=== PATIENT | male | born 1940 | race Caucasian/White ===

== ENCOUNTER → 2016-11-25 | Outpatient (CLI) | payer MEDICARE ==
[~2016-11-25] MED LIST: ENALAPRIL; MEPE50TA PO; MTH10T PO; SYNTHROID
[2016-11-25 08:54] LABS: BASOPHILS % (AUTO) 0 % (0-10); EOSINOPHILS # (AUTO) 0.1 10^3/uL (0.0-0.3); EOSINOPHILS % (AUTO) 1 % (0-10); LYMPHOCYTES # (AUTO) 3.2 X 10^3 (1.0-4.0); LYMPHOCYTES % (AUTO) 24 % (12-44); MEAN CORPUSCULAR HEMOGLOBIN 25 PG (25-34); MEAN CORPUSCULAR HGB CONC 31 G/DL (32-36); MEAN CORPUSCULAR VOLUME 81 FL (80-99); MONOCYTES # (AUTO) 0.8 X 10^3 (0.0-1.0); MONOCYTES % (AUTO) 6 % (0-12); NEUTROPHILS # (AUTO) 9.4 X 10^3 (1.8-7.8); NEUTROPHILS % (AUTO) 69 % (42-75); PATH WILL NEED TO REVIEW SMEAR PATH TO REVIEW; PLATELET COUNT 312 10^3/uL (130-400); RED BLOOD COUNT 4.81 10^6/uL (4.35-5.85); RED CELL DISTRIBUTION WIDTH 17.8 % (10.0-14.5); RETICULOCYTE % 1.41 % (0.50-2.40); WHITE BLOOD COUNT 13.5 10^3/uL (4.3-11.0)
[2016-11-25 09:24] LABS: ANISOCYTOSIS SLIGHT; ATYPICAL LYMPHOCYTES 1 %; BAND NEUTROPHILS 3 %; BASOPHILS % (MANUAL) 0 %; EOSINOPHILS % (MANUAL) 0 %; LYMPHOCYTES % (MANUAL) 29 %; NEUTROPHILS % (MANUAL) 63 %
[2016-11-25 09:25] LABS: MEAN PLATELET VOLUME 11.2 FL (7.4-10.4)
== END ==
LOC: LAB 08:37
PROVIDERS: ATTEND Nurse Practitioner Family
DX: D72.829 Elevated white blood cell count, unspecified (principal)
CPT/HCPCS: 36415; 85007; 85027; 85045

== ENCOUNTER 2017-01-03 13:53 | Emergency (ER) | payer MEDICARE ==
[~2017-01-03] VITALS: Ht 180.3 cm; Wt 90.7 kg
[2017-01-03] MEDS ORDERED: NS IV 1000 ML 1,000 ML IV SCH (14:45)
[2017-01-03] MEDS ORDERED: fentaNYL INJECTION 250 MCG/5 ML AMP IVP ONE (14:45)
[2017-01-03] MEDS ORDERED: ONDANSETRON 4 MG/2 ML (SDV) Z0FRAN IVP ONE (14:45)
[2017-01-03 14:51] LABS: BASOPHILS % (AUTO) 0 % (0-10); EOSINOPHILS # (AUTO) 0.1 10^3/uL (0.0-0.3); EOSINOPHILS % (AUTO) 1 % (0-10); LYMPHOCYTES # (AUTO) 2.7 X 10^3 (1.0-4.0); LYMPHOCYTES % (AUTO) 20 % (12-44); MEAN CORPUSCULAR HEMOGLOBIN 26 PG (25-34); MEAN CORPUSCULAR HGB CONC 31 G/DL (32-36); MEAN CORPUSCULAR VOLUME 82 FL (80-99); MEAN PLATELET VOLUME 11.6 FL (7.4-10.4); MONOCYTES # (AUTO) 0.7 X 10^3 (0.0-1.0); MONOCYTES % (AUTO) 6 % (0-12); NEUTROPHILS # (AUTO) 9.8 X 10^3 (1.8-7.8); NEUTROPHILS % (AUTO) 74 % (42-75); PLATELET COUNT 334 10^3/uL (130-400); RED BLOOD COUNT 4.99 10^6/uL (4.35-5.85); RED CELL DISTRIBUTION WIDTH 16.4 % (10.0-14.5); WHITE BLOOD COUNT 13.3 10^3/uL (4.3-11.0)
[2017-01-03] MEDS ORDERED: fentaNYL INJECTION 100 MCG/2 ML AMP IVP PRN (15:00)
[2017-01-03] MEDS ORDERED: ANTACID SUSP 30 ML UDC (MYLANTA) PO ONE (15:00)
[2017-01-03] MEDS ORDERED: LIDOCAINE 2% VISCOUS 15 ML UDC PO ONE (15:00)
--- NOTE | 2017-01-03 15:00 | ED Abdominal Pain ---
General Chief Complaint: Abdominal/GI Problems Stated Complaint: VOMITING/SHAKINESS Nursing Triage Note: ONSET OF ABD PAIN AND VOMITING AFTER EATING LUNCH. FAMILY REPORT HE WAS SHAKING WHEN ONSET. Sepsis Screen: No Definite Risk Source of Information: Patient, Family History of Present Illness Time Seen By Provider: 14:56 Initial Comments 76-year-old male presents with a history of severe epigastric pain after eating fruit shortly prior to presentation to the emergency department. The patient had forceful retching that lasted 15 minutes. He has subsequently developed severe epigastric pain. The patient has had no similar episode in the past. The patient was treated at home with 2 Benadryl orally. There is been no significant improvement in his epigastric pain which radiates into his neck. Past medical history includes fibromyalgia for which the patient is on methadone maintenance. The patient's pain is severe in nature sharp, and radiates from the epigastric area into his throat. There is no significant associated shortness of breath, pressure-type chest pain , fever or chill. Allergies and Home Medications Allergies Coded Allergies: No Known Drug Allergies (Unverified , 02/20/12) Home Medications Methadone Hcl 10 Mg Tab, 1 TAB PO BID, #20 (Reported) Review of Systems Constitutional: No chills, No fever EENTM: No Blurred Vision Cardiovascular: Denies Chest Pain Gastrointestinal: Abdominal Pain, Denies Constipated, Nausea, Vomiting Genitourinary: Denies Burning, Denies Frequency Musculoskeletal: No back pain Skin: No change in color, No rash Psychiatric/Neurological: No Symptoms Reported Endocrine: No Symptoms Reported Hematologic/Lymphatic: No Symptoms Reported Past Gpxmiit-Vuycdg-Tlfjum Hx Patient Social History Alcohol Use: Denies Use Recreational Drug Use: No Recent Foreign Travel: No Contact w/Someone Who Travel: No Recent Infectious Disease Expo: No Musculoskeletal Musculoskeletal Disorders: Fibromyalgia Reviewed Nursing Assessment Reviewed/Agree w Nursing PMH: Yes Physical Exam Vital Signs VS - Last 72 Hours, by Label 01/03/17 13:57 Temp 97.6 Pulse 85 Resp 18 B/P (MAP) 179/99 Capillary Refill : Less Than 3 Seconds General Appearance: WD/WN, moderate distress HEENT: normal ENT inspection Neck: normal inspection Respiratory: lungs clear, normal breath sounds, no respiratory distress Cardiovascular: regular rate, rhythm, systolic murmur (3/6 systolic murmur heard at the apex radiating to the right second intercostal space suggestive of aortic stenosis.) Gastrointestinal: abnormal bowel sounds, guarding, rebound (hypoactive bowel sounds glass will rebound in the epigastric area) Extremities: normal range of motion, non-tender Back: normal inspection Neurologic/Psychiatric: no motor/sensory deficits, alert, normal mood/affect Skin: normal color, warm/dry Progress/Results/Core Measures Results/Orders Lab Results Laboratory Tests Test 01/03/17 14:15 Range/Units White Blood Count 13.3 H 4.3-11.0 10^3/uL Red Blood Count 4.99 4.35-5.85 10^6/uL Hemoglobin 12.8 L 13.3-17.7 G/DL Hematocrit 41 40-54 % Mean Corpuscular Volume 82 80-99 FL Mean Corpuscular Hemoglobin 26 25-34 PG Mean Corpuscular Hemoglobin Concent 31 L 32-36 G/DL Red Cell Distribution Width 16.4 H 10.0-14.5 % Platelet Count 334 130-400 10^3/uL Mean Platelet Volume 11.6 H 7.4-10.4 FL Neutrophils (%) (Auto) 74 42-75 % Lymphocytes (%) (Auto) 20 12-44 % Monocytes (%) (Auto) 6 0-12 % Eosinophils (%) (Auto) 1 0-10 % Basophils (%) (Auto) 0 0-10 % Neutrophils # (Auto) 9.8 H 1.8-7.8 X 10^3 Lymphocytes # (Auto) 2.7 1.0-4.0 X 10^3 Monocytes # (Auto) 0.7 0.0-1.0 X 10^3 Eosinophils # (Auto) 0.1 0.0-0.3 10^3/uL Basophils # (Auto) 0.0 0.0-0.1 10^3/uL Sodium Level 140 135-145 MMOL/L Potassium Level 4.0 3.6-5.0 MMOL/L Chloride Level 104 98-107 MMOL/L Carbon Dioxide Level 22 21-32 MMOL/L Anion Gap 14 5-14 MMOL/L Blood Urea Nitrogen 16 7-18 MG/DL Creatinine 1.14 0.60-1.30 MG/DL Estimat Glomerular Filtration Rate > 60 BUN/Creatinine Ratio 14 0-20 Glucose Level 216 H 70-105 MG/DL Calcium Level 10.0 8.5-10.1 MG/DL Total Bilirubin 0.5 0.1-1.0 MG/DL Aspartate Amino Transf (AST/SGOT) 12 5-34 U/L Alanine Aminotransferase (ALT/SGPT) 8 0-55 U/L Alkaline Phosphatase 70 40-136 U/L Troponin I < 0.30 <0.30 NG/ML Total Protein 7.3 6.4-8.2 GM/DL Albumin 4.2 3.2-4.5 GM/DL Lipase 16 8-78 U/L My Orders Orders - SALVATORE GRAHAM MD Ns Iv 1000 Ml (Sodium Chloride 0.9%) (01/03/17 14:45) Ondansetron Injection (Zofran Injectio (01/03/17 14:45) Cbc With Automated Diff (01/03/17 14:44) Comprehensive Metabolic Panel (01/03/17 14:44) Lipase (01/03/17 14:44) Ekg Tracing (01/03/17 14:44) Troponin I (01/03/17 14:44) Ct Abdomen/Pelvis W (01/03/17 14:44) Fentanyl Injection (Sublimaze Injection (01/03/17 15:00) Lidocaine 2% Viscous 15 Ml (Xylocaine Vi (01/03/17 15:00) Antacid Suspension (Mylanta Suspension (01/03/17 15:00) Iohexol Injection (Omnipaque 350 Mg/Ml 1 (01/03/17 15:45) Ns (Ivpb) (Sodium Chloride 0.9% Ivpb Bag (01/03/17 15:45) Hydromorphone Injection (Dilaudid Inject (01/03/17 17:00) Prochlorperazine Injection (Compazine In (01/03/17 17:00) Diphenhydramine Injection (Benadryl Inje (01/03/17 17:00) Medications Given in ED Current Medications Medications Dose Ordered Sig/Walker Route Start Time Stop Time Status Last Admin Dose Admin Al Hydrox/Mg Hydrox/Simethicone 30 ml ONCE ONCE PO 01/03/17 15:00 01/03/17 15:02 DC 01/03/17 15:12 30 ML Diphenhydramine HCl 25 mg ONCE ONCE IM 01/03/17 17:00 01/03/17 17:01 DC 01/03/17 17:05 25 MG Fentanyl Citrate 100 mcg Q1H PRN IVP 01/03/17 15:00 01/03/17 14:56 100 MCG Hydromorphone HCl 1 mg ONCE ONCE IVP 01/03/17 17:00 01/03/17 17:01 DC 01/03/17 17:04 1 MG Iohexol 100 ml ONCE ONCE IV 01/03/17 15:45 01/03/17 15:46 DC 01/03/17 15:48 100 ML Lidocaine HCl 5 ml ONCE ONCE PO 01/03/17 15:00 01/03/17 15:02 DC 01/03/17 15:09 5 ML Ondansetron HCl 4 mg ONCE ONCE IVP 01/03/17 14:45 01/03/17 14:47 DC 01/03/17 14:55 4 MG Prochlorperazine Edisylate 10 mg ONCE ONCE IV 01/03/17 17:00 01/03/17 17:01 DC 01/03/17 17:00 10 MG Sodium Chloride 100 ml ONCE ONCE IV 01/03/17 15:45 01/03/17 15:46 DC 01/03/17 15:48 80 ML Vital Signs/I&O Vital Sign - Last 12Hours 01/03/17 13:57 Temp 97.6 Pulse 85 Resp 18 B/P (MAP) 179/99 Blood Pressure Mean: 125 Progress Note : Time: 16:59 Progress Note The patient was treated with IV Zofran and fentanyl. He was given a GI cocktail. Patient's pain seemed to improve. CT of the patient's abdomen and pelvis films reveal evidence of acute pathology. Patient's laboratory evaluation including CBC complete metabolic panel and lipase were all unremarkable. 5:00 pm I reevaluated the patient. Although he appeared to be resting quietly he stated that he still had significant pain. The patient had taken his methadone tablets from home in the emergency department. Patient was given a milligram of Dilaudid, 10 of Compazine, and 25 mg of Benadryl IV. 530 p.m. The patient's abdominal pain clearly abated. He was sleeping quietly in the emergency department. He has had no further vomiting since arrival in the emergency department. I discussed the findings with the patient and his family. I invited them to return to the emergency department if any further abdominal pain. I gave the patient a prescription for ODT 4 mg Zofran 12 tablets at discharge. I asked patient follow up with his primary care physician on Thursday for further evaluation. Departure Impression Impression: Primary Impression: Vomiting Qualified Codes: R11.2 - Nausea with vomiting, unspecified Additional Impression: Gastritis Qualified Codes: K29.00 - Acute gastritis without bleeding Disposition: HOME, SELF-CARE Condition: Improved Departure-Patient Inst. Decision time for Depature: 17:29 Referrals: ROLF BRISENO MD (PCP/Family) Primary Care Physician Add. Discharge Instructions: Zofran for nausea if it recurs. Continue with your medications at home as prescribed. Close follow-up with Dr. Briseno on Thursday. Return if any problems or questions over the weekend. All discharge instructions reviewed with patient and/or family. Voiced understanding. SALVATORE GRAHAM MD Jan 03, 2017 15:00
[2017-01-03 15:05] LABS: ALANINE AMINOTRANSFERASE 8 U/L (0-55); ALBUMIN 4.2 GM/DL (3.2-4.5); ANION GAP 14 MMOL/L (5-14); ASPARTATE AMINO TRANSFERASE 12 U/L (5-34); BILIRUBIN,TOTAL 0.5 MG/DL (0.1-1.0); BLOOD UREA NITROGEN 16 MG/DL (7-18); BUN/CREATININE RATIO 14 (0-20); CARBON DIOXIDE 22 MMOL/L (21-32); CHLORIDE 104 MMOL/L (98-107); CREATININE SERUM 1.14 MG/DL (0.60-1.30); GFR ESTIMATED > 60; GLUCOSE 216 MG/DL (70-105); HEMOLYSIS 6 (-100-29); ICTERUS 0.4 (-100-1.9); LIPASE 16 U/L (8-78); LIPEMIA 7 (-100-49); SODIUM 140 MMOL/L (135-145); TOTAL PROTEIN 7.3 GM/DL (6.4-8.2)
[2017-01-03 15:11] LABS: TROPONIN I < 0.30 NG/ML (<0.30)
[2017-01-03] MEDS ORDERED: IOHEXOL 350 MG/ML 100 ML (OMNIPAQUE 350) VIAL IV ONE (15:45)
[2017-01-03] MEDS ORDERED: NS 100 ML (IVPB) BAG IV ONE (15:45)
--- NOTE | 2017-01-03 16:34 | Diagnostic Imaging Report ---
PROCEDURE: CT abdomen and pelvis with contrast. TECHNIQUE: Multiple contiguous axial images were obtained through the abdomen and pelvis after administration of intravenous contrast. INDICATION: Abdominal pain, weakness. COMPARISON: None. FINDINGS: Lung bases are clear. There is some fatty alteration of the liver. The gallbladder, spleen, pancreas, adrenal glands, kidneys and vascular structures are unremarkable. There are a few nonobstructive stones in both kidneys, with right kidney upper pole stone measuring 3-5 mm. There is no inflammation. The appendix is normal. Course and caliber of the large and small bowel are unremarkable. There are a few diverticuli of the sigmoid colon without diverticulitis. Distal ureters and urinary bladder are normal. Osseous structures are age-appropriate. IMPRESSION: 1. No acute abnormalities within the abdomen or pelvis. 2. Diverticulosis of the sigmoid colon without diverticulitis. 3. Normal appendix. 4. Nonobstructive bilateral renal calculi. Dictated by: Dictated on workstation # [id number]
[2017-01-03] MEDS ORDERED: HYDROmorphone (DILAUDID) 2 MG/ML VIAL IVP ONE (17:00)
[2017-01-03] MEDS ORDERED: PROCHLORPERAZINE 10 MG/2ML INJ (COMPAZINE) IV ONE (17:00)
[2017-01-03] MEDS ORDERED: diphenhydrAMINE 50 MG/ML INJ (BENADRYL) IM ONE (17:00)
[2017-01-03 17:35] VITALS: BP 147/81
== END 2017-01-03 17:38 | disposition home or self-care (01) ==
LOC: EDUNIT# 13:53 → ER 13:54
DX: K29.70 Gastritis, unspecified, without bleeding (principal)
CPT/HCPCS: 36415; 74177; 80053; 83690; 84484; 85025; 93005

== ENCOUNTER → 2017-09-28 | Outpatient (CLI) | payer MEDICARE ==
--- NOTE | 2017-09-28 08:50 | Diagnostic Imaging Report ---
PROCEDURE: US Gallbladder. TECHNIQUE: Multiple real-time grayscale images were obtained over the right upper quadrant in various projections. INDICATION: Gallstones COMPARISON: None FINDINGS: There is diffuse hepatic steatosis. No focal hepatic mass is seen. There is no biliary dilatation. The common bile duct, however, is not well demonstrated. There are multiple gallstones in the gallbladder. There is also some ring down artifact from the gallbladder wall likely related to adenomyomatosis. There is no gallbladder wall thickening or a pericholecystic fluid. No sonographic Casanova sign. The pancreas is not well seen. The right kidney measures 11.1 cm in length. There is a small right renal cyst. There is no obstructive change. There is no ascites. IMPRESSION: 1. Cholelithiasis and adenomyomatosis without evidence of cholecystitis. 2. Small right renal cyst 3. Diffuse hepatic steatosis. 4. No additional abnormality is seen. Limited visualization of the common bile duct and the pancreas. Dictated by: Dictated on workstation # [id number]
== END ==
LOC: RAD 07:28
PROVIDERS: ATTEND Surgery
DX: K80.20 Calculus of gallbladder without cholecystitis without obstruction (principal); K82.8 Other specified diseases of gallbladder; N28.1 Cyst of kidney, acquired; K76.0 Fatty (change of) liver, not elsewhere classified
CPT/HCPCS: 76705

== ENCOUNTER → 2017-10-05 | Outpatient (CLI) | payer MEDICARE ==
[~2017-10-05] MED LIST changes: +CATHETER FLUSH 10 ML SYR IV PRN; +REGADENOSON 0.4 MG/5 ML SYR (LEXISCAN) IV ONE
[2017-10-05 09:50] VITALS: BP 152/99
--- NOTE | 2017-10-05 18:49 | STRESS TEST ---
DATE OF SERVICE: 10/05/2017 LEXISCAN MYOVIEW STRESS TEST REPORT REFERRING PHYSICIAN: Dr. Briseno. Baseline heart rate is 73, baseline blood pressure 166/93. Baseline EKG is sinus rhythm with no ischemic changes. In summary, the patient received 10.79 mCi of technetium-99 Myoview and the resting images were obtained. Then, the patient received 0.4 mg of Lexiscan followed by 31.5 mCi of technetium-99 Myoview. Throughout the test, there were no EKG changes. The resting and stress images were reviewed and compared in the short axis, horizontal long axis, and vertical long axis views. Review of the images showed some motion artifact with no significant ischemia or infarction. SSS is 1. SDS 1. TID value 1.03. On the gated images, the left ventricle appeared to be in normal size with normal contractility. Calculated ejection fraction 59%. CONCLUSION: 1. The patient tolerated Lexiscan well. 2. Motion artifact with diaphragmatic attenuation with no significant ischemia or infarction on SPECT images. 3. Normal left ventricular size with normal contractility. Calculated ejection fraction 59%. Job ID: [id number] DocumentID: [id number] Dictated Date: 10/05/2017 16:26:51 Commercial Sales Consultant Date: 10/05/2017 18:48:22 Dictated By: NITIN VILLAREAL MD
== END ==
LOC: CARD 07:57
PROVIDERS: ATTEND Internal Medicine Cardiovascular Disease
DX: I35.1 Nonrheumatic aortic (valve) insufficiency (principal); I35.0 Nonrheumatic aortic (valve) stenosis; I11.9 Hypertensive heart disease without heart failure; I51.7 Cardiomegaly; Z72.0 Tobacco use
CPT/HCPCS: 78452; 93017

== ENCOUNTER 2017-10-16 05:37 | Outpatient (CLI) | payer MEDICARE ==
[~2017-10-16] VITALS: Ht 180.3 cm; Wt 90.7 kg
[~2017-10-16 05:37] MED LIST changes: -CATHETER FLUSH 10 ML SYR IV PRN; -REGADENOSON 0.4 MG/5 ML SYR (LEXISCAN) IV ONE
[2017-10-16] MEDS ORDERED: MULT-1056 PO (10:54)
[2017-10-16] MEDS ORDERED: METO-387 PO (10:54)
[2017-10-16] MEDS ORDERED: ENAL10TA PO (10:54)
[2017-10-16] MEDS ORDERED: ASPI-586 PO (10:54)
[2017-10-16] MEDS ORDERED: METH10TA2 PO (10:58)
== END 2017-10-16 11:56 ==
LOC: PREOP 05:37
PROVIDERS: ATTEND Surgery
DX: Z01.818 Encounter for other preprocedural examination (principal); K80.20 Calculus of gallbladder without cholecystitis without obstruction

== ENCOUNTER 2017-10-21 07:45 | Day surgery (SDC) | payer MEDICARE ==
[~2017-10-21] VITALS: Ht 180.3 cm; Wt 90.7 kg
[~2017-10-21 07:45] MED LIST changes: +ASPI-586 PO; +ENAL10TA PO; +METH10TA2 PO; +METO-387 PO; +MULT-1056 PO
[2017-10-21] MEDS ORDERED: LACTATED RINGERS 1,000 ML IV PRN (07:56)
[2017-10-21] MEDS ORDERED: metroNIDAZOLE 500MG/100ML IVPB 100 ML IV ONE (08:00)
[2017-10-21] MEDS ORDERED: ceFAZolin 2 GM IV Premixed 50 ML IV ONE (08:00)
[2017-10-21 08:27] LABS: BASOPHILS % (AUTO) 0 % (0-10); EOSINOPHILS # (AUTO) 0.2 10^3/uL (0.0-0.3); EOSINOPHILS % (AUTO) 1 % (0-10); HEMATOCRIT 42 % (40-54); HEMOGLOBIN 13.6 G/DL (13.3-17.7); LYMPHOCYTES # (AUTO) 3.6 X 10^3 (1.0-4.0); LYMPHOCYTES % (AUTO) 27 % (12-44); MEAN CORPUSCULAR HEMOGLOBIN 28 PG (25-34); MEAN CORPUSCULAR HGB CONC 33 G/DL (32-36); MEAN CORPUSCULAR VOLUME 86 FL (80-99); MEAN PLATELET VOLUME 11.5 FL (7.4-10.4); MONOCYTES # (AUTO) 1.1 X 10^3 (0.0-1.0); MONOCYTES % (AUTO) 8 % (0-12); NEUTROPHILS # (AUTO) 8.6 X 10^3 (1.8-7.8); NEUTROPHILS % (AUTO) 64 % (42-75); PLATELET COUNT 303 10^3/uL (130-400); RED CELL DISTRIBUTION WIDTH 15.5 % (10.0-14.5); WHITE BLOOD COUNT 13.5 10^3/uL (4.3-11.0)
[2017-10-21 08:33] VITALS: BP 167/82
--- NOTE | 2017-10-21 08:50 | Progress Note-Pre Operative ---
Pre-Operative Progress Note H&P Reviewed The H&P was reviewed, patient examined and no changes noted. Date Seen by Provider: Sep 24, 2017 Time Seen by Provider: 11:20 Date H&P Reviewed: Oct 21, 2017 Time H&P Reviewed: 08:50 Pre-Operative Diagnosis: Gallstones BLANK LLANOS MD Oct 21, 2017 8:50 am
[2017-10-21 08:51] LABS: ALANINE AMINOTRANSFERASE 10 U/L (0-55); ALBUMIN 4.3 GM/DL (3.2-4.5); ALKALINE PHOSPHATASE 67 U/L (40-136); BILIRUBIN,TOTAL 0.4 MG/DL (0.1-1.0); BUN/CREATININE RATIO 21; CARBON DIOXIDE 28 MMOL/L (21-32); CHLORIDE 106 MMOL/L (98-107); CREATININE SERUM 1.02 MG/DL (0.60-1.30); GFR ESTIMATED > 60; GLUCOSE 101 MG/DL (70-105); POTASSIUM 4.1 MMOL/L (3.6-5.0); SODIUM 141 MMOL/L (135-145)
[2017-10-21] MEDS ORDERED: LIDOCAINE PF 2% 5 ML (XYLOCAINE) VIAL ONE (08:53)
[2017-10-21] MEDS ORDERED: fentaNYL INJECTION 100 MCG/2 ML AMP ONE (08:53)
[2017-10-21] MEDS ORDERED: MIDAZOLAM 2 MG/2 ML (VERSED) VIAL ONE (08:53)
[2017-10-21] MEDS ORDERED: ONDANSETRON 4 MG/2 ML (SDV) Z0FRAN ONE (08:53)
[2017-10-21] MEDS ORDERED: proPOfol 200 MG/20 ML (DIPRIVAN) VIAL IV ONE (08:53)
[2017-10-21] MEDS ORDERED: ROCURONIUM 10 MG/ML 5 ML SYRINGE IV ONE (08:53)
[2017-10-21] MEDS ORDERED: DEXAMETHASONE 10 MG/ML (DECADRON) 1 ML VIAL ONE (08:53)
[2017-10-21] MEDS ORDERED: BUP/EPI 0.5% 1:200,000 (SENSORCAINE) 30 ML VIAL ONE (08:56)
[2017-10-21] MEDS ORDERED: SEVOFLURANE (ULTANE) 15 ML INHAL SOLN ONE ×5 (09:03→10:36)
[2017-10-21] MEDS ORDERED: NEOSTIGMINE 1 MG/ML 5 ML SYRINGE ONE (09:03)
[2017-10-21] MEDS ORDERED: GLYCOPYRROLATE 0.2 MG/ML (ROBINUL) 2 ML VIAL ONE (09:03)
[2017-10-21] MEDS: LACTATED RINGERS 1,000 ML IV PRN ×2 (10:07→13:34)
--- NOTE | 2017-10-21 11:02 | Operative Report ---
Operative Report Date of Procedure/Surgery Oct 21, 2017 Surgeon (s) BLANK LLANOS MD [employer] Member (s): n/a Post-Operative Diagnosis Same Procedure Performed Robotic assisted cholecystectomy Intra-operative cholangiogram Description of Procedure Anesthesia Type: General Estimated blood loss (mL): Minimal Specimen(s) collected/removed Gallbladder with stones Description of the Procedure Indication for the procedure: This gentleman was found to have multiple gallstones on an echocardiogram, subsequently confirmed by a formal ultrasound of the gallbladder. He was offered cholecystectomy with cholangiogram, using minimally invasive technique with robotic assistance. Informed consent was obtained after reviewing the operative details Description of procedure: He was placed supine on the operative table and general anesthesia induced. 2 g of Ancef and 500 mg of Flagyl were administered intravenously as prophylaxis against wound infection. Sequential compression devices were placed around his legs, to minimize the risk of venous thrombosis. Abdomen was prepared and draped in the usual sterile manner. Pneumoperitoneum was established using a Veress needle introduced over the supra-umbilical region. Intra-abdominal pressure was maintained at 15 mmHg using carbon dioxide insufflation. A 12 mm trocar was placed and anatomy visualized using the high definition, 3-dimensional laparoscope, associated with da Gaviota system. Under direct view, I placed an 8 mm trocar over each side of the abdomen, followed by a 5 mm trocar over the left subcostal region. The patient was then turned into reverse Trendelenburg position, with the right side tilted up. The robotic system was then docked in place. Gallbladder appeared to be packed with stones. The fundus was retracted cephalad and the infundibulum grasped with Cadiere forceps. Peritoneum overlying Calot"s triangle was incised using the hook cautery, delineating the cystic duct and the artery. The former was rather wide. Cholangiogram was obtained using taut catheter. It revealed normal anatomy with slight dilatation of the common bile duct. However, there was no stone within the duct and the contrast flowed freely into the duodenum. The catheter was then removed and the cystic duct controlled using locking clips. Cystic artery was managed in a similar fashion. Cholecystectomy was then completed using the hook cautery. Subhepatic space was irrigated with saline and the gallbladder placed in an Endo Catch bag, being removed via the supraumbilical trocar site. The fascia over this incision was closed using #1 Vicryl. Skin incisions were closed using 4-0 Vicryl, in a subcuticular fashion. 0.5 percent Marcaine with epinephrine was infiltrated along the incisions, both preemptively and at the conclusion of the operation. He tolerated the procedure well, was extubated in the operating room and taken to the recovery room in a stable condition. Findings of the Procedure See op report Allergies and Home Medications Allergies Coded Allergies: No Known Drug Allergies (Unverified , 02/20/12) Home Medications Aspirin 81 Mg Tablet.dr, 81 MG PO DAILY, (Reported) Enalapril Maleate 10 Mg Tablet, 10 MG PO DAILY, (Reported) Methadone HCl 10 Mg Tablet, 20 MG PO TID, (Reported) take 2 (10mg) tabs Metoprolol Succinate 25 Mg Tab.er.24h, 25 MG PO HS, (Reported) Multivit-Min/FA/Lycopen/Lutein 1 Each Tablet, 1 TAB PO DAILY, (Reported) Patient Home Medication List Home Medication List Reviewed: Yes BLANK LLANOS MD Oct 21, 2017 11:02 am
[2017-10-21] MEDS ORDERED: ACHD5005 PO (11:03)
--- NOTE | 2017-10-21 11:04 | Discharge Inst-Simple/Standard ---
Discharge Inst-Standard Discharge Medications New, Converted or Re-Newed RX: RX on Chart Patient Instructions/Follow Up Plan of Care/Instructions/FU: Band-Aids off in 48 hours. Incentive spirometry. Follow-up in 3 weeks. Activity as Tolerated: Yes Discharge Diet: No Restrictions BLANK LLANOS MD Oct 21, 2017 11:03 am
[2017-10-21] MEDS: HYDROmorphone (DILAUDID) 2 MG/ML VIAL IVP PRN ×4 (11:07→11:32)
[2017-10-21] MEDS ORDERED: HYDROmorphone (DILAUDID) 2 MG/ML VIAL ONE (11:07)
[2017-10-21] MEDS ORDERED: morphine INJ 10 MG/ML 1ML (SYR OR VIAL) ONE (11:08)
[2017-10-21] MEDS ORDERED: ONDANSETRON 4 MG/2 ML (SDV) Z0FRAN IVP PRN (11:15)
[2017-10-21] MEDS: morphine INJ 10 MG/ML 1ML (SYR OR VIAL) IVP PRN ×2 (11:16→11:30)
[2017-10-21 12:00] VITALS: BP 172/73
--- NOTE | 2017-10-21 12:07 | Diagnostic Imaging Report ---
Procedure: Fluoroscopy. Indication: Abdominal pain. 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 25.6 seconds of fluoroscopy time was utilized. Four spot films of the right upper quadrant were received from the OR. There are laparoscopic devices in place. The common bile duct has been opacified via a cystic duct catheter., The common bile duct is slightly dilated but there is no defect to suggest retained calculus. Contrast is seen extending into the small bowel. There is extravasation of contrast into the gallbladder fossa. Impression: 1. Fluoroscopic assistance was provided for Dr. Langston. 2. There is no defect within the common bile duct to suggest retained calculus. Dictated by: Dictated on workstation # [id number]
[2017-10-21] MEDS ORDERED: HYDROcodone/APAP 5 MG/325 MG (LORTAB) TAB PO ONE (12:15)
[2017-10-21 12:30] VITALS: BP 158/80
[2017-10-21 13:00] VITALS: BP 156/80
[2017-10-21] MEDS ORDERED: KETOROLAC 30 MG/ML VIAL ONE (13:28)
[2017-10-21] MEDS ORDERED: KETOROLAC 15 MG/ML VIAL IVP ONE (13:30)
[2017-10-21 14:22] VITALS: BP 156/80
--- NOTE | 2017-10-21 15:01 | Anesthesia-General Post-Op ---
General Patient Condition Mental Status/LOC: Same as Preop Cardiovascular: Satisfactory Nausea/Vomiting: Absent Respiratory: Satisfactory Pain: Controlled Complications: Absent Post Op Complications Complications None Follow Up Care/Instructions Patient Instructions None needed. Anesthesia/Patient Condition Patient Condition Patient is doing well, no complaints, stable vital signs, no apparent adverse anesthesia problems. No complications reported per nursing. ANDREA YEH CRNA Oct 21, 2017 15:01
== END 2017-10-21 14:24 | disposition home or self-care (01) ==
LOC: SDC 07:45
PROVIDERS: ATTEND Surgery
DX: K80.20 Calculus of gallbladder without cholecystitis without obstruction (principal); Z11.2 Encounter for screening for other bacterial diseases; F17.200 Nicotine dependence, unspecified, uncomplicated; Z79.82 Long term (current) use of aspirin; Z79.899 Other long term (current) drug therapy
CPT/HCPCS: 36415; 80053; 85025; 87081

== ENCOUNTER → 2018-03-24 | Outpatient (CLI) | payer MEDICARE ==
[~2018-03-24] MED LIST changes: +ACHD5005 PO; +ASPI-808 PO; +METR500T21 PO; +PANT40TA3 PO
== END ==
LOC: CARD 08:24
PROVIDERS: ATTEND Internal Medicine Cardiovascular Disease
DX: I08.3 Combined rheumatic disorders of mitral, aortic and tricuspid valves (principal); I51.7 Cardiomegaly; Z72.0 Tobacco use
CPT/HCPCS: 93306

== ENCOUNTER 2018-07-11 21:02 | Day surgery (SDC) | payer MEDICARE ==
[~2018-07-11] VITALS: Ht 180.3 cm; Wt 97.3 kg
[~2018-07-11 21:02] MED LIST changes: +METR-197 PO; -METR500T21 PO
[2018-07-11] MEDS ORDERED: NITROGLYCERIN 0.4 MG SL TABS BTL 25'S SL ONE (21:11)
[2018-07-11] MEDS ORDERED: ASPIRIN 81 MG CHEW (CHILDREN'S ASA) ONE (21:11)
[2018-07-11] MEDS ORDERED: NITROGLYCERIN 0.4 MG SL TABS BTL 25'S SL PRN (21:15)
[2018-07-11] MEDS ORDERED: ASPIRIN 81 MG CHEW (CHILDREN'S ASA) PO ONE (21:15)
--- NOTE | 2018-07-11 21:20 | ED Chest Pain ---
General Stated Complaint: CP Source: patient Exam Limitations: no limitations History of Present Illness Date Seen by Provider: Jul 11, 2018 Time Seen by Provider: 21:06 Initial Comments Patient presents to ER by private conveyance with chief complaint of 30 minutes prior to arrival having some chest pain in the center of his chest radiating to the left chest, left neck and all over his left shoulder but not through to the back. The pain is constant 5 out of 10 right now not worse with exertion. There is no shortness of breath nausea sweats chills fever or cough. He has no history of COPD or asthma or coronary disease that he knows of. He doesn't history of high blood pressure and when he checked it at home it was 200/100. He denies hypothyroidism, diabetes, hypercholesterolemia, pancreatitis or belly pain. Bowels bladder working normally. He has a history of systolic murmur that was worked up years ago by Dr. Walsh and is secondary to rheumatic fever when he was in his 20s. Allergies and Home Medications Allergies Coded Allergies: peanut (Verified Allergy, Unknown, 03/12/18) strawberry (Verified Allergy, Unknown, 03/12/18) Home Medications Enalapril Maleate 10 Mg Tablet, 10 MG PO DAILY, (Reported) Methadone HCl 10 Mg Tablet, 20 MG PO TID, (Reported) LAST FILLED #180 01-26-18 TAKES 2 (10MG) TABLETS Metoprolol Succinate 25 Mg Tab.er.24h, 25 MG PO HS, (Reported) LAST FILLED #90 10-01-17 Metronidazole 500 Mg Tablet, 500 MG PO TID Prescribed by: ROLF ALFARO on 03/17/181825 Pantoprazole Sodium 40 Mg Tablet.dr, 40 MG PO DAILY Prescribed by: ROLF ALFARO on 03/17/181825 Patient Home Medication List Home Medication List Reviewed: Yes Review of Systems Review of Systems Constitutional: No chills, No diaphoresis EENTM: No Blurred Vision, No Double Vision Respiratory: Denies Cough, Denies Shortness of Air, Denies SOA With Exertion, Denies SOA at Rest Cardiovascular: See HPI, Chest Pain; Denies Edema, Denies Lightheadedness, Denies Palpitations, Denies Syncope Gastrointestinal: Denies Abdominal Pain, Denies Blood Streaked Stools, Denies Constipated, Denies Diarrhea, Denies Nausea Genitourinary: Denies Burning, Denies Discharge Musculoskeletal: No back pain, No joint pain Skin: No pruritus, No rash Psychiatric/Neurological: Denies Headache, Denies Numbness Past Novhydy-Olhirm-Tfwfed Hx Patient Social History Alcohol Use: Denies Use Recreational Drug Use: No Smoking Status: Current Someday Smoker Type Used: Cigarettes (one pack per week) 2nd Hand Smoke Exposure: Yes Recent Hopitalizations: No Immunizations Up To Date Tetanus Booster (TDap): Unknown Date of Pneumonia Vaccine: Oct 16, 2014 Seasonal Allergies Seasonal Allergies: Yes Past Medical History Surgeries: Yes (r ing hernia, ) Gallbladder Respiratory: Yes Sleep Apnea Currently Using CPAP: No Cardiac: Yes (leaky valve) Heart Murmur, Hypertension Neurological: No Genitourinary: No Gastrointestinal: Yes Gall Bladder Disease Musculoskeletal: Yes Arthritis, Fibromyalgia Endocrine: No HEENT: No Cancer: No Psychosocial: No Integumentary: No Blood Disorders: No Adverse Reaction/Blood Tranf: No Family Medical History Hypertension Physical Exam Vital Signs Vital Signs - First Documented 07/11/18 21:04 Temp 97.8 Pulse 86 Resp 13 B/P (MAP) 185/101 (129) Pulse Ox 100 Capillary Refill : Height, Weight, BMI Height: 5'11.00" Weight: 215lbs. 0.0oz. 97.899202aa; 30.0 BMI Method:Stated General Appearance: No Apparent Distress, WD/WN HEENT: PERRL/EOMI, Normal ENT Inspection, Pharynx Normal, Moist Mucous Membranes Neck: Full Range of Motion, Normal Inspection, Supple Respiratory: Chest Non Tender, Lungs Clear, Normal Breath Sounds, No Accessory Muscle Use, No Respiratory Distress Cardiovascular: Regular Rate, Rhythm, No Edema, Normal Peripheral Pulses Gastrointestinal: Normal Bowel Sounds, Soft, Tenderness (mild, diffuse, baseline) Extremity: Normal Capillary Refill, Normal Inspection, Non Tender, No Pedal Edema Neurologic/Psychiatric: Alert, Oriented x3 Skin: Normal Color, Warm/Dry Progress/Results/Core Measures Results/Orders Lab Results Laboratory Tests Test 07/11/18 21:10 Range/Units White Blood Count 12.9 H 4.3-11.0 10^3/uL Red Blood Count 4.89 4.35-5.85 10^6/uL Hemoglobin 12.6 L 13.3-17.7 G/DL Hematocrit 40 40-54 % Mean Corpuscular Volume 82 80-99 FL Mean Corpuscular Hemoglobin 26 25-34 PG Mean Corpuscular Hemoglobin Concent 32 32-36 G/DL Red Cell Distribution Width 16.2 H 10.0-14.5 % Platelet Count 271 130-400 10^3/uL Mean Platelet Volume 11.8 H 7.4-10.4 FL Neutrophils (%) (Auto) 57 42-75 % Lymphocytes (%) (Auto) 29 12-44 % Monocytes (%) (Auto) 8 0-12 % Eosinophils (%) (Auto) 6 0-10 % Basophils (%) (Auto) 0 0-10 % Neutrophils # (Auto) 7.4 1.8-7.8 X 10^3 Lymphocytes # (Auto) 3.7 1.0-4.0 X 10^3 Monocytes # (Auto) 1.0 0.0-1.0 X 10^3 Eosinophils # (Auto) 0.8 H 0.0-0.3 10^3/uL Basophils # (Auto) 0.1 0.0-0.1 10^3/uL Prothrombin Time 12.5 12.2-14.7 SEC INR Comment 0.9 0.8-1.4 Activated Partial Thromboplast Time 29 24-35 SEC Sodium Level 139 135-145 MMOL/L Potassium Level 4.4 3.6-5.0 MMOL/L Chloride Level 105 98-107 MMOL/L Carbon Dioxide Level 21 21-32 MMOL/L Anion Gap 13 5-14 MMOL/L Blood Urea Nitrogen 21 H 7-18 MG/DL Creatinine 1.47 H 0.60-1.30 MG/DL Estimat Glomerular Filtration Rate 47 BUN/Creatinine Ratio 14 Glucose Level 142 H 70-105 MG/DL Calcium Level 9.9 8.5-10.1 MG/DL Corrected Calcium 9.5 8.5-10.1 MG/DL Magnesium Level 2.4 1.8-2.4 MG/DL Total Bilirubin 0.4 0.1-1.0 MG/DL Aspartate Amino Transf (AST/SGOT) 20 5-34 U/L Alanine Aminotransferase (ALT/SGPT) 11 0-55 U/L Alkaline Phosphatase 82 40-136 U/L Myoglobin 49.6 10.0-92.0 NG/ML Troponin I < 0.30 <0.30 NG/ML B-Type Natriuretic Peptide 45.5 <100.0 PG/ML Total Protein 7.6 6.4-8.2 GM/DL Albumin 4.5 3.2-4.5 GM/DL Lipase 31 8-78 U/L My Orders Orders - JOSE DANIEL ABAD Cbc With Automated Diff (07/11/18 21:12) Magnesium (07/11/18 21:12) Chest 1 View, Ap/Pa Only (07/11/18 21:12) Ekg Tracing (07/11/18 21:12) Cardiac Profile 1 (07/11/18 21:12) Comprehensive Metabolic Panel (07/11/18 21:12) Myoglobin Serum (07/11/18 21:12) Protime With Inr (07/11/18 21:12) Partial Thromboplastin Time (07/11/18 21:12) O2 (07/11/18 21:12) Monitor-Rhythm Ecg Trace Only (07/11/18 21:12) Lipid Panel (07/12/18 06:00) Aspirin Chewable Tablet (Baby Aspirin Ch (07/11/18 21:15) Nitroglycerin 0.4 Mg Btl 25's (Nitrostat (07/11/18 21:15) Saline Lock/Iv-Start (07/11/18 21:12) Lipase (07/11/18 21:12) BNP (07/11/18 21:12) Nitroglycerin 0.4 Mg Btl 25's (Nitrostat (07/11/18 21:11) Aspirin Chewable Tablet (Baby Aspirin Ch (07/11/18 21:11) Ns Iv 1000 Ml (Sodium Chloride 0.9%) (07/11/18 21:57) Medications Given in ED Current Medications Medications Dose Ordered Sig/Walker Route Start Time Stop Time Status Last Admin Dose Admin Aspirin 81 mg STK-MED ONCE .ROUTE 07/11/18 21:11 07/11/18 21:15 DC 07/11/18 21:17 81 MG Nitroglycerin 0.4 mg UD PRN SL 07/11/18 21:15 07/11/18 21:17 0.4 MG Vital Signs/I&O 07/11/18 21:04 Temp 97.8 Pulse 86 Resp 13 B/P (MAP) 185/101 (129) Pulse Ox 100 Progress Progress Note #1: Time: 21:21 Progress Note Initial EKG unrevealing of acute pathology. There are some Q waves which may indicate an old inferior infarct. Ahead and trial some nitroglycerin. Plan to give him a single tablet of aspirin since he took 3 tablets of aspirin on his way into the ER. We will be happy to use morphine if necessary to control his pain. Single dose of nitroglycerin significantly improved pain. March [address] Walsh demonstrates increased wall thickness of the left ventricle with concentric hypertrophy and EF of 55-65%. No regional wall motion abdomen mildly's identified. Moderate stenosis and regurgitation of the aortic valve. Aortic root is not dilated. ED ACS 22 points. Not low risk. This patient is not a candidate for early discharge and should receive a standard chest pain evaluation with delayed troponin testing. Progress Note #2: Time: 22:05 Progress Note Creatinine is marginally elevated from last visit almost to the level of an acute kidney injury. We will put a liter fluids through IV while he is waiting for results. The patient thinks that his symptoms are musculoskeletal however they are not reproducible on direct manipulation or range of motion exercises. After the single dose of nitroglycerin his blood pressures came down from over 200 systolic to 146/83. Initial ECG Impression Date: Jul 11, 2018 Initial ECG Impression Time: 21:09 Initial ECG Rate: 86 Initial ECG Rhythm: Normal Sinus Initial ECG Intervals: Normal (224) Initial ECG Impression: Nonspecific Changes (from pathologic Q waves seen in leads 2, 3 and aVF), 1st Degree AV Block Initial ECG Comparisson: Changed Comment The Q waves are not new from February 2018 however the first-degree AV block is changed. There is no ST segment elevation or depression noted. Diagnostic Imaging Diagonstic Imaging: Xray Plain Films/CT/US/NM/MRI: chest (1v) Comments No acute cardiopulmonary processes noted on one view chest x-ray. NAME: LE LAINEZ [facility] REC#: [id number] PT STATUS: REG ER : 1940 PHYSICIAN: JOSE DANIEL ABAD MD ADMIT DATE: 07/11/18/ER Draft Date of Exam:07/11/18 CHEST 1 VIEW, AP/PA ONLY INDICATION: Chest pain COMPARISON: None available TECHNIQUE: Single frontal radiograph of the chest dated 07/11/2018. FINDINGS: The cardiac silhouette is at the upper limits of normal in size. No significant pulmonary vascular congestion. The lungs are clear of focal pulmonary opacity. No pleural effusion. No pneumothorax. No acute osseous abnormality. IMPRESSION: No acute cardiopulmonary abnormality. Dictated on workstation # [id number] Dict: 07/11/182130 Trans: 07/11/182133 [facility] [id number] Interpreted by: BHAVIN SANTIAGO MD Electronically signed by: Reviewed: Reviewed by Me Departure Communication (Admissions) Time/Spoke to Admitting Phy: 22:30 Discussed case lab imaging findings with Dr. Lane she agrees to observe the patient. Time/Spoke to Consulting Phy: 22:20 Discussed the case with cardiology, Dr. Walsh and he recommends we observe the patient, serial troponins and nothing by mouth at midnight. Impression Primary Impression: Chest pain Qualified Codes: R07.9 - Chest pain, unspecified Disposition: ADMITTED INPATIENT Condition: Stable Admissions Decision to Admit Reason: Admit from ER (General) Decision to Admit/Date: Jul 11, 2018 Time/Decision to Admit Time: 22:37 Departure-Patient Inst. Referrals: ROLF ALFARO MD (PCP/Family) Primary Care Physician JOSE DANIEL ABAD Jul 11, 2018 21:20
[2018-07-11 21:25] LABS: BASOPHILS # (AUTO) 0.1 10^3/uL (0.0-0.1); BASOPHILS % (AUTO) 0 % (0-10); EOSINOPHILS # (AUTO) 0.8 10^3/uL (0.0-0.3); EOSINOPHILS % (AUTO) 6 % (0-10); HEMATOCRIT 40 % (40-54); HEMOGLOBIN 12.6 G/DL (13.3-17.7); LYMPHOCYTES # (AUTO) 3.7 X 10^3 (1.0-4.0); LYMPHOCYTES % (AUTO) 29 % (12-44); MEAN CORPUSCULAR HEMOGLOBIN 26 PG (25-34); MEAN CORPUSCULAR HGB CONC 32 G/DL (32-36); MEAN CORPUSCULAR VOLUME 82 FL (80-99); MEAN PLATELET VOLUME 11.8 FL (7.4-10.4); MONOCYTES % (AUTO) 8 % (0-12); NEUTROPHILS # (AUTO) 7.4 X 10^3 (1.8-7.8); NEUTROPHILS % (AUTO) 57 % (42-75); PLATELET COUNT 271 10^3/uL (130-400); RED BLOOD COUNT 4.89 10^6/uL (4.35-5.85); RED CELL DISTRIBUTION WIDTH 16.2 % (10.0-14.5); WHITE BLOOD COUNT 12.9 10^3/uL (4.3-11.0)
--- NOTE | 2018-07-11 21:34 | Diagnostic Imaging Report ---
INDICATION: Chest pain COMPARISON: None available TECHNIQUE: Single frontal radiograph of the chest dated 07/11/2018. FINDINGS: The cardiac silhouette is at the upper limits of normal in size. No significant pulmonary vascular congestion. The lungs are clear of focal pulmonary opacity. No pleural effusion. No pneumothorax. No acute osseous abnormality. IMPRESSION: No acute cardiopulmonary abnormality. Dictated by: Dictated on workstation # [id number]
[2018-07-11 21:39] LABS: INR 0.9 (0.8-1.4); PROTHROMBIN TIME PATIENT 12.5 SEC (12.2-14.7)
[2018-07-11 21:56] LABS: ALANINE AMINOTRANSFERASE 11 U/L (0-55); ALBUMIN 4.5 GM/DL (3.2-4.5); ALKALINE PHOSPHATASE 82 U/L (40-136); BILIRUBIN,TOTAL 0.4 MG/DL (0.1-1.0); BUN/CREATININE RATIO 14; CALCIUM 9.9 MG/DL (8.5-10.1); CARBON DIOXIDE 21 MMOL/L (21-32); CHLORIDE 105 MMOL/L (98-107); CREATININE SERUM 1.47 MG/DL (0.60-1.30); GFR ESTIMATED 47; GLUCOSE 142 MG/DL (70-105); LIPASE 31 U/L (8-78); MAGNESIUM 2.4 MG/DL (1.8-2.4); POTASSIUM 4.4 MMOL/L (3.6-5.0); SODIUM 139 MMOL/L (135-145); TOTAL PROTEIN 7.6 GM/DL (6.4-8.2)
[2018-07-11] MEDS ORDERED: NS IV 1000 ML 1,000 ML IV STA (21:57)
[2018-07-11 22:03] LABS: MYOGLOBIN SERUM 49.6 NG/ML (10.0-92.0)
--- OUTSIDE RECORDS SUMMARY | 2018-07-11 23:12 | XMS REPORT | CCD ---
Author Author Safia Briseno Organization Safia Briseno MD, [facility] Address [address] [place] [address] Phone Care Team Providers Care [employer] Name Role Phone PP Unavailable CCM Unavailable Summary Purpose Interface Exchange Insurance Providers Payer name Policy type / Coverage type Covered libertarian ID Effective Begin Date Effective End Date WPS Medicare Part B Medicare Part B [id number] Unknown Unknown [facility] Medicare Part B [id number] Unknown Unknown Family history Father Diagnosis Age At Onset Cancer Unknown lung cancer Unknown Heart Attack Unknown Mother Diagnosis Age At Onset Diabetes Unknown Stroke Unknown Social History Social History Element Codes Description Effective Dates Marital status Unknown Vidya 09/23/2016 Number of children Unknown 4 02/05/[address]: 582682042 Never smoker 02/05/2015 Alcohol history Unknown occasionally drinks alcohol 02/05/2015 Allergies, Adverse Reactions, Alerts Substance Reaction Codes Entered Date Inactivated Date Status * NO KNOWN DRUG ALLERGIES Unknown 01/01/2015 No Inactive Date Active Past Medical History Illness Codes Condition Status Onset Date Resolved Date Chronic pain syndrome ICD-9: 338.4 ICD-10: G89.4 Active 02/04/2015 Unknown Benign prostatic hyperplasia with lower urinary tract symptoms ICD-9: 600.01 ICD-10: N40.1 Active 09/23/2016 Unknown Encounter for follow-up examination after completed treatment for conditions other than malignant neoplasm ICD-9: V67.59 ICD-10: Z09 Active 03/24/2018 Unknown Essential (primary) hypertension ICD-9: 401.1 ICD-10: I10 Active 05/27/2016 Unknown Other seasonal allergic rhinitis ICD-9: 477.9 ICD-10: J30.2 Active 02/27/2016 Unknown Encounter for general adult medical examination with abnormal findings ICD-9: V70.0 ICD-10: Z00.01 Active 01/22/2017 Unknown Acute recurrent maxillary sinusitis ICD-9: 461.0 ICD-10: J01.01 Active 12/04/2017 Unknown Other allergic rhinitis ICD-9: 477.8 ICD-10: J30.89 Active 12/04/2017 Unknown Pain in right shoulder ICD-9: 719.41 ICD-10: M25.511 Active 09/05/2016 Unknown Cardiac murmur, unspecified ICD-9: 785.2 ICD-10: R01.1 Active 08/31/2017 Unknown Other fatigue ICD-9: 780.79 ICD-10: R53.83 Active 08/31/2017 Unknown Gastro-esophageal reflux disease without esophagitis ICD-9: 530.81 ICD-10: K21.9 Active 12/10/2015 Unknown Pain in thoracic spine ICD-9: 724.1 ICD-10: M54.6 Active 09/05/2016 Unknown Muscle spasm of back ICD-9: 724.8 ICD-10: M62.830 Active 09/05/2016 Unknown Myalgia ICD-9: 729.1 ICD-10: M79.1 Active 09/05/2016 Unknown Other muscle spasm ICD -9: 728.85 ICD-10: M62.838 Active 09/05/2016 Unknown Encounter for immunization ICD-9: V04.81 ICD-10: Z23 Active 04/28/2016 Unknown Essential (primary) hypertension ICD-9: 401.9 ICD-10: I10 Active 12/10/2015 Unknown Left upper quadrant pain ICD-9: 789.02 ICD-10: R10.12 Active 12/10/2015 Unknown 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 Active 06/10/2015 Unknown Hypertension Unknown Active 02/05/2015 Unknown CHRONIC PAIN SYNDROME ICD-9: 338.4 Active 02/04/2015 Unknown ESSENTIAL HYPERTENSION ICD-9: 401.9 Active 02/04/2015 Unknown Problems Condition Codes Effective Dates Condition Status Chronic pain syndrome ICD-9: 338.4 ICD-10: G89.4 02/04/2015 Active Benign prostatic hyperplasia with lower urinary tract symptoms ICD-9: 600.01 ICD-10: N40.1 09/23/2016 Active Encounter for follow-up examination after completed treatment for conditions other than malignant neoplasm ICD-9: V67.59 ICD-10: Z09 03/24/2018 Active Essential (primary) hypertension ICD-9: 401.1 ICD-10: I10 05/27/2016 Active Other seasonal allergic rhinitis ICD-9: 477.9 ICD-10: J30.2 02/27/2016 Active Encounter for general adult medical examination with abnormal findings ICD-9: V70.0 ICD-10: Z00.01 01/22/2017 Active Acute recurrent maxillary sinusitis ICD-9: 461.0 ICD-10: J01.01 12/04/2017 Active Other allergic rhinitis ICD-9: 477.8 ICD-10: J30.89 12/04/2017 Active Pain in right shoulder ICD-9: 719.41 ICD-10: M25.511 09/05/2016 Active Cardiac murmur, unspecified ICD-9: 785.2 ICD-10: R01.1 08/31/2017 Active Other fatigue ICD-9: 780.79 ICD-10: R53.83 08/31/2017 Active Gastro-esophageal reflux disease without esophagitis ICD-9: 530.81 ICD-10: K21.9 12/10/2015 Active Pain in thoracic spine ICD-9: 724.1 ICD-10: M54.6 09/05/2016 Active Muscle spasm of back ICD-9: 724.8 ICD-10: M62.830 09/05/2016 Active Myalgia ICD-9: 729.1 ICD-10: M79.1 09/05/2016 Active Other muscle spasm ICD -9: 728.85 ICD-10: M62.838 09/05/2016 Active Encounter for immunization ICD-9: V04.81 ICD-10: Z23 04/28/2016 Active Essential (primary) hypertension ICD-9: 401.9 ICD-10: I10 12/10/2015 Active Left upper quadrant pain ICD-9: 789.02 ICD-10: R10.12 12/10/2015 Active 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 06/10/2015 Active Hypertension Unknown 02/05/2015 Active CHRONIC PAIN SYNDROME ICD-9: 338.4 02/04/2015 Active ESSENTIAL HYPERTENSION ICD-9: 401.9 02/04/2015 Active Medications Medication Codes Instructions Start Date Stop Date Status Fill Instructions diclofenac sodium 50 mg tablet,delayed release RxNorm: 569635 1 Tablet(s) PO BID 06/15/2018 07/14/2018 Active Zorvolex 35 mg capsule RxNorm: 5009026 1 Capsule(s) PO TID as needed 06/15/2018 06/15/2018 Inactive diclofenac sodium 50 mg tablet,delayed release RxNorm: 263984 1 Tablet(s) PO BID 06/15/2018 06/14/2018 Inactive Zorvolex 35 mg capsule RxNorm: 6998148 1 Capsule(s) PO TID as needed 06/14/2018 06/14/2018 Inactive methadone 10 mg tablet RxNorm: 337912 2 Tablet(s) PO TID 201707/10/2018 Active Zorvolex 35 mg capsule RxNorm: 9518574 1 Capsule(s) PO TID as needed 06/11/2018 06/13/2018 Inactive enalapril maleate 10 mg tablet RxNorm: 483567 TAKE ONE TABLET BY MOUTH DAILY 06/01/2018 02/25/2019 Active methadone 10 mg tablet RxNorm: 341880 2 Tablet(s) PO TID 201706/10/2018 Inactive methadone 10 mg tablet RxNorm: 772517 2 Tablet(s) PO TID 201705/11/2018 Inactive methadone 10 mg tablet RxNorm: 192320 2 Tablet(s) PO TID 201704/06/2018 Inactive Flomax 0.4 mg capsule RxNorm: 787117 1 Capsule(s) PO QPM 201707/24/2018 Active Kenalog 40 mg/mL suspension for injection RxNorm: 4843437 1 Milliliter(s) Inj 12/04/2017 12/04/2017 Inactive methadone 10 mg tablet RxNorm: 935515 2 Tablet(s) PO TID 201701/02/2018 Inactive Keflex 500 mg capsule RxNorm: 068054 1 Capsule(s) PO TID 201712/10/2017 Inactive methadone 10 mg tablet RxNorm: 650310 2 Tablet(s) PO TID 201712/03/2017 Inactive cyclobenzaprine 5 mg tablet RxNorm: 246872 Tablet(s) TAKE ONE TO TWO TABLETS BY MOUTH THREE TIMES A DAY NEEDED 10/16/2017 10/20/2017 Inactive methadone 10 mg tablet RxNorm: 878446 2 Tablet(s) PO TID 201711/06/2017 Inactive methadone 10 mg tablet RxNorm: 484057 2 Tablet(s) PO TID 201709/25/2017 Inactive methadone 10 mg tablet RxNorm: 921477 2 Tablet(s) PO TID 201708/26/2017 Inactive methadone 10 mg tablet RxNorm: 764180 2 Tablet(s) PO TID 201607/14/2017 Inactive methadone 10 mg tablet RxNorm: 388339 2 Tablet(s) PO TID 201606/09/2017 Inactive methadone 10 mg tablet RxNorm: 321114 2 Tablet(s) PO TID 201605/08/2017 Inactive methadone 10 mg tablet RxNorm: 076288 2 Tablet(s) PO TID 201604/08/2017 Inactive methadone 10 mg tablet RxNorm: 329365 2 Tablet(s) PO TID 201603/10/2017 Inactive enalapril maleate 10 mg tablet RxNorm: 078556 TAKE ONE TABLET BY MOUTH DAILY 01/05/2017 07/03/2017 Inactive methadone 10 mg tablet RxNorm: 815537 2 Tablet(s) PO TID 201601/29/2017 Inactive cyclobenzaprine 5 mg tablet RxNorm: 334018 TAKE ONE TO TWO TABLETS BY MOUTH THREE TIMES A DAY NEEDED 11/27/20162016 Inactive Flomax 0.4 mg capsule RxNorm: 874411 1 Capsule(s) PO QPM 201611/21/2016 Inactive Kenalog 40 mg/mL suspension for injection RxNorm: 8141758 1 Milliliter(s) Inj 09/23/2016 09/23/2016 Inactive methadone 10 mg tablet RxNorm: 607480 2 Tablet(s) PO TID 201611/21/2016 Inactive Kenalog 40 mg/mL suspension for injection RxNorm: 6534899 1/2 Milliliter(s) Inj 09/05/2016 09/05/2016 Inactive cyclobenzaprine 5 mg tablet RxNorm: 862372 1-2 Tablet(s) PO TID as needed 09/05/2016 09/09/2016 Inactive methadone 10 mg tablet RxNorm: 175334 2 Tablet(s) PO TID 201608/27/2016 Inactive methadone 10 mg tablet RxNorm: 297603 2 Tablet(s) PO TID 201507/26/2016 Inactive amoxicillin 500 mg capsule RxNorm: 568197 4 Capsule(s) PO 1 hour before appt 05/16/2016 06/14/2017 Inactive methadone 10 mg tablet RxNorm: 140014 2 Tablet(s) PO TID 201505/27/2016 Inactive Kenalog 40 mg/mL suspension for injection RxNorm: 9437457 1 Milliliter(s) Inj 02/29/2016 02/29/2016 Inactive methadone 10 mg tablet RxNorm: 978856 2 Tablet(s) PO TID 201503/28/2016 Inactive methadone 10 mg tablet RxNorm: 158595 2 Tablet(s) PO TID 201511/23/2015 Inactive sumatriptan 50 mg tablet RxNorm: 543987 1 Tablet(s) PO daily as needed 09/25/2015 11/23/2015 Inactive sumatriptan 50 mg tablet RxNorm: 110854 1 Tablet(s) PO daily as needed 09/25/2015 09/24/2015 Inactive Kenalog 40 mg/mL suspension for injection RxNorm: 9996061 Milliliter(s) Inj 09/25/2015 09/25/2015 Inactive methadone 10 mg tablet RxNorm: 825498 2 Tablet(s) PO TID 201509/26/2015 Inactive methadone 10 mg tablet RxNorm: 686699 2 Tablet(s) PO TID 201508/27/2015 Inactive methadone 10 mg tablet RxNorm: 677023 2 Tablet(s) PO TID 201407/26/2015 Inactive methadone 10 mg tablet RxNorm: 337522 2 Tablet(s) PO TID 201406/26/2015 Inactive enalapril maleate 10 mg tablet RxNorm: 464463 1 Tablet(s) PO daily 05/04/2015 10/30/2015 Inactive enalapril maleate 10 mg tablet RxNorm: 420840 1 Tablet(s) PO daily 02/05/2015 05/03/2015 Inactive methadone 10 mg tablet RxNorm: 889845 2 Tablet(s) PO TID 201402/27/2015 Inactive methadone 10 mg tablet RxNorm: 323585 2 Tablet(s) PO TID 201401/28/2015 Inactive amoxicillin 500 mg capsule RxNorm: 087650 4 Capsule(s) PO 1 hour before appt No Start Date 05/15/2016 Inactive Medication Administered Medication Codes Instructions Start Date Status Kenalog 40 mg/mL suspension for injection RxNorm: 1895489 1Milliliter 12/04/2017 No longer Active Kenalog 40 mg/mL suspension for injection RxNorm: 9916120 1Milliliter 09/23/2016 No longer Active Kenalog 40 mg/mL suspension for injection RxNorm: 8807578 /2Milliliter 09/05/2016 No longer Active Kenalog 40 mg/mL suspension for injection RxNorm: 7197438 1Milliliter 02/29/2016 No longer Active Kenalog 40 mg/mL suspension for injection RxNorm: 1381683 Milliliter 09/25/2015 No longer Active Immunizations Vaccine Codes Date Status Influenza CVX: 141 04/29/2016 completed Influenza CVX: 141 06/11/2015 completed Pneumococcal CVX: 33 05/19/2005 completed Assessments Condition Codes Effective Dates Chronic pain syndrome ICD-10: G89.4 ICD-9: 338.4 06/11/2018 Encounter for follow-up examination after completed treatment for conditions other than malignant neoplasm ICD-10: Z09 ICD-9: V67.59 03/24/2018 Essential (primary) hypertension ICD-10: I10 ICD-9: 401.1 03/24/2018 Benign prostatic hyperplasia with lower urinary tract symptoms ICD-10: N40.1 ICD-9: 600.01 01/26/2018 Encounter for general adult medical examination with abnormal findings ICD-10: Z00.01 ICD-9: V70.0 01/26/2018 Other allergic rhinitis ICD-10: J30.89 ICD-9: 477.8 12/04/2017 Acute recurrent maxillary sinusitis ICD-10: J01.01 ICD-9: 461.0 12/04/2017 Pain in right shoulder ICD-10: M25.511 ICD-9: 719.41 10/16/2017 Cardiac murmur, unspecified ICD-10: R01.1 ICD-9: 785.2 08/31/2017 Other fatigue ICD-10: R53.83 ICD-9: 780.79 08/31/2017 Pain in thoracic spine ICD-10: M54.6 ICD-9: 724.1 10/23/2016 Other seasonal allergic rhinitis ICD-10: J30.2 ICD-9: 477.9 09/23/2016 Other muscle spasm ICD-10: M62.838 ICD-9: 728.85 09/05/2016 Myalgia ICD-10: M79.1 ICD-9: 729.1 09/05/2016 Muscle spasm of back ICD-10: M62.830 ICD-9: 724.8 09/05/2016 Encounter for immunization ICD-10: Z23 ICD-9: V04.81 04/29/2016 Essential (primary) hypertension ICD-10: I10 ICD-9: 401.9 12/11/2015 Gastro-esophageal reflux disease without esophagitis ICD-10 : K21.9 ICD-9: 530.81 12/11/2015 Left upper quadrant pain ICD-10: R10.12 ICD-9: 789.02 12/11/2015 Rheumatic aortic stenosis ICD-10: I06.0 ICD-9: 395.0 06/11/2015 CHRONIC PAIN SYNDROME ICD-9: 338.4 2014 ESSENTIAL HYPERTENSION ICD-9: 401.9 02/05 Reason For Visit Reason For Visit Effective Dates Notes joint complaint 06/11/2018 Hospital Follow Up 03/24/2018 Annual Medicare Wellness Exam 01/26/2018 sore throat 12/04/2017 shoulder pain 10/16/2017 palpitations 08/31/2017 Annual Medicare Wellness Exam 01/22/2017 hypertension 10/23/2016 hypertension 09/23/2016 shoulder pain 09/05/2016 hypertension 05/28/2016 vaccination against influenza 04/29/2016 blood pressure followup 12/11/2015 blood pressure followup 06/11/2015 blood pressure followup 02/05/2015 Results Observation Observation Code Item Item Code Result Date Total Psa Ord10 PSA 0.57 ng/mL 01/26/2018 Cbc With Differential Ord2 WBC 9.67 K/ul 08/31/2017 Cbc With Differential Ord2 RBC 5.03 M/ul 08/31/2017 Cbc With Differential Ord2 HGB 13.4 g/dl 08/31/2017 Cbc With Differential Ord2 Neut% 57.5 % 08/31/2017 Cbc With Differential Ord2 HCT 43.3 % 08/31/2017 Cbc With Differential Ord2 MCV 86.1 fl 08/31/2017 Cbc With Differential Ord2 Lymph% 32.8 % 08/31/2017 Cbc With Differential Ord2 MCH 26.6 pg 08/31/2017 Cbc With Differential Ord2 [place]% 8.3 % 08/31/2017 Cbc With Differential Ord2 MCHC 30.9 pg 08/31/2017 Cbc With Differential Ord2 Eos% 1.3 % 08/31/2017 Cbc With Differential Ord2 PLT 275 K/ul 08/31/2017 Cbc With Differential Ord2 Baso% 0.1 % 08/31/2017 Cbc With Differential Ord2 RDW 15.8 % 08/31/2017 Cbc With Differential Ord2 Neut ABS# 5.56 K/ul 08/31/2017 Cbc With Differential Ord2 Lymph ABS# 3.17 K/ul 08/31/2017 Cbc With Differential Ord2 [place] ABS# 0.8 K/ul 08/31/2017 Cbc With Differential Ord2 Eos ABS# 0.1 K/ul 08/31/2017 Cbc With Differential Ord2 Baso ABS# 0.0 K/ul 08/31/2017 Comp Metabolic Wcx708 NA 140 mEq/L 08/31/2017 Comp Metabolic Ila971 K 4.4 mEq/L 08/31/2017 Comp Metabolic Tum618 CL 102 mEq/L 08/31/2017 Comp Metabolic Pht802 CO2 30.0 mEq/L 08/31/2017 Comp Metabolic Ybm158 ANION GAP 12 08/31/2017 Comp Metabolic Jxo457 GLUCOSE 99 mg/dL 08/31/2017 Comp Metabolic Iqm035 Creat 1.1 mg/dL 08/31/2017 Comp Metabolic Itv833 eGFR 68 ml/min/1.73m2 08/31/2017 Comp Metabolic Lsu750 BUN 18 mg/dL 08/31/2017 Comp Metabolic Jua939 B/C Ratio 16.1 Ratio 08/31/2017 Comp Metabolic Wqx164 CALCIUM 9.8 mg/dL 08/31/2017 Comp Metabolic Dbp496 ALK PHOS 70 U/L 08/31/2017 Comp Metabolic Svt503 AST(SGOT) 15 U/L 08/31/2017 Comp Metabolic Ued728 ALT(SGPT) 7 U/L 08/31/2017 Comp Metabolic Gpy243 BILI T 0.4 mg/dL 08/31/2017 Comp Metabolic Cfd929 ALBUMIN 4.4 g/dL 08/31/2017 Comp Metabolic Jyj350 TPRO 6.6 g/dL 08/31/2017 Comp Metabolic Aee478 GLOB 2.2 g/dL 08/31/2017 Comp Metabolic Hmd710 A/G Ratio 2.0 Ratio 08/31/2017 Comp Metabolic Qck024 Osmo 281 mOsmo 08/31/2017 Tsh Ord6 hTSH II 1.57 uIU/mL 09/24/2016 Total Psa Ord10 PSA 1.17 ng/mL 09/24/2016 Cbc With Differential Ord2 WBC 15.39 K/ul 09/24/2016 Cbc With Differential Ord2 RBC 5.40 M/ul 09/24/2016 Cbc With Differential Ord2 HGB 13.3 g/dl 09/24/2016 Cbc With Differential Ord2 Neut% 68.4 % 09/24/2016 Cbc With Differential Ord2 HCT 44.1 % 09/24/2016 Cbc With Differential Ord2 MCV 81.7 fl 09/24/2016 Cbc With Differential Ord2 Lymph% 24.0 % 09/24/2016 Cbc With Differential Ord2 MCH 24.6 pg 09/24/2016 Cbc With Differential Ord2 [place]% 6.4 % 09/24/2016 Cbc With Differential Ord2 MCHC 30.2 pg 09/24/2016 Cbc With Differential Ord2 Eos% 1.0 % 09/24/2016 Cbc With Differential Ord2 PLT 340 K/ul 09/24/2016 Cbc With Differential Ord2 Baso% 0.2 % 09/24/2016 Cbc With Differential Ord2 RDW 17.4 % 09/24/2016 Cbc With Differential Ord2 Neut ABS# 10.51 K/ul 09/24/2016 Cbc With Differential Ord2 Lymph ABS# 3.70 K/ul 09/24/2016 Cbc With Differential Ord2 [place] ABS# 1.0 K/ul 09/24/2016 Cbc With Differential Ord2 Eos ABS# 0.2 K/ul 09/24/2016 Cbc With Differential Ord2 Baso ABS# 0.0 K/ul 09/24/2016 Lipid Ord30 CHOL 185 mg/dL 09/24/2016 Lipid Ord30 HDL 55.0 mg/dl 09/24/2016 Lipid Ord30 TRIG 74 mg/dL 09/24/2016 Lipid Ord30 LDL 115 mg/dL 09/24/2016 Lipid Ord30 C/HDL 3.4 Ratio 09/24/2016 Comp Metabolic Fmv451 NA 136 mEq/L 09/24/2016 Comp Metabolic Vmo345 K 4.3 mEq/L 09/24/2016 Comp Metabolic Lsk116 CL 98 mEq/L 09/24/2016 Comp Metabolic Bam700 CO2 29.0 mEq/L 09/24/2016 Comp Metabolic Twh780 ANION GAP 13 09/24/2016 Comp Metabolic Ngr638 GLUCOSE 107 mg/dL 09/24/2016 Comp Metabolic Lcm400 Creat 1.2 mg/dL 09/24/2016 Comp Metabolic Mqp616 eGFR 60 ml/min/1.73m2 09/24/2016 Comp Metabolic Ojv468 BUN 18 mg/dL 09/24/2016 Comp Metabolic Zwz050 B/C Ratio 14.5 Ratio 09/24/2016 Comp Metabolic Ejf128 CALCIUM 10.4 mg/dL 09/24/2016 Comp Metabolic Yay088 ALK PHOS 64 U/L 09/24/2016 Comp Metabolic Jyr818 AST(SGOT) 13 U/L 09/24/2016 Comp Metabolic Tpr029 ALT(SGPT) 8 U/L 09/24/2016 Comp Metabolic Iqn260 BILI T 0.5 mg/dL 09/24/2016 Comp Metabolic Vna465 ALBUMIN 4.1 g/dL 09/24/2016 Comp Metabolic Jde441 TPRO 6.8 g/dL 09/24/2016 Comp Metabolic Zus555 GLOB 2.7 g/dL 09/24/2016 Comp Metabolic Yff903 A/G Ratio 1.5 Ratio 09/24/2016 Comp Metabolic Nqp128 Osmo 274 mOsmo 09/24/2016 Amylase Ord34 AMYLASE 38 U/L 12/11/2015 Sed Rate Ord21 ESR 48 mm/hr 12/11/2015 Cbc With Differential Ord2 WBC 11.65 K/ul 12/11/2015 Cbc With Differential Ord2 RBC 4.58 M/ul 12/11/2015 Cbc With Differential Ord2 HGB 12.0 g/dl 12/11/2015 Cbc With Differential Ord2 HCT 39.0 % 12/11/2015 Cbc With Differential Ord2 Neut% 62.0 % 12/11/2015 Cbc With Differential Ord2 Lymph% 28.7 % 12/11/2015 Cbc With Differential Ord2 MCV 85.2 fl 12/11/2015 Cbc With Differential Ord2 MCH 26.2 pg 12/11/2015 Cbc With Differential Ord2 [place]% 7.6 % 12/11/2015 Cbc With Differential Ord2 MCHC 30.8 pg 12/11/2015 Cbc With Differential Ord2 Eos% 1.5 % 12/11/2015 Cbc With Differential Ord2 PLT 318 K/ul 12/11/2015 Cbc With Differential Ord2 Baso% 0.2 % 12/11/2015 Cbc With Differential Ord2 RDW 16.1 % 12/11/2015 Cbc With Differential Ord2 Neut ABS# 7.24 K/ul 12/11/2015 Cbc With Differential Ord2 Lymph ABS# 3.34 K/ul 12/11/2015 Cbc With Differential Ord2 [place] ABS# 0.9 K/ul 12/11/2015 Cbc With Differential Ord2 Eos ABS# 0.2 K/ul 12/11/2015 Cbc With Differential Ord2 Baso ABS# 0.0 K/ul 12/11/2015 Comp Metabolic Ppw677 NA 137 mEq/L 12/11/2015 Comp Metabolic Osq496 K 4.1 mEq/L 12/11/2015 Comp Metabolic Niw927 CL 101 mEq/L 12/11/2015 Comp Metabolic Vvn267 CO2 31.0 mEq/L 12/11/2015 Comp Metabolic Prx683 ANION GAP 9 12/11/2015 Comp Metabolic Ibp730 GLUCOSE 97 mg/dL 12/11/2015 Comp Metabolic Paz436 Creat 1.0 mg/dL 12/11/2015 Comp Metabolic Fnd074 eGFR 74 ml/min/1.73m2 12/11/2015 Comp Metabolic Yxp359 BUN 15 mg/dL 12/11/2015 Comp Metabolic Yzl090 B/C Ratio 14.4 Ratio 12/11/2015 Comp Metabolic Oan796 CALCIUM 9.2 mg/dL 12/11/2015 Comp Metabolic Gmc891 ALK PHOS 55 U/L 12/11/2015 Comp Metabolic Zei924 AST(SGOT) 14 U/L 12/11/2015 Comp Metabolic Doq379 ALT(SGPT) 9 U/L 12/11/2015 Comp Metabolic Ydi949 BILI T 0.5 mg/dL 12/11/2015 Comp Metabolic Sjy504 ALBUMIN 3.9 g/dL 12/11/2015 Comp Metabolic Akk142 TPRO 6.2 g/dL 12/11/2015 Comp Metabolic Ftv733 GLOB 2.4 g/dL 12/11/2015 Comp Metabolic Vgq822 A/G Ratio 1.6 Ratio 12/11/2015 Comp Metabolic Tyo750 Osmo 275 mOsmo 12/11/2015 Sed Rate Ord21 ESR 26 mm/hr 06/11/2015 Comp Metabolic Gsw330 NA 137 mEq/L 06/11/2015 Comp Metabolic Gbj065 K 4.4 mEq/L 06/11/2015 Comp Metabolic Xvt930 CL 100 mEq/L 06/11/2015 Comp Metabolic Iuv410 CO2 29.0 mEq/L 06/11/2015 Comp Metabolic Aht752 ANION GAP 12 06/11/2015 Comp Metabolic Vkm552 GLUCOSE 91 mg/dL 06/11/2015 Comp Metabolic Htz955 Creat 1.1 mg/dL 06/11/2015 Comp Metabolic Rce395 eGFR 68 ml/min/1.73m2 06/11/2015 Comp Metabolic Yxn707 BUN 14 mg/dL 06/11/2015 Comp Metabolic Kuu676 B/C Ratio 12.4 Ratio 06/11/2015 Comp Metabolic Ehw328 CALCIUM 9.9 mg/dL 06/11/2015 Comp Metabolic Pbe800 ALK PHOS 61 U/L 06/11/2015 Comp Metabolic Apx409 AST(SGOT) 18 U/L 06/11/2015 Comp Metabolic Zcu697 ALT(SGPT) 10 U/L 06/11/2015 Comp Metabolic Qap300 BILI T 0.5 mg/dL 06/11/2015 Comp Metabolic Ujb564 ALBUMIN 4.4 g/dL 06/11/2015 Comp Metabolic Etu055 TPRO 6.9 g/dL 06/11/2015 Comp Metabolic Gvw215 GLOB 2.5 g/dL 06/11/2015 Comp Metabolic Ybh843 A/G Ratio 1.7 Ratio 06/11/2015 Comp Metabolic Inm377 Osmo 274 mOsmo 06/11/2015 Cbc With Differential Ord2 WBC 9.8 K/uL 06/11/2015 Cbc With Differential Ord2 LYM 3.3 K/uL 06/11/2015 Cbc With Differential Ord2 LYM% 33.7 % 06/11/2015 Cbc With Differential Ord2 NEUT/GRAN 5.9 K/uL 06/11/2015 Cbc With Differential Ord2 NEUT/GRAN % 60.6 % 06/11/2015 Cbc With Differential Ord2 MID 0.6 K/uL 06/11/2015 Cbc With Differential Ord2 MID% 5.7 % 06/11/2015 Cbc With Differential Ord2 RBC 4.95 M/uL 06/11/2015 Cbc With Differential Ord2 HGB 13.3 g/dL 06/11/2015 Cbc With Differential Ord2 HCT 41.5 % 06/11/2015 Cbc With Differential Ord2 MCV 84 fL 06/11/2015 Cbc With Differential Ord2 MCH 27 pg 06/11/2015 Cbc With Differential Ord2 MCHC 32 g/dL 06/11/2015 Cbc With Differential Ord2 PLT 274 K/uL 06/11/2015 Cbc With Differential Ord2 RDW 16.6 % 06/11/2015 C-Reactive Protein Qnt Crqnt CRP 1.9 mg/dl 06/11/2015 Tsh Ord6 hTSH II 1.47 uIU/mL 06/11/2015 Lipid Ord30 CHOL 207 mg/dL 06/11/2015 Lipid Ord30 HDL 51.0 mg/dl 06/11/2015 Lipid Ord30 TRIG 132 mg/dL 06/11/2015 Lipid Ord30 LDL 130 mg/dL 06/11/2015 Lipid Ord30 C/HDL 4.1 Ratio 06/11/2015 Free T4 Fph226 FREE T4 1.03 ng/dL 02/08/2015 Cbc With Differential Ord2 WBC 9.4 K/uL 02/08/2015 Cbc With Differential Ord2 LYM 3.1 K/uL 02/08/2015 Cbc With Differential Ord2 LYM% 33.1 % 02/08/2015 Cbc With Differential Ord2 NEUT/GRAN 5.5 K/uL 02/08/2015 Cbc With Differential Ord2 NEUT/GRAN % 59.0 % 02/08/2015 Cbc With Differential Ord2 MID 0.7 K/uL 02/08/2015 Cbc With Differential Ord2 MID% 7.9 % 02/08/2015 Cbc With Differential Ord2 RBC 4.77 M/uL 02/08/2015 Cbc With Differential Ord2 HGB 12.8 g/dL 02/08/2015 Cbc With Differential Ord2 HCT 39.4 % 02/08/2015 Cbc With Differential Ord2 MCV 83 fL 02/08/2015 Cbc With Differential Ord2 MCH 27 pg 02/08/2015 Cbc With Differential Ord2 MCHC 33 g/dL 02/08/2015 Cbc With Differential Ord2 PLT 243 K/uL 02/08/2015 Cbc With Differential Ord2 RDW 16.8 % 02/08/2015 Tsh Ord6 hTSH II 3.17 uIU/mL 02/08/2015 Lipid Ord30 CHOL 191 mg/dL 02/08/2015 Lipid Ord30 HDL 55.0 mg/dl 02/08/2015 Lipid Ord30 TRIG 73 mg/dL 02/08/2015 Lipid Ord30 LDL 121 mg/dL 02/08/2015 Lipid Ord30 C/HDL 3.5 Ratio 02/08/2015 Comp Metabolic Qtv600 NA 136 mEq/L 02/08/2015 Comp Metabolic Xep980 K 4.0 mEq/L 02/08/2015 Comp Metabolic Wzr274 CL 101 mEq/L 02/08/2015 Comp Metabolic Ydf796 CO2 30.0 mEq/L 02/08/2015 Comp Metabolic Sox453 ANION GAP 9 02/08/2015 Comp Metabolic Nfg678 GLUCOSE 83 mg/dL 02/08/2015 Comp Metabolic Ljq012 Creat 1.1 mg/dL 02/08/2015 Comp Metabolic Hcu032 eGFR 70 ml/min/1.73m2 02/08/2015 Comp Metabolic Tzk916 BUN 15 mg/dL 02/08/2015 Comp Metabolic Sti759 B/C Ratio 13.6 Ratio 02/08/2015 Comp Metabolic Qhx750 CALCIUM 9.4 mg/dL 02/08/2015 Comp Metabolic Ykj275 ALK PHOS 58 U/L 02/08/2015 Comp Metabolic Url914 AST(SGOT) 15 U/L 02/08/2015 Comp Metabolic Lcm795 ALT(SGPT) 8 U/L 02/08/2015 Comp Metabolic Tvw541 BILI T 0.7 mg/dL 02/08/2015 Comp Metabolic Mbh320 ALBUMIN 3.8 g/dL 02/08/2015 Comp Metabolic Ypt617 TPRO 6.1 g/dL 02/08/2015 Comp Metabolic Gij804 GLOB 2.3 g/dL 02/08/2015 Comp Metabolic Hyl573 A/G Ratio 1.7 Ratio 02/08/2015 Comp Metabolic Fcq208 Osmo 272 mOsmo 02/08/2015 Review of Systems System Result Effective Dates Constitutional No recent illness 2017 Constitutional No chills 06/11/2018 Constitutional No diaphoresis 06/11/2018 Constitutional No fever 06/11/2018 Eyes No eye erythema 06/11/2018 Ears/Nose/Throat/Neck No nasal discharge 06/11/2018 Cardiovascular No chest pain/pressure Respiratory No cough 06/11/2018 Gastrointestinal No abdominal pain 2017 Musculoskeletal joint complaint 2017 Musculoskeletal arthralgia(s) 06/11/2018 Musculoskeletal stiffness 06/11/2018 Neurologic No alteration of consciousness 06/11/2018 Neurologic No mental status change 2017 Constitutional recent illness 03/24/2018 Constitutional No chills 03/24/2018 Constitutional No diaphoresis 03/24/2018 Constitutional fatigue 03/24/2018 Constitutional No fever 03/24/2018 Constitutional malaise 03/24/2018 Eyes No eye erythema 03/24/2018 Ears/Nose/Throat/Neck No nasal discharge 03/24/2018 Ears/Nose/Throat/Neck No nasal allergies 03/24/2018 Cardiovascular No chest pain/pressure 11/2017 Cardiovascular No dyspnea 03/24/2018 Respiratory No cough 03/24/2018 Respiratory No chest congestion 2017 Gastrointestinal No abdominal pain 2017 Gastrointestinal No constipation 2017 Gastrointestinal No diarrhea 03/24/2018 Gastrointestinal No vomiting 03/24/2018 Gastrointestinal No nausea 03/24/2018 Gastrointestinal No melena 03/24/2018 Gastrointestinal No hematochezia 2017 Dermatologic No rash 03/24/2018 Neurologic No alteration of consciousness 03/24/2018 Neurologic No mental status change 2017 Constitutional No recent illness 2017 Constitutional No chills 01/26/2018 Constitutional No diaphoresis 01/26/2018 Constitutional No fever 01/26/2018 Eyes No eye erythema 01/26/2018 Ears/Nose/Throat/Neck No nasal discharge 01/26/2018 Cardiovascular No chest pain/pressure 04/2018 Cardiovascular No dyspnea 01/26/2018 Respiratory No cough 01/26/2018 Respiratory No dyspnea 01/26/2018 Neurologic No alteration of consciousness 01/26/2018 Neurologic No mental status change 2017 Constitutional recent illness 12/04/2017 Constitutional No chills 12/04/2017 Constitutional No diaphoresis 12/04/2017 Constitutional fatigue 12/04/2017 Constitutional No fever 12/04/2017 Eyes No blindness 12/04/2017 Ears/Nose/Throat/Neck nasal discharge Cardiovascular No chest pain/pressure Cardiovascular No dyspnea 12/04/2017 Cardiovascular No edema 12/04/2017 Cardiovascular No exercise intolerance Cardiovascular No fatigue 12/04/2017 Cardiovascular No near-syncope/dizziness 12/04/2017 Cardiovascular No palpitations 2017 Respiratory No chest congestion 2017 Respiratory cough 12/04/2017 Respiratory No dyspnea 12/04/2017 Respiratory No pedal edema 12/04/2017 Gastrointestinal No abdominal pain 2017 Gastrointestinal No constipation 2017 Gastrointestinal No diarrhea 12/04/2017 Dermatologic No rash 12/04/2017 Neurologic No alteration of consciousness 12/04/2017 Neurologic No mental status change 2017 Constitutional No anorexia 12/04/2017 Constitutional No night sweats 2017 Constitutional No insomnia 12/04/2017 Constitutional No malaise 12/04/2017 Constitutional weight loss 12/04/2017 Ears/Nose/Throat/Neck No dizziness 2017 Ears/Nose/Throat/Neck headache 2017 Ears/Nose/Throat/Neck nasal allergies Ears/Nose/Throat/Neck No otalgia 2017 Ears/Nose/Throat/Neck sinus congestion Ears/Nose/Throat/Neck sore throat 2017 Genitourinary/Nephrology No dysuria 12/04 Musculoskeletal No joint complaint 2017 Constitutional No recent illness 2017 Constitutional No chills 10/16/2017 Constitutional No fever 10/16/2017 Eyes No eye erythema 10/16/2017 Ears/Nose/Throat/Neck No nasal discharge 10/16/2017 Cardiovascular No chest pain/pressure Cardiovascular No dyspnea 10/16/2017 Respiratory No cough 10/16/2017 Respiratory No dyspnea 10/16/2017 Neurologic No alteration of consciousness 10/16/2017 Neurologic No mental status change 2017 Musculoskeletal shoulder pain 10/16/2017 Constitutional No recent illness 2017 Constitutional No chills 08/31/2017 Constitutional No diaphoresis 08/31/2017 Cardiovascular No chest pain/pressure 06/2018 Cardiovascular No dyspnea 08/31/2017 Cardiovascular No exercise intolerance Cardiovascular No fatigue 08/31/2017 Cardiovascular No near-syncope/dizziness 08/31/2017 Cardiovascular No palpitations 2017 Respiratory No chest congestion 2017 Respiratory No cough 08/31/2017 Respiratory No dyspnea 08/31/2017 Respiratory No pedal edema 08/31/2017 Dermatologic No rash 08/31/2017 Constitutional No fever 08/31/2017 Eyes No eye erythema 08/31/2017 Constitutional fatigue 08/31/2017 Ears/Nose/Throat/Neck No nasal discharge 08/31/2017 Cardiovascular No edema 08/31/2017 Gastrointestinal No abdominal pain 2017 Gastrointestinal No constipation 2017 Gastrointestinal No diarrhea 08/31/2017 Neurologic No alteration of consciousness 08/31/2017 Neurologic No mental status change 2017 Constitutional No recent illness 2016 Constitutional No chills 01/22/2017 Constitutional No diaphoresis 01/22/2017 Constitutional No fever 01/22/2017 Eyes No eye erythema 01/22/2017 Ears/Nose/Throat/Neck No nasal discharge 01/22/2017 Ears/Nose/Throat/Neck No nasal allergies 01/22/2017 Cardiovascular No chest pain/pressure 12/2016 Respiratory No cough 01/22/2017 Musculoskeletal No joint complaint 2016 Dermatologic No rash 01/22/2017 Neurologic No alteration of consciousness 01/22/2017 Neurologic No mental status change 2016 Constitutional No recent illness 2016 Constitutional No anorexia 10/23/2016 Constitutional No chills 10/23/2016 Constitutional No diaphoresis 10/23/2016 Ears/Nose/Throat/Neck No dental pain 12/2016 Ears/Nose/Throat/Neck No dizziness 2016 Ears/Nose/Throat/Neck No dysphagia 2016 Ears/Nose/Throat/Neck No headache 2016 Ears/Nose/Throat/Neck No hearing loss 12/2016 Ears/Nose/Throat/Neck No sore throat 12/2016 Ears/Nose/Throat/Neck No postnasal drip 10/23/2016 Ears/Nose/Throat/Neck No sinus congestion 10/23/2016 Cardiovascular No chest pain/pressure 12/2016 Cardiovascular No dyspnea 10/23/2016 Cardiovascular No edema 10/23/2016 Cardiovascular No exercise intolerance Cardiovascular No fatigue 10/23/2016 Cardiovascular No near-syncope/dizziness 10/23/2016 Cardiovascular No palpitations 2016 Respiratory No chest congestion 2016 Respiratory No chest tightness 2016 Respiratory No cough 10/23/2016 Respiratory No dyspnea 10/23/2016 Respiratory No pedal edema 10/23/2016 Gastrointestinal No abdominal pain 2016 Gastrointestinal No constipation 2016 Gastrointestinal No diarrhea 10/23/2016 Gastrointestinal No gastroesophageal reflux 10/23/2016 Gastrointestinal No nausea 10/23/2016 Gastrointestinal No vomiting 10/23/2016 Musculoskeletal No stiffness 10/23/2016 Musculoskeletal No swelling 10/23/2016 Musculoskeletal No muscle weakness 2016 Musculoskeletal No myalgias 10/23/2016 Dermatologic No rash 10/23/2016 Dermatologic No sores 10/23/2016 Dermatologic No scar 10/23/2016 Neurologic No alteration of consciousness 10/23/2016 Neurologic No dizziness 10/23/2016 Neurologic No headache 10/23/2016 Neurologic No neck pain 10/23/2016 Neurologic No syncope 10/23/2016 Psychiatric No anxiety 10/23/2016 Psychiatric No depression 10/23/2016 Constitutional No recent illness 2016 Constitutional No anorexia 09/23/2016 Constitutional No chills 09/23/2016 Constitutional No diaphoresis 09/23/2016 Ears/Nose/Throat/Neck No dental pain 01/2017 Ears/Nose/Throat/Neck No dizziness 2016 Ears/Nose/Throat/Neck No dysphagia 2016 Ears/Nose/Throat/Neck No headache 2016 Ears/Nose/Throat/Neck No hearing loss 01/2017 Ears/Nose/Throat/Neck No sore throat 01/2017 Ears/Nose/Throat/Neck No postnasal drip 09/23/2016 Ears/Nose/Throat/Neck No sinus congestion 09/23/2016 Cardiovascular No chest pain/pressure 01/2017 Cardiovascular No dyspnea 09/23/2016 Cardiovascular No edema 09/23/2016 Cardiovascular No exercise intolerance Cardiovascular No fatigue 09/23/2016 Cardiovascular No near-syncope/dizziness 09/23/2016 Cardiovascular No palpitations 2016 Respiratory No chest congestion 2016 Respiratory No chest tightness 2016 Respiratory No cough 09/23/2016 Respiratory No dyspnea 09/23/2016 Respiratory No pedal edema 09/23/2016 Gastrointestinal No abdominal pain 2016 Gastrointestinal No constipation 2016 Gastrointestinal No diarrhea 09/23/2016 Gastrointestinal No gastroesophageal reflux 09/23/2016 Gastrointestinal No nausea 09/23/2016 Gastrointestinal No vomiting 09/23/2016 Musculoskeletal No stiffness 09/23/2016 Musculoskeletal No swelling 09/23/2016 Musculoskeletal No muscle weakness 2016 Musculoskeletal No myalgias 09/23/2016 Dermatologic No rash 09/23/2016 Dermatologic No sores 09/23/2016 Dermatologic No scar 09/23/2016 Neurologic No alteration of consciousness 09/23/2016 Neurologic No dizziness 09/23/2016 Neurologic No headache 09/23/2016 Neurologic No neck pain 09/23/2016 Neurologic No syncope 09/23/2016 Psychiatric No anxiety 09/23/2016 Psychiatric No depression 09/23/2016 Constitutional No recent illness 2016 Constitutional No chills 09/05/2016 Constitutional No fever 09/05/2016 Eyes No eye erythema 09/05/2016 Ears/Nose/Throat/Neck No nasal discharge 09/05/2016 Cardiovascular No chest pain/pressure Cardiovascular No dyspnea 09/05/2016 Respiratory No cough 09/05/2016 Respiratory No dyspnea 09/05/2016 Musculoskeletal joint complaint 2016 Neurologic No alteration of consciousness 09/05/2016 Neurologic No mental status change 2016 Constitutional No recent illness 2015 Constitutional No anorexia 05/28/2016 Constitutional No chills 05/28/2016 Constitutional No diaphoresis 05/28/2016 Constitutional insomnia 05/28/2016 Constitutional No malaise 05/28/2016 Eyes No vision change 05/28/2016 Ears/Nose/Throat/Neck No dental pain 03/2016 Ears/Nose/Throat/Neck No dizziness 2015 Ears/Nose/Throat/Neck No dysphagia 2015 Ears/Nose/Throat/Neck No headache 2015 Ears/Nose/Throat/Neck No hearing loss 03/2016 Ears/Nose/Throat/Neck No postnasal drip 05/28/2016 Ears/Nose/Throat/Neck No sinus congestion 05/28/2016 Ears/Nose/Throat/Neck No sore throat 03/2016 Cardiovascular No chest pain/pressure 03/2016 Cardiovascular No dyspnea 05/28/2016 Cardiovascular No edema 05/28/2016 Cardiovascular No exercise intolerance Cardiovascular No fatigue 05/28/2016 Cardiovascular No near-syncope/dizziness 05/28/2016 Cardiovascular No palpitations 2015 Respiratory No chest congestion 2015 Respiratory No chest tightness 2015 Respiratory No cough 05/28/2016 Respiratory No dyspnea 05/28/2016 Respiratory No pedal edema 05/28/2016 Gastrointestinal No abdominal pain 2015 Gastrointestinal No constipation 2015 Gastrointestinal No diarrhea 05/28/2016 Gastrointestinal No gastroesophageal reflux 05/28/2016 Gastrointestinal No nausea 05/28/2016 Gastrointestinal No vomiting 05/28/2016 Musculoskeletal No stiffness 05/28/2016 Musculoskeletal No swelling 05/28/2016 Musculoskeletal No muscle weakness 2015 Musculoskeletal No myalgias 05/28/2016 Dermatologic No rash 05/28/2016 Dermatologic No sores 05/28/2016 Dermatologic No scar 05/28/2016 Neurologic No alteration of consciousness 05/28/2016 Neurologic No dizziness 05/28/2016 Neurologic No headache 05/28/2016 Neurologic No neck pain 05/28/2016 Neurologic No syncope 05/28/2016 Psychiatric No anxiety 05/28/2016 Psychiatric No depression 05/28/2016 Gastrointestinal abdominal pain 2015 Gastrointestinal No diarrhea 12/11/2015 Gastrointestinal No constipation 2015 Gastrointestinal No vomiting 12/11/2015 Gastrointestinal No nausea 12/11/2015 Gastrointestinal gastroesophageal reflux 12/11/2015 Constitutional No recent illness 2015 Constitutional No anorexia 12/11/2015 Constitutional No chills 12/11/2015 Constitutional No night sweats 2015 Constitutional No diaphoresis 12/11/2015 Constitutional No fatigue 12/11/2015 Constitutional No fever 12/11/2015 Constitutional No insomnia 12/11/2015 Constitutional No weight loss 12/11/2015 Constitutional No malaise 12/11/2015 Constitutional No weight gain 12/11/2015 Eyes No eye erythema 12/11/2015 Eyes No eye discharge 12/11/2015 Ears/Nose/Throat/Neck No dizziness 2015 Ears/Nose/Throat/Neck No headache 2015 Cardiovascular No chest pain/pressure Cardiovascular No dyspnea 12/11/2015 Cardiovascular No edema 12/11/2015 Respiratory No productive sputum 2015 Respiratory No cough 12/11/2015 Genitourinary/Nephrology No dysuria 12/10 Musculoskeletal joint complaint 2015 Dermatologic No rash 12/11/2015 Dermatologic No sores 12/11/2015 Neurologic No alteration of consciousness 12/11/2015 Psychiatric No anxiety 12/11/2015 Endocrine No dry or coarse skin 2015 Constitutional No recent illness 2014 Constitutional No anorexia 06/11/2015 Constitutional No night sweats 2014 Constitutional No chills 06/11/2015 Constitutional fatigue 06/11/2015 Constitutional No fever 06/11/2015 Constitutional insomnia 06/11/2015 Constitutional No malaise 06/11/2015 Eyes No blindness 06/11/2015 Eyes No vision change 06/11/2015 Ears/Nose/Throat/Neck No dental pain Ears/Nose/Throat/Neck No dizziness 2014 Ears/Nose/Throat/Neck No dysphagia 2014 Ears/Nose/Throat/Neck No headache 2014 Ears/Nose/Throat/Neck No hearing loss Ears/Nose/Throat/Neck nasal allergies Ears/Nose/Throat/Neck No sore throat Ears/Nose/Throat/Neck No postnasal drip 06/11/2015 Ears/Nose/Throat/Neck No sinus congestion 06/11/2015 Cardiovascular No chest pain/pressure Cardiovascular No dyspnea 06/11/2015 Cardiovascular No edema 06/11/2015 Cardiovascular No exercise intolerance Cardiovascular No fatigue 06/11/2015 Cardiovascular No near-syncope/dizziness 06/11/2015 Cardiovascular No palpitations 2014 Respiratory No chest congestion 2014 Respiratory No chest tightness 2014 Respiratory No cough 06/11/2015 Respiratory No dyspnea 06/11/2015 Respiratory No pedal edema 06/11/2015 Gastrointestinal No abdominal pain 2014 Gastrointestinal No constipation 2014 Gastrointestinal No diarrhea 06/11/2015 Gastrointestinal No gastroesophageal reflux 06/11/2015 Gastrointestinal No nausea 06/11/2015 Gastrointestinal No vomiting 06/11/2015 Genitourinary/Nephrology No dysuria 06/11 Genitourinary/Nephrology No nocturia Genitourinary/Nephrology No urinary incontinence 06/11/2015 Musculoskeletal No stiffness 06/11/2015 Musculoskeletal No swelling 06/11/2015 Musculoskeletal No muscle weakness 2014 Musculoskeletal No myalgias 06/11/2015 Dermatologic No rash 06/11/2015 Dermatologic No sores 06/11/2015 Dermatologic No scar 06/11/2015 Neurologic No alteration of consciousness 06/11/2015 Neurologic No dizziness 06/11/2015 Neurologic No headache 06/11/2015 Neurologic No neck pain 06/11/2015 Neurologic No syncope 06/11/2015 Psychiatric No anxiety 06/11/2015 Psychiatric No depression 06/11/2015 Constitutional No diaphoresis 06/11/2015 Constitutional No chills 02/05/2015 Constitutional No fatigue 02/05/2015 Constitutional No fever 02/05/2015 Constitutional No recent illness 2014 Ears/Nose/Throat/Neck No dizziness 2014 Ears/Nose/Throat/Neck No headache 2014 Cardiovascular No chest pain/pressure Cardiovascular No near-syncope/dizziness 02/05/2015 Cardiovascular No palpitations 2014 Respiratory No chest congestion 2014 Respiratory No cough 02/05/2015 Gastrointestinal No abdominal pain 2014 Gastrointestinal No constipation 2014 Gastrointestinal No diarrhea 02/05/2015 Gastrointestinal No nausea 02/05/2015 Gastrointestinal No vomiting 02/05/2015 Genitourinary/Nephrology No dysuria 02/05 Neurologic No alteration of consciousness 02/05/2015 Constitutional No insomnia 02/05/2015 Constitutional No malaise 02/05/2015 Eyes No blindness 02/05/2015 Eyes No vision change 02/05/2015 Ears/Nose/Throat/Neck No dental pain Ears/Nose/Throat/Neck No dysphagia 2014 Ears/Nose/Throat/Neck No hearing loss Ears/Nose/Throat/Neck No nasal allergies 02/05/2015 Ears/Nose/Throat/Neck No sore throat Ears/Nose/Throat/Neck No postnasal drip 02/05/2015 Ears/Nose/Throat/Neck No sinus congestion 02/05/2015 Cardiovascular No dyspnea 02/05/2015 Cardiovascular No edema 02/05/2015 Cardiovascular No exercise intolerance Cardiovascular No fatigue 02/05/2015 Respiratory No chest tightness 2014 Respiratory No dyspnea 02/05/2015 Respiratory No pedal edema 02/05/2015 Gastrointestinal No gastroesophageal reflux 02/05/2015 Genitourinary/Nephrology No nocturia Genitourinary/Nephrology No urinary incontinence 02/05/2015 Musculoskeletal No stiffness 02/05/2015 Musculoskeletal No swelling 02/05/2015 Musculoskeletal No muscle weakness 2014 Musculoskeletal No myalgias 02/05/2015 Dermatologic No rash 02/05/2015 Dermatologic No sores 02/05/2015 Dermatologic No scar 02/05/2015 Neurologic No dizziness 02/05/2015 Neurologic No headache 02/05/2015 Neurologic No neck pain 02/05/2015 Neurologic No syncope 02/05/2015 Psychiatric No anxiety 02/05/2015 Psychiatric No depression 02/05/2015 Physical Exam Exam Name System Name Item Name Status Result Effective Dates Notes Full Exam - General 1994 Constitutional general appearance Overall: well developed 06/11/2018 None Full Exam - General 1994 Constitutional general appearance Overall: in no acute distress 06/11/2018 None Full Exam - General 1994 Constitutional general appearance Overall: well nourished 06/11/2018 None Full Exam - General 1994 Constitutional general appearance Hygiene/Attention to Grooming: good hygiene 06/11/2018 None Full Exam - General 1994 Eyes conjunctiva /eyelids Overall: conjunctiva clear 06/11/2018 None Full Exam - General 1994 Eyes conjunctiva /eyelids Overall: cornea clear 06/11/2018 None Full Exam - General 1994 Eyes conjunctiva /eyelids Overall: eyelids normal 06/11/2018 None Full Exam - General 1994 Eyes pupils and irises Overall: pupils equal, round, reactive to light and accomodation 06/11/2018 None Full Exam - General 1994 Ears/Nose/Throat lips/teeth/gingiva Overall: benign lips 06/11/2018 None Full Exam - General 1994 Ears/Nose/Throat oral cavity/pharynx/larynx Overall: oral mucosa clear 06/11/2018 None Full Exam - General 1994 Ears/Nose/Throat oral cavity/pharynx/larynx Overall: oropharyngeal mucosa clear 06/11/2018 None Full Exam - General 1994 Respiratory auscultation Overall: breath sounds clear bilaterally 06/11/2018 None Full Exam - General 1994 Respiratory respiratory effort/rhythm Overall: no retractions 06/11/2018 None Full Exam - General 1994 Respiratory respiratory effort/rhythm Overall: normal rate 06/11/2018 None Full Exam - General 1994 Cardiovascular extremities Overall: no clubbing 06/11/2018 None Full Exam - General 1994 Cardiovascular auscultation of heart Overall: regular rate 06/11/2018 None Full Exam - General 1994 Cardiovascular auscultation of heart Overall: normal heart sounds 06/11/2018 None Full Exam - General 1994 Cardiovascular auscultation of heart Systolic murmur: holosystolic 06/11/2018 None Full Exam - General 1994 Cardiovascular auscultation of heart Systolic murmur grade: III/ 06/11/2018 None Full Exam - General 1994 Musculoskeletal spine, ribs and pelvis Overall: good posture 06/11/2018 None Full Exam - General 1994 Musculoskeletal gait and station Overall: normal gait 06/11/2018 None Full Exam - General 1994 Musculoskeletal gait and station Overall: normal station 06/11/2018 None Full Exam - General 1994 Musculoskeletal head and neck Overall: head atraumatic 06/11/2018 None Full Exam - General 1994 Neurologic cranial nerves Overall: crainial nerves 2 - 12 grossly intact 06/11/2018 None Full Exam - General 1994 Psychiatric orientation/consciousness Overall: oriented to person, place and time 06/11/2018 None Full Exam - General 1994 Psychiatric mood and affect Overall: normal mood and affect 06/11/2018 None Full Exam - General 1994 Constitutional general appearance Hygiene/Attention to Grooming: good hygiene 03/24/2018 None Full Exam - General 1994 Eyes conjunctiva /eyelids Overall: conjunctiva clear 03/24/2018 None Full Exam - General 1994 Eyes conjunctiva /eyelids Overall: cornea clear 03/24/2018 None Full Exam - General 1994 Eyes conjunctiva /eyelids Overall: eyelids normal 03/24/2018 None Full Exam - General 1994 Eyes pupils and irises Overall: pupils equal, round, reactive to light and accomodation 03/24/2018 None Full Exam - General 1994 Ears/Nose/Throat lips/teeth/gingiva Overall: benign lips 03/24/2018 None Full Exam - General 1994 Ears/Nose/Throat oral cavity/pharynx/larynx Overall: oral mucosa clear 03/24/2018 None Full Exam - General 1994 Ears/Nose/Throat oral cavity/pharynx/larynx Overall: oropharyngeal mucosa clear 03/24/2018 None Full Exam - General 1994 Respiratory auscultation Overall: breath sounds clear bilaterally 03/24/2018 None Full Exam - General 1994 Respiratory respiratory effort/rhythm Overall: no retractions 03/24/2018 None Full Exam - General 1994 Respiratory respiratory effort/rhythm Overall: normal rate 03/24/2018 None Full Exam - General 1994 Cardiovascular extremities Overall: no clubbing 03/24/2018 None Full Exam - General 1994 Cardiovascular auscultation of heart Overall: regular rate 03/24/2018 None Full Exam - General 1994 Cardiovascular auscultation of heart Overall: normal heart sounds 03/24/2018 None Full Exam - General 1994 Cardiovascular auscultation of heart Systolic murmur: holosystolic 03/24/2018 None Full Exam - General 1994 Cardiovascular auscultation of heart Systolic murmur grade: III/ 03/24/2018 None Full Exam - General 1994 Abdomen abdominal exam Overall: no tenderness 03/24/2018 None Full Exam - General 1994 Abdomen abdominal exam Overall: normal bowel sounds 03/24/2018 None Full Exam - General 1994 Musculoskeletal spine, ribs and pelvis Overall: good posture 03/24/2018 None Full Exam - General 1994 Musculoskeletal head and neck Overall: head atraumatic 03/24/2018 None Full Exam - General 1994 Psychiatric orientation/consciousness Overall: oriented to person, place and time 03/24/2018 None Full Exam - General 1994 Psychiatric mood and affect Overall: normal mood and affect 03/24/2018 None Full Exam - General 1994 Constitutional general appearance Overall: well developed 03/24/2018 None Full Exam - General 1994 Constitutional general appearance Overall: in no acute distress 03/24/2018 None Full Exam - General 1994 Constitutional general appearance Overall: well nourished 03/24/2018 None Full Exam - General 1994 Musculoskeletal gait and station Overall: normal station 03/24/2018 None Full Exam - General 1994 Musculoskeletal gait and station Overall: normal gait 03/24/2018 None Full Exam - General 1994 Neurologic cranial nerves Overall: crainial nerves 2 - 12 grossly intact 03/24/2018 None Full Exam - General 1994 Constitutional general appearance Overall: well developed 01/26/2018 None Full Exam - General 1994 Constitutional general appearance Overall: in no acute distress 01/26/2018 None Full Exam - General 1994 Constitutional general appearance Overall: well nourished 01/26/2018 None Full Exam - General 1994 Eyes conjunctiva /eyelids Overall: conjunctiva clear 01/26/2018 None Full Exam - General 1994 Eyes conjunctiva /eyelids Overall: eyelids normal 01/26/2018 None Full Exam - General 1994 Ears/Nose/Throat lips/teeth/gingiva Overall: benign lips 01/26/2018 None Full Exam - General 1994 Respiratory respiratory effort/rhythm Overall: no retractions 01/26/2018 None Full Exam - General 1994 Respiratory respiratory effort/rhythm Overall: normal rate 01/26/2018 None Full Exam - General 1994 Musculoskeletal head and neck Overall: head atraumatic 01/26/2018 None Full Exam - General 1994 Neurologic cranial nerves Overall: crainial nerves 2 - 12 grossly intact 01/26/2018 None Full Exam - General 1994 Psychiatric orientation/consciousness Overall: oriented to person, place and time 01/26/2018 None Full Exam - General 1994 Psychiatric mood and affect Overall: normal mood and affect 01/26/2018 None Full Exam - General 1994 Psychiatric appearance Overall: well-groomed, good eye contact 01/26/2018 None Full Exam - General 1994 Constitutional general appearance Overall: well developed 12/04/2017 None Full Exam - General 1994 Constitutional general appearance Overall: in no acute distress 12/04/2017 None Full Exam - General 1994 Constitutional general appearance Overall: well nourished 12/04/2017 None Full Exam - General 1994 Eyes conjunctiva /eyelids Overall: conjunctiva clear 12/04/2017 None Full Exam - General 1994 Eyes conjunctiva /eyelids Overall: cornea clear 12/04/2017 None Full Exam - General 1994 Eyes conjunctiva /eyelids Overall: eyelids normal 12/04/2017 None Full Exam - General 1994 Ears/Nose/Throat lips/teeth/gingiva Overall: benign lips 12/04/2017 None Full Exam - General 1994 Ears/Nose/Throat oral cavity/pharynx/larynx Overall: oral mucosa clear 12/04/2017 None Full Exam - General 1994 Ears/Nose/Throat oral cavity/pharynx/larynx Overall: oropharyngeal mucosa clear 12/04/2017 None Full Exam - General 1994 Respiratory auscultation Overall: breath sounds clear bilaterally 12/04/2017 None Full Exam - General 1994 Respiratory respiratory effort/rhythm Overall: no retractions 12/04/2017 None Full Exam - General 1994 Respiratory respiratory effort/rhythm Overall: normal rate 12/04/2017 None Full Exam - General 1994 Cardiovascular extremities Overall: no clubbing 12/04/2017 None Full Exam - General 1994 Cardiovascular auscultation of heart Overall: regular rate 12/04/2017 None Full Exam - General 1994 Cardiovascular auscultation of heart Overall: normal heart sounds 12/04/2017 None Full Exam - General 1994 Cardiovascular auscultation of heart Systolic murmur: holosystolic 12/04/2017 None Full Exam - General 1994 Cardiovascular auscultation of heart Systolic murmur grade: III/ 12/04/2017 None Full Exam - General 1994 Abdomen abdominal exam Overall: no tenderness 12/04/2017 None Full Exam - General 1994 Abdomen abdominal exam Overall: normal bowel sounds 12/04/2017 None Full Exam - General 1994 Musculoskeletal head and neck Overall: head atraumatic 12/04/2017 None Full Exam - General 1994 Musculoskeletal head and neck Overall: cervical spine benign 12/04/2017 None Full Exam - General 1994 Psychiatric orientation/consciousness Overall: oriented to person, place and time 12/04/2017 None Full Exam - General 1994 Psychiatric mood and affect Overall: normal mood and affect 12/04/2017 None Full Exam - General 1994 Psychiatric appearance Overall: well-groomed, good eye contact 12/04/2017 None Full Exam - General 1994 Ears/Nose/Throat internal nose Sinus tenderness: left maxillary 12/04/2017 None Full Exam - General 1994 Ears/Nose/Throat internal nose Sinus tenderness: right maxillary 12/04/2017 None Full Exam - Orthopedics Constitutional general appearance Overall: well nourished 10/16/2017 None Full Exam - Orthopedics Constitutional general appearance Overall: well developed 10/16/2017 None Full Exam - Orthopedics Constitutional general appearance Overall: in no acute distress 10/16/2017 None Full Exam - Orthopedics Eyes conjunctiva/ eyelids Overall: conjunctiva clear 10/16/2017 None Full Exam - Orthopedics Eyes conjunctiva/ eyelids Overall: eyelids normal 10/16/2017 None Full Exam - Orthopedics Ears/Nose/Throat lips/teeth/gingiva Overall: benign lips 10/16/2017 None Full Exam - Orthopedics Ears/Nose/Throat oral cavity/pharynx/larynx Overall: oral mucosa clear 10/16/2017 None Full Exam - Orthopedics Respiratory respiratory effort/rhythm Overall: no retractions 10/16/2017 None Full Exam - Orthopedics Respiratory respiratory effort/rhythm Overall: normal rate 10/16/2017 None Full Exam - Orthopedics Psychiatric orientation/consciousness Overall: oriented to person, place and time 10/16/2017 None Full Exam - Orthopedics Psychiatric mood and affect Overall: normal mood and affect 10/16/2017 None Full Exam - Orthopedics Psychiatric appearance Overall: well-groomed, good eye contact 10/16/2017 None Full Exam - Orthopedics MS: head/neck insp & palp - H/N Overall: head atraumatic 10/16/2017 None Full Exam - Orthopedics MS: right upper extremity insp & palp - RUE Shoulder: tenderness @ biceps tendon 10/16/2017 None Full Exam - Orthopedics MS: right upper extremity range of motion - RUE Shoulder: pain with flexion 10/16/2017 None Full Exam - Orthopedics MS: right upper extremity range of motion - RUE Shoulder: pain with extension 10/16/2017 None Full Exam - General 1994 Eyes conjunctiva /eyelids Overall: conjunctiva clear 08/31/2017 None Full Exam - General 1994 Eyes conjunctiva /eyelids Overall: cornea clear 08/31/2017 None Full Exam - General 1994 Eyes conjunctiva /eyelids Overall: eyelids normal 08/31/2017 None Full Exam - General 1994 Ears/Nose/Throat lips/teeth/gingiva Overall: benign lips 08/31/2017 None Full Exam - General 1994 Ears/Nose/Throat oral cavity/pharynx/larynx Overall: oral mucosa clear 08/31/2017 None Full Exam - General 1994 Ears/Nose/Throat oral cavity/pharynx/larynx Overall: oropharyngeal mucosa clear 08/31/2017 None Full Exam - General 1994 Respiratory auscultation Overall: breath sounds clear bilaterally 08/31/2017 None Full Exam - General 1994 Respiratory respiratory effort/rhythm Overall: no retractions 08/31/2017 None Full Exam - General 1994 Respiratory respiratory effort/rhythm Overall: normal rate 08/31/2017 None Full Exam - General 1994 Cardiovascular extremities Overall: no clubbing 08/31/2017 None Full Exam - General 1994 Cardiovascular auscultation of heart Overall: regular rate 08/31/2017 None Full Exam - General 1994 Cardiovascular auscultation of heart Overall: normal heart sounds 08/31/2017 None Full Exam - General 1994 Cardiovascular auscultation of heart Systolic murmur: holosystolic 08/31/2017 None Full Exam - General 1994 Abdomen abdominal exam Overall: no tenderness 08/31/2017 None Full Exam - General 1994 Abdomen abdominal exam Overall: normal bowel sounds 08/31/2017 None Full Exam - General 1994 Musculoskeletal head and neck Overall: head atraumatic 08/31/2017 None Full Exam - General 1994 Musculoskeletal head and neck Overall: cervical spine benign 08/31/2017 None Full Exam - General 1994 Psychiatric orientation/consciousness Overall: oriented to person, place and time 08/31/2017 None Full Exam - General 1994 Psychiatric mood and affect Overall: normal mood and affect 08/31/2017 None Full Exam - General 1995 Constitutional general appearance Overall: well developed 08/31/2017 None Full Exam - General 1995 Constitutional general appearance Overall: in no acute distress 08/31/2017 None Full Exam - General 1994 Constitutional general appearance Overall: well nourished 08/31/2017 None Full Exam - General 1994 Cardiovascular auscultation of heart Systolic murmur grade: III/ 08/31/2017 None Full Exam - General 1994 Psychiatric appearance Overall: well-groomed, good eye contact 08/31/2017 None Full Exam - General 1994 Constitutional general appearance Overall: well developed 01/22/2017 None Full Exam - General 1994 Constitutional general appearance Overall: in no acute distress 01/22/2017 None Full Exam - General 1994 Constitutional general appearance Overall: well nourished 01/22/2017 None Full Exam - General 1994 Eyes conjunctiva /eyelids Overall: conjunctiva clear 01/22/2017 None Full Exam - General 1994 Eyes conjunctiva /eyelids Overall: eyelids normal 01/22/2017 None Full Exam - General 1994 Ears/Nose/Throat lips/teeth/gingiva Overall: benign lips 01/22/2017 None Full Exam - General 1994 Ears/Nose/Throat oral cavity/pharynx/larynx Overall: oral mucosa clear 01/22/2017 None Full Exam - General 1994 Respiratory respiratory effort/rhythm Overall: no retractions 01/22/2017 None Full Exam - General 1994 Respiratory respiratory effort/rhythm Overall: normal rate 01/22/2017 None Full Exam - General 1994 Musculoskeletal head and neck Overall: head atraumatic 01/22/2017 None Full Exam - General 1994 Musculoskeletal gait and station Overall: normal gait 01/22/2017 None Full Exam - General 1994 Musculoskeletal gait and station Overall: normal station 01/22/2017 None Full Exam - General 1994 Neurologic cranial nerves Overall: crainial nerves 2 - 12 grossly intact 01/22/2017 None Full Exam - General 1994 Psychiatric orientation/consciousness Overall: oriented to person, place and time 01/22/2017 None Full Exam - General 1994 Psychiatric mood and affect Overall: normal mood and affect 01/22/2017 None Full Exam - General 1994 Psychiatric appearance Overall: well-groomed, good eye contact 01/22/2017 None Full Exam - General 1994 Constitutional general appearance Development: well developed 10/23/2016 None Full Exam - General 1994 Constitutional general appearance Development: appears stated age 0410/23/2016 None Full Exam - General 1994 Constitutional general appearance Hygiene/Attention to Grooming: good hygiene 10/23/2016 None Full Exam - General 1994 Eyes conjunctiva /eyelids Overall: conjunctiva clear 10/23/2016 None Full Exam - General 1994 Eyes conjunctiva /eyelids Overall: cornea clear 10/23/2016 None Full Exam - General 1994 Eyes conjunctiva /eyelids Overall: eyelids normal 10/23/2016 None Full Exam - General 1994 Eyes pupils and irises Overall: pupils equal, round, reactive to light and accomodation 10/23/2016 None Full Exam - General 1994 Ears/Nose/Throat lips/teeth/gingiva Overall: benign lips 10/23/2016 None Full Exam - General 1994 Ears/Nose/Throat lips/teeth/gingiva Overall: normal dentition 10/23/2016 None Full Exam - General 1994 Ears/Nose/Throat oral cavity/pharynx/larynx Overall: oral mucosa clear 10/23/2016 None Full Exam - General 1994 Ears/Nose/Throat oral cavity/pharynx/larynx Overall: oropharyngeal mucosa clear 10/23/2016 None Full Exam - General 1994 Ears/Nose/Throat oral cavity/pharynx/larynx Overall: hypopharynx benign 10/23/2016 None Full Exam - General 1994 Ears/Nose/Throat oral cavity/pharynx/larynx Overall: no masses 10/23/2016 None Full Exam - General 1994 Respiratory auscultation Overall: breath sounds clear bilaterally 10/23/2016 None Full Exam - General 1994 Respiratory respiratory effort/rhythm Overall: no retractions 10/23/2016 None Full Exam - General 1994 Respiratory respiratory effort/rhythm Overall: normal rate 10/23/2016 None Full Exam - General 1994 Cardiovascular extremities Overall: no clubbing 10/23/2016 None Full Exam - General 1994 Cardiovascular auscultation of heart Overall: regular rate 10/23/2016 None Full Exam - General 1994 Cardiovascular auscultation of heart Overall: normal heart sounds 10/23/2016 None Full Exam - General 1994 Cardiovascular auscultation of heart Systolic murmur: holosystolic 10/23/2016 None Full Exam - General 1994 Cardiovascular auscultation of heart Systolic murmur grade: III/ 10/23/2016 None Full Exam - General 1994 Abdomen abdominal exam Overall: no tenderness 10/23/2016 None Full Exam - General 1994 Abdomen abdominal exam Overall: normal bowel sounds 10/23/2016 None Full Exam - General 1994 Musculoskeletal spine, ribs and pelvis Overall: spine benign 10/23/2016 None Full Exam - General 1994 Musculoskeletal spine, ribs and pelvis Overall: sacroiliac joint benign 10/23/2016 None Full Exam - General 1994 Musculoskeletal spine, ribs and pelvis Overall: good posture 10/23/2016 None Full Exam - General 1994 Musculoskeletal head and neck Overall: head atraumatic 10/23/2016 None Full Exam - General 1994 Musculoskeletal head and neck Overall: cervical spine benign 10/23/2016 None Full Exam - General 1994 Psychiatric orientation/consciousness Overall: oriented to person, place and time 10/23/2016 None Full Exam - General 1994 Psychiatric mood and affect Overall: normal mood and affect 10/23/2016 None Full Exam - General 1994 Constitutional general appearance Development: well developed 09/23/2016 None Full Exam - General 1994 Constitutional general appearance Development: appears stated age 0309/23/2016 None Full Exam - General 1994 Constitutional general appearance Hygiene/Attention to Grooming: good hygiene 09/23/2016 None Full Exam - General 1994 Eyes conjunctiva /eyelids Overall: conjunctiva clear 09/23/2016 None Full Exam - General 1994 Eyes conjunctiva /eyelids Overall: cornea clear 09/23/2016 None Full Exam - General 1994 Eyes conjunctiva /eyelids Overall: eyelids normal 09/23/2016 None Full Exam - General 1994 Eyes pupils and irises Overall: pupils equal, round, reactive to light and accomodation 09/23/2016 None Full Exam - General 1994 Ears/Nose/Throat lips/teeth/gingiva Overall: benign lips 09/23/2016 None Full Exam - General 1994 Ears/Nose/Throat lips/teeth/gingiva Overall: normal dentition 09/23/2016 None Full Exam - General 1994 Ears/Nose/Throat oral cavity/pharynx/larynx Overall: oral mucosa clear 09/23/2016 None Full Exam - General 1994 Ears/Nose/Throat oral cavity/pharynx/larynx Overall: oropharyngeal mucosa clear 09/23/2016 None Full Exam - General 1994 Ears/Nose/Throat oral cavity/pharynx/larynx Overall: hypopharynx benign 09/23/2016 None Full Exam - General 1994 Ears/Nose/Throat oral cavity/pharynx/larynx Overall: no masses 09/23/2016 None Full Exam - General 1994 Respiratory auscultation Overall: breath sounds clear bilaterally 09/23/2016 None Full Exam - General 1994 Respiratory respiratory effort/rhythm Overall: no retractions 09/23/2016 None Full Exam - General 1994 Respiratory respiratory effort/rhythm Overall: normal rate 09/23/2016 None Full Exam - General 1994 Cardiovascular extremities Overall: no clubbing 09/23/2016 None Full Exam - General 1994 Cardiovascular auscultation of heart Overall: regular rate 09/23/2016 None Full Exam - General 1994 Cardiovascular auscultation of heart Overall: normal heart sounds 09/23/2016 None Full Exam - General 1994 Cardiovascular auscultation of heart Systolic murmur: holosystolic 09/23/2016 None Full Exam - General 1994 Cardiovascular auscultation of heart Systolic murmur grade: III/ 09/23/2016 None Full Exam - General 1994 Musculoskeletal spine, ribs and pelvis Overall: spine benign 09/23/2016 None Full Exam - General 1994 Musculoskeletal spine, ribs and pelvis Overall: sacroiliac joint benign 09/23/2016 None Full Exam - General 1994 Musculoskeletal spine, ribs and pelvis Overall: good posture 09/23/2016 None Full Exam - General 1994 Musculoskeletal head and neck Overall: head atraumatic 09/23/2016 None Full Exam - General 1994 Musculoskeletal head and neck Overall: cervical spine benign 09/23/2016 None Full Exam - General 1994 Psychiatric orientation/consciousness Overall: oriented to person, place and time 09/23/2016 None Full Exam - General 1994 Psychiatric mood and affect Overall: normal mood and affect 09/23/2016 None Full Exam - General 1994 Abdomen abdominal exam Overall: no tenderness 09/23/2016 None Full Exam - General 1994 Abdomen abdominal exam Overall: normal bowel sounds 09/23/2016 None Full Exam - Orthopedics Constitutional general appearance Overall: well nourished 09/05/2016 None Full Exam - Orthopedics Constitutional general appearance Overall: well developed 09/05/2016 None Full Exam - Orthopedics Constitutional general appearance Overall: in no acute distress 09/05/2016 None Full Exam - Orthopedics Eyes conjunctiva/ eyelids Overall: conjunctiva clear 09/05/2016 None Full Exam - Orthopedics Eyes conjunctiva/ eyelids Overall: eyelids normal 09/05/2016 None Full Exam - Orthopedics Ears/Nose/Throat lips/teeth/gingiva Overall: benign lips 09/05/2016 None Full Exam - Orthopedics Ears/Nose/Throat oral cavity/pharynx/larynx Overall: oral mucosa clear 09/05/2016 None Full Exam - Orthopedics Respiratory respiratory effort/rhythm Overall: no retractions 09/05/2016 None Full Exam - Orthopedics Respiratory respiratory effort/rhythm Overall: normal rate 09/05/2016 None Full Exam - Orthopedics Psychiatric orientation/consciousness Overall: oriented to person, place and time 09/05/2016 None Full Exam - Orthopedics Psychiatric mood and affect Overall: normal mood and affect 09/05/2016 None Full Exam - Orthopedics Psychiatric appearance Overall: well-groomed, good eye contact 09/05/2016 None Full Exam - Orthopedics MS: spine/rib/pelvis insp & palp - S/R/P Thoracic spine palpation: tender thoracic spinous processes 09/05/2016 trigger point noted in right mid upper back Full Exam - General 1994 Constitutional general appearance Development: well developed 05/28/2016 None Full Exam - General 1994 Constitutional general appearance Development: appears stated age 1105/28/2016 None Full Exam - General 1994 Constitutional general appearance Hygiene/Attention to Grooming: good hygiene 05/28/2016 None Full Exam - General 1994 Eyes conjunctiva /eyelids Overall: conjunctiva clear 05/28/2016 None Full Exam - General 1994 Eyes conjunctiva /eyelids Overall: cornea clear 05/28/2016 None Full Exam - General 1994 Eyes conjunctiva /eyelids Overall: eyelids normal 05/28/2016 None Full Exam - General 1994 Eyes pupils and irises Overall: pupils equal, round, reactive to light and accomodation 05/28/2016 None Full Exam - General 1994 Ears/Nose/Throat lips/teeth/gingiva Overall: benign lips 05/28/2016 None Full Exam - General 1994 Ears/Nose/Throat lips/teeth/gingiva Overall: normal dentition 05/28/2016 None Full Exam - General 1994 Ears/Nose/Throat oral cavity/pharynx/larynx Overall: oral mucosa clear 05/28/2016 None Full Exam - General 1994 Ears/Nose/Throat oral cavity/pharynx/larynx Overall: oropharyngeal mucosa clear 05/28/2016 None Full Exam - General 1994 Ears/Nose/Throat oral cavity/pharynx/larynx Overall: hypopharynx benign 05/28/2016 None Full Exam - General 1994 Ears/Nose/Throat oral cavity/pharynx/larynx Overall: no masses 05/28/2016 None Full Exam - General 1994 Respiratory auscultation Overall: breath sounds clear bilaterally 05/28/2016 None Full Exam - General 1994 Respiratory respiratory effort/rhythm Overall: no retractions 05/28/2016 None Full Exam - General 1994 Respiratory respiratory effort/rhythm Overall: normal rate 05/28/2016 None Full Exam - General 1994 Cardiovascular extremities Overall: no clubbing 05/28/2016 None Full Exam - General 1994 Cardiovascular auscultation of heart Overall: regular rate 05/28/2016 None Full Exam - General 1994 Cardiovascular auscultation of heart Overall: normal heart sounds 05/28/2016 None Full Exam - General 1994 Cardiovascular auscultation of heart Systolic murmur: holosystolic 05/28/2016 None Full Exam - General 1994 Cardiovascular auscultation of heart Systolic murmur grade: III/ 05/28/2016 None Full Exam - General 1994 Musculoskeletal spine, ribs and pelvis Overall: spine benign 05/28/2016 None Full Exam - General 1994 Musculoskeletal spine, ribs and pelvis Overall: sacroiliac joint benign 05/28/2016 None Full Exam - General 1994 Musculoskeletal spine, ribs and pelvis Overall: good posture 05/28/2016 None Full Exam - General 1994 Musculoskeletal head and neck Overall: head atraumatic 05/28/2016 None Full Exam - General 1994 Musculoskeletal head and neck Overall: cervical spine benign 05/28/2016 None Full Exam - General 1994 Psychiatric orientation/consciousness Overall: oriented to person, place and time 05/28/2016 None Full Exam - General 1994 Psychiatric mood and affect Overall: normal mood and affect 05/28/2016 None Full Exam - General 1994 Constitutional general appearance Development: well developed 12/11/2015 None Full Exam - General 1994 Constitutional general appearance Development: appears stated age 0512/11/2015 None Full Exam - General 1994 Constitutional general appearance Hygiene/Attention to Grooming: good hygiene 12/11/2015 None Full Exam - General 1994 Eyes conjunctiva /eyelids Overall: conjunctiva clear 12/11/2015 None Full Exam - General 1994 Eyes conjunctiva /eyelids Overall: cornea clear 12/11/2015 None Full Exam - General 1994 Eyes conjunctiva /eyelids Overall: eyelids normal 12/11/2015 None Full Exam - General 1994 Eyes pupils and irises Overall: pupils equal, round, reactive to light and accomodation 12/11/2015 None Full Exam - General 1994 Ears/Nose/Throat otoscopic exam Overall: external auditory canals clear 12/11/2015 None Full Exam - General 1994 Ears/Nose/Throat otoscopic exam Overall: tympanic membranes clear 12/11/2015 None Full Exam - General 1994 Ears/Nose/Throat lips/teeth/gingiva Overall: benign lips 12/11/2015 None Full Exam - General 1994 Ears/Nose/Throat lips/teeth/gingiva Overall: normal dentition 12/11/2015 None Full Exam - General 1994 Ears/Nose/Throat oral cavity/pharynx/larynx Overall: oral mucosa clear 12/11/2015 None Full Exam - General 1994 Ears/Nose/Throat oral cavity/pharynx/larynx Overall: oropharyngeal mucosa clear 12/11/2015 None Full Exam - General 1994 Ears/Nose/Throat oral cavity/pharynx/larynx Overall: hypopharynx benign 12/11/2015 None Full Exam - General 1994 Ears/Nose/Throat oral cavity/pharynx/larynx Overall: no masses 12/11/2015 None Full Exam - General 1994 Respiratory auscultation Overall: breath sounds clear bilaterally 12/11/2015 None Full Exam - General 1994 Respiratory respiratory effort/rhythm Overall: no retractions 12/11/2015 None Full Exam - General 1994 Respiratory respiratory effort/rhythm Overall: normal rate 12/11/2015 None Full Exam - General 1994 Cardiovascular extremities Overall: no clubbing 12/11/2015 None Full Exam - General 1994 Cardiovascular auscultation of heart Overall: regular rate 12/11/2015 None Full Exam - General 1994 Cardiovascular auscultation of heart Overall: normal heart sounds 12/11/2015 None Full Exam - General 1994 Cardiovascular auscultation of heart Systolic murmur: holosystolic 12/11/2015 None Full Exam - General 1994 Cardiovascular auscultation of heart Systolic murmur grade: III/ 12/11/2015 None Full Exam - General 1994 Lymphatic neck nodes Overall: anterior cervical chain benign 12/11/2015 None Full Exam - General 1994 Lymphatic neck nodes Overall: posterior cervical chain benign 12/11/2015 None Full Exam - General 1994 Musculoskeletal spine, ribs and pelvis Overall: spine benign 12/11/2015 None Full Exam - General 1994 Musculoskeletal spine, ribs and pelvis Overall: sacroiliac joint benign 12/11/2015 None Full Exam - General 1994 Musculoskeletal spine, ribs and pelvis Overall: good posture 12/11/2015 None Full Exam - General 1994 Musculoskeletal head and neck Overall: head atraumatic 12/11/2015 None Full Exam - General 1994 Musculoskeletal head and neck Overall: cervical spine benign 12/11/2015 None Full Exam - General 1994 Integument inspection of skin Overall: few scattered moles, no gross abnormalities 12/11/2015 None Full Exam - General 1994 Neurologic deep tendon reflexes Overall: deep tendon reflexes intact 12/11/2015 None Full Exam - General 1994 Neurologic cranial nerves Overall: crainial nerves 2 - 12 grossly intact 12/11/2015 None Full Exam - General 1994 Psychiatric orientation/consciousness Overall: oriented to person, place and time 12/11/2015 None Full Exam - General 1994 Psychiatric mood and affect Overall: normal mood and affect 12/11/2015 None Full Exam - General 1994 Abdomen abdominal exam Upper quadrant: tender to palpation 12/11/2015 None Full Exam - General 1994 Abdomen abdominal exam Epigastric: tender to palpation 12/11/2015 None Full Exam - General 1994 Abdomen abdominal exam Overall: normal bowel sounds 12/11/2015 None Full Exam - General 1994 Constitutional general appearance Development: well developed 06/11/2015 None Full Exam - General 1994 Constitutional general appearance Development: appears stated age 1106/11/2015 None Full Exam - General 1994 Constitutional general appearance Hygiene/Attention to Grooming: good hygiene 06/11/2015 None Full Exam - General 1994 Eyes conjunctiva /eyelids Overall: conjunctiva clear 06/11/2015 None Full Exam - General 1994 Eyes conjunctiva /eyelids Overall: cornea clear 06/11/2015 None Full Exam - General 1994 Eyes conjunctiva /eyelids Overall: eyelids normal 06/11/2015 None Full Exam - General 1994 Eyes pupils and irises Overall: pupils equal, round, reactive to light and accomodation 06/11/2015 None Full Exam - General 1994 Ears/Nose/Throat otoscopic exam Overall: external auditory canals clear 06/11/2015 None Full Exam - General 1994 Ears/Nose/Throat otoscopic exam Overall: tympanic membranes clear 06/11/2015 None Full Exam - General 1994 Ears/Nose/Throat lips/teeth/gingiva Overall: benign lips 06/11/2015 None Full Exam - General 1994 Ears/Nose/Throat lips/teeth/gingiva Overall: normal dentition 06/11/2015 None Full Exam - General 1994 Ears/Nose/Throat oral cavity/pharynx/larynx Overall: oral mucosa clear 06/11/2015 None Full Exam - General 1994 Ears/Nose/Throat oral cavity/pharynx/larynx Overall: oropharyngeal mucosa clear 06/11/2015 None Full Exam - General 1994 Ears/Nose/Throat oral cavity/pharynx/larynx Overall: hypopharynx benign 06/11/2015 None Full Exam - General 1994 Ears/Nose/Throat oral cavity/pharynx/larynx Overall: no masses 06/11/2015 None Full Exam - General 1994 Respiratory auscultation Overall: breath sounds clear bilaterally 06/11/2015 None Full Exam - General 1994 Respiratory respiratory effort/rhythm Overall: no retractions 06/11/2015 None Full Exam - General 1994 Respiratory respiratory effort/rhythm Overall: normal rate 06/11/2015 None Full Exam - General 1994 Cardiovascular extremities Overall: no clubbing 06/11/2015 None Full Exam - General 1994 Cardiovascular auscultation of heart Overall: regular rate 06/11/2015 None Full Exam - General 1994 Cardiovascular auscultation of heart Overall: normal heart sounds 06/11/2015 None Full Exam - General 1994 Abdomen abdominal exam Overall: no tenderness 06/11/2015 None Full Exam - General 1994 Abdomen abdominal exam Overall: normal bowel sounds 06/11/2015 None Full Exam - General 1994 Lymphatic neck nodes Overall: anterior cervical chain benign 06/11/2015 None Full Exam - General 1994 Lymphatic neck nodes Overall: posterior cervical chain benign 06/11/2015 None Full Exam - General 1994 Musculoskeletal spine, ribs and pelvis Overall: spine benign 06/11/2015 None Full Exam - General 1994 Musculoskeletal spine, ribs and pelvis Overall: sacroiliac joint benign 06/11/2015 None Full Exam - General 1994 Musculoskeletal spine, ribs and pelvis Overall: good posture 06/11/2015 None Full Exam - General 1994 Musculoskeletal head and neck Overall: head atraumatic 06/11/2015 None Full Exam - General 1994 Musculoskeletal head and neck Overall: cervical spine benign 06/11/2015 None Full Exam - General 1994 Integument inspection of skin Overall: few scattered moles, no gross abnormalities 06/11/2015 None Full Exam - General 1994 Neurologic deep tendon reflexes Overall: deep tendon reflexes intact 06/11/2015 None Full Exam - General 1994 Neurologic cranial nerves Overall: crainial nerves 2 - 12 grossly intact 06/11/2015 None Full Exam - General 1994 Psychiatric orientation/consciousness Overall: oriented to person, place and time 06/11/2015 None Full Exam - General 1994 Psychiatric mood and affect Overall: normal mood and affect 06/11/2015 None Full Exam - General 1994 Cardiovascular auscultation of heart Systolic murmur: holosystolic 06/11/2015 None Full Exam - General 1994 Cardiovascular auscultation of heart Systolic murmur grade: III/ 06/11/2015 None Full Exam - General 1994 Constitutional general appearance Development: well developed 02/05/2015 None Full Exam - General 1994 Constitutional general appearance Development: appears stated age 0702/05/2015 None Full Exam - General 1994 Constitutional general appearance Hygiene/Attention to Grooming: good hygiene 02/05/2015 None Full Exam - General 1994 Eyes conjunctiva /eyelids Overall: conjunctiva clear 02/05/2015 None Full Exam - General 1994 Eyes conjunctiva /eyelids Overall: cornea clear 02/05/2015 None Full Exam - General 1994 Eyes conjunctiva /eyelids Overall: eyelids normal 02/05/2015 None Full Exam - General 1994 Eyes pupils and irises Overall: pupils equal, round, reactive to light and accomodation 02/05/2015 None Full Exam - General 1994 Ears/Nose/Throat otoscopic exam Overall: external auditory canals clear 02/05/2015 None Full Exam - General 1994 Ears/Nose/Throat otoscopic exam Overall: tympanic membranes clear 02/05/2015 None Full Exam - General 1994 Ears/Nose/Throat lips/teeth/gingiva Overall: benign lips 02/05/2015 None Full Exam - General 1994 Ears/Nose/Throat lips/teeth/gingiva Overall: normal dentition 02/05/2015 None Full Exam - General 1994 Ears/Nose/Throat oral cavity/pharynx/larynx Overall: oral mucosa clear 02/05/2015 None Full Exam - General 1994 Ears/Nose/Throat oral cavity/pharynx/larynx Overall: oropharyngeal mucosa clear 02/05/2015 None Full Exam - General 1994 Ears/Nose/Throat oral cavity/pharynx/larynx Overall: hypopharynx benign 02/05/2015 None Full Exam - General 1994 Ears/Nose/Throat oral cavity/pharynx/larynx Overall: no masses 02/05/2015 None Full Exam - General 1994 Respiratory auscultation Overall: breath sounds clear bilaterally 02/05/2015 None Full Exam - General 1994 Respiratory respiratory effort/rhythm Overall: no retractions 02/05/2015 None Full Exam - General 1994 Respiratory respiratory effort/rhythm Overall: normal rate 02/05/2015 None Full Exam - General 1994 Cardiovascular extremities Overall: no clubbing 02/05/2015 None Full Exam - General 1994 Cardiovascular auscultation of heart Overall: regular rate 02/05/2015 None Full Exam - General 1994 Cardiovascular auscultation of heart Overall: normal heart sounds 02/05/2015 None Full Exam - General 1994 Abdomen abdominal exam Overall: no tenderness 02/05/2015 None Full Exam - General 1994 Abdomen abdominal exam Overall: normal bowel sounds 02/05/2015 None Full Exam - General 1994 Lymphatic neck nodes Overall: anterior cervical chain benign 02/05/2015 None Full Exam - General 1994 Lymphatic neck nodes Overall: posterior cervical chain benign 02/05/2015 None Full Exam - General 1994 Musculoskeletal spine, ribs and pelvis Overall: spine benign 02/05/2015 None Full Exam - General 1994 Musculoskeletal spine, ribs and pelvis Overall: sacroiliac joint benign 02/05/2015 None Full Exam - General 1994 Musculoskeletal spine, ribs and pelvis Overall: good posture 02/05/2015 None Full Exam - General 1994 Musculoskeletal head and neck Overall: head atraumatic 02/05/2015 None Full Exam - General 1994 Musculoskeletal head and neck Overall: cervical spine benign 02/05/2015 None Full Exam - General 1994 Integument inspection of skin Overall: few scattered moles, no gross abnormalities 02/05/2015 None Full Exam - General 1994 Neurologic deep tendon reflexes Overall: deep tendon reflexes intact 02/05/2015 None Full Exam - General 1994 Neurologic cranial nerves Overall: crainial nerves 2 - 12 grossly intact 02/05/2015 None Full Exam - General 1994 Psychiatric orientation/consciousness Overall: oriented to person, place and time 02/05/2015 None Full Exam - General 1994 Psychiatric mood and affect Overall: normal mood and affect 02/05/2015 None Procedures Procedure Codes Date PPPS, SUBSEQ VISIT CPT -4: G0439 01/26/2018 TRIAMCINOLONE ACET INJ NOS CPT-4: J3301 12/04/2017 PPPS, SUBSEQ VISIT CPT -4: G0439 01/22/2017 THER/PROPH/DIAG INJ SC/IM CPT-4: 82223 09/23/2016 TRIAMCINOLONE ACET INJ NOS CPT-4: J3301 09/23/2016 INJ TRIGGER POINT 1/2 MUSCL CPT-4: 93189 09/05/2016 TRIAMCINOLONE ACET INJ NOS CPT-4: J3301 09/05/2016 ADMIN INFLUENZA VIRUS VAC CPT-4: G0008 04/29/2016 FLU VACC 4 CHASE 3 YRS PLUS IM SNOMED CT: [id number] CPT-4: 61608 04/29/2016 THER/PROPH/DIAG INJ SC/IM CPT-4: 77057 02/28/2016 TRIAMCINOLONE ACET INJ NOS CPT-4: J3301 02/28/2016 THER/PROPH/DIAG INJ SC/IM CPT-4: 23031 09/25/2015 TRIAMCINOLONE ACET INJ NOS CPT-4: J3301 09/25/2015 ADMIN INFLUENZA VIRUS VAC CPT-4: G0008 06/11/2015 FLU VACC PRSV FREE INC ANTIG Formatting Model/CDA Sections, Assigned to/Candida Hickey CPT-4: [id number] 06/11/2015 Vital Signs Date Vital 06/11/2018 Blood Pressure 1: 134/74 Code : 8480-6 BMI: 29.4 Code : 27491-0 Heart Rate 1 : 67 bpm Height: 5'11" SpO2: 97% Weight: 211 lbs 03/24/2018 Blood Pressure 1: 118/64 Code : 8480-6 BMI: 36.3 Code : 15287-8 Heart Rate 1 : 73 bpm Height: 5'11" SpO2: 98% Weight: 260 lbs 12/04/2017 Blood Pressure 1: 128/80 Code : 8480-6 BMI: 28.2 Code : 87663-2 Heart Rate 1 : 84 bpm Height: 5'11" SpO2: 97% Temperature: 36.6 (C) / 97.9 (F) Weight: 202 lbs 10/16/2017 Blood Pressure 1: 130/72 Code : 8480-6 BMI: 30.0 Code : 98826-4 Heart Rate 1 : 76 bpm Height: 5'11" SpO2: 99% Weight: 215 lbs 08/31/2017 Blood Pressure 1: 122/80 Code : 8480-6 BMI: 29.4 Code : 95451-7 Heart Rate 1 : 80 bpm Height: 5'11" SpO2: 96% Weight: 211 lbs 01/22/2017 BMI: 27.9 Code: 84607-3 Height: 5'11" Weight: 200 lbs 10/23/2016 Blood Pressure 1: 132/76 Code : 8480-6 BMI: 27.9 Code : 88940-2 Heart Rate 1 : 85 bpm Height: 5'11" SpO2: 98% Weight: 200 lbs 09/23/2016 Blood Pressure 1: 150/80 Code : 8480-6 BMI: 28.3 Code : 55523-1 Heart Rate 1 : 96 bpm Height: 5'11" SpO2: 98% Weight: 203 lbs 09/05/2016 Blood Pressure 1: 136/82 Code : 8480-6 BMI: 27.8 Code : 10371-3 Heart Rate 1 : 77 bpm Height: 6' SpO2: 98% Weight: 205 lbs 05/28/2016 Blood Pressure 1: 130/82 Code : 8480-6 BMI: 29.3 Code : 51363-4 Heart Rate 1 : 79 bpm Height: 6' SpO2: 98% Weight: 216 lbs 12/11/2015 Blood Pressure 1: 128/76 Code : 8480-6 BMI: 30.5 Code : 27561-4 Heart Rate 1 : 84 bpm Height: 6' SpO2: 96% Weight: 225 lbs 06/11/2015 Blood Pressure 1: 138/82 Code : 8480-6 BMI: 29.3 Code : 11815-8 Heart Rate 1 : 71 bpm Height: 6' SpO2: 98% Weight: 216 lbs 02/05/2015 Blood Pressure 1: 140/80 Code : 8480-6 BMI: 29.8 Code : 57696-5 Heart Rate 1 : 76 bpm Height: 6' Weight: 220 lbs Functional Status No Functional Status data History of Present Illness Symptom Name Status Result Effective Date Notes joint complaint Location diffusely 06/11/2018 None joint complaint Quality aching 06/11/2018 None joint complaint Quality constant 06/11/2018 None joint complaint Quality swelling 06/11/2018 None joint complaint Quality worsening 06/11/2018 None joint complaint Onset and Resolution gradual in onset 06/11/2018 None joint complaint Onset of Symptom _ months ago 06/11/2018 None joint complaint Frequency of Episodes daily 06/11/2018 None joint complaint Pertinent Findings limitation of motion 06/11/2018 None Hospital Follow Up _ gastrointestinal complaints 03/24/2018 blockage Hospital Follow Up Onset of Symptom 2 weeks ago 03/24/2018 None Annual Medicare Wellness Exam Alcohol Use drinks 1 days per week 01/26/2018 None Annual Medicare Wellness Exam Aspirin Use yes 01/26/2018 as needed Annual Medicare Wellness Exam Blood Glucose (self reported) don't know 01/26/2018 None Annual Medicare Wellness Exam Blood Pressure (self reported ) low / normal (120/80) 01/26/2018 None Annual Medicare Wellness Exam Cholesterol (self reported) don't know 01/26/2018 None Annual Medicare Wellness Exam Depression (last 6 months) some of the time 01/26/2018 None Annual Medicare Wellness Exam Depression or Hopelessness most of the time 01/26/2018 None Annual Medicare Wellness Exam Describe Your Health fair 01/26/2018 None Annual Medicare Wellness Exam Exercise Habits does not exercise 01/26/2018 None Annual Medicare Wellness Exam Handling Stress usually pamela effectively 01/26/2018 None Annual Medicare Wellness Exam Hemaglobin A-1C (self reported ) don't know 01/26/2018 None Annual Medicare Wellness Exam Hours of Sleep 5 01/26/2018 None Annual Medicare Wellness Exam Interaction with Friends yes 01/26/2018 None Annual Medicare Wellness Exam Interests & Pleasure almost never 01/26/2018 None Annual Medicare Wellness Exam Life Satisfaction satisfied 01/26/2018 None Annual Medicare Wellness Exam Motor Vehicle Safety always fastens seat belt: y 01/26/2018 None Annual Medicare Wellness Exam Nutrition servings of vegetables / fruit per day: 1-2 01/26/2018 None Annual Medicare Wellness Exam Smoking and Tobacco Use cigarette smoker 01/26/2018 None Annual Medicare Wellness Exam Social & Emotional Support sometimes 01/26/2018 None Annual Medicare Wellness Exam Stress daily 01/26/2018 None Annual Medicare Wellness Exam Sun Exposure protects skin when outdoors: n 01/26/2018 None sore throat Location diffusely 12/04/2017 None sore throat Quality aching 12/04/2017 None sore throat Onset and Resolution sudden in onset 12/04/2017 None sore throat Quality acute 12/04/2017 None sore throat Quality scratchy 12/04/2017 None sore throat Onset of Symptom 2-3 days ago 12/04/2017 None sore throat Triggers no known associated factors 12/04/2017 None sore throat Pertinent Findings cough 12/04/2017 None sore throat Pertinent Findings decreased energy level 12/04/2017 None sore throat Pertinent Findings fever 12/04/2017 None sore throat Pertinent Findings hoarseness 12/04/2017 None sore throat Pertinent Findings lymphadenopathy 12/04/2017 None sore throat Pertinent Findings nasal congestion 12/04/2017 None sore throat Pertinent Findings poor feeding 12/04/2017 None sore throat Pertinent Findings facial pain 12/04/2017 None sore throat Pertinent Findings vomiting 12/04/2017 None sore throat Pertinent Findings weight loss 12/04/2017 None sore throat Exacerbating Factors voice use 12/04/2017 None sinus congestion Onset and Resolution sudden in onset 12/04/2017 None sinus congestion Onset of Symptom 2-3 days ago 12/04/2017 None sinus congestion Severity moderate 12/04/2017 None sinus congestion Triggers no known associated factors 12/04/2017 None sinus congestion Alleviating Factors rest 12/04/2017 None sinus congestion Pertinent Findings cough 12/04/2017 None sinus congestion Pertinent Findings decreased energy level 12/04/2017 None sinus congestion Pertinent Findings fever 12/04/2017 None sinus congestion Pertinent Findings facial pain 12/04/2017 None sinus congestion Pertinent Findings hoarseness 12/04/2017 None sinus congestion Pertinent Findings vomiting 12/04/2017 None sinus congestion Pertinent Findings weight loss 12/04/2017 None sinus congestion Location on both sides 12/04/2017 None sinus congestion Quality acute 12/04/2017 None sinus congestion Quality fullness 12/04/2017 None sinus congestion Quality pain 12/04/2017 None sinus congestion Quality pressure 12/04/2017 None weight loss Quality acute 12/04/2017 None weight loss Onset and Resolution sudden in onset 12/04/2017 None weight loss Onset of Symptom 2-3 months ago 12/04/2017 None weight loss Diet decreased intake 12/04/2017 None weight loss Triggers change in diet 12/04/2017 None weight loss Triggers social stressors 12/04/2017 None weight loss Triggers unintentional weight loss 12/04/2017 None weight loss Pertinent Findings depressed mood 12/04/2017 None weight loss Pertinent Findings cough 12/04/2017 None weight loss Pertinent Findings fever 12/04/2017 None weight loss Pertinent Findings nausea 12/04/2017 None weight loss Pertinent Findings vomiting 12/04/2017 None shoulder pain Location superficial 10/16/2017 None shoulder pain Quality aching 10/16/2017 None shoulder pain Onset and Resolution sudden in onset 10/16/2017 None shoulder pain Onset of Symptom _ days ago 10/16/2017 None shoulder pain Pertinent Findings point tenderness 10/16/2017 None palpitations Onset and Resolution ongoing 08/31/2017 None Annual Medicare Wellness Exam Alcohol Use drinks 01- days per week 01/22/2017 None Annual Medicare Wellness Exam Aspirin Use yes 01/22/2017 None Annual Medicare Wellness Exam Blood Glucose (self reported) don't know 01/22/2017 None Annual Medicare Wellness Exam Blood Pressure (self reported ) borderline (120/80 - 139/89) 01/22/2017 None Annual Medicare Wellness Exam Cholesterol (self reported) don't know 01/22/2017 None Annual Medicare Wellness Exam Depression (last 6 months) some of the time 01/22/2017 None Annual Medicare Wellness Exam Depression or Hopelessness almost never 01/22/2017 None Annual Medicare Wellness Exam Describe Your Health good 01/22/2017 None Annual Medicare Wellness Exam Exercise Habits does not exercise 01/22/2017 None Annual Medicare Wellness Exam Handling Stress usually pamela effectively 01/22/2017 None Annual Medicare Wellness Exam Hemaglobin A-1C (self reported ) don't know 01/22/2017 None Annual Medicare Wellness Exam Hours of Sleep 6 01/22/2017 None Annual Medicare Wellness Exam Interaction with Friends yes 01/22/2017 None Annual Medicare Wellness Exam Interests & Pleasure some of the time 01/22/2017 None Annual Medicare Wellness Exam Life Satisfaction satisfied 01/22/2017 None Annual Medicare Wellness Exam Motor Vehicle Safety always fastens seat belt: y 01/22/2017 None Annual Medicare Wellness Exam Nutrition servings of vegetables / fruit per day: 1-2 01/22/2017 None Annual Medicare Wellness Exam Smoking and Tobacco Use non smoker 01/22/2017 None Annual Medicare Wellness Exam Social & Emotional Support usually 01/22/2017 None Annual Medicare Wellness Exam Stress most of the time 01/22/2017 None Annual Medicare Wellness Exam Sun Exposure protects skin when outdoors: n 01/22/2017 None hypertension Onset and Resolution ongoing 10/23/2016 None hypertension Onset of Symptom during adulthood 10/23/2016 None hypertension Blood Pressure Values not checking blood pressure at home 10/23/2016 None hypertension Alleviating Factors medication 10/23/2016 None hypertension Pertinent Findings Denies dizziness 10/23/2016 None hypertension Pertinent Findings dyspnea 10/23/2016 "nothing unusual" hypertension Pertinent Findings Denies edema 10/23/2016 None fatigue Onset and Resolution ongoing 10/23/2016 None fatigue Alleviating Factors rest 10/23/2016 None urinary retention/hesitancy Quality hesitancy 10/23/2016 None urinary retention/hesitancy Onset and Resolution ongoing 10/23/2016 None insomnia Quality difficulty falling asleep 10/23/2016 None insomnia Quality disrupted sleep 10/23/2016 None insomnia Quality worsening 10/23/2016 None insomnia Onset and Resolution ongoing 10/23/2016 None urinary retention/hesitancy Quality improving 10/23/2016 None urinary retention/hesitancy Alleviating Factors medication 10/23/2016 None hypertension Onset and Resolution ongoing 09/23/2016 None hypertension Onset of Symptom during adulthood 09/23/2016 None hypertension Blood Pressure Values not checking blood pressure at home 09/23/2016 None hypertension Alleviating Factors medication 09/23/2016 None hypertension Pertinent Findings Denies dizziness 09/23/2016 None hypertension Pertinent Findings dyspnea 09/23/2016 None hypertension Pertinent Findings Denies edema 09/23/2016 None fatigue Onset and Resolution ongoing 09/23/2016 None fatigue Alleviating Factors rest 09/23/2016 None urinary retention/hesitancy Quality hesitancy 09/23/2016 None urinary retention/hesitancy Onset and Resolution ongoing 09/23/2016 None shoulder pain Location scapular border, right shoulder 09/05/2016 None shoulder pain Quality stabbing 09/05/2016 None shoulder pain Quality constant 09/05/2016 None shoulder pain Quality worsening 09/05/2016 None shoulder pain Onset and Resolution sudden in onset 09/05/2016 None shoulder pain Onset of Symptom 1 weeks ago 09/05/2016 None shoulder pain Frequency of Episodes daily 09/05/2016 None shoulder pain Pertinent Findings point tenderness 09/05/2016 None shoulder pain Pertinent Findings stiffness 09/05/2016 None neck pain Location diffusely 09/05/2016 None neck pain Quality constant 09/05/2016 None neck pain Quality sharp 09/05/2016 None neck pain Onset and Resolution sudden in onset 09/05/2016 None neck pain Onset of Symptom 1 weeks ago 09/05/2016 None neck pain Frequency of Episodes daily 09/05/2016 None hypertension Onset and Resolution ongoing 05/28/2016 None hypertension Onset of Symptom during adulthood 05/28/2016 None hypertension Blood Pressure Values not checking blood pressure at home 05/28/2016 None hypertension Alleviating Factors medication 05/28/2016 None hypertension Pertinent Findings dyspnea 05/28/2016 None hypertension Pertinent Findings Denies dizziness 05/28/2016 None hypertension Pertinent Findings Denies edema 05/28/2016 None fatigue Onset and Resolution ongoing 05/28/2016 None fatigue Alleviating Factors rest 05/28/2016 None blood pressure followup Quality chronic 12/11/2015 None blood pressure followup Onset and Resolution ongoing 12/11/2015 None blood pressure followup Onset of Symptom during adulthood 12/11/2015 None blood pressure followup Blood Pressure Values not checking blood pressure at home 12/11/2015 None blood pressure followup Frequency of Episodes unchanged 12/11/2015 None blood pressure followup Triggers stress 12/11/2015 None blood pressure followup Alleviating Factors diet changes 12/11/2015 None blood pressure followup Alleviating Factors exercise 12/11/2015 None blood pressure followup Alleviating Factors medication 12/11/2015 None pain Quality chronic 12/11/2015 None pain Quality worsening 12/11/2015 None pain Quality aching None pain Quality dull None pain Onset and Resolution ongoing 12/11/2015 None pain Onset of Symptom 2 weeks ago 12/11/2015 None pain Timing of Episodes no specific time 12/11/2015 None pain Limitation on Activities moderately limits activities 12/11/2015 None pain Severity moderate 12/11/2015 None pain Triggers no known triggers 12/11/2015 None pain Alleviating Factors treatment medication 12/11/2015 None blood pressure followup Pertinent Findings Denies dizziness 12/11/2015 None blood pressure followup Pertinent Findings Denies dyspnea 12/11/2015 None pain Pertinent Findings Denies fever 12/11/2015 None pain Pertinent Findings pain 12/11/2015 None blood pressure followup Quality chronic 06/11/2015 None blood pressure followup Onset and Resolution ongoing 06/11/2015 None blood pressure followup Onset of Symptom during adulthood 06/11/2015 None blood pressure followup Blood Pressure Values not checking blood pressure at home 06/11/2015 None blood pressure followup Frequency of Episodes unchanged 06/11/2015 None blood pressure followup Triggers stress 06/11/2015 None blood pressure followup Alleviating Factors diet changes 06/11/2015 None blood pressure followup Alleviating Factors exercise 06/11/2015 None blood pressure followup Alleviating Factors medication 06/11/2015 None pain Location-Major in a generalized area 06/11/2015 all over pain Quality chronic 06/11/2015 None pain Quality worsening 06/11/2015 None pain Quality aching None pain Quality dull None pain Onset and Resolution ongoing 06/11/2015 None pain Onset of Symptom 2 weeks ago 06/11/2015 None pain Timing of Episodes no specific time 06/11/2015 None pain Triggers no known triggers 06/11/2015 None pain Alleviating Factors treatment medication 06/11/2015 None pain Limitation on Activities moderately limits activities 06/11/2015 None pain Severity moderate 06/11/2015 None blood pressure followup Alleviating Factors diet changes 02/05/2015 None blood pressure followup Alleviating Factors exercise 02/05/2015 None blood pressure followup Alleviating Factors medication 02/05/2015 None blood pressure followup Blood Pressure Values not checking blood pressure at home 02/05/2015 None blood pressure followup Frequency of Episodes unchanged 02/05/2015 None blood pressure followup Onset and Resolution ongoing 02/05/2015 None blood pressure followup Onset of Symptom during adulthood 02/05/2015 None blood pressure followup Quality chronic 02/05/2015 None blood pressure followup Triggers stress 02/05/2015 None Advance Directives No Advance Directive data Encounters Encounter Performer Location Codes Date EST. PATIENT, LEVEL IV Diagnosis: Chronic pain syndrome[ICD10: G89.4] Keely Briseno MD, [facility] CPT-4: 84525 06/11/2018 [id number] EST. PATIENT, LEVEL III Diagnosis: Encounter for follow-up examination after completed treatment for conditions other than malignant neoplasm[ICD10: Z09] Diagnosis: Essential (primary) hypertension[ICD10: I10] Keely Briseno MD, [facility] CPT-4: 17970 03/24/2018 ([id number]) [id number] EST. PATIENT, LEVEL III Diagnosis: Acute recurrent maxillary sinusitis[ICD10: J01.01] Diagnosis: Other allergic rhinitis[ICD10: J30.89] Magy Briseno MD, [facility] CPT-4: 55284 12/04/2017 [id number] EST. PATIENT, LEVEL III Diagnosis: Pain in right shoulder[ICD10: M25.511] Keely Briseno MD, [facility] CPT-4: 86893 10/16/2017 [id number] EST. PATIENT, LEVEL III Diagnosis: Cardiac murmur, unspecified[ICD10: R01.1] Diagnosis: Other fatigue[ICD10: R53.83] Keely Briseno MD, [facility] CPT-4 : 80225 08/31/2017 ([id number]) 94554 EST. PATIENT, LEVEL IV Diagnosis: Essential (primary) hypertension[ICD10: I10] Diagnosis: Pain in thoracic spine[ICD10: M54.6] Diagnosis: Chronic pain syndrome[ICD10: G89.4] Safia Briseno MD, [facility] CPT-4: 30787 10/23/2016 ([id number]) 28795 EST. PATIENT, LEVEL IV Diagnosis: Essential (primary) hypertension[ICD10: I10] Diagnosis: Benign prostatic hyperplasia with lower urinary tract symptoms[ICD10 : N40.1] Safia Briseno MD, [facility] CPT-4: 40335 2016 91805 EST. PATIENT, LEVEL III Diagnosis: Pain in thoracic spine[ICD10: M54.6] Diagnosis: Other muscle spasm[ICD10: M62.838] Diagnosis: Pain in right shoulder[ICD10: M25.511] Diagnosis: Muscle spasm of back[ICD10: M62.830] Diagnosis: Myalgia[ICD10: M79.1] Keely Briseno MD, [facility] CPT-4: 89012 09/05/2016 ([id number]) 28859 EST. PATIENT, LEVEL III Diagnosis: Essential (primary) hypertension[ICD10: I10] Diagnosis: Chronic pain syndrome[ICD10: G89.4] Safia Briseno MD, [facility] CPT-4: 51782 05/28/2016 ([id number]) 18224 EST. PATIENT, LEVEL IV Diagnosis: Essential (primary) hypertension[ICD10: I10] Diagnosis: Chronic pain syndrome[ICD10: G89.4] Diagnosis: Left upper quadrant pain[ICD10: R10.12] Diagnosis: Gastro-esophageal reflux disease without esophagitis[ICD10: K21.9] Magy Briseno MD, [facility] CPT-4: 37083 12/11/2015 ([id number]) 73515 EST. 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 06/11/2018 Appointment: Keely Jorge WPtel: [address] [place], [place] [id number] (15 min) Moderate 06/11/2018 Patient Education: Patient Medication Summary Completed 06/11/2018 Visit Plan: Hospital follow up - This was a follow up appointment from the patient's hospitalization during which time Dr. Briseno formulated the assessment and plan for the follow up on this patient's medical condition. Hypertension - well controlled - continue with current medications, continue with no added salt diet. Pt has been encouraged to exercise daily. The pt has been advised to call the office if there are any acute concerns about change in blood pressure readings at home. 03/24/2018 Appointment: Keely Jorge WPtel: [phone] (15 min) Moderate 03/24/2018 Patient Education: Patient Medication Summary Completed 03/24/2018 Visit Plan: Medicare Exam - today we discussed the patients past history, immunizations, preventative exams/evaluations - colonoscopy, fecal occult blood testing, routine labs for renal function, glucose, cholesterol, osteoporosis evaluations, cardiovascular testing and cancer screenings. We have also discussed mental health and the signs/symptoms of depression. The patient was advised of home safety evaluations and the need to make sure that as the aging process continues, we need to be aware of different ways to make the home a safer place to reside. The patient has also been counseled that exercise is necessary - and of utmost importance as we age to help decrease fall risk and to maintain independece in the home. Today we discussed the need for the patient to create paperwork for Advanced directives as well as for the patient to provide this office with a copy of her DOPA paperwork for health care surrogate. Nocturnal urination - will order labs and send RX - pt is to notify clinic if symptoms do not improve or with any changes , questions, or concerns. 01/26/2018 Patient Education: Patient Medication Summary Completed 01/26/2018 Visit Plan: Sinusitis - Pt has acute infection - pain in face, maxillary region, Pt informed to use decongestant, RX given to patient, sinus rinses also recommended. Call if symptoms do not show improvement. Allergies - chronic - recommended pt to use allergy medication as prescribed. Pt has been counseled as to the appropriate use of the medication. Pt to call if allergy symptoms are not controlled with the medication. If using nasal spray , instructions as follows: Nasal spray- use twice daily, one spray per nostril twice daily, after 30 minutes, rinse out nose with saline spray.. Use opposite hand per nostril to spray in the nasal steroid allergy spray. 12/04/2017 Appointment: Magy Cortez WPtel: [address] [place] [address] (15 min) Moderate 12/04/2017 Patient Education: Patient Medication Summary Completed 12/04/2017 Visit Plan: Right shoulder pain, Biceps tendinitis - pt to do exercises as directed, ant-inflammatories directed to be taken per RX instructions and pt to call if symptoms are not improved. 10/16/2017 Appointment: Keely Jorge WPtel: [address] [place] [address] (15 min) Moderate 10/16/2017 Patient Education: Patient Medication Summary Completed 10/16/2017 Visit Plan: Heart murmur - more pronounced, fatigue - will order ECHO and refer as indicated - pt is to notify clinic with any changes, questions, or concerns. 08/31/2017 Appointment: Keely Jorge WPtel: [address] [place], [place] [phone] (30 min) Complex 08/31/2017 Patient Education: Patient Medication Summary Completed 08/31/2017 Visit Plan: Medicare Exam - today we discussed the patients past history, immunizations, preventative exams/evaluations - colonoscopy, fecal occult blood testing, routine labs for renal function, glucose, cholesterol, osteoporosis evaluations, cardiovascular testing and cancer screenings. We have also discussed mental health and the signs/symptoms of depression. The patient was advised of home safety evaluations and the need to make sure that as the aging process continues, we need to be aware of different ways to make the home a safer place to reside. The patient has also been counseled that exercise is necessary - and of utmost importance as we age to help decrease fall risk and to maintain independence in the home. Today we discussed the need for the patient to create paperwork for Advanced directives as well as for the patient to provide this office with a copy of her DOPA paperwork for health care surrogate. 01/22/2017 Appointment: Keely Jorge WPtel: [facility] - Annual Wellness Visit 01/22/2017 Patient Education: Patient Medication Summary Completed 01/22/2017 Visit Plan: Hypertension - well controlled - continue with current medications, continue with no added salt diet. Pt has been encouraged to exercise daily. The pt has been advised to call the office if there are any acute concerns about change in blood pressure readings at home. Chronic Pain Syndrome - pt has chronic pain - has been maintained on current medications, has not sought out other medications, only uses PRN pain medications as directed , and understands the consequences of over-medication. 10/23/2016 Appointment: Safia Briseno WPtel: [facility] [address] (15 min) Moderate 10/23/2016 Patient Education: Patient Medication Summary Completed 10/23/2016 Visit Plan: Hypertension - well controlled - continue with current medications, continue with no added salt diet. Pt has been encouraged to exercise daily. The pt has been advised to call the office if there are any acute concerns about change in blood pressure readings at home. BPH - rx for flomax 09/23/2016 Appointment: Safia Briseno WPtel: [facility] (15 min) Moderate 09/23/2016 Patient Education: Patient Medication Summary Completed 09/23/2016 Visit Plan: Trigger Points - Injected trigger points today , pt given post-injection instructions, signs and symptoms for which to call the office. Pt to use heat to the muscles today, and take an anti-inflammatory today unless otherwise contraindicated by renal function or other disease process. 09/05/2016 Visit Plan: Trigger Points - Injected trigger points today , pt given post-injection instructions, signs and symptoms for which to call the office. Pt to use heat to the muscles today, and take an anti-inflammatory today unless otherwise contraindicated by renal function or other disease process. 09/05/2016 Visit Plan: Trigger Points - Injected trigger points today , pt given post-injection instructions, signs and symptoms for which to call the office. Pt to use heat to the muscles today, and take an anti-inflammatory today unless otherwise contraindicated by renal function or other disease process. 09/05/2016 Appointment: Keely Jorge WPtel: [address] [phone] (30 min) Complex 09/05/2016 Patient Education: Patient Medication Summary Completed 09/05/2016 Appointment: Magy Cortez WPtel: [facility]5 [phone] (30 min) Complex 06/17/2016 Visit Plan: Hypertension - well controlled - continue with current medications, continue with no added salt diet. Pt has been encouraged to exercise daily. The pt has been advised to call the office if there are any acute concerns about change in blood pressure readings at home. Chronic Pain Syndrome - pt has chronic pain - has been maintained on current medications, has not sought out other medications, only uses PRN pain medications as directed , and understands the consequences of over-medication. 05/28/2016 Appointment: [facility] (15 min) Moderate 05/28/2016 Patient Education: Patient Medication Summary Completed 05/28/2016 Appointment: Injection 04/29/2016 Patient Education: Patient Medication Summary Completed 04/29/2016 Appointment: Injection 02/28/2016 Patient Education: Patient Medication Summary Completed 02/28/2016 Appointment: Magy Cortez WPtel: [address] [phone] (30 min) Complex 01/14/2016 Visit Plan: Hypertension - well controlled - continue with current medications, continue with no added salt diet. Pt has been encouraged to exercise daily. The pt has been advised to call the office if there are any acute concerns about change in blood pressure readings at home. Chronic Pain Syndrome - pt has chronic pain - has been maintained on current medications, has not sought out other medications, only uses PRN pain medications as directed , and understands the consequences of over-medication. Esophageal Reflux - the patient has been counseled against excessive intake of caffeine, spicy foods, peppermint, and cinnamon - all of which can exacerbate esophageal reflux. The patient is to take medications as prescribed and call the office if the symptoms are not improving. CHECK LABS-INCREASE PRILOSEC TO TWICE DAILY 12/11/2015 Appointment: (15 min) Moderate 12/11/2015 Patient Education: Patient Medication Summary Completed 12/11/2015 Patient Education: Obesity Completed 12/11/2015 Patient Education: Patient Medication Summary Completed 09/25/2015 Visit Plan: Hypertension - well controlled - continue with current medications, continue with no added salt diet. Pt has been encouraged to exercise daily. The pt has been advised to call the office if there are any acute concerns about change in blood pressure readings at home. Chronic Pain Syndrome - pt has chronic pain - has been maintained on current medications, has not sought out other medications, only uses PRN pain medications as directed , and understands the consequences of over-medication. Aortic stenosis-repeat echocardiogram-last one October 2013 06/11/2015 Appointment: Magy Cortez WPtel: [address] [place], [place] [phone] (30 min) Complex 06/11/2015 Patient Education: Patient Medication Summary Completed 06/11/2015 Patient Education: Hypertension Completed 06/11/2015 Visit Plan: Hypertension - uncontrolled - the patient's medications have been modified as documented in the visit note. The patient has been counseled to cut back on salt in diet for a no added salt diet, low fat diet, start an exercise program with low weight bearing exercises and higher aerobic activity for heart health. The patient is to check blood pressure readings as an outpatient and either fax, call, or email the readings to the office next week for practitioner to review. The pt is to call for acute concerns. Chronic pain syndrome - refill Methadone. 02/05/2015 Appointment: Safia Briseno WPtel: [facility] [place] ([place] New Patient 02/05/2015 Patient Education: Patient Medication Summary Completed 02/05/2015 Patient Education: Hypertension Completed 02/05/2015 Instructions Comment . Medicare Exam - today we discussed the patients past history, immunizations, preventative exams/evaluations - colonoscopy, fecal occult blood testing, routine labs for renal function, glucose, cholesterol, osteoporosis evaluations, cardiovascular testing and cancer screenings. We have also discussed mental health and the signs/symptoms of depression. The patient was advised of home safety evaluations and the need to make sure that as the aging process continues, we need to be aware of different ways to make the home a safer place to reside. The patient has also been counseled that exercise is necessary - and of utmost importance as we age to help decrease fall risk and to maintain independece in the home. Today we discussed the need for the patient to create paperwork for Advanced directives as well as for the patient to provide this office with a copy of her DOPA paperwork for health care surrogate. Nocturnal urination - will order labs and send RX - pt is to notify clinic if symptoms do not improve or with any changes, questions, or concerns. increase prilosec to twice daily call in 1 week if symptoms are not improved and i will send in a prescription for carafate . Hypertension - well controlled - continue with current medications, continue with no added salt diet. Pt has been encouraged to exercise daily. The pt has been advised to call the office if there are any acute concerns about change in blood pressure readings at home. Chronic Pain Syndrome - pt has chronic pain - has been maintained on current medications, has not sought out other medications, only uses PRN pain medications as directed, and understands the consequences of over-medication. Esophageal Reflux - the patient has been counseled against excessive intake of caffeine, spicy foods, peppermint, and cinnamon - all of which can exacerbate esophageal reflux. The patient is to take medications as prescribed and call the office if the symptoms are not improving. CHECK LABS-INCREASE PRILOSEC TO TWICE DAILY . Chronic Pain Syndrome - pt has chronic pain - has been maintained on current medications, has not sought out other medications, only uses PRN pain medications as directed, and understands the consequences of over- medication. . Hypertension - well controlled - continue with current medications, continue with no added salt diet. Pt has been encouraged to exercise daily. The pt has been advised to call the office if there are any acute concerns about change in blood pressure readings at home. Chronic Pain Syndrome - pt has chronic pain - has been maintained on current medications, has not sought out other medications, only uses PRN pain medications as directed, and understands the consequences of over-medication. INFLUENZA VACCINE TODAY CHECK LABS . Hypertension - well controlled - continue with current medications, continue with no added salt diet. Pt has been encouraged to exercise daily. The pt has been advised to call the office if there are any acute concerns about change in blood pressure readings at home. Chronic Pain Syndrome - pt has chronic pain - has been maintained on current medications, has not sought out other medications, only uses PRN pain medications as directed, and understands the consequences of over-medication. Aortic stenosis-repeat echocardiogram-last one October 2013 . Hospital follow up - This was a follow up appointment from the patient's hospitalization during which time Dr. Briseno formulated the assessment and plan for the follow up on this patient's medical condition. Hypertension - well controlled - continue with current medications, continue with no added salt diet. Pt has been encouraged to exercise daily. The pt has been advised to call the office if there are any acute concerns about change in blood pressure readings at home. . Right shoulder pain, Biceps tendinitis - pt to do exercises as directed, ant-inflammatories directed to be taken per RX instructions and pt to call if symptoms are not improved. . Medicare Exam - today we discussed the patients past history, immunizations, preventative exams/evaluations - colonoscopy, fecal occult blood testing, routine labs for renal function, glucose, cholesterol, osteoporosis evaluations, cardiovascular testing and cancer screenings. We have also discussed mental health and the signs/symptoms of depression. The patient was advised of home safety evaluations and the need to make sure that as the aging process continues, we need to be aware of different ways to make the home a safer place to reside. The patient has also been counseled that exercise is necessary - and of utmost importance as we age to help decrease fall risk and to maintain independence in the home. Today we discussed the need for the patient to create paperwork for Advanced directives as well as for the patient to provide this office with a copy of her DOPA paperwork for health care surrogate. . Hypertension - well controlled - continue with current medications, continue with no added salt diet. Pt has been encouraged to exercise daily. The pt has been advised to call the office if there are any acute concerns about change in blood pressure readings at home. BPH - rx for flomax . Trigger Points - Injected trigger points today, pt given post-injection instructions, signs and symptoms for which to call the office. Pt to use heat to the muscles today, and take an anti-inflammatory today unless otherwise contraindicated by renal function or other disease process. . Trigger Points - Injected trigger points today, pt given post-injection instructions, signs and symptoms for which to call the office. Pt to use heat to the muscles today, and take an anti-inflammatory today unless otherwise contraindicated by renal function or other disease process. . Trigger Points - Injected trigger points today, pt given post-injection instructions, signs and symptoms for which to call the office. Pt to use heat to the muscles today, and take an anti-inflammatory today unless otherwise contraindicated by renal function or other disease process. ECHO - scheduled at [facility] on 09/03 at 4PM. Heart murmur - more pronounced, fatigue - will order ECHO and refer as indicated - pt is to notify clinic with any changes, questions, or concerns. . Hypertension - well controlled - continue with current medications, continue with no added salt diet. Pt has been encouraged to exercise daily. The pt has been advised to call the office if there are any acute concerns about change in blood pressure readings at home. Chronic Pain Syndrome - pt has chronic pain - has been maintained on current medications, has not sought out other medications, only uses PRN pain medications as directed, and understands the consequences of over-medication. restart enalapril Monitor your blood pressure at home and record. Bring in your readings to your next appointment, or as directed. Call for chest pain, shortness of breath, headaches, or other concerns. . Hypertension - uncontrolled - the patient's medications have been modified as documented in the visit note. The patient has been counseled to cut back on salt in diet for a no added salt diet, low fat diet, start an exercise program with low weight bearing exercises and higher aerobic activity for heart health. The patient is to check blood pressure readings as an outpatient and either fax , call, or email the readings to the office next week for practitioner to review. The pt is to call for acute concerns. Chronic pain syndrome - refill Methadone. kenalog flonase keflex . Sinusitis - Pt has acute infection - pain in face, maxillary region, Pt informed to use decongestant, RX given to patient, sinus rinses also recommended. Call if symptoms do not show improvement. Allergies - chronic - recommended pt to use allergy medication as prescribed. Pt has been counseled as to the appropriate use of the medication. Pt to call if allergy symptoms are not controlled with the medication. If using nasal spray, instructions as follows: Nasal spray- use twice daily, one spray per nostril twice daily, after 30 minutes, rinse out nose with saline spray.. Use opposite hand per nostril to spray in the nasal steroid allergy spray.
--- OUTSIDE RECORDS SUMMARY | 2018-07-11 23:14 | XMS REPORT | CCD ---
Author Author Safia Briseno Organization Safia Briseno MD, [facility] Address [address] [place] [address] Phone Care Team Providers Care Manager Pathology Name Role Phone PP Unavailable CCM Unavailable Summary Purpose Interface Exchange Insurance Providers Payer name Policy type / Coverage type Covered republican ID Effective Begin Date Effective End Date WPS Medicare Part B Medicare Part B [id number] Unknown Unknown [facility] Medicare Part B [id number] Unknown Unknown Family history Father Diagnosis Age At Onset Cancer Unknown lung cancer Unknown Heart Attack Unknown Mother Diagnosis Age At Onset Diabetes Unknown Stroke Unknown Social History Social History Element Codes Description Effective Dates Marital status Unknown Vidya 09/23/2016 Number of children Unknown 4 02/05/[address]: 589570368 Never smoker 02/05/2015 Alcohol history Unknown occasionally [...] diclofenac sodium 50 mg tablet,delayed release RxNorm: 333717 1 Tablet(s) PO BID 06/15/2018 07/14/2018 Active Zorvolex 35 mg capsule RxNorm: 5615364 1 Capsule(s) PO TID as needed 06/15/2018 06/15/2018 Inactive diclofenac sodium 50 mg tablet,delayed release RxNorm: 533534 1 Tablet(s) PO BID 06/15/2018 06/14/2018 Inactive Zorvolex 35 mg capsule RxNorm: 6329253 1 Capsule(s) PO TID as needed 06/14/2018 06/14/2018 Inactive methadone 10 mg tablet RxNorm: 601394 2 Tablet(s) PO TID 201707/10/2018 Active Zorvolex 35 mg capsule RxNorm: 4566850 1 Capsule(s) PO TID as needed 06/11/2018 06/13/2018 Inactive enalapril maleate 10 mg tablet RxNorm: 501173 TAKE ONE TABLET BY MOUTH DAILY 06/01/2018 02/25/2019 Active methadone 10 mg tablet RxNorm: 875540 2 Tablet(s) PO TID 201706/10/2018 Inactive methadone 10 mg tablet RxNorm: 328198 2 Tablet(s) PO TID 201705/11/2018 Inactive methadone 10 mg tablet RxNorm: 448078 2 Tablet(s) PO TID 201704/06/2018 Inactive Flomax 0.4 mg capsule RxNorm: 697349 1 Capsule(s) PO QPM 201707/24/2018 Active Kenalog 40 mg/mL suspension for injection RxNorm: 9239210 1 Milliliter(s) Inj 12/04/2017 12/04/2017 Inactive methadone 10 mg tablet RxNorm: 361528 2 Tablet(s) PO TID 201701/02/2018 Inactive Keflex 500 mg capsule RxNorm: 005983 1 Capsule(s) PO TID 201712/10/2017 Inactive methadone 10 mg tablet RxNorm: 135411 2 Tablet(s) PO TID 201712/03/2017 Inactive cyclobenzaprine 5 mg tablet RxNorm: 652658 Tablet(s) TAKE ONE TO TWO TABLETS BY MOUTH THREE TIMES A DAY NEEDED 10/16/2017 10/20/2017 Inactive methadone 10 mg tablet RxNorm: 391408 2 Tablet(s) PO TID 201711/06/2017 Inactive methadone 10 mg tablet RxNorm: 928439 2 Tablet(s) PO TID 201709/25/2017 Inactive methadone 10 mg tablet RxNorm: 252202 2 Tablet(s) PO TID 201708/26/2017 Inactive methadone 10 mg tablet RxNorm: 809606 2 Tablet(s) PO TID 201607/14/2017 Inactive methadone 10 mg tablet RxNorm: 392827 2 Tablet(s) PO TID 201606/09/2017 Inactive methadone 10 mg tablet RxNorm: 037970 2 Tablet(s) PO TID 201605/08/2017 Inactive methadone 10 mg tablet RxNorm: 779249 2 Tablet(s) PO TID 201604/08/2017 Inactive methadone 10 mg tablet RxNorm: 759613 2 Tablet(s) PO TID 201603/10/2017 Inactive enalapril maleate 10 mg tablet RxNorm: 683029 TAKE ONE TABLET BY MOUTH DAILY 01/05/2017 07/03/2017 Inactive methadone 10 mg tablet RxNorm: 125828 2 Tablet(s) PO TID 201601/29/2017 Inactive cyclobenzaprine 5 mg tablet RxNorm: 498842 TAKE ONE TO TWO TABLETS BY MOUTH THREE TIMES A DAY NEEDED 11/27/20162016 Inactive Flomax 0.4 mg capsule RxNorm: 599266 1 Capsule(s) PO QPM 201611/21/2016 Inactive Kenalog 40 mg/mL suspension for injection RxNorm: 6102966 1 Milliliter(s) Inj 09/23/2016 09/23/2016 Inactive methadone 10 mg tablet RxNorm: 140045 2 Tablet(s) PO TID 201611/21/2016 Inactive Kenalog 40 mg/mL suspension for injection RxNorm: 1720007 1/2 Milliliter(s) Inj 09/05/2016 09/05/2016 Inactive cyclobenzaprine 5 mg tablet RxNorm: 086714 1-2 Tablet(s) PO TID as needed 09/05/2016 09/09/2016 Inactive methadone 10 mg tablet RxNorm: 295643 2 Tablet(s) PO TID 201608/27/2016 Inactive methadone 10 mg tablet RxNorm: 702186 2 Tablet(s) PO TID 201507/26/2016 Inactive amoxicillin 500 mg capsule RxNorm: 237383 4 Capsule(s) PO 1 hour before appt 05/16/2016 06/14/2017 Inactive methadone 10 mg tablet RxNorm: 463293 2 Tablet(s) PO TID 201505/27/2016 Inactive Kenalog 40 mg/mL suspension for injection RxNorm: 2054680 1 Milliliter(s) Inj 02/29/2016 02/29/2016 Inactive methadone 10 mg tablet RxNorm: 539363 2 Tablet(s) PO TID 201503/28/2016 Inactive methadone 10 mg tablet RxNorm: 186124 2 Tablet(s) PO TID 201511/23/2015 Inactive sumatriptan 50 mg tablet RxNorm: 631436 1 Tablet(s) PO daily as needed 09/25/2015 11/23/2015 Inactive sumatriptan 50 mg tablet RxNorm: 203974 1 Tablet(s) PO daily as needed 09/25/2015 09/24/2015 Inactive Kenalog 40 mg/mL suspension for injection RxNorm: 7148525 Milliliter(s) Inj 09/25/2015 09/25/2015 Inactive methadone 10 mg tablet RxNorm: 313540 2 Tablet(s) PO TID 201509/26/2015 Inactive methadone 10 mg tablet RxNorm: 683624 2 Tablet(s) PO TID 201508/27/2015 Inactive methadone 10 mg tablet RxNorm: 025197 2 Tablet(s) PO TID 201407/26/2015 Inactive methadone 10 mg tablet RxNorm: 075309 2 Tablet(s) PO TID 201406/26/2015 Inactive enalapril maleate 10 mg tablet RxNorm: 787705 1 Tablet(s) PO daily 05/04/2015 10/30/2015 Inactive enalapril maleate 10 mg tablet RxNorm: 901220 1 Tablet(s) PO daily 02/05/2015 05/03/2015 Inactive methadone 10 mg tablet RxNorm: 460605 2 Tablet(s) PO TID 201402/27/2015 Inactive methadone 10 mg tablet RxNorm: 205641 2 Tablet(s) PO TID 201401/28/2015 Inactive amoxicillin 500 mg capsule RxNorm: 959269 4 Capsule(s) PO 1 hour before appt No Start Date 05/15/2016 Inactive Medication Administered Medication Codes Instructions Start Date Status Kenalog 40 mg/mL suspension for injection RxNorm: 3677591 1Milliliter 12/04/2017 No longer Active Kenalog 40 mg/mL suspension for injection RxNorm: 5077505 1Milliliter 09/23/2016 No longer Active Kenalog 40 mg/mL suspension for injection RxNorm: 4974387 /2Milliliter 09/05/2016 No longer Active Kenalog 40 mg/mL suspension for injection RxNorm: 1139452 1Milliliter 02/29/2016 No longer Active Kenalog 40 mg/mL suspension for injection RxNorm: 5995107 Milliliter 09/25/2015 No longer Active Immunizations Vaccine [...] 26.6 pg 08/31/2017 Cbc With Differential Ord2 [place]% 8.3 % 08/31/2017 Cbc With Differential Ord2 [...] 3.17 K/ul 08/31/2017 Cbc With Differential Ord2 [place] ABS# 0.8 K/ul 08/31/2017 Cbc With Differential Ord2 Eos ABS# 0.1 K/ul 08/31/2017 Cbc With Differential Ord2 Baso ABS# 0.0 K/ul 08/31/2017 Comp Metabolic Xxa759 NA 140 mEq/L 08/31/2017 Comp Metabolic Ajf757 K 4.4 mEq/L 08/31/2017 Comp Metabolic Lmj220 CL 102 mEq/L 08/31/2017 Comp Metabolic Uib779 CO2 30.0 mEq/L 08/31/2017 Comp Metabolic Fly555 ANION GAP 12 08/31/2017 Comp Metabolic Doh620 GLUCOSE 99 mg/dL 08/31/2017 Comp Metabolic Cpl917 Creat 1.1 mg/dL 08/31/2017 Comp Metabolic Xzk524 eGFR 68 ml/min/1.73m2 08/31/2017 Comp Metabolic Mwg644 BUN 18 mg/dL 08/31/2017 Comp Metabolic Nau767 B/C Ratio 16.1 Ratio 08/31/2017 Comp Metabolic Sjl135 CALCIUM 9.8 mg/dL 08/31/2017 Comp Metabolic Abn315 ALK PHOS 70 U/L 08/31/2017 Comp Metabolic Wpi605 AST(SGOT) 15 U/L 08/31/2017 Comp Metabolic Oil918 ALT(SGPT) 7 U/L 08/31/2017 Comp Metabolic Vcz808 BILI T 0.4 mg/dL 08/31/2017 Comp Metabolic Ewd691 ALBUMIN 4.4 g/dL 08/31/2017 Comp Metabolic Lno760 TPRO 6.6 g/dL 08/31/2017 Comp Metabolic Peu882 GLOB 2.2 g/dL 08/31/2017 Comp Metabolic Vyi937 A/G Ratio 2.0 Ratio 08/31/2017 Comp Metabolic Pne682 Osmo 281 mOsmo 08/31/2017 Tsh Ord6 hTSH [...] 24.6 pg 09/24/2016 Cbc With Differential Ord2 [place]% 6.4 % 09/24/2016 Cbc With Differential Ord2 [...] 3.70 K/ul 09/24/2016 Cbc With Differential Ord2 [place] ABS# 1.0 K/ul 09/24/2016 Cbc With Differential Ord2 Eos ABS# 0.2 K/ul 09/24/2016 Cbc With Differential Ord2 Baso ABS# 0.0 K/ul 09/24/2016 Lipid Ord30 CHOL 185 mg/dL 09/24/2016 Lipid Ord30 HDL 55.0 mg/dl 09/24/2016 Lipid Ord30 TRIG 74 mg/dL 09/24/2016 Lipid Ord30 LDL 115 mg/dL 09/24/2016 Lipid Ord30 C/HDL 3.4 Ratio 09/24/2016 Comp Metabolic Lgv349 NA 136 mEq/L 09/24/2016 Comp Metabolic Fvb424 K 4.3 mEq/L 09/24/2016 Comp Metabolic Yyt735 CL 98 mEq/L 09/24/2016 Comp Metabolic Vdl944 CO2 29.0 mEq/L 09/24/2016 Comp Metabolic Mcp618 ANION GAP 13 09/24/2016 Comp Metabolic Gju056 GLUCOSE 107 mg/dL 09/24/2016 Comp Metabolic Zxb097 Creat 1.2 mg/dL 09/24/2016 Comp Metabolic Nfy309 eGFR 60 ml/min/1.73m2 09/24/2016 Comp Metabolic Zuv778 BUN 18 mg/dL 09/24/2016 Comp Metabolic Whe988 B/C Ratio 14.5 Ratio 09/24/2016 Comp Metabolic Fou110 CALCIUM 10.4 mg/dL 09/24/2016 Comp Metabolic Bqa893 ALK PHOS 64 U/L 09/24/2016 Comp Metabolic Ryo119 AST(SGOT) 13 U/L 09/24/2016 Comp Metabolic Fzd043 ALT(SGPT) 8 U/L 09/24/2016 Comp Metabolic Fes026 BILI T 0.5 mg/dL 09/24/2016 Comp Metabolic Ctt056 ALBUMIN 4.1 g/dL 09/24/2016 Comp Metabolic Biy478 TPRO 6.8 g/dL 09/24/2016 Comp Metabolic Iuv646 GLOB 2.7 g/dL 09/24/2016 Comp Metabolic Ees222 A/G Ratio 1.5 Ratio 09/24/2016 Comp Metabolic Mjw149 Osmo 274 mOsmo 09/24/2016 Amylase Ord34 AMYLASE [...] 26.2 pg 12/11/2015 Cbc With Differential Ord2 [place]% 7.6 % 12/11/2015 Cbc With Differential Ord2 [...] 3.34 K/ul 12/11/2015 Cbc With Differential Ord2 [place] ABS# 0.9 K/ul 12/11/2015 Cbc With Differential Ord2 Eos ABS# 0.2 K/ul 12/11/2015 Cbc With Differential Ord2 Baso ABS# 0.0 K/ul 12/11/2015 Comp Metabolic Pyg449 NA 137 mEq/L 12/11/2015 Comp Metabolic Dzi843 K 4.1 mEq/L 12/11/2015 Comp Metabolic Ouq711 CL 101 mEq/L 12/11/2015 Comp Metabolic Hoa382 CO2 31.0 mEq/L 12/11/2015 Comp Metabolic Dvz536 ANION GAP 9 12/11/2015 Comp Metabolic Vbv640 GLUCOSE 97 mg/dL 12/11/2015 Comp Metabolic Opd160 Creat 1.0 mg/dL 12/11/2015 Comp Metabolic Xrm030 eGFR 74 ml/min/1.73m2 12/11/2015 Comp Metabolic Cra815 BUN 15 mg/dL 12/11/2015 Comp Metabolic Zke388 B/C Ratio 14.4 Ratio 12/11/2015 Comp Metabolic Ymv126 CALCIUM 9.2 mg/dL 12/11/2015 Comp Metabolic Pvs997 ALK PHOS 55 U/L 12/11/2015 Comp Metabolic Njm892 AST(SGOT) 14 U/L 12/11/2015 Comp Metabolic Tcm310 ALT(SGPT) 9 U/L 12/11/2015 Comp Metabolic Xif918 BILI T 0.5 mg/dL 12/11/2015 Comp Metabolic Spw263 ALBUMIN 3.9 g/dL 12/11/2015 Comp Metabolic Puh157 TPRO 6.2 g/dL 12/11/2015 Comp Metabolic Jwt416 GLOB 2.4 g/dL 12/11/2015 Comp Metabolic Qbu959 A/G Ratio 1.6 Ratio 12/11/2015 Comp Metabolic Hyj336 Osmo 275 mOsmo 12/11/2015 Sed Rate Ord21 ESR 26 mm/hr 06/11/2015 Comp Metabolic Mek380 NA 137 mEq/L 06/11/2015 Comp Metabolic Wad454 K 4.4 mEq/L 06/11/2015 Comp Metabolic Uiz843 CL 100 mEq/L 06/11/2015 Comp Metabolic Cfb808 CO2 29.0 mEq/L 06/11/2015 Comp Metabolic Bdx422 ANION GAP 12 06/11/2015 Comp Metabolic Gil002 GLUCOSE 91 mg/dL 06/11/2015 Comp Metabolic Iyg099 Creat 1.1 mg/dL 06/11/2015 Comp Metabolic Umn449 eGFR 68 ml/min/1.73m2 06/11/2015 Comp Metabolic Nwl283 BUN 14 mg/dL 06/11/2015 Comp Metabolic Oal612 B/C Ratio 12.4 Ratio 06/11/2015 Comp Metabolic Bbv492 CALCIUM 9.9 mg/dL 06/11/2015 Comp Metabolic Zbj839 ALK PHOS 61 U/L 06/11/2015 Comp Metabolic Efz709 AST(SGOT) 18 U/L 06/11/2015 Comp Metabolic Rms380 ALT(SGPT) 10 U/L 06/11/2015 Comp Metabolic Sgk645 BILI T 0.5 mg/dL 06/11/2015 Comp Metabolic Cvh414 ALBUMIN 4.4 g/dL 06/11/2015 Comp Metabolic Gyt487 TPRO 6.9 g/dL 06/11/2015 Comp Metabolic Zlb501 GLOB 2.5 g/dL 06/11/2015 Comp Metabolic Jod878 A/G Ratio 1.7 Ratio 06/11/2015 Comp Metabolic Gzy892 Osmo 274 mOsmo 06/11/2015 Cbc With Differential [...] Ord30 C/HDL 4.1 Ratio 06/11/2015 Free T4 Mly828 FREE T4 1.03 ng/dL 02/08/2015 Cbc With [...] Ord30 C/HDL 3.5 Ratio 02/08/2015 Comp Metabolic Jgr003 NA 136 mEq/L 02/08/2015 Comp Metabolic Cvy764 K 4.0 mEq/L 02/08/2015 Comp Metabolic Fhh180 CL 101 mEq/L 02/08/2015 Comp Metabolic Tdz715 CO2 30.0 mEq/L 02/08/2015 Comp Metabolic Ndn238 ANION GAP 9 02/08/2015 Comp Metabolic Ncz937 GLUCOSE 83 mg/dL 02/08/2015 Comp Metabolic Fwy978 Creat 1.1 mg/dL 02/08/2015 Comp Metabolic Bha199 eGFR 70 ml/min/1.73m2 02/08/2015 Comp Metabolic Wus260 BUN 15 mg/dL 02/08/2015 Comp Metabolic Skf310 B/C Ratio 13.6 Ratio 02/08/2015 Comp Metabolic Xic140 CALCIUM 9.4 mg/dL 02/08/2015 Comp Metabolic Vev280 ALK PHOS 58 U/L 02/08/2015 Comp Metabolic Ilb708 AST(SGOT) 15 U/L 02/08/2015 Comp Metabolic Jni468 ALT(SGPT) 8 U/L 02/08/2015 Comp Metabolic Zns705 BILI T 0.7 mg/dL 02/08/2015 Comp Metabolic Zuh442 ALBUMIN 3.8 g/dL 02/08/2015 Comp Metabolic Pow623 TPRO 6.1 g/dL 02/08/2015 Comp Metabolic Epy594 GLOB 2.3 g/dL 02/08/2015 Comp Metabolic Ztc502 A/G Ratio 1.7 Ratio 02/08/2015 Comp Metabolic Vij514 Osmo 272 mOsmo 02/08/2015 Review of Systems [...] -4: G0439 01/22/2017 THER/PROPH/DIAG INJ SC/IM CPT-4: 45332 09/23/2016 TRIAMCINOLONE ACET INJ NOS CPT-4: J3301 09/23/2016 INJ TRIGGER POINT 1/2 MUSCL CPT-4: 69140 09/05/2016 TRIAMCINOLONE ACET INJ NOS CPT-4: J3301 09/05/2016 ADMIN INFLUENZA VIRUS VAC CPT-4: G0008 04/29/2016 FLU VACC 4 CHASE 3 YRS PLUS IM SNOMED CT: 31432732 CPT-4: 84433 04/29/2016 THER/PROPH/DIAG INJ SC/IM CPT-4: 75920 02/28/2016 TRIAMCINOLONE ACET INJ NOS CPT-4: J3301 02/28/2016 THER/PROPH/DIAG INJ SC/IM CPT-4: 64568 09/25/2015 TRIAMCINOLONE ACET INJ NOS CPT-4: J3301 09/25/2015 ADMIN INFLUENZA VIRUS VAC CPT-4: G0008 06/11/2015 FLU VACC PRSV FREE INC ANTIG Formatting Model/CDA Sections, Assigned to/Candida Hickey CPT-4: 09869Ibgkqim 06/11/2015 Vital Signs Date Vital 06/11/2018 Blood Pressure 1: 134/74 Code : 8480-6 BMI: 29.4 Code : 46116-7 Heart Rate 1 : 67 bpm Height: 5'11" SpO2: 97% Weight: 211 lbs 03/24/2018 Blood Pressure 1: 118/64 Code : 8480-6 BMI: 36.3 Code : 99975-1 Heart Rate 1 : 73 bpm Height: 5'11" SpO2: 98% Weight: 260 lbs 12/04/2017 Blood Pressure 1: 128/80 Code : 8480-6 BMI: 28.2 Code : 12025-4 Heart Rate 1 : 84 bpm Height: 5'11" SpO2: 97% Temperature: 36.6 (C) / 97.9 (F) Weight: 202 lbs 10/16/2017 Blood Pressure 1: 130/72 Code : 8480-6 BMI: 30.0 Code : 73982-8 Heart Rate 1 : 76 bpm Height: 5'11" SpO2: 99% Weight: 215 lbs 08/31/2017 Blood Pressure 1: 122/80 Code : 8480-6 BMI: 29.4 Code : 00485-9 Heart Rate 1 : 80 bpm Height: 5'11" SpO2: 96% Weight: 211 lbs 01/22/2017 BMI: 27.9 Code: 54799-4 Height: 5'11" Weight: 200 lbs 10/23/2016 Blood Pressure 1: 132/76 Code : 8480-6 BMI: 27.9 Code : 24860-0 Heart Rate 1 : 85 bpm Height: 5'11" SpO2: 98% Weight: 200 lbs 09/23/2016 Blood Pressure 1: 150/80 Code : 8480-6 BMI: 28.3 Code : 10940-2 Heart Rate 1 : 96 bpm Height: 5'11" SpO2: 98% Weight: 203 lbs 09/05/2016 Blood Pressure 1: 136/82 Code : 8480-6 BMI: 27.8 Code : 06519-1 Heart Rate 1 : 77 bpm Height: 6' SpO2: 98% Weight: 205 lbs 05/28/2016 Blood Pressure 1: 130/82 Code : 8480-6 BMI: 29.3 Code : 16621-3 Heart Rate 1 : 79 bpm Height: 6' SpO2: 98% Weight: 216 lbs 12/11/2015 Blood Pressure 1: 128/76 Code : 8480-6 BMI: 30.5 Code : 89293-3 Heart Rate 1 : 84 bpm Height: 6' SpO2: 96% Weight: 225 lbs 06/11/2015 Blood Pressure 1: 138/82 Code : 8480-6 BMI: 29.3 Code : 17927-5 Heart Rate 1 : 71 bpm Height: 6' SpO2: 98% Weight: 216 lbs 02/05/2015 Blood Pressure 1: 140/80 Code : 8480-6 BMI: 29.8 Code : 15070-3 Heart Rate 1 : 76 bpm Height: [...] Chronic pain syndrome[ICD10: G89.4] Keely Briseno MD, [facility] CPT-4: 36658 06/11/2018 [id number] EST. PATIENT, LEVEL III Diagnosis: Encounter for follow-up examination after completed treatment for conditions other than malignant neoplasm[ICD10: Z09] Diagnosis: Essential (primary) hypertension[ICD10: I10] Keely Briseno MD, [facility] CPT-4: 29287 03/24/2018 ([id number]) 37462 EST. PATIENT, LEVEL III Diagnosis: Acute recurrent maxillary sinusitis[ICD10: J01.01] Diagnosis: Other allergic rhinitis[ICD10: J30.89] Magy Briseno MD, [facility] CPT-4: 98055 12/04/2017 07370 EST. PATIENT, LEVEL III Diagnosis: Pain in right shoulder[ICD10: M25.511] Keely Briseno MD, [facility] CPT-4: 55968 10/16/2017 41920 EST. PATIENT, LEVEL III Diagnosis: Cardiac murmur, unspecified[ICD10: R01.1] Diagnosis: Other fatigue[ICD10: R53.83] Keely Briseno MD, [facility] CPT-4 : 58347 08/31/2017 ([id number]) 35681 EST. PATIENT, LEVEL IV Diagnosis: Essential (primary) hypertension[ICD10: I10] Diagnosis: Pain in thoracic spine[ICD10: M54.6] Diagnosis: Chronic pain syndrome[ICD10: G89.4] Safia Briseno MD, [facility] CPT-4: 03563 10/23/2016 ([id number]) 36033 EST. PATIENT, LEVEL IV Diagnosis: Essential (primary) hypertension[ICD10: I10] Diagnosis: Benign prostatic hyperplasia with lower urinary tract symptoms[ICD10 : N40.1] Safia Briseno MD, [facility] CPT-4: 91318 2016 54322 EST. PATIENT, LEVEL III Diagnosis: Pain in thoracic spine[ICD10: M54.6] Diagnosis: Other muscle spasm[ICD10: M62.838] Diagnosis: Pain in right shoulder[ICD10: M25.511] Diagnosis: Muscle spasm of back[ICD10: M62.830] Diagnosis: Myalgia[ICD10: M79.1] Keely Briseno MD, [facility] CPT-4: 05549 09/05/2016 ([id number]) 65386 EST. PATIENT, LEVEL III Diagnosis: Essential (primary) hypertension[ICD10: I10] Diagnosis: Chronic pain syndrome[ICD10: G89.4] Safia Briseno MD, [facility] CPT-4: 51247 05/28/2016 ([id number]) 40570 EST. PATIENT, LEVEL IV Diagnosis: Essential (primary) hypertension[ICD10: I10] Diagnosis: Chronic pain syndrome[ICD10: G89.4] Diagnosis: Left upper quadrant pain[ICD10: R10.12] Diagnosis: Gastro-esophageal reflux disease without esophagitis[ICD10: K21.9] Magy Briseno MD, [facility] CPT-4: 94061 12/11/2015 ([id number]) 39750 EST. 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 06/11/2018 Appointment: Keely Jorge WPtel: [address] [place], [place] [phone] (15 min) Moderate 06/11/2018 Patient [...] at home. 03/24/2018 Appointment: Keely Jorge WPtel: [facility]5 [facility] (15 min) Moderate 03/24/2018 Patient Education: Patient [...] allergy spray. 12/04/2017 Appointment: Magy Cortez WPtel: [address] [place] [address] (15 min) Moderate 12/04/2017 Patient Education: Patient Medication Summary Completed 12/04/2017 Visit Plan: Right shoulder pain, Biceps tendinitis - pt to do exercises as directed, ant-inflammatories directed to be taken per RX instructions and pt to call if symptoms are not improved. 10/16/2017 Appointment: Keely Jorge WPtel: [address] [place] [address] (15 min) Moderate 10/16/2017 Patient Education: Patient Medication Summary Completed 10/16/2017 Visit Plan: Heart murmur - more pronounced, fatigue - will order ECHO and refer as indicated - pt is to notify clinic with any changes, questions, or concerns. 08/31/2017 Appointment: Keely Jorge WPtel: [address] [place], [place] [phone] (30 min) Complex 08/31/2017 Patient [...] care surrogate. 01/22/2017 Appointment: Keely Jorge WPtel: [facility] - Annual Wellness Visit 01/22/2017 Patient [...] of over-medication. 10/23/2016 Appointment: Safia Briseno WPtel: [facility] (15 min) Moderate 10/23/2016 Patient Education: [...] for flomax 09/23/2016 Appointment: Safia Briseno WPtel: [facility]0 [facility] (15 min) Moderate 09/23/2016 Patient Education: [...] disease process. 09/05/2016 Appointment: Keely Jorge WPtel: [phone] [facility] (30 min) Complex 09/05/2016 Patient Education: Patient Medication Summary Completed 09/05/2016 Appointment: Magy Cortez WPtel: [facility]5 [phone] (30 min) Complex 06/17/2016 Visit Plan: Hypertension [...] of over-medication. 05/28/2016 [phone] (15 min) Moderate 05/28/2016 Patient Education: Patient Medication Summary Completed 05/28/2016 Appointment: Injection 04/29/2016 Patient Education: Patient Medication Summary Completed 04/29/2016 Appointment: Injection 02/28/2016 Patient Education: Patient Medication Summary Completed 02/28/2016 Appointment: Magy Cortez WPtel: [phone] [phone] (30 min) Complex 01/14/2016 Visit Plan: Hypertension [...] October 2013 06/11/2015 Appointment: Magy Cortez WPtel: [address] [place], [place] [phone] (30 min) Complex 06/11/2015 Patient Education: Patient [...] refill Methadone. 02/05/2015 Appointment: Safia Briseno WPtel: [facility] [place] ([place] New Patient 02/05/2015 Patient [...] other disease process. ECHO - scheduled at [facility] on 09/03 at 4PM. Heart murmur - [...]
--- OUTSIDE RECORDS SUMMARY | 2018-07-11 23:15 | XMS REPORT | CCD ---
Author Author Safia Briseno Organization Safia Briseno MD, 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 Role Phone PP Unavailable CCM Unavailable Summary Purpose Interface Exchange Insurance Providers Payer name Policy type / Coverage type Covered democrat ID Effective Begin Date Effective End Date WPS Medicare Part B Medicare Part B [id number] Unknown Unknown [facility] Medicare Part B [id number] Unknown Unknown Family history Father Diagnosis Age At Onset Cancer Unknown lung cancer Unknown Heart Attack Unknown Mother Diagnosis Age At Onset Diabetes Unknown Stroke Unknown Social History Social History Element Codes Description Effective Dates Marital status Unknown Vidya 09/23/2016 Number of children Unknown 4 02/05/[address]: 369232417 Never smoker 02/05/2015 Alcohol history Unknown occasionally [...] Start Date Stop Date Status Fill Instructions Zorvolex 35 mg capsule RxNorm: 8768771 1 Capsule(s) PO TID as needed 06/15/2018 07/14/2018 Active Zorvolex 35 mg capsule RxNorm: 6247434 1 Capsule(s) PO TID as needed 06/14/2018 06/14/2018 Inactive methadone 10 mg tablet RxNorm: 896423 2 Tablet(s) PO TID 201707/10/2018 Active Zorvolex 35 mg capsule RxNorm: 2090923 1 Capsule(s) PO TID as needed 06/11/2018 06/13/2018 Inactive enalapril maleate 10 mg tablet RxNorm: 460356 TAKE ONE TABLET BY MOUTH DAILY 06/01/2018 02/25/2019 Active methadone 10 mg tablet RxNorm: 633286 2 Tablet(s) PO TID 201706/10/2018 Inactive methadone 10 mg tablet RxNorm: 852459 2 Tablet(s) PO TID 201705/11/2018 Inactive methadone 10 mg tablet RxNorm: 265453 2 Tablet(s) PO TID 201704/06/2018 Inactive Flomax 0.4 mg capsule RxNorm: 804192 1 Capsule(s) PO QPM 201707/24/2018 Active Kenalog 40 mg/mL suspension for injection RxNorm: 0160622 1 Milliliter(s) Inj 12/04/2017 12/04/2017 Inactive methadone 10 mg tablet RxNorm: 183233 2 Tablet(s) PO TID 201701/02/2018 Inactive Keflex 500 mg capsule RxNorm: 339335 1 Capsule(s) PO TID 201712/10/2017 Inactive methadone 10 mg tablet RxNorm: 814716 2 Tablet(s) PO TID 201712/03/2017 Inactive cyclobenzaprine 5 mg tablet RxNorm: 014748 Tablet(s) TAKE ONE TO TWO TABLETS BY MOUTH THREE TIMES A DAY NEEDED 10/16/2017 10/20/2017 Inactive methadone 10 mg tablet RxNorm: 837838 2 Tablet(s) PO TID 201711/06/2017 Inactive methadone 10 mg tablet RxNorm: 506024 2 Tablet(s) PO TID 201709/25/2017 Inactive methadone 10 mg tablet RxNorm: 931340 2 Tablet(s) PO TID 201708/26/2017 Inactive methadone 10 mg tablet RxNorm: 127043 2 Tablet(s) PO TID 201607/14/2017 Inactive methadone 10 mg tablet RxNorm: 774158 2 Tablet(s) PO TID 201606/09/2017 Inactive methadone 10 mg tablet RxNorm: 533451 2 Tablet(s) PO TID 201605/08/2017 Inactive methadone 10 mg tablet RxNorm: 502156 2 Tablet(s) PO TID 201604/08/2017 Inactive methadone 10 mg tablet RxNorm: 658640 2 Tablet(s) PO TID 201603/10/2017 Inactive enalapril maleate 10 mg tablet RxNorm: 957941 TAKE ONE TABLET BY MOUTH DAILY 01/05/2017 07/03/2017 Inactive methadone 10 mg tablet RxNorm: 563692 2 Tablet(s) PO TID 201601/29/2017 Inactive cyclobenzaprine 5 mg tablet RxNorm: 741980 TAKE ONE TO TWO TABLETS BY MOUTH THREE TIMES A DAY NEEDED 11/27/20162016 Inactive Flomax 0.4 mg capsule RxNorm: 988037 1 Capsule(s) PO QPM 201611/21/2016 Inactive Kenalog 40 mg/mL suspension for injection RxNorm: 5119937 1 Milliliter(s) Inj 09/23/2016 09/23/2016 Inactive methadone 10 mg tablet RxNorm: 183846 2 Tablet(s) PO TID 201611/21/2016 Inactive Kenalog 40 mg/mL suspension for injection RxNorm: 5635763 1/2 Milliliter(s) Inj 09/05/2016 09/05/2016 Inactive cyclobenzaprine 5 mg tablet RxNorm: 042600 1-2 Tablet(s) PO TID as needed 09/05/2016 09/09/2016 Inactive methadone 10 mg tablet RxNorm: 168552 2 Tablet(s) PO TID 201608/27/2016 Inactive methadone 10 mg tablet RxNorm: 173098 2 Tablet(s) PO TID 201507/26/2016 Inactive amoxicillin 500 mg capsule RxNorm: 960348 4 Capsule(s) PO 1 hour before appt 05/16/2016 06/14/2017 Inactive methadone 10 mg tablet RxNorm: 909195 2 Tablet(s) PO TID 201505/27/2016 Inactive Kenalog 40 mg/mL suspension for injection RxNorm: 6896101 1 Milliliter(s) Inj 02/29/2016 02/29/2016 Inactive methadone 10 mg tablet RxNorm: 600734 2 Tablet(s) PO TID 201503/28/2016 Inactive methadone 10 mg tablet RxNorm: 451318 2 Tablet(s) PO TID 201511/23/2015 Inactive sumatriptan 50 mg tablet RxNorm: 288174 1 Tablet(s) PO daily as needed 09/25/2015 11/23/2015 Inactive sumatriptan 50 mg tablet RxNorm: 546941 1 Tablet(s) PO daily as needed 09/25/2015 09/24/2015 Inactive Kenalog 40 mg/mL suspension for injection RxNorm: 7090774 Milliliter(s) Inj 09/25/2015 09/25/2015 Inactive methadone 10 mg tablet RxNorm: 157758 2 Tablet(s) PO TID 201509/26/2015 Inactive methadone 10 mg tablet RxNorm: 002114 2 Tablet(s) PO TID 201508/27/2015 Inactive methadone 10 mg tablet RxNorm: 405619 2 Tablet(s) PO TID 201407/26/2015 Inactive methadone 10 mg tablet RxNorm: 742583 2 Tablet(s) PO TID 201406/26/2015 Inactive enalapril maleate 10 mg tablet RxNorm: 630697 1 Tablet(s) PO daily 05/04/2015 10/30/2015 Inactive enalapril maleate 10 mg tablet RxNorm: 407921 1 Tablet(s) PO daily 02/05/2015 05/03/2015 Inactive methadone 10 mg tablet RxNorm: 139648 2 Tablet(s) PO TID 201402/27/2015 Inactive methadone 10 mg tablet RxNorm: 065262 2 Tablet(s) PO TID 201401/28/2015 Inactive amoxicillin 500 mg capsule RxNorm: 861474 4 Capsule(s) PO 1 hour before appt No Start Date 05/15/2016 Inactive Medication Administered Medication Codes Instructions Start Date Status Kenalog 40 mg/mL suspension for injection RxNorm: 6839366 1Milliliter 12/04/2017 No longer Active Kenalog 40 mg/mL suspension for injection RxNorm: 8583183 1Milliliter 09/23/2016 No longer Active Kenalog 40 mg/mL suspension for injection RxNorm: 6171525 1/2Milliliter 09/05/2016 No longer Active Kenalog 40 mg/mL suspension for injection RxNorm: 2672573 1Milliliter 02/29/2016 No longer Active Kenalog 40 mg/mL suspension for injection RxNorm: 8200962 Milliliter 09/25/2015 No longer Active Immunizations Vaccine [...] 26.6 pg 08/31/2017 Cbc With Differential Ord2 [place]% 8.3 % 08/31/2017 Cbc With Differential Ord2 MCHC 30.9 pg 08/31/2017 Cbc With Differential Ord2 Eos% 1.3 % 08/31/2017 Cbc With Differential Ord2 PLT 275 K/ul 08/31/2017 Cbc With Differential Ord2 Baso% 0.1 % 08/31/2017 Cbc With Differential Ord2 Neut ABS# 5.56 K/ul 08/31/2017 Cbc With Differential Ord2 RDW 15.8 % 08/31/2017 Cbc With Differential Ord2 Lymph ABS# 3.17 K/ul 08/31/2017 Cbc With Differential Ord2 [place] ABS# 0.8 K/ul 08/31/2017 Cbc With Differential Ord2 Eos ABS# 0.1 K/ul 08/31/2017 Cbc With Differential Ord2 Baso ABS# 0.0 K/ul 08/31/2017 Comp Metabolic Gyp879 NA 140 mEq/L 08/31/2017 Comp Metabolic Pal472 K 4.4 mEq/L 08/31/2017 Comp Metabolic Kyg905 CL 102 mEq/L 08/31/2017 Comp Metabolic Atr992 CO2 30.0 mEq/L 08/31/2017 Comp Metabolic Trf342 ANION GAP 12 08/31/2017 Comp Metabolic Ixc920 GLUCOSE 99 mg/dL 08/31/2017 Comp Metabolic Zgg402 Creat 1.1 mg/dL 08/31/2017 Comp Metabolic Fgv786 eGFR 68 ml/min/1.73m2 08/31/2017 Comp Metabolic Bjg592 BUN 18 mg/dL 08/31/2017 Comp Metabolic Myo519 B/C Ratio 16.1 Ratio 08/31/2017 Comp Metabolic Dwh033 CALCIUM 9.8 mg/dL 08/31/2017 Comp Metabolic Syh186 ALK PHOS 70 U/L 08/31/2017 Comp Metabolic Xus983 AST(SGOT) 15 U/L 08/31/2017 Comp Metabolic Wjb472 ALT(SGPT) 7 U/L 08/31/2017 Comp Metabolic Xoh473 BILI T 0.4 mg/dL 08/31/2017 Comp Metabolic Fib410 ALBUMIN 4.4 g/dL 08/31/2017 Comp Metabolic Nsb889 TPRO 6.6 g/dL 08/31/2017 Comp Metabolic Nbx209 GLOB 2.2 g/dL 08/31/2017 Comp Metabolic Sux702 A/G Ratio 2.0 Ratio 08/31/2017 Comp Metabolic Yfz218 Osmo 281 mOsmo 08/31/2017 Tsh Ord6 hTSH II 1.57 uIU/mL 09/24/2016 Total Psa Ord10 PSA 1.17 ng/mL 09/24/2016 Cbc With Differential Ord2 WBC 15.39 K/ul 09/24/2016 Cbc With Differential Ord2 RBC 5.40 M/ul 09/24/2016 Cbc With Differential Ord2 HGB 13.3 g/dl 09/24/2016 Cbc With Differential Ord2 HCT 44.1 % 09/24/2016 Cbc With Differential Ord2 Neut% 68.4 % 09/24/2016 Cbc With Differential Ord2 Lymph% 24.0 % 09/24/2016 Cbc With Differential Ord2 MCV 81.7 fl 09/24/2016 Cbc With Differential Ord2 [place]% 6.4 % 09/24/2016 Cbc With Differential Ord2 MCH 24.6 pg 09/24/2016 Cbc With Differential Ord2 Eos% 1.0 % 09/24/2016 Cbc With Differential Ord2 MCHC 30.2 pg 09/24/2016 Cbc With Differential Ord2 PLT 340 K/ul 09/24/2016 Cbc With Differential Ord2 Baso% 0.2 % 09/24/2016 Cbc With Differential Ord2 Neut ABS# 10.51 K/ul 09/24/2016 Cbc With Differential Ord2 RDW 17.4 % 09/24/2016 Cbc With Differential Ord2 Lymph ABS# 3.70 K/ul 09/24/2016 Cbc With Differential Ord2 [place] ABS# 1.0 K/ul 09/24/2016 Cbc With Differential Ord2 Eos ABS# 0.2 K/ul 09/24/2016 Cbc With Differential Ord2 Baso ABS# 0.0 K/ul 09/24/2016 Lipid Ord30 CHOL 185 mg/dL 09/24/2016 Lipid Ord30 HDL 55.0 mg/dl 09/24/2016 Lipid Ord30 TRIG 74 mg/dL 09/24/2016 Lipid Ord30 LDL 115 mg/dL 09/24/2016 Lipid Ord30 C/HDL 3.4 Ratio 09/24/2016 Comp Metabolic Rpn816 NA 136 mEq/L 09/24/2016 Comp Metabolic Qzk451 K 4.3 mEq/L 09/24/2016 Comp Metabolic Nta152 CL 98 mEq/L 09/24/2016 Comp Metabolic Gpv963 CO2 29.0 mEq/L 09/24/2016 Comp Metabolic Hur525 ANION GAP 13 09/24/2016 Comp Metabolic Yff410 GLUCOSE 107 mg/dL 09/24/2016 Comp Metabolic Fpv797 Creat 1.2 mg/dL 09/24/2016 Comp Metabolic Ypg609 eGFR 60 ml/min/1.73m2 09/24/2016 Comp Metabolic Ccf194 BUN 18 mg/dL 09/24/2016 Comp Metabolic Zum272 B/C Ratio 14.5 Ratio 09/24/2016 Comp Metabolic Kqh011 CALCIUM 10.4 mg/dL 09/24/2016 Comp Metabolic Okh436 ALK PHOS 64 U/L 09/24/2016 Comp Metabolic Xem709 AST(SGOT) 13 U/L 09/24/2016 Comp Metabolic Dki166 ALT(SGPT) 8 U/L 09/24/2016 Comp Metabolic Dao244 BILI T 0.5 mg/dL 09/24/2016 Comp Metabolic Ifc126 ALBUMIN 4.1 g/dL 09/24/2016 Comp Metabolic Esx292 TPRO 6.8 g/dL 09/24/2016 Comp Metabolic Oet754 GLOB 2.7 g/dL 09/24/2016 Comp Metabolic Qfn813 A/G Ratio 1.5 Ratio 09/24/2016 Comp Metabolic Srv515 Osmo 274 mOsmo 09/24/2016 Amylase Ord34 AMYLASE [...] 26.2 pg 12/11/2015 Cbc With Differential Ord2 [place]% 7.6 % 12/11/2015 Cbc With Differential Ord2 Eos% 1.5 % 12/11/2015 Cbc With Differential Ord2 MCHC 30.8 pg 12/11/2015 Cbc With Differential Ord2 Baso% 0.2 % 12/11/2015 Cbc With Differential Ord2 PLT 318 K/ul 12/11/2015 Cbc With Differential Ord2 Neut ABS# 7.24 K/ul 12/11/2015 Cbc With Differential Ord2 RDW 16.1 % 12/11/2015 Cbc With Differential Ord2 Lymph ABS# 3.34 K/ul 12/11/2015 Cbc With Differential Ord2 [place] ABS# 0.9 K/ul 12/11/2015 Cbc With Differential Ord2 Eos ABS# 0.2 K/ul 12/11/2015 Cbc With Differential Ord2 Baso ABS# 0.0 K/ul 12/11/2015 Comp Metabolic Mov320 NA 137 mEq/L 12/11/2015 Comp Metabolic Rqj899 K 4.1 mEq/L 12/11/2015 Comp Metabolic Ymj805 CL 101 mEq/L 12/11/2015 Comp Metabolic Skt257 CO2 31.0 mEq/L 12/11/2015 Comp Metabolic Xux451 ANION GAP 9 12/11/2015 Comp Metabolic Udx796 GLUCOSE 97 mg/dL 12/11/2015 Comp Metabolic Lhk140 Creat 1.0 mg/dL 12/11/2015 Comp Metabolic Mtj670 eGFR 74 ml/min/1.73m2 12/11/2015 Comp Metabolic Mfk573 BUN 15 mg/dL 12/11/2015 Comp Metabolic Txv723 B/C Ratio 14.4 Ratio 12/11/2015 Comp Metabolic Dcb146 CALCIUM 9.2 mg/dL 12/11/2015 Comp Metabolic Pma756 ALK PHOS 55 U/L 12/11/2015 Comp Metabolic Nqd440 AST(SGOT) 14 U/L 12/11/2015 Comp Metabolic Hjn760 ALT(SGPT) 9 U/L 12/11/2015 Comp Metabolic Fbz605 BILI T 0.5 mg/dL 12/11/2015 Comp Metabolic Jsq125 ALBUMIN 3.9 g/dL 12/11/2015 Comp Metabolic Ejk537 TPRO 6.2 g/dL 12/11/2015 Comp Metabolic Svs423 GLOB 2.4 g/dL 12/11/2015 Comp Metabolic Nwu339 A/G Ratio 1.6 Ratio 12/11/2015 Comp Metabolic Xgv370 Osmo 275 mOsmo 12/11/2015 Sed Rate Ord21 ESR 26 mm/hr 06/11/2015 Comp Metabolic Sib291 NA 137 mEq/L 06/11/2015 Comp Metabolic Rfv763 K 4.4 mEq/L 06/11/2015 Comp Metabolic Wvb756 CL 100 mEq/L 06/11/2015 Comp Metabolic Hdj079 CO2 29.0 mEq/L 06/11/2015 Comp Metabolic Vzf529 ANION GAP 12 06/11/2015 Comp Metabolic Uzj732 GLUCOSE 91 mg/dL 06/11/2015 Comp Metabolic Cpi628 Creat 1.1 mg/dL 06/11/2015 Comp Metabolic Rpm452 eGFR 68 ml/min/1.73m2 06/11/2015 Comp Metabolic Ldd937 BUN 14 mg/dL 06/11/2015 Comp Metabolic Xiz926 B/C Ratio 12.4 Ratio 06/11/2015 Comp Metabolic Otu236 CALCIUM 9.9 mg/dL 06/11/2015 Comp Metabolic Iij998 ALK PHOS 61 U/L 06/11/2015 Comp Metabolic Bil279 AST(SGOT) 18 U/L 06/11/2015 Comp Metabolic Rmw228 ALT(SGPT) 10 U/L 06/11/2015 Comp Metabolic Ndu301 BILI T 0.5 mg/dL 06/11/2015 Comp Metabolic Tlu091 ALBUMIN 4.4 g/dL 06/11/2015 Comp Metabolic Qvs815 TPRO 6.9 g/dL 06/11/2015 Comp Metabolic Gly053 GLOB 2.5 g/dL 06/11/2015 Comp Metabolic Qvz225 A/G Ratio 1.7 Ratio 06/11/2015 Comp Metabolic Tvx927 Osmo 274 mOsmo 06/11/2015 Cbc With Differential [...] Ord30 C/HDL 4.1 Ratio 06/11/2015 Free T4 Xxy509 FREE T4 1.03 ng/dL 02/08/2015 Cbc With [...] Ord30 C/HDL 3.5 Ratio 02/08/2015 Comp Metabolic Wxm570 NA 136 mEq/L 02/08/2015 Comp Metabolic Hca840 K 4.0 mEq/L 02/08/2015 Comp Metabolic Ozg397 CL 101 mEq/L 02/08/2015 Comp Metabolic Psp245 CO2 30.0 mEq/L 02/08/2015 Comp Metabolic Dko732 ANION GAP 9 02/08/2015 Comp Metabolic Omf508 GLUCOSE 83 mg/dL 02/08/2015 Comp Metabolic Wmt478 Creat 1.1 mg/dL 02/08/2015 Comp Metabolic Flh984 eGFR 70 ml/min/1.73m2 02/08/2015 Comp Metabolic Hbo329 BUN 15 mg/dL 02/08/2015 Comp Metabolic Uzd026 B/C Ratio 13.6 Ratio 02/08/2015 Comp Metabolic Ovl774 CALCIUM 9.4 mg/dL 02/08/2015 Comp Metabolic Vkm978 ALK PHOS 58 U/L 02/08/2015 Comp Metabolic Vny089 AST(SGOT) 15 U/L 02/08/2015 Comp Metabolic Nxl602 ALT(SGPT) 8 U/L 02/08/2015 Comp Metabolic Zgi256 BILI T 0.7 mg/dL 02/08/2015 Comp Metabolic Clm241 ALBUMIN 3.8 g/dL 02/08/2015 Comp Metabolic Ljc496 TPRO 6.1 g/dL 02/08/2015 Comp Metabolic Oie359 GLOB 2.3 g/dL 02/08/2015 Comp Metabolic Css056 A/G Ratio 1.7 Ratio 02/08/2015 Comp Metabolic Rgx016 Osmo 272 mOsmo 02/08/2015 Review of Systems [...] sounds 03/24/2018 None Full Exam - General 1995 Cardiovascular auscultation of heart Systolic murmur: holosystolic 03/24/2018 None Full Exam - General 1994 Cardiovascular auscultation of heart Systolic murmur grade: III/ 03/24/2018 None Full Exam - General 1995 Abdomen abdominal exam Overall: no tenderness 03/24/2018 None Full Exam - General 1995 Abdomen abdominal exam Overall: normal bowel sounds [...] affect 08/31/2017 None Full Exam - General 1994 Constitutional general appearance Overall: well developed 08/31/2017 None Full Exam - General 1994 [...] distress 01/22/2017 None Full Exam - General 1995 Constitutional general appearance Overall: well nourished 01/22/2017 [...] -4: G0439 01/22/2017 THER/PROPH/DIAG INJ SC/IM CPT-4: 04145 09/23/2016 TRIAMCINOLONE ACET INJ NOS CPT-4: J3301 09/23/2016 INJ TRIGGER POINT 1/2 MUSCL CPT-4: 93632 09/05/2016 TRIAMCINOLONE ACET INJ NOS CPT-4: J3301 09/05/2016 ADMIN INFLUENZA VIRUS VAC CPT-4: G0008 04/29/2016 FLU VACC 4 CHASE 3 YRS PLUS IM SNOMED CT: 15197387 CPT-4: 42498 04/29/2016 THER/PROPH/DIAG INJ SC/IM CPT-4: 90367 02/28/2016 TRIAMCINOLONE ACET INJ NOS CPT-4: J3301 02/28/2016 THER/PROPH/DIAG INJ SC/IM CPT-4: 49801 09/25/2015 TRIAMCINOLONE ACET INJ NOS CPT-4: J3301 09/25/2015 ADMIN INFLUENZA VIRUS VAC CPT-4: G0008 06/11/2015 FLU VACC PRSV FREE INC ANTIG Formatting Model/CDA Sections, Assigned to/Candida Hickey CPT-4: 38230Oeginna 06/11/2015 Vital Signs Date Vital 06/11/2018 Blood Pressure 1: 134/74 Code : 8480-6 BMI: 29.4 Code : 25924-2 Heart Rate 1 : 67 bpm Height: 5'11" SpO2: 97% Weight: 211 lbs 03/24/2018 Blood Pressure 1: 118/64 Code : 8480-6 BMI: 36.3 Code : 91395-3 Heart Rate 1 : 73 bpm Height: 5'11" SpO2: 98% Weight: 260 lbs 12/04/2017 Blood Pressure 1: 128/80 Code : 8480-6 BMI: 28.2 Code : 26415-3 Heart Rate 1 : 84 bpm Height: 5'11" SpO2: 97% Temperature: 36.6 (C) / 97.9 (F) Weight: 202 lbs 10/16/2017 Blood Pressure 1: 130/72 Code : 8480-6 BMI: 30.0 Code : 05594-3 Heart Rate 1 : 76 bpm Height: 5'11" SpO2: 99% Weight: 215 lbs 08/31/2017 Blood Pressure 1: 122/80 Code : 8480-6 BMI: 29.4 Code : 23730-7 Heart Rate 1 : 80 bpm Height: 5'11" SpO2: 96% Weight: 211 lbs 01/22/2017 BMI: 27.9 Code: 28917-4 Height: 5'11" Weight: 200 lbs 10/23/2016 Blood Pressure 1: 132/76 Code : 8480-6 BMI: 27.9 Code : 26854-4 Heart Rate 1 : 85 bpm Height: 5'11" SpO2: 98% Weight: 200 lbs 09/23/2016 Blood Pressure 1: 150/80 Code : 8480-6 BMI: 28.3 Code : 67555-7 Heart Rate 1 : 96 bpm Height: 5'11" SpO2: 98% Weight: 203 lbs 09/05/2016 Blood Pressure 1: 136/82 Code : 8480-6 BMI: 27.8 Code : 82015-3 Heart Rate 1 : 77 bpm Height: 6' SpO2: 98% Weight: 205 lbs 05/28/2016 Blood Pressure 1: 130/82 Code : 8480-6 BMI: 29.3 Code : 07957-5 Heart Rate 1 : 79 bpm Height: 6' SpO2: 98% Weight: 216 lbs 12/11/2015 Blood Pressure 1: 128/76 Code : 8480-6 BMI: 30.5 Code : 81180-3 Heart Rate 1 : 84 bpm Height: 6' SpO2: 96% Weight: 225 lbs 06/11/2015 Blood Pressure 1: 138/82 Code : 8480-6 BMI: 29.3 Code : 14138-8 Heart Rate 1 : 71 bpm Height: 6' SpO2: 98% Weight: 216 lbs 02/05/2015 Blood Pressure 1: 140/80 Code : 8480-6 BMI: 29.8 Code : 84491-2 Heart Rate 1 : 76 bpm Height: [...] pain syndrome[ICD10: G89.4] Keely Briseno MD, [facility] CPT-4: 62432 06/11/2018 [id number] EST. PATIENT, LEVEL III Diagnosis: Encounter for follow-up examination after completed treatment for conditions other than malignant neoplasm[ICD10: Z09] Diagnosis: Essential (primary) hypertension[ICD10: I10] Keely Briseno MD, [facility] CPT-4: 92922 03/24/2018 ([id number]) [id number] EST. PATIENT, LEVEL III Diagnosis: Acute recurrent maxillary sinusitis[ICD10: J01.01] Diagnosis: Other allergic rhinitis[ICD10: J30.89] Magy Briseno MD, [facility] CPT-4: 40397 12/04/2017 [id number] EST. PATIENT, LEVEL III Diagnosis: Pain in right shoulder[ICD10: M25.511] Keely Briseno MD, [facility] CPT-4: 47796 10/16/2017 [id number] EST. PATIENT, LEVEL III Diagnosis: Cardiac murmur, unspecified[ICD10: R01.1] Diagnosis: Other fatigue[ICD10: R53.83] Keely Briseno MD, [facility] CPT-4 : 15273 08/31/2017 ([id number]) 93608 EST. PATIENT, LEVEL IV Diagnosis: Essential (primary) hypertension[ICD10: I10] Diagnosis: Pain in thoracic spine[ICD10: M54.6] Diagnosis: Chronic pain syndrome[ICD10: G89.4] Safia Briseno MD, [facility] CPT-4: 02972 10/23/2016 ([id number]) 20248 EST. PATIENT, LEVEL IV Diagnosis: Essential (primary) hypertension[ICD10: I10] Diagnosis: Benign prostatic hyperplasia with lower urinary tract symptoms[ICD10 : N40.1] Safia Briseno MD, [facility] CPT-4: 68387 2016 35842 EST. PATIENT, LEVEL III Diagnosis: Pain in thoracic spine[ICD10: M54.6] Diagnosis: Other muscle spasm[ICD10: M62.838] Diagnosis: Pain in right shoulder[ICD10: M25.511] Diagnosis: Muscle spasm of back[ICD10: M62.830] Diagnosis: Myalgia[ICD10: M79.1] Keely Briseno MD, [facility] CPT-4: 05683 09/05/2016 ([id number]) 85494 EST. PATIENT, LEVEL III Diagnosis: Essential (primary) hypertension[ICD10: I10] Diagnosis: Chronic pain syndrome[ICD10: G89.4] Safia Briseno MD, [facility] CPT-4: 52229 05/28/2016 ([id number]) 56326 EST. PATIENT, LEVEL IV Diagnosis: Essential (primary) hypertension[ICD10: I10] Diagnosis: Chronic pain syndrome[ICD10: G89.4] Diagnosis: Left upper quadrant pain[ICD10: R10.12] Diagnosis: Gastro-esophageal reflux disease without esophagitis[ICD10: K21.9] Magy Briseno MD, [facility] CPT-4: 65432 12/11/2015 ([id number]) 99913 EST. 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 CPT-4: 24316 06/11/2015 ([id number]) OFFICE VISIT, NEW - LEVEL 4 Diagnosis: ESSENTIAL HYPERTENSION[ICD9: 401.9] Diagnosis: CHRONIC PAIN SYNDROME[ICD9: 338.4] [facility] CPT-4: 16396 02/05/2015 Plan of Care Planned Activity Notes Codes Status Date Visit Plan: Chronic Pain Syndrome - pt has chronic pain - has been maintained on current medications, has not sought out other medications , only uses PRN pain medications as directed, and understands the consequences of over-medication. 06/11/2018 [phone] (15 min) Moderate 06/11/2018 Patient Education: Patient [...] at home. 03/24/2018 [facility]ment[phone] [facility] (15 min) Moderate 03/24/2018 Patient Education: Patient [...] allergy spray. 12/04/2017 Appointment: Magy Cortez WPtel: [facility] [place] [address] (15 min) Moderate 12/04/2017 Patient Education: Patient Medication Summary Completed 12/04/2017 Visit Plan: Right shoulder pain, Biceps tendinitis - pt to do exercises as directed, ant-inflammatories directed to be taken per RX instructions and pt to call if symptoms are not improved. 10/16/2017 Appointment: Keely Jorge WPtel: [facility]4 [facility] (15 min) Moderate 10/16/2017 Patient Education: Patient Medication Summary Completed 10/16/2017 Visit Plan: Heart murmur - more pronounced, fatigue - will order ECHO and refer as indicated - pt is to notify clinic with any changes, questions, or concerns. 08/31/2017 Appointment: Keely Jorge WPtel: [facility]2 [facility] (30 min) Complex 08/31/2017 Patient Education: Patient [...] care surrogate. 01/22/2017 Appointment: Keely Jorge WPtel: [facility]1 [facility] [place] [address] - Annual Wellness Visit 01/22/2017 Patient Education: [...] of over-medication. 10/23/2016 Appointment: Safia Briseno WPtel: [facility]1 [facility] (15 min) Moderate 10/23/2016 Patient Education: Patient [...] for flomax 09/23/2016 Appointment: Safia Briseno WPtel: [facility]3 [facility] (15 min) Moderate 09/23/2016 Patient Education: [...] disease process. 09/05/2016 Appointment: Keely Jorge WPtel: [facility]5 [facility] (30 min) Complex 09/05/2016 Patient Education: Patient Medication Summary Completed 09/05/2016 Appointment: Magy Cortez WPtel: [facility]5 [phone] (30 min) Complex 06/17/2016 Visit Plan: [...] of over-medication. 05/28/2016 Appointment: Safia Briseno WPtel: [facility]5 [facility] (15 min) Moderate 05/28/2016 Patient Education: Patient Medication Summary Completed 05/28/2016 Appointment: Injection 04/29/2016 Patient Education: Patient Medication Summary Completed 04/29/2016 Appointment: Injection 02/28/2016 Patient Education: Patient Medication Summary Completed 02/28/2016 Appointment: Magy Cortez WPtel: [facility]5 [phone] (30 min) Complex 01/14/2016 Visit Plan: [...] October 2013 06/11/2015 Appointment: Magy Cortez WPtel: [phone] [phone] (30 min) Complex 06/11/2015 Patient Education: Patient [...] refill Methadone. 02/05/2015 Appointment: [phone] [facility] [place] [facility] New Patient 02/05/2015 Patient Education: [...] other disease process. ECHO - scheduled at [facility] on 09/03 at 4PM. Heart murmur [...]
--- OUTSIDE RECORDS SUMMARY | 2018-07-11 23:17 | XMS REPORT | CCD ---
Author Author Safia Briseno Organization Safia Briseno MD, 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 Name Role Phone PP Unavailable CCM Unavailable Summary Purpose Interface Exchange Insurance Providers Payer name Policy type / Coverage type Covered republican ID Effective Begin Date Effective End Date WPS Medicare Part B Medicare Part B [id number] Unknown Unknown [facility] Medicare Part B [id number] Unknown Unknown Family history Father Diagnosis Age At Onset Cancer Unknown lung cancer Unknown Heart Attack Unknown Mother Diagnosis Age At Onset Diabetes Unknown Stroke Unknown Social History Social History Element Codes Description Effective Dates Marital status Unknown Vidya 09/23/2016 Number of children Unknown 4 02/05/[address]: 649979890 Never smoker 02/05/2015 Alcohol history Unknown occasionally [...] Start Date Stop Date Status Fill Instructions methadone 10 mg tablet RxNorm: 377620 2 Tablet(s) PO TID 201707/10/2018 Active Zorvolex 35 mg capsule RxNorm: 9456522 1 Capsule(s) PO TID as needed 06/11/2018 No Stop Date Active enalapril maleate 10 mg tablet RxNorm: 638079 TAKE ONE TABLET BY MOUTH DAILY 06/01/2018 02/25/2019 Active methadone 10 mg tablet RxNorm: 860760 2 Tablet(s) PO TID 201706/10/2018 Inactive methadone 10 mg tablet RxNorm: 852431 2 Tablet(s) PO TID 201705/11/2018 Inactive methadone 10 mg tablet RxNorm: 778923 2 Tablet(s) PO TID 201704/06/2018 Inactive Flomax 0.4 mg capsule RxNorm: 351919 1 Capsule(s) PO QPM 201707/24/2018 Active Kenalog 40 mg/mL suspension for injection RxNorm: 2693641 1 Milliliter(s) Inj 12/04/2017 12/04/2017 Inactive methadone 10 mg tablet RxNorm: 804736 2 Tablet(s) PO TID 201701/02/2018 Inactive Keflex 500 mg capsule RxNorm: 561679 1 Capsule(s) PO TID 201712/10/2017 Inactive methadone 10 mg tablet RxNorm: 221842 2 Tablet(s) PO TID 201712/03/2017 Inactive cyclobenzaprine 5 mg tablet RxNorm: 534327 Tablet(s) TAKE ONE TO TWO TABLETS BY MOUTH THREE TIMES A DAY NEEDED 10/16/2017 10/20/2017 Inactive methadone 10 mg tablet RxNorm: 187303 2 Tablet(s) PO TID 201711/06/2017 Inactive methadone 10 mg tablet RxNorm: 167516 2 Tablet(s) PO TID 201709/25/2017 Inactive methadone 10 mg tablet RxNorm: 203149 2 Tablet(s) PO TID 201708/26/2017 Inactive methadone 10 mg tablet RxNorm: 680637 2 Tablet(s) PO TID 201607/14/2017 Inactive methadone 10 mg tablet RxNorm: 195408 2 Tablet(s) PO TID 201606/09/2017 Inactive methadone 10 mg tablet RxNorm: 753522 2 Tablet(s) PO TID 201605/08/2017 Inactive methadone 10 mg tablet RxNorm: 566611 2 Tablet(s) PO TID 201604/08/2017 Inactive methadone 10 mg tablet RxNorm: 025497 2 Tablet(s) PO TID 201603/10/2017 Inactive enalapril maleate 10 mg tablet RxNorm: 467535 TAKE ONE TABLET BY MOUTH DAILY 01/05/2017 07/03/2017 Inactive methadone 10 mg tablet RxNorm: 096927 2 Tablet(s) PO TID 201601/29/2017 Inactive cyclobenzaprine 5 mg tablet RxNorm: 270846 TAKE ONE TO TWO TABLETS BY MOUTH THREE TIMES A DAY NEEDED 11/27/20162016 Inactive Flomax 0.4 mg capsule RxNorm: 828016 1 Capsule(s) PO QPM 201611/21/2016 Inactive Kenalog 40 mg/mL suspension for injection RxNorm: 7176212 1 Milliliter(s) Inj 09/23/2016 09/23/2016 Inactive methadone 10 mg tablet RxNorm: 183616 2 Tablet(s) PO TID 201611/21/2016 Inactive Kenalog 40 mg/mL suspension for injection RxNorm: 2957476 1/2 Milliliter(s) Inj 09/05/2016 09/05/2016 Inactive cyclobenzaprine 5 mg tablet RxNorm: 445540 1-2 Tablet(s) PO TID as needed 09/05/2016 09/09/2016 Inactive methadone 10 mg tablet RxNorm: 033559 2 Tablet(s) PO TID 201608/27/2016 Inactive methadone 10 mg tablet RxNorm: 698830 2 Tablet(s) PO TID 201507/26/2016 Inactive amoxicillin 500 mg capsule RxNorm: 702786 4 Capsule(s) PO 1 hour before appt 05/16/2016 06/14/2017 Inactive methadone 10 mg tablet RxNorm: 739251 2 Tablet(s) PO TID 201505/27/2016 Inactive Kenalog 40 mg/mL suspension for injection RxNorm: 8165965 1 Milliliter(s) Inj 02/29/2016 02/29/2016 Inactive methadone 10 mg tablet RxNorm: 069169 2 Tablet(s) PO TID 201503/28/2016 Inactive methadone 10 mg tablet RxNorm: 984359 2 Tablet(s) PO TID 201511/23/2015 Inactive sumatriptan 50 mg tablet RxNorm: 388744 1 Tablet(s) PO daily as needed 09/25/2015 11/23/2015 Inactive sumatriptan 50 mg tablet RxNorm: 397581 1 Tablet(s) PO daily as needed 09/25/2015 09/24/2015 Inactive Kenalog 40 mg/mL suspension for injection RxNorm: 6125345 Milliliter(s) Inj 09/25/2015 09/25/2015 Inactive methadone 10 mg tablet RxNorm: 491236 2 Tablet(s) PO TID 201509/26/2015 Inactive methadone 10 mg tablet RxNorm: 638104 2 Tablet(s) PO TID 201508/27/2015 Inactive methadone 10 mg tablet RxNorm: 011473 2 Tablet(s) PO TID 201407/26/2015 Inactive methadone 10 mg tablet RxNorm: 337186 2 Tablet(s) PO TID 201406/26/2015 Inactive enalapril maleate 10 mg tablet RxNorm: 131079 1 Tablet(s) PO daily 05/04/2015 10/30/2015 Inactive enalapril maleate 10 mg tablet RxNorm: 937974 1 Tablet(s) PO daily 02/05/2015 05/03/2015 Inactive methadone 10 mg tablet RxNorm: 148095 2 Tablet(s) PO TID 201402/27/2015 Inactive methadone 10 mg tablet RxNorm: 614111 2 Tablet(s) PO TID 201401/28/2015 Inactive amoxicillin 500 mg capsule RxNorm: 202513 4 Capsule(s) PO 1 hour before appt No Start Date 05/15/2016 Inactive Medication Administered Medication Codes Instructions Start Date Status Kenalog 40 mg/mL suspension for injection RxNorm: 5784745 1Milliliter 12/04/2017 No longer Active Kenalog 40 mg/mL suspension for injection RxNorm: 1742577 1Milliliter 09/23/2016 No longer Active Kenalog 40 mg/mL suspension for injection RxNorm: 1561964 1/2Milliliter 09/05/2016 No longer Active Kenalog 40 mg/mL suspension for injection RxNorm: 4389019 1Milliliter 02/29/2016 No longer Active Kenalog 40 mg/mL suspension for injection RxNorm: 3289816 Milliliter 09/25/2015 No longer Active Immunizations Vaccine [...] 13.4 g/dl 08/31/2017 Cbc With Differential Ord2 HCT 43.3 % 08/31/2017 Cbc With Differential Ord2 Neut% 57.5 % 08/31/2017 Cbc With Differential Ord2 MCV 86.1 fl 08/31/2017 Cbc With Differential Ord2 Lymph% 32.8 % 08/31/2017 Cbc With Differential Ord2 Hall% 8.3 % 08/31/2017 Cbc With Differential Ord2 MCH 26.6 pg 08/31/2017 Cbc With Differential Ord2 MCHC 30.9 pg 08/31/2017 Cbc With Differential Ord2 Eos% 1.3 % 08/31/2017 Cbc With Differential Ord2 PLT 275 K/ul 08/31/2017 Cbc With Differential Ord2 Baso% 0.1 % 08/31/2017 Cbc With Differential Ord2 Neut ABS# 5.56 K/ul 08/31/2017 Cbc With Differential Ord2 RDW 15.8 % 08/31/2017 Cbc With Differential Ord2 Lymph ABS# 3.17 K/ul 08/31/2017 Cbc With Differential Ord2 Hall ABS# 0.8 K/ul 08/31/2017 Cbc With Differential Ord2 Eos ABS# 0.1 K/ul 08/31/2017 Cbc With Differential Ord2 Baso ABS# 0.0 K/ul 08/31/2017 Comp Metabolic Awo220 NA 140 mEq/L 08/31/2017 Comp Metabolic Mpv296 K 4.4 mEq/L 08/31/2017 Comp Metabolic Fxd336 CL 102 mEq/L 08/31/2017 Comp Metabolic Guz552 CO2 30.0 mEq/L 08/31/2017 Comp Metabolic Xvb137 ANION GAP 12 08/31/2017 Comp Metabolic Jhr291 GLUCOSE 99 mg/dL 08/31/2017 Comp Metabolic Bzm204 Creat 1.1 mg/dL 08/31/2017 Comp Metabolic Gei561 eGFR 68 ml/min/1.73m2 08/31/2017 Comp Metabolic Hwv290 BUN 18 mg/dL 08/31/2017 Comp Metabolic Iwm375 B/C Ratio 16.1 Ratio 08/31/2017 Comp Metabolic Ihm484 CALCIUM 9.8 mg/dL 08/31/2017 Comp Metabolic Wgu228 ALK PHOS 70 U/L 08/31/2017 Comp Metabolic Lqr981 AST(SGOT) 15 U/L 08/31/2017 Comp Metabolic Hfs545 ALT(SGPT) 7 U/L 08/31/2017 Comp Metabolic Ydu758 BILI T 0.4 mg/dL 08/31/2017 Comp Metabolic Yeq571 ALBUMIN 4.4 g/dL 08/31/2017 Comp Metabolic Dvy744 TPRO 6.6 g/dL 08/31/2017 Comp Metabolic Imz697 GLOB 2.2 g/dL 08/31/2017 Comp Metabolic Jtp380 A/G Ratio 2.0 Ratio 08/31/2017 Comp Metabolic Rge453 Osmo 281 mOsmo 08/31/2017 Tsh Ord6 hTSH [...] 24.0 % 09/24/2016 Cbc With Differential Ord2 Hall% 6.4 % 09/24/2016 Cbc With Differential Ord2 MCH 24.6 pg 09/24/2016 Cbc With Differential Ord2 MCHC 30.2 pg 09/24/2016 Cbc With Differential Ord2 Eos% 1.0 % 09/24/2016 Cbc With Differential Ord2 PLT 340 K/ul 09/24/2016 Cbc With Differential Ord2 Baso% 0.2 % 09/24/2016 Cbc With Differential Ord2 RDW 17.4 % 09/24/2016 Cbc With Differential Ord2 Neut ABS# 10.51 K/ul 09/24/2016 Cbc With Differential Ord2 Lymph ABS# 3.70 K/ul 09/24/2016 Cbc With Differential Ord2 Hall ABS# 1.0 K/ul 09/24/2016 Cbc With Differential Ord2 Eos ABS# 0.2 K/ul 09/24/2016 Cbc With Differential Ord2 Baso ABS# 0.0 K/ul 09/24/2016 Lipid Ord30 CHOL 185 mg/dL 09/24/2016 Lipid Ord30 HDL 55.0 mg/dl 09/24/2016 Lipid Ord30 TRIG 74 mg/dL 09/24/2016 Lipid Ord30 LDL 115 mg/dL 09/24/2016 Lipid Ord30 C/HDL 3.4 Ratio 09/24/2016 Comp Metabolic Idb692 NA 136 mEq/L 09/24/2016 Comp Metabolic Ekf217 K 4.3 mEq/L 09/24/2016 Comp Metabolic Dkv593 CL 98 mEq/L 09/24/2016 Comp Metabolic Nml613 CO2 29.0 mEq/L 09/24/2016 Comp Metabolic Owv544 ANION GAP 13 09/24/2016 Comp Metabolic Yig219 GLUCOSE 107 mg/dL 09/24/2016 Comp Metabolic Irv929 Creat 1.2 mg/dL 09/24/2016 Comp Metabolic Rgp500 eGFR 60 ml/min/1.73m2 09/24/2016 Comp Metabolic Ozb037 BUN 18 mg/dL 09/24/2016 Comp Metabolic Qlf221 B/C Ratio 14.5 Ratio 09/24/2016 Comp Metabolic Xbh480 CALCIUM 10.4 mg/dL 09/24/2016 Comp Metabolic Ubt796 ALK PHOS 64 U/L 09/24/2016 Comp Metabolic Hff463 AST(SGOT) 13 U/L 09/24/2016 Comp Metabolic Tro291 ALT(SGPT) 8 U/L 09/24/2016 Comp Metabolic Zzv796 BILI T 0.5 mg/dL 09/24/2016 Comp Metabolic Djr364 ALBUMIN 4.1 g/dL 09/24/2016 Comp Metabolic Rqg126 TPRO 6.8 g/dL 09/24/2016 Comp Metabolic Oza696 GLOB 2.7 g/dL 09/24/2016 Comp Metabolic Kwa366 A/G Ratio 1.5 Ratio 09/24/2016 Comp Metabolic Apk851 Osmo 274 mOsmo 09/24/2016 Amylase Ord34 AMYLASE [...] 26.2 pg 12/11/2015 Cbc With Differential Ord2 Hall% 7.6 % 12/11/2015 Cbc With Differential Ord2 Eos% 1.5 % 12/11/2015 Cbc With Differential Ord2 MCHC 30.8 pg 12/11/2015 Cbc With Differential Ord2 PLT 318 K/ul 12/11/2015 Cbc With Differential Ord2 Baso% 0.2 % 12/11/2015 Cbc With Differential Ord2 Neut ABS# 7.24 K/ul 12/11/2015 Cbc With Differential Ord2 RDW 16.1 % 12/11/2015 Cbc With Differential Ord2 Lymph ABS# 3.34 K/ul 12/11/2015 Cbc With Differential Ord2 Hall ABS# 0.9 K/ul 12/11/2015 Cbc With Differential Ord2 Eos ABS# 0.2 K/ul 12/11/2015 Cbc With Differential Ord2 Baso ABS# 0.0 K/ul 12/11/2015 Comp Metabolic Kji107 NA 137 mEq/L 12/11/2015 Comp Metabolic Oue297 K 4.1 mEq/L 12/11/2015 Comp Metabolic Uid754 CL 101 mEq/L 12/11/2015 Comp Metabolic Swr789 CO2 31.0 mEq/L 12/11/2015 Comp Metabolic Ydz751 ANION GAP 9 12/11/2015 Comp Metabolic Icw640 GLUCOSE 97 mg/dL 12/11/2015 Comp Metabolic Dvb553 Creat 1.0 mg/dL 12/11/2015 Comp Metabolic Vzo669 eGFR 74 ml/min/1.73m2 12/11/2015 Comp Metabolic Zkk810 BUN 15 mg/dL 12/11/2015 Comp Metabolic Cky965 B/C Ratio 14.4 Ratio 12/11/2015 Comp Metabolic Aic340 CALCIUM 9.2 mg/dL 12/11/2015 Comp Metabolic Djx353 ALK PHOS 55 U/L 12/11/2015 Comp Metabolic Txs811 AST(SGOT) 14 U/L 12/11/2015 Comp Metabolic Ezb399 ALT(SGPT) 9 U/L 12/11/2015 Comp Metabolic Pky939 BILI T 0.5 mg/dL 12/11/2015 Comp Metabolic Kwx945 ALBUMIN 3.9 g/dL 12/11/2015 Comp Metabolic Ucp756 TPRO 6.2 g/dL 12/11/2015 Comp Metabolic Doo556 GLOB 2.4 g/dL 12/11/2015 Comp Metabolic Wwv145 A/G Ratio 1.6 Ratio 12/11/2015 Comp Metabolic Mce799 Osmo 275 mOsmo 12/11/2015 Sed Rate Ord21 ESR 26 mm/hr 06/11/2015 Comp Metabolic Qiq395 NA 137 mEq/L 06/11/2015 Comp Metabolic Hho198 K 4.4 mEq/L 06/11/2015 Comp Metabolic Qwz860 CL 100 mEq/L 06/11/2015 Comp Metabolic Zqt374 CO2 29.0 mEq/L 06/11/2015 Comp Metabolic Xzh828 ANION GAP 12 06/11/2015 Comp Metabolic Kle705 GLUCOSE 91 mg/dL 06/11/2015 Comp Metabolic Ekn478 Creat 1.1 mg/dL 06/11/2015 Comp Metabolic Xou593 eGFR 68 ml/min/1.73m2 06/11/2015 Comp Metabolic Igu667 BUN 14 mg/dL 06/11/2015 Comp Metabolic Mmv293 B/C Ratio 12.4 Ratio 06/11/2015 Comp Metabolic Hqd873 CALCIUM 9.9 mg/dL 06/11/2015 Comp Metabolic Hil601 ALK PHOS 61 U/L 06/11/2015 Comp Metabolic Fpg488 AST(SGOT) 18 U/L 06/11/2015 Comp Metabolic Kpj655 ALT(SGPT) 10 U/L 06/11/2015 Comp Metabolic Rly642 BILI T 0.5 mg/dL 06/11/2015 Comp Metabolic Lle931 ALBUMIN 4.4 g/dL 06/11/2015 Comp Metabolic Kmm350 TPRO 6.9 g/dL 06/11/2015 Comp Metabolic Dvz994 GLOB 2.5 g/dL 06/11/2015 Comp Metabolic Cmr971 A/G Ratio 1.7 Ratio 06/11/2015 Comp Metabolic Jkq091 Osmo 274 mOsmo 06/11/2015 Cbc With Differential [...] Ord30 C/HDL 4.1 Ratio 06/11/2015 Free T4 Kls216 FREE T4 1.03 ng/dL 02/08/2015 Cbc With [...] Ord30 C/HDL 3.5 Ratio 02/08/2015 Comp Metabolic Kyy729 NA 136 mEq/L 02/08/2015 Comp Metabolic Pzt421 K 4.0 mEq/L 02/08/2015 Comp Metabolic Ixj242 CL 101 mEq/L 02/08/2015 Comp Metabolic Nms238 CO2 30.0 mEq/L 02/08/2015 Comp Metabolic Pnn289 ANION GAP 9 02/08/2015 Comp Metabolic Tcf618 GLUCOSE 83 mg/dL 02/08/2015 Comp Metabolic Hbz498 Creat 1.1 mg/dL 02/08/2015 Comp Metabolic Ftm282 eGFR 70 ml/min/1.73m2 02/08/2015 Comp Metabolic Jdp732 BUN 15 mg/dL 02/08/2015 Comp Metabolic Zyu686 B/C Ratio 13.6 Ratio 02/08/2015 Comp Metabolic Krw742 CALCIUM 9.4 mg/dL 02/08/2015 Comp Metabolic Mrc865 ALK PHOS 58 U/L 02/08/2015 Comp Metabolic Ifx271 AST(SGOT) 15 U/L 02/08/2015 Comp Metabolic Krt516 ALT(SGPT) 8 U/L 02/08/2015 Comp Metabolic Lil183 BILI T 0.7 mg/dL 02/08/2015 Comp Metabolic Dlz618 ALBUMIN 3.8 g/dL 02/08/2015 Comp Metabolic Srg725 TPRO 6.1 g/dL 02/08/2015 Comp Metabolic Ome436 GLOB 2.3 g/dL 02/08/2015 Comp Metabolic Tyf749 A/G Ratio 1.7 Ratio 02/08/2015 Comp Metabolic Xsi238 Osmo 272 mOsmo 02/08/2015 Review of Systems [...] affect 03/24/2018 None Full Exam - General 1995 Constitutional general appearance Overall: well developed 03/24/2018 [...] -4: G0439 01/22/2017 THER/PROPH/DIAG INJ SC/IM CPT-4: 48335 09/23/2016 TRIAMCINOLONE ACET INJ NOS CPT-4: J3301 09/23/2016 INJ TRIGGER POINT 1/2 MUSCL CPT-4: 39502 09/05/2016 TRIAMCINOLONE ACET INJ NOS CPT-4: J3301 09/05/2016 ADMIN INFLUENZA VIRUS VAC CPT-4: G0008 04/29/2016 FLU VACC 4 CHASE 3 YRS PLUS IM SNOMED CT: 05348678 CPT-4: 25501 04/29/2016 THER/PROPH/DIAG INJ SC/IM CPT-4: 41059 02/28/2016 TRIAMCINOLONE ACET INJ NOS CPT-4: J3301 02/28/2016 THER/PROPH/DIAG INJ SC/IM CPT-4: 00672 09/25/2015 TRIAMCINOLONE ACET INJ NOS CPT-4: J3301 09/25/2015 ADMIN INFLUENZA VIRUS VAC CPT-4: G0008 06/11/2015 FLU VACC PRSV FREE INC ANTIG Formatting Model/CDA Sections, Assigned to/Candida Hickey CPT-4: 37677Homflnu 06/11/2015 Vital Signs Date Vital 06/11/2018 Blood Pressure 1: 134/74 Code : 8480-6 BMI: 29.4 Code : 93007-8 Heart Rate 1 : 67 bpm Height: 5'11" SpO2: 97% Weight: 211 lbs 03/24/2018 Blood Pressure 1: 118/64 Code : 8480-6 BMI: 36.3 Code : 54031-0 Heart Rate 1 : 73 bpm Height: 5'11" SpO2: 98% Weight: 260 lbs 12/04/2017 Blood Pressure 1: 128/80 Code : 8480-6 BMI: 28.2 Code : 26824-0 Heart Rate 1 : 84 bpm Height: 5'11" SpO2: 97% Temperature: 36.6 (C) / 97.9 (F) Weight: 202 lbs 10/16/2017 Blood Pressure 1: 130/72 Code : 8480-6 BMI: 30.0 Code : 55839-3 Heart Rate 1 : 76 bpm Height: 5'11" SpO2: 99% Weight: 215 lbs 08/31/2017 Blood Pressure 1: 122/80 Code : 8480-6 BMI: 29.4 Code : 15505-2 Heart Rate 1 : 80 bpm Height: 5'11" SpO2: 96% Weight: 211 lbs 01/22/2017 BMI: 27.9 Code: 47936-4 Height: 5'11" Weight: 200 lbs 10/23/2016 Blood Pressure 1: 132/76 Code : 8480-6 BMI: 27.9 Code : 04814-3 Heart Rate 1 : 85 bpm Height: 5'11" SpO2: 98% Weight: 200 lbs 09/23/2016 Blood Pressure 1: 150/80 Code : 8480-6 BMI: 28.3 Code : 37775-4 Heart Rate 1 : 96 bpm Height: 5'11" SpO2: 98% Weight: 203 lbs 09/05/2016 Blood Pressure 1: 136/82 Code : 8480-6 BMI: 27.8 Code : 49219-4 Heart Rate 1 : 77 bpm Height: 6' SpO2: 98% Weight: 205 lbs 05/28/2016 Blood Pressure 1: 130/82 Code : 8480-6 BMI: 29.3 Code : 14121-3 Heart Rate 1 : 79 bpm Height: 6' SpO2: 98% Weight: 216 lbs 12/11/2015 Blood Pressure 1: 128/76 Code : 8480-6 BMI: 30.5 Code : 64074-4 Heart Rate 1 : 84 bpm Height: 6' SpO2: 96% Weight: 225 lbs 06/11/2015 Blood Pressure 1: 138/82 Code : 8480-6 BMI: 29.3 Code : 12251-4 Heart Rate 1 : 71 bpm Height: 6' SpO2: 98% Weight: 216 lbs 02/05/2015 Blood Pressure 1: 140/80 Code : 8480-6 BMI: 29.8 Code : 92827-5 Heart Rate 1 : 76 bpm Height: [...] pain syndrome[ICD10: G89.4] Keely Briseno MD, [facility] CPT-4: 32907 06/11/2018 [id number] EST. PATIENT, LEVEL III Diagnosis: Encounter for follow-up examination after completed treatment for conditions other than malignant neoplasm[ICD10: Z09] Diagnosis: Essential (primary) hypertension[ICD10: I10] Keely Briseno MD, [facility] CPT-4: 47192 03/24/2018 ([id number]) 74837 EST. PATIENT, LEVEL III Diagnosis: Acute recurrent maxillary sinusitis[ICD10: J01.01] Diagnosis: Other allergic rhinitis[ICD10: J30.89] Magy Briseno MD, [facility] CPT-4: 57272 12/04/2017 [id number] EST. PATIENT, LEVEL III Diagnosis: Pain in right shoulder[ICD10: M25.511] Keely Briseno MD, [facility] CPT-4: 63163 10/16/2017 [id number] EST. PATIENT, LEVEL III Diagnosis: Cardiac murmur, unspecified[ICD10: R01.1] Diagnosis: Other fatigue[ICD10: R53.83] Keely Briseno MD, [facility] CPT-4 : 98985 08/31/2017 ([id number]) 50497 EST. PATIENT, LEVEL IV Diagnosis: Essential (primary) hypertension[ICD10: I10] Diagnosis: Pain in thoracic spine[ICD10: M54.6] Diagnosis: Chronic pain syndrome[ICD10: G89.4] Safia Briseno MD, [facility] CPT-4: 93500 10/23/2016 ([id number]) 89408 EST. PATIENT, LEVEL IV Diagnosis: Essential (primary) hypertension[ICD10: I10] Diagnosis: Benign prostatic hyperplasia with lower urinary tract symptoms[ICD10 : N40.1] Safia Briseno MD, [facility] CPT-4: 68213 2016 35954 EST. PATIENT, LEVEL III Diagnosis: Pain in thoracic spine[ICD10: M54.6] Diagnosis: Other muscle spasm[ICD10: M62.838] Diagnosis: Pain in right shoulder[ICD10: M25.511] Diagnosis: Muscle spasm of back[ICD10: M62.830] Diagnosis: Myalgia[ICD10: M79.1] Keely Briseno MD, [facility] CPT-4: 02565 09/05/2016 ([id number]) 25458 EST. PATIENT, LEVEL III Diagnosis: Essential (primary) hypertension[ICD10: I10] Diagnosis: Chronic pain syndrome[ICD10: G89.4] Safia Briseno MD, [facility] CPT-4: 51444 05/28/2016 ([id number]) 30292 EST. PATIENT, LEVEL IV Diagnosis: Essential (primary) hypertension[ICD10: I10] Diagnosis: Chronic pain syndrome[ICD10: G89.4] Diagnosis: Left upper quadrant pain[ICD10: R10.12] Diagnosis: Gastro-esophageal reflux disease without esophagitis[ICD10: K21.9] Magy Briseno MD, [facility] CPT-4: 26570 12/11/2015 ([id number]) 30613 EST. 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 CPT-4: 00669 06/11/2015 ([id number]) OFFICE VISIT, NEW - LEVEL 4 Diagnosis: ESSENTIAL HYPERTENSION[ICD9: 401.9] Diagnosis: CHRONIC PAIN SYNDROME[ICD9: 338.4] Safia Briseno MD, [facility] CPT-4: 18997 02/05/2015 Plan of Care Planned Activity Notes Codes Status Date Patient Education: Patient Medication Summary Completed 06/11/2018 Appointment: Keely Jorge WPtel: [address] [place], [place] [phone] [place] (15 min) Moderate 03/24/2018 Patient Education: Patient Medication Summary Completed 03/24/2018 Patient Education: Patient Medication Summary Completed 01/26/2018 Appointment: Magy Cortez WPtel: [phone] [phone] [place] (15 min) Moderate 12/04/2017 Patient Education: Patient Medication Summary Completed 12/04/2017 Appointment: Keely Jorge WPtel: [phone] [facility] [place] (15 min) Moderate 10/16/2017 Patient Education: Patient Medication Summary Completed 10/16/2017 Appointment: Keely Jorge WPtel: [phone] [facility] [place] (30 min) Complex 08/31/2017 Patient Education: Patient Medication Summary Completed 08/31/2017 Appointment: Keely Jorge WPtel: [phone] [facility] [place] MCR - Annual Wellness Visit 01/22/2017 Patient Education: Patient Medication Summary Completed 01/22/2017 Appointment: Safia Briseno WPtel: [phone] [facility] [place] (15 min) Moderate 10/23/2016 Patient Education: Patient Medication Summary Completed 10/23/2016 Appointment: Safia Briseno WPtel: [phone] [facility] [place] (15 min) Moderate 09/23/2016 Patient Education: Patient Medication Summary Completed 09/23/2016 [facility] [phone] [facility] [place] ([place] min) Complex 09/05/2016 Patient Education: Patient Medication Summary Completed 09/05/2016 App[facility]ment: [facility] [phone] [phone] [place] (30 min) Complex 06/17/2016 Appointment: Safia Briseno WPtel: [phone] [facility] [place] (15 min) Moderate 05/28/2016 Patient Education: Patient Medication Summary Completed 05/28/2016 Appointment: Injection 04/29/2016 Patient Education: Patient Medication Summary Completed 04/29/2016 Appointment: Injection 02/28/2016 Patient Education: Patient Medication Summary Completed 02/28/2016 Appointment: Magy Cortez [facility]Ptel: [phone] (30 min) Complex 01/14/2016 Appointment: (15 min) Moderate 12/11/2015 Patient Education: Patient Medication Summary Completed 12/11/2015 Patient Education: Obesity Completed 12/11/2015 Patient Education: Patient Medication Summary Completed 09/25/2015 Appointment: Magy Cortez WPtel: [phone] (30 min) Complex 06/11/2015 Patient Education: Patient Medication Summary Completed 06/11/2015 Patient Education: Hypertension Completed 06/11/2015 Appointment: Safia Briseno WPtel: [facility] [place] ([place] New Patient 02/05/2015 Patient Education: Patient Medication Summary Completed 02/05/2015 Patient Education: Hypertension Completed 02/05/2015 Instructions No Instructions
--- OUTSIDE RECORDS SUMMARY | 2018-07-11 23:18 | XMS REPORT | CCD ---
Author Author Safia Briseno Organization Safia Briseno MD, [facility] Address [address] [place] [address] Phone Care Team Providers Care Traffic Attendant Name Role Phone PP Unavailable CCM Unavailable Summary Purpose Interface Exchange Insurance Providers Payer name Policy type / Coverage type Covered alliance party ID Effective Begin Date Effective End Date WPS Medicare Part B Medicare Part B [id number] Unknown Unknown [facility] Medicare Part B [id number] Unknown Unknown Family history Father Diagnosis Age At Onset Cancer Unknown lung cancer Unknown Heart Attack Unknown Mother Diagnosis Age At Onset Diabetes Unknown Stroke Unknown Social History Social History Element Codes Description Effective Dates Marital status Unknown Vidya 09/23/2016 Number of children Unknown 4 02/05/[address]: 523417108 Never smoker 02/05/2015 Alcohol history Unknown occasionally drinks alcohol 02/05/2015 Allergies, Adverse Reactions, Alerts Substance Reaction Codes Entered Date Inactivated Date Status * NO KNOWN DRUG ALLERGIES Unknown 01/01/2015 No Inactive Date Active Past Medical History Illness Codes Condition Status Onset Date Resolved Date Benign prostatic hyperplasia with lower urinary tract [...] ICD-9: 780.79 ICD-10: R53.83 Active 08/31/2017 Unknown Chronic pain syndrome ICD-9: 338.4 ICD-10: G89.4 Active 02/04/2015 Unknown Gastro-esophageal reflux disease without esophagitis ICD-9: [...] Problems Condition Codes Effective Dates Condition Status Benign prostatic hyperplasia with lower urinary tract [...] fatigue ICD-9: 780.79 ICD-10: R53.83 08/31/2017 Active Chronic pain syndrome ICD-9: 338.4 ICD-10: G89.4 02/04/2015 Active Gastro-esophageal reflux disease without esophagitis ICD-9: [...] Start Date Stop Date Status Fill Instructions enalapril maleate 10 mg tablet RxNorm: 708208 TAKE ONE TABLET BY MOUTH DAILY 06/01/2018 02/25/2019 Active methadone 10 mg tablet RxNorm: 390177 2 Tablet(s) PO TID 201706/12/2018 Active methadone 10 mg tablet RxNorm: 724715 2 Tablet(s) PO TID 201705/11/2018 Inactive methadone 10 mg tablet RxNorm: 862479 2 Tablet(s) PO TID 201704/06/2018 Inactive Flomax 0.4 mg capsule RxNorm: 447356 1 Capsule(s) PO QPM 201707/24/2018 Active Kenalog 40 mg/mL suspension for injection RxNorm: 7828661 1 Milliliter(s) Inj 12/04/2017 12/04/2017 Inactive methadone 10 mg tablet RxNorm: 574113 2 Tablet(s) PO TID 201701/02/2018 Inactive Keflex 500 mg capsule RxNorm: 595368 1 Capsule(s) PO TID 201712/10/2017 Inactive methadone 10 mg tablet RxNorm: 130537 2 Tablet(s) PO TID 201712/03/2017 Inactive cyclobenzaprine 5 mg tablet RxNorm: 272054 Tablet(s) TAKE ONE TO TWO TABLETS BY MOUTH THREE TIMES A DAY NEEDED 10/16/2017 10/20/2017 Inactive methadone 10 mg tablet RxNorm: 690900 2 Tablet(s) PO TID 201711/06/2017 Inactive methadone 10 mg tablet RxNorm: 914371 2 Tablet(s) PO TID 201709/25/2017 Inactive methadone 10 mg tablet RxNorm: 734369 2 Tablet(s) PO TID 201708/26/2017 Inactive methadone 10 mg tablet RxNorm: 457522 2 Tablet(s) PO TID 201607/14/2017 Inactive methadone 10 mg tablet RxNorm: 190702 2 Tablet(s) PO TID 201606/09/2017 Inactive methadone 10 mg tablet RxNorm: 295543 2 Tablet(s) PO TID 201605/08/2017 Inactive methadone 10 mg tablet RxNorm: 247018 2 Tablet(s) PO TID 201604/08/2017 Inactive methadone 10 mg tablet RxNorm: 833667 2 Tablet(s) PO TID 201603/10/2017 Inactive enalapril maleate 10 mg tablet RxNorm: 042481 TAKE ONE TABLET BY MOUTH DAILY 01/05/2017 07/03/2017 Inactive methadone 10 mg tablet RxNorm: 560857 2 Tablet(s) PO TID 201601/29/2017 Inactive cyclobenzaprine 5 mg tablet RxNorm: 738987 TAKE ONE TO TWO TABLETS BY MOUTH THREE TIMES A DAY NEEDED 11/27/20162016 Inactive Flomax 0.4 mg capsule RxNorm: 104338 1 Capsule(s) PO QPM 201611/21/2016 Inactive Kenalog 40 mg/mL suspension for injection RxNorm: 5749739 1 Milliliter(s) Inj 09/23/2016 09/23/2016 Inactive methadone 10 mg tablet RxNorm: 735153 2 Tablet(s) PO TID 201611/21/2016 Inactive Kenalog 40 mg/mL suspension for injection RxNorm: 3055980 1/2 Milliliter(s) Inj 09/05/2016 09/05/2016 Inactive cyclobenzaprine 5 mg tablet RxNorm: 041789 1-2 Tablet(s) PO TID as needed 09/05/2016 09/09/2016 Inactive methadone 10 mg tablet RxNorm: 704610 2 Tablet(s) PO TID 201608/27/2016 Inactive methadone 10 mg tablet RxNorm: 029688 2 Tablet(s) PO TID 201507/26/2016 Inactive amoxicillin 500 mg capsule RxNorm: 887513 4 Capsule(s) PO 1 hour before appt 05/16/2016 06/14/2017 Inactive methadone 10 mg tablet RxNorm: 083135 2 Tablet(s) PO TID 201505/27/2016 Inactive Kenalog 40 mg/mL suspension for injection RxNorm: 8242871 1 Milliliter(s) Inj 02/29/2016 02/29/2016 Inactive methadone 10 mg tablet RxNorm: 628432 2 Tablet(s) PO TID 201503/28/2016 Inactive methadone 10 mg tablet RxNorm: 026821 2 Tablet(s) PO TID 201511/23/2015 Inactive sumatriptan 50 mg tablet RxNorm: 545897 1 Tablet(s) PO daily as needed 09/25/2015 11/23/2015 Inactive sumatriptan 50 mg tablet RxNorm: 663706 1 Tablet(s) PO daily as needed 09/25/2015 09/24/2015 Inactive Kenalog 40 mg/mL suspension for injection RxNorm: 0981470 Milliliter(s) Inj 09/25/2015 09/25/2015 Inactive methadone 10 mg tablet RxNorm: 626030 2 Tablet(s) PO TID 201509/26/2015 Inactive methadone 10 mg tablet RxNorm: 598186 2 Tablet(s) PO TID 201508/27/2015 Inactive methadone 10 mg tablet RxNorm: 686510 2 Tablet(s) PO TID 201407/26/2015 Inactive methadone 10 mg tablet RxNorm: 904302 2 Tablet(s) PO TID 201406/26/2015 Inactive enalapril maleate 10 mg tablet RxNorm: 092069 1 Tablet(s) PO daily 05/04/2015 10/30/2015 Inactive enalapril maleate 10 mg tablet RxNorm: 914557 1 Tablet(s) PO daily 02/05/2015 05/03/2015 Inactive methadone 10 mg tablet RxNorm: 602760 2 Tablet(s) PO TID 201402/27/2015 Inactive methadone 10 mg tablet RxNorm: 563180 2 Tablet(s) PO TID 201401/28/2015 Inactive amoxicillin 500 mg capsule RxNorm: 435689 4 Capsule(s) PO 1 hour before appt No Start Date 05/15/2016 Inactive Medication Administered Medication Codes Instructions Start Date Status Kenalog 40 mg/mL suspension for injection RxNorm: 6161649 1Milliliter 12/04/2017 No longer Active Kenalog 40 mg/mL suspension for injection RxNorm: 0353303 1Milliliter 09/23/2016 No longer Active Kenalog 40 mg/mL suspension for injection RxNorm: 0235470 1/2Milliliter 09/05/2016 No longer Active Kenalog 40 mg/mL suspension for injection RxNorm: 3492869 1Milliliter 02/29/2016 No longer Active Kenalog 40 mg/mL suspension for injection RxNorm: 7384853 Milliliter 09/25/2015 No longer Active Immunizations Vaccine Codes Date Status Influenza CVX: 141 04/29/2016 completed Influenza CVX: 141 06/11/2015 completed Pneumococcal CVX: 33 05/19/2005 completed Assessments Condition Codes Effective Dates Encounter for follow-up examination after completed treatment [...] thoracic spine ICD-10: M54.6 ICD-9: 724.1 10/23/2016 Chronic pain syndrome ICD-10: G89.4 ICD-9: 338.4 10/23/2016 Other seasonal allergic rhinitis ICD-10: J30.2 [...] Visit Reason For Visit Effective Dates Notes Hospital Follow Up 03/24/2018 Annual Medicare Wellness [...] 32.8 % 08/31/2017 Cbc With Differential Ord2 [place]% 8.3 % 08/31/2017 Cbc With Differential Ord2 MCH 26.6 pg 08/31/2017 Cbc With Differential Ord2 Eos% 1.3 % 08/31/2017 Cbc With Differential Ord2 MCHC 30.9 pg 08/31/2017 Cbc With Differential Ord2 PLT 275 K/ul 08/31/2017 Cbc With Differential Ord2 Baso% 0.1 % 08/31/2017 Cbc With Differential Ord2 RDW 15.8 % 08/31/2017 Cbc With Differential Ord2 Neut ABS# 5.56 K/ul 08/31/2017 Cbc With Differential Ord2 Lymph ABS# 3.17 K/ul 08/31/2017 Cbc With Differential Ord2 [place] ABS# 0.8 K/ul 08/31/2017 Cbc With Differential Ord2 Eos ABS# 0.1 K/ul 08/31/2017 Cbc With Differential Ord2 Baso ABS# 0.0 K/ul 08/31/2017 Comp Metabolic Thg081 NA 140 mEq/L 08/31/2017 Comp Metabolic Qyt241 K 4.4 mEq/L 08/31/2017 Comp Metabolic Apu563 CL 102 mEq/L 08/31/2017 Comp Metabolic Kqs039 CO2 30.0 mEq/L 08/31/2017 Comp Metabolic Wpo614 ANION GAP 12 08/31/2017 Comp Metabolic Hxu330 GLUCOSE 99 mg/dL 08/31/2017 Comp Metabolic Qdf168 Creat 1.1 mg/dL 08/31/2017 Comp Metabolic Uuy595 eGFR 68 ml/min/1.73m2 08/31/2017 Comp Metabolic Hhj684 BUN 18 mg/dL 08/31/2017 Comp Metabolic Nlq173 B/C Ratio 16.1 Ratio 08/31/2017 Comp Metabolic Bbk132 CALCIUM 9.8 mg/dL 08/31/2017 Comp Metabolic Yjn885 ALK PHOS 70 U/L 08/31/2017 Comp Metabolic Zpf318 AST(SGOT) 15 U/L 08/31/2017 Comp Metabolic Pex133 ALT(SGPT) 7 U/L 08/31/2017 Comp Metabolic Qee410 BILI T 0.4 mg/dL 08/31/2017 Comp Metabolic Xnm221 ALBUMIN 4.4 g/dL 08/31/2017 Comp Metabolic Sul345 TPRO 6.6 g/dL 08/31/2017 Comp Metabolic Hkm999 GLOB 2.2 g/dL 08/31/2017 Comp Metabolic Xni759 A/G Ratio 2.0 Ratio 08/31/2017 Comp Metabolic Edi902 Osmo 281 mOsmo 08/31/2017 Comp Metabolic Pmr174 NA 136 mEq/L 09/24/2016 Comp Metabolic Rpf784 K 4.3 mEq/L 09/24/2016 Comp Metabolic Nud881 CL 98 mEq/L 09/24/2016 Comp Metabolic Nol440 CO2 29.0 mEq/L 09/24/2016 Comp Metabolic Asp359 ANION GAP 13 09/24/2016 Comp Metabolic Knr823 GLUCOSE 107 mg/dL 09/24/2016 Comp Metabolic Tru181 Creat 1.2 mg/dL 09/24/2016 Comp Metabolic Pcr973 eGFR 60 ml/min/1.73m2 09/24/2016 Comp Metabolic Ysx135 BUN 18 mg/dL 09/24/2016 Comp Metabolic Lfq128 B/C Ratio 14.5 Ratio 09/24/2016 Comp Metabolic Umx020 CALCIUM 10.4 mg/dL 09/24/2016 Comp Metabolic Nfb476 ALK PHOS 64 U/L 09/24/2016 Comp Metabolic Tec242 AST(SGOT) 13 U/L 09/24/2016 Comp Metabolic Eua427 ALT(SGPT) 8 U/L 09/24/2016 Comp Metabolic Vgb526 BILI T 0.5 mg/dL 09/24/2016 Comp Metabolic Zxv193 ALBUMIN 4.1 g/dL 09/24/2016 Comp Metabolic Vdz201 TPRO 6.8 g/dL 09/24/2016 Comp Metabolic Wsj771 GLOB 2.7 g/dL 09/24/2016 Comp Metabolic Jsw429 A/G Ratio 1.5 Ratio 09/24/2016 Comp Metabolic Orn665 Osmo 274 mOsmo 09/24/2016 Lipid Ord30 CHOL 185 mg/dL 09/24/2016 Lipid Ord30 HDL 55.0 mg/dl 09/24/2016 Lipid Ord30 TRIG 74 mg/dL 09/24/2016 Lipid Ord30 LDL 115 mg/dL 09/24/2016 Lipid Ord30 C/HDL 3.4 Ratio 09/24/2016 Tsh Ord6 hTSH II 1.57 uIU/mL 09/24/2016 Cbc With Differential Ord2 WBC 15.39 K/ul 09/24/2016 Cbc With Differential Ord2 RBC 5.40 M/ul 09/24/2016 Cbc With Differential Ord2 HGB 13.3 g/dl 09/24/2016 Cbc With Differential Ord2 Neut% 68.4 % 09/24/2016 Cbc With Differential Ord2 HCT 44.1 % 09/24/2016 Cbc With Differential Ord2 Lymph% 24.0 % 09/24/2016 Cbc With Differential Ord2 MCV 81.7 fl 09/24/2016 Cbc With Differential Ord2 MCH 24.6 pg 09/24/2016 Cbc With Differential Ord2 [place]% 6.4 % 09/24/2016 Cbc With Differential Ord2 Eos% 1.0 % 09/24/2016 Cbc With Differential Ord2 MCHC 30.2 pg 09/24/2016 Cbc With Differential Ord2 PLT 340 K/ul 09/24/2016 Cbc With Differential Ord2 Baso% 0.2 % 09/24/2016 Cbc With Differential Ord2 RDW 17.4 % 09/24/2016 Cbc With Differential Ord2 Neut ABS# 10.51 K/ul 09/24/2016 Cbc With Differential Ord2 Lymph ABS# 3.70 K/ul 09/24/2016 Cbc With Differential Ord2 [place] ABS# 1.0 K/ul 09/24/2016 Cbc With Differential Ord2 Eos ABS# 0.2 K/ul 09/24/2016 Cbc With Differential Ord2 Baso ABS# 0.0 K/ul 09/24/2016 Total Psa Ord10 PSA 1.17 ng/mL 09/24/2016 Cbc With Differential Ord2 WBC 11.65 K/ul 12/11/2015 Cbc With Differential Ord2 RBC 4.58 M/ul 12/11/2015 Cbc With Differential Ord2 HGB 12.0 g/dl 12/11/2015 Cbc With Differential Ord2 Neut% 62.0 % 12/11/2015 Cbc With Differential Ord2 HCT 39.0 % 12/11/2015 Cbc With Differential Ord2 MCV 85.2 fl 12/11/2015 Cbc With Differential Ord2 Lymph% 28.7 % 12/11/2015 Cbc With Differential Ord2 [place]% 7.6 % 12/11/2015 Cbc With Differential Ord2 MCH 26.2 pg 12/11/2015 Cbc With Differential Ord2 MCHC 30.8 pg 12/11/2015 Cbc With Differential Ord2 Eos% 1.5 % 12/11/2015 Cbc With Differential Ord2 PLT 318 K/ul 12/11/2015 Cbc With Differential Ord2 Baso% 0.2 % 12/11/2015 Cbc With Differential Ord2 Neut ABS# 7.24 K/ul 12/11/2015 Cbc With Differential Ord2 RDW 16.1 % 12/11/2015 Cbc With Differential Ord2 Lymph ABS# 3.34 K/ul 12/11/2015 Cbc With Differential Ord2 [place] ABS# 0.9 K/ul 12/11/2015 Cbc With Differential Ord2 Eos ABS# 0.2 K/ul 12/11/2015 Cbc With Differential Ord2 Baso ABS# 0.0 K/ul 12/11/2015 Sed Rate Ord21 ESR 48 mm/hr 12/11/2015 Comp Metabolic Aaw956 NA 137 mEq/L 12/11/2015 Comp Metabolic Zmq904 K 4.1 mEq/L 12/11/2015 Comp Metabolic Cnc523 CL 101 mEq/L 12/11/2015 Comp Metabolic Spo251 CO2 31.0 mEq/L 12/11/2015 Comp Metabolic Skt499 ANION GAP 9 12/11/2015 Comp Metabolic Hab834 GLUCOSE 97 mg/dL 12/11/2015 Comp Metabolic Cmc185 Creat 1.0 mg/dL 12/11/2015 Comp Metabolic Wvd422 eGFR 74 ml/min/1.73m2 12/11/2015 Comp Metabolic Jbz620 BUN 15 mg/dL 12/11/2015 Comp Metabolic Aob130 B/C Ratio 14.4 Ratio 12/11/2015 Comp Metabolic Lzz468 CALCIUM 9.2 mg/dL 12/11/2015 Comp Metabolic Sab078 ALK PHOS 55 U/L 12/11/2015 Comp Metabolic Jpc141 AST(SGOT) 14 U/L 12/11/2015 Comp Metabolic Rvv783 ALT(SGPT) 9 U/L 12/11/2015 Comp Metabolic Xsb656 BILI T 0.5 mg/dL 12/11/2015 Comp Metabolic Wlv421 ALBUMIN 3.9 g/dL 12/11/2015 Comp Metabolic Ylw228 TPRO 6.2 g/dL 12/11/2015 Comp Metabolic Smw730 GLOB 2.4 g/dL 12/11/2015 Comp Metabolic Aey660 A/G Ratio 1.6 Ratio 12/11/2015 Comp Metabolic Kjq032 Osmo 275 mOsmo 12/11/2015 Amylase Ord34 AMYLASE 38 U/L 12/11/2015 Sed Rate Ord21 ESR 26 mm/hr 06/11/2015 Lipid Ord30 CHOL 207 mg/dL 06/11/2015 Lipid Ord30 HDL 51.0 mg/dl 06/11/2015 Lipid Ord30 TRIG 132 mg/dL 06/11/2015 Lipid Ord30 LDL 130 mg/dL 06/11/2015 Lipid Ord30 C/HDL 4.1 Ratio 06/11/2015 Tsh Ord6 hTSH II 1.47 uIU/mL 06/11/2015 C-Reactive Protein Qnt Crqnt CRP 1.9 mg/dl 06/11/2015 Cbc With Differential Ord2 WBC 9.8 [...] With Differential Ord2 RDW 16.6 % 06/11/2015 Comp Metabolic Bzl315 NA 137 mEq/L 06/11/2015 Comp Metabolic Sax331 K 4.4 mEq/L 06/11/2015 Comp Metabolic Axk841 CL 100 mEq/L 06/11/2015 Comp Metabolic Edc876 CO2 29.0 mEq/L 06/11/2015 Comp Metabolic Zgb165 ANION GAP 12 06/11/2015 Comp Metabolic Wxo947 GLUCOSE 91 mg/dL 06/11/2015 Comp Metabolic Mfa408 Creat 1.1 mg/dL 06/11/2015 Comp Metabolic Iwd426 eGFR 68 ml/min/1.73m2 06/11/2015 Comp Metabolic Gol462 BUN 14 mg/dL 06/11/2015 Comp Metabolic Lao760 B/C Ratio 12.4 Ratio 06/11/2015 Comp Metabolic Ack344 CALCIUM 9.9 mg/dL 06/11/2015 Comp Metabolic Fya580 ALK PHOS 61 U/L 06/11/2015 Comp Metabolic Tje058 AST(SGOT) 18 U/L 06/11/2015 Comp Metabolic Vij837 ALT(SGPT) 10 U/L 06/11/2015 Comp Metabolic Grp700 BILI T 0.5 mg/dL 06/11/2015 Comp Metabolic Mvz573 ALBUMIN 4.4 g/dL 06/11/2015 Comp Metabolic Trz268 TPRO 6.9 g/dL 06/11/2015 Comp Metabolic Tcb593 GLOB 2.5 g/dL 06/11/2015 Comp Metabolic Lfv288 A/G Ratio 1.7 Ratio 06/11/2015 Comp Metabolic Crd928 Osmo 274 mOsmo 06/11/2015 Free T4 Tna016 FREE T4 1.03 ng/dL 02/08/2015 Cbc With [...] Tsh Ord6 hTSH II 3.17 uIU/mL 02/08/2015 Comp Metabolic Job930 NA 136 mEq/L 02/08/2015 Comp Metabolic Otl152 K 4.0 mEq/L 02/08/2015 Comp Metabolic Kcm676 CL 101 mEq/L 02/08/2015 Comp Metabolic Fts955 CO2 30.0 mEq/L 02/08/2015 Comp Metabolic Lwk832 ANION GAP 9 02/08/2015 Comp Metabolic Tei278 GLUCOSE 83 mg/dL 02/08/2015 Comp Metabolic Rdm658 Creat 1.1 mg/dL 02/08/2015 Comp Metabolic Pfo667 eGFR 70 ml/min/1.73m2 02/08/2015 Comp Metabolic Uce746 BUN 15 mg/dL 02/08/2015 Comp Metabolic Ymx542 B/C Ratio 13.6 Ratio 02/08/2015 Comp Metabolic Uga339 CALCIUM 9.4 mg/dL 02/08/2015 Comp Metabolic Qra538 ALK PHOS 58 U/L 02/08/2015 Comp Metabolic Fvy093 AST(SGOT) 15 U/L 02/08/2015 Comp Metabolic Orj343 ALT(SGPT) 8 U/L 02/08/2015 Comp Metabolic Vyn039 BILI T 0.7 mg/dL 02/08/2015 Comp Metabolic Vbc755 ALBUMIN 3.8 g/dL 02/08/2015 Comp Metabolic Avo026 TPRO 6.1 g/dL 02/08/2015 Comp Metabolic Win102 GLOB 2.3 g/dL 02/08/2015 Comp Metabolic Kky754 A/G Ratio 1.7 Ratio 02/08/2015 Comp Metabolic Lmj314 Osmo 272 mOsmo 02/08/2015 Lipid Ord30 CHOL 191 mg/dL 02/08/2015 Lipid Ord30 HDL 55.0 mg/dl 02/08/2015 Lipid Ord30 TRIG 73 mg/dL 02/08/2015 Lipid Ord30 LDL 121 mg/dL 02/08/2015 Lipid Ord30 C/HDL 3.5 Ratio 02/08/2015 Review of Systems System Result Effective Dates Constitutional recent illness 03/24/2018 Constitutional No chills [...] clear 03/24/2018 None Full Exam - General 1995 Respiratory auscultation Overall: breath sounds clear bilaterally [...] -4: G0439 01/22/2017 THER/PROPH/DIAG INJ SC/IM CPT-4: 52926 09/23/2016 TRIAMCINOLONE ACET INJ NOS CPT-4: J3301 09/23/2016 INJ TRIGGER POINT 1/2 MUSCL CPT-4: 67460 09/05/2016 TRIAMCINOLONE ACET INJ NOS CPT-4: J3301 09/05/2016 ADMIN INFLUENZA VIRUS VAC CPT-4: G0008 04/29/2016 FLU VACC 4 CHASE 3 YRS PLUS IM SNOMED CT: 10523643 CPT-4: 13072 04/29/2016 THER/PROPH/DIAG INJ SC/IM CPT-4: 16633 02/28/2016 TRIAMCINOLONE ACET INJ NOS CPT-4: J3301 02/28/2016 THER/PROPH/DIAG INJ SC/IM CPT-4: 30156 09/25/2015 TRIAMCINOLONE ACET INJ NOS CPT-4: J3301 09/25/2015 ADMIN INFLUENZA VIRUS VAC CPT-4: G0008 06/11/2015 FLU VACC PRSV FREE INC ANTIG Formatting Model/CDA Sections, Assigned to/Candida Hickey CPT-4: 48700Ozuqris 06/11/2015 Vital Signs Date Vital 03/24/2018 Blood Pressure 1: 118/64 Code : 8480-6 BMI: 36.3 Code : 89218-6 Heart Rate 1 : 73 bpm Height: 5'11" SpO2: 98% Weight: 260 lbs 12/04/2017 Blood Pressure 1: 128/80 Code : 8480-6 BMI: 28.2 Code : 33674-3 Heart Rate 1 : 84 bpm Height: 5'11" SpO2: 97% Temperature: 36.6 (C) / 97.9 (F) Weight: 202 lbs 10/16/2017 Blood Pressure 1: 130/72 Code : 8480-6 BMI: 30.0 Code : 37781-7 Heart Rate 1 : 76 bpm Height: 5'11" SpO2: 99% Weight: 215 lbs 08/31/2017 Blood Pressure 1: 122/80 Code : 8480-6 BMI: 29.4 Code : 77065-8 Heart Rate 1 : 80 bpm Height: 5'11" SpO2: 96% Weight: 211 lbs 01/22/2017 BMI: 27.9 Code: 87051-5 Height: 5'11" Weight: 200 lbs 10/23/2016 Blood Pressure 1: 132/76 Code : 8480-6 BMI: 27.9 Code : 65125-8 Heart Rate 1 : 85 bpm Height: 5'11" SpO2: 98% Weight: 200 lbs 09/23/2016 Blood Pressure 1: 150/80 Code : 8480-6 BMI: 28.3 Code : 35509-7 Heart Rate 1 : 96 bpm Height: 5'11" SpO2: 98% Weight: 203 lbs 09/05/2016 Blood Pressure 1: 136/82 Code : 8480-6 BMI: 27.8 Code : 89055-2 Heart Rate 1 : 77 bpm Height: 6' SpO2: 98% Weight: 205 lbs 05/28/2016 Blood Pressure 1: 130/82 Code : 8480-6 BMI: 29.3 Code : 98966-9 Heart Rate 1 : 79 bpm Height: 6' SpO2: 98% Weight: 216 lbs 12/11/2015 Blood Pressure 1: 128/76 Code : 8480-6 BMI: 30.5 Code : 12599-8 Heart Rate 1 : 84 bpm Height: 6' SpO2: 96% Weight: 225 lbs 06/11/2015 Blood Pressure 1: 138/82 Code : 8480-6 BMI: 29.3 Code : 16435-9 Heart Rate 1 : 71 bpm Height: 6' SpO2: 98% Weight: 216 lbs 02/05/2015 Blood Pressure 1: 140/80 Code : 8480-6 BMI: 29.8 Code : 11339-2 Heart Rate 1 : 76 bpm Height: 6' Weight: 220 lbs Functional Status No Functional Status data History of Present Illness Symptom Name Status Result Effective Date Notes Hospital Follow Up _ gastrointestinal complaints 03/24/2018 [...] Performer Location Codes Date EST. PATIENT, LEVEL III Diagnosis: Encounter for follow-up examination after completed treatment for conditions other than malignant neoplasm[ICD10: Z09] Diagnosis: Essential (primary) hypertension[ICD10: I10] Keely Briseno MD, [facility] CPT-4: 75911 03/24/2018 ([id number]) 55822 EST. PATIENT, LEVEL III Diagnosis: Acute recurrent maxillary sinusitis[ICD10: J01.01] Diagnosis: Other allergic rhinitis[ICD10: J30.89] Magy Briseno MD, [facility] CPT-4: 54338 12/04/2017 97725 EST. PATIENT, LEVEL III Diagnosis: Pain in right shoulder[ICD10: M25.511] Keely Briseno MD, [facility] CPT-4: 00686 10/16/2017 [id number] EST. PATIENT, LEVEL III Diagnosis: Cardiac murmur, unspecified[ICD10: R01.1] Diagnosis: Other fatigue[ICD10: R53.83] Keely Briseno MD, [facility] CPT-4 : 03179 08/31/2017 ([id number]) 59492 EST. PATIENT, LEVEL IV Diagnosis: Essential (primary) hypertension[ICD10: I10] Diagnosis: Pain in thoracic spine[ICD10: M54.6] Diagnosis: Chronic pain syndrome[ICD10: G89.4] Safia Briseno MD, [facility] CPT-4: 90790 10/23/2016 ([id number]) 34174 EST. PATIENT, LEVEL IV Diagnosis: Essential (primary) hypertension[ICD10: I10] Diagnosis: Benign prostatic hyperplasia with lower urinary tract symptoms[ICD10 : N40.1] Safia Briseno MD, [facility] CPT-4: 14891 2016 26247 EST. PATIENT, LEVEL III Diagnosis: Pain in thoracic spine[ICD10: M54.6] Diagnosis: Other muscle spasm[ICD10: M62.838] Diagnosis: Pain in right shoulder[ICD10: M25.511] Diagnosis: Muscle spasm of back[ICD10: M62.830] Diagnosis: Myalgia[ICD10: M79.1] Keely Briseno MD, [facility] CPT-4: 62970 09/05/2016 ([id number]) 42573 EST. PATIENT, LEVEL III Diagnosis: Essential (primary) hypertension[ICD10: I10] Diagnosis: Chronic pain syndrome[ICD10: G89.4] Safia Briseno MD, [facility] CPT-4: 77788 05/28/2016 ([id number]) 19207 EST. PATIENT, LEVEL IV Diagnosis: Essential (primary) hypertension[ICD10: I10] Diagnosis: Chronic pain syndrome[ICD10: G89.4] Diagnosis: Left upper quadrant pain[ICD10: R10.12] Diagnosis: Gastro-esophageal reflux disease without esophagitis[ICD10: K21.9] Magy Briseno MD, [facility] CPT-4: 15532 12/11/2015 ([id number]) 95725 EST. 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 03/24/2018 [facility]ment[phone] (15 min) Moderate 03/24/2018 Patient Education: Patient [...] allergy spray. 12/04/2017 Appointment: Magy Cortez WPtel: [phone] [phone] (15 min) Moderate 12/04/2017 Patient Education: Patient Medication Summary Completed 12/04/2017 Visit Plan: Right shoulder pain, Biceps tendinitis - pt to do exercises as directed, ant-inflammatories directed to be taken per RX instructions and pt to call if symptoms are not improved. 10/16/2017 Appointment: Keely Jorge WPtel: [address] [place] [address] (15 min) Moderate 10/16/2017 Patient Education: Patient Medication Summary Completed 10/16/2017 Visit Plan: Heart murmur - more pronounced, fatigue - will order ECHO and refer as indicated - pt is to notify clinic with any changes, questions, or concerns. 08/31/2017 Appointment: Keely Jorge WPtel: [facility] (30 min) Complex 08/31/2017 Patient [...] care surrogate. 01/22/2017 Appointment: Keely Jorge WPtel: [address] [place], [place] [id number] [place] [address] - Annual Wellness Visit 01/22/2017 Patient Education: [...] of over-medication. 10/23/2016 Appointment: Safia Briseno WPtel: [phone] [facility] (15 min) Moderate 10/23/2016 Patient Education: [...] for flomax 09/23/2016 Appointment: Safia Briseno WPtel: [phone] [facility] (15 min) Moderate 09/23/2016 Patient Education: Patient [...] disease process. 09/05/2016 Appointment: Keely Jorge WPtel: [phone] [facility] [place] (30 min) Complex 09/05/2016 Patient Education: Patient Medication Summary Completed 09/05/2016 Appointment: Magy Cortez WPtel: [phone] [phone] (30 min) Complex 06/17/2016 Visit Plan: [...] of over-medication. 05/28/2016 Appointment: [phone] [facility] (15 min) Moderate 05/28/2016 Patient Education: Patient Medication Summary Completed 05/28/2016 Appointment: Injection 04/29/2016 Patient Education: Patient Medication Summary Completed 04/29/2016 Appointment: Injection 02/28/2016 Patient Education: Patient Medication Summary Completed 02/28/2016 Appointment: Magy Cortez WPtel: [phone] [phone] (30 min) Complex 01/14/2016 Visit Plan: [...] October 2013 06/11/2015 Appointment: [facility] [phone] [phone] (30 min) Complex 06/11/2015 Patient Education: Patient [...] refill Methadone. 02/05/2015 Appointment: Saf[facility] Briseno [facility]Ptel[facility] [phone] [id number] [place] ([place] New Patient 02/05/2015 Patient [...] CHECK LABS-INCREASE PRILOSEC TO TWICE DAILY . Hypertension - well controlled - continue [...] other disease process. ECHO - scheduled at [facility] on 09/03 at 4PM. Heart murmur [...]
--- OUTSIDE RECORDS SUMMARY | 2018-07-11 23:22 | XMS REPORT | Continuity of Care Document ---
Author Author [facility] Organization [facility] Address Unknown Phone Unavailable Allergies Active Description Code Type Severity Reaction Onset Reported/Identified Relationship to Patient Clinical Status Yes No Known Drug Allergies [id number] Drug Allergy Unknown N/A 02/20/2012 Yes peanut [id number] Drug Allergy Unknown N/A 03/12/2018 Yes strawberry [id number] Drug Allergy Unknown N/A 03/12/2018 Medications There is no data. 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 11/25/2016 JORDEN BETANCOURT MD Ot 397.0 TRICUSPID VALVE DISEASE 11/25/2016 JORDEN BETANCOURT MD Ot 785.2 CARDIAC MURMURS NEC 11/25/2016 DONAVAN MINAYA Ot I35.0 NONRHEUMATIC AORTIC (VALVE) STENOSIS 12/29/2016 DONAVAN MINAYAP Ot D72.829 ELEVATED WHITE BLOOD CELL COUNT, UNSPECI 01/03/2017 GLADYS MALIN, SALVATORE Rm Ot K29.70 GASTRITIS, UNSPECIFIED, WITHOUT BLEEDING 01/03/2017 GLADYS MALIN, SALVATORE Rm Ot R10.13 EPIGASTRIC PAIN 09/29/2017 VIET MALIN, BLANK Cates Ot K76.0 FATTY (CHANGE OF) LIVER, NOT ELSEWHERE C 09/29/2017 VIET MALIN, BLANK Cates Ot K80.20 CALCULUS OF GALLBLADDER W/O CHOLECYSTITI 09/29/2017 BLANK LLANOS MD Ot K82.8 OTHER SPECIFIED DISEASES OF GALLBLADDER 09/29/2017 VIET MALIN, BLANK Cates Ot N28.1 CYST OF KIDNEY, ACQUIRED 10/05/2017 ASIA MALIN, JORDEN Cates Ot 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 10/05/2017 JORDEN BETANCOURT MD Ot 397.0 TRICUSPID VALVE DISEASE 10/05/2017 JORDEN BETANCOURT MD Ot 785.2 CARDIAC MURMURS NEC 10/05/2017 DONAVAN MINAYA Ot I35.0 NONRHEUMATIC AORTIC (VALVE) STENOSIS 10/05/2017 DONAVAN MINAYA Ot D72.829 ELEVATED WHITE BLOOD CELL COUNT, UNSPECI 10/05/2017 BLANK LLANOS MD Ot K76.0 FATTY (CHANGE OF) LIVER, NOT ELSEWHERE C 10/05/2017 BLANK LLAONS MD Ot K80.20 CALCULUS OF GALLBLADDER W/O CHOLECYSTITI 10/05/2017 BLANK LLANOS MD Ot K82.8 OTHER SPECIFIED DISEASES OF GALLBLADDER 10/05/2017 BLANK LLANOS MD Ot N28.1 CYST OF KIDNEY, ACQUIRED 10/06/2017 DIONNA MALIN, NITIN Bernal Ot I11.9 HYPERTENSIVE HEART DISEASE WITHOUT HEART 10/06/2017 NITIN VILLAREAL MD Ot I35.0 NONRHEUMATIC AORTIC (VALVE) STENOSIS 10/06/2017 NITIN VILLAREAL MD Ot I35.1 NONRHEUMATIC AORTIC (VALVE) INSUFFICIENC 10/06/2017 NITIN VILLAREAL MD Ot I51.7 CARDIOMEGALY 10/06/2017 NITIN VILLAREAL MD Ot Z72.0 TOBACCO USE 10/16/2017 BLANK LLANOS MD Ot K80.20 CALCULUS OF GALLBLADDER W/O CHOLECYSTITI 10/16/2017 BLANK LLANOS MD Ot Z01.818 ENCOUNTER FOR OTHER PREPROCEDURAL EXAMIN 10/19/2017 BLANK LLANOS MD Ot K80.20 CALCULUS OF GALLBLADDER W/O CHOLECYSTITI 10/19/2017 BLANK LLANOS MD Ot Z01.818 ENCOUNTER FOR OTHER PREPROCEDURAL EXAMIN 10/20/2017 BLANK LLANOS MD Ot K76.0 FATTY (CHANGE OF) LIVER, NOT ELSEWHERE C 10/20/2017 BLANK LLANOS MD Ot K80.20 CALCULUS OF GALLBLADDER W/O CHOLECYSTITI 10/20/2017 BLANK LLANOS MD Ot K82.8 OTHER SPECIFIED DISEASES OF GALLBLADDER 10/20/2017 BLANK LLANOS MD Ot N28.1 CYST OF KIDNEY, ACQUIRED 10/21/2017 BLANK LLANOS MD Ot F17.200 NICOTINE DEPENDENCE, UNSPECIFIED, UNCOMP 10/21/2017 BLANK LLANOS MD Ot K80.20 CALCULUS OF GALLBLADDER W/O CHOLECYSTITI 10/21/2017 BLANK LLANOS MD Ot Z11.2 ENCOUNTER FOR SCREENING FOR OTHER BACTER 10/21/2017 BLANK LLANOS MD Ot Z79.82 TOWBOAT CAPTAIN (CURRENT) USE OF ASPIRIN 10/21/2017 BLANK LLANOS MD Ot Z79.899 OTHER JAIL (CURRENT) DRUG THERAPY 10/22/2017 BLANK LLANOS MD Ot K80.20 CALCULUS OF GALLBLADDER W/O CHOLECYSTITI 10/22/2017 BLANK LLANOS MD Ot Z01.818 ENCOUNTER FOR OTHER PREPROCEDURAL EXAMIN 10/22/2017 BLANK LLANOS MD Ot K76.0 FATTY (CHANGE OF) LIVER, NOT ELSEWHERE C 10/22/2017 BLANK LLANOS MD Ot K80.20 CALCULUS OF GALLBLADDER W/O CHOLECYSTITI 10/22/2017 BLANK LLANOS MD Ot K82.8 OTHER SPECIFIED DISEASES OF GALLBLADDER 10/22/2017 BLANK LLANOS MD Ot N28.1 CYST OF KIDNEY, ACQUIRED 10/22/2017 BLANK LLANOS MD Ot F17.200 NICOTINE DEPENDENCE, UNSPECIFIED, UNCOMP 10/22/2017 BLANK LLANOS MD Ot K80.20 CALCULUS OF GALLBLADDER W/O CHOLECYSTITI 10/22/2017 BLANK LLANOS MD Ot Z11.2 ENCOUNTER FOR SCREENING FOR OTHER BACTER 10/22/2017 BLANK LLANOS MD Ot Z79.82 TOWBOAT CAPTAIN (CURRENT) USE OF ASPIRIN 10/22/2017 BLANK LLANOS MD Ot Z79.899 OTHER JAIL (CURRENT) DRUG THERAPY 10/27/2017 BLANK LLANOS MD Ot F17.200 NICOTINE DEPENDENCE, UNSPECIFIED, UNCOMP 10/27/2017 BLANK LLANOS MD Ot K80.20 CALCULUS OF GALLBLADDER W/O CHOLECYSTITI 10/27/2017 BLANK LLANOS MD Ot Z11.2 ENCOUNTER FOR SCREENING FOR OTHER BACTER 10/27/2017 BLANK LLANOS MD Ot Z79.82 JAIL (CURRENT) USE OF ASPIRIN 10/27/2017 BLANK LLANOS MD Ot Z79.899 OTHER JAIL (CURRENT) DRUG THERAPY 10/28/2017 BLANK LLANOS MD Ot F17.200 NICOTINE DEPENDENCE, UNSPECIFIED, UNCOMP 10/28/2017 BLANK LLANOS MD Ot K80.20 CALCULUS OF GALLBLADDER W/O CHOLECYSTITI 10/28/2017 BLANK LLANOS MD Ot Z11.2 ENCOUNTER FOR SCREENING FOR OTHER BACTER 10/28/2017 BLANK LLANOS MD Ot Z79.82 TOWBOAT CAPTAIN (CURRENT) USE OF ASPIRIN 10/28/2017 BLANK LLANOS MD Ot Z79.899 OTHER JAIL (CURRENT) DRUG THERAPY 10/28/2017 BLANK LLANOS MD Ot F17.200 NICOTINE DEPENDENCE, UNSPECIFIED, UNCOMP 10/28/2017 BLANK LLANOS MD Ot K80.20 CALCULUS OF GALLBLADDER W/O CHOLECYSTITI 10/28/2017 BLANK LLANOS MD Ot Z11.2 ENCOUNTER FOR SCREENING FOR OTHER BACTER 10/28/2017 BLANK LLANOS MD Ot Z79.82 TOWBOAT CAPTAIN (CURRENT) USE OF ASPIRIN 10/28/2017 BLANK LLANOS MD Ot Z79.899 OTHER TOWBOAT CAPTAIN (CURRENT) DRUG THERAPY 10/29/2017 BLANK LLANOS MD Ot F17.200 NICOTINE DEPENDENCE, UNSPECIFIED, UNCOMP 10/29/2017 BLANK LLANOS MD Ot K80.20 CALCULUS OF GALLBLADDER W/O CHOLECYSTITI 10/29/2017 BLANK LLANOS MD Ot Z11.2 ENCOUNTER FOR SCREENING FOR OTHER BACTER 10/29/2017 BLANK LLANOS MD Ot Z79.82 JAIL (CURRENT) USE OF ASPIRIN 10/29/2017 BLANK LLANOS MD Ot Z79.899 OTHER TOWBOAT CAPTAIN (CURRENT) DRUG THERAPY 11/05/2017 NITIN VILLAREAL MD Ot I11.9 HYPERTENSIVE HEART DISEASE WITHOUT HEART 11/05/2017 NITIN VILLAREAL MD Ot I35.0 NONRHEUMATIC AORTIC (VALVE) STENOSIS 11/05/2017 NITIN VILLAREAL MD Ot I35.1 NONRHEUMATIC AORTIC (VALVE) INSUFFICIENC 11/05/2017 NITIN VILLAREAL MD Ot I51.7 CARDIOMEGALY 11/05/2017 NITIN VILLAREAL MD Ot Z72.0 TOBACCO USE 12/09/2017 BLANK LLANOS MD Ot F17.200 NICOTINE DEPENDENCE, UNSPECIFIED, UNCOMP 12/09/2017 BLANK LLANOS MD Ot K80.20 CALCULUS OF GALLBLADDER W/O CHOLECYSTITI 12/09/2017 BLANK LLANOS MD Ot Z11.2 ENCOUNTER FOR SCREENING FOR OTHER BACTER 12/09/2017 BLANK LLNAOS MD Ot Z79.82 TOWBOAT CAPTAIN (CURRENT) USE OF ASPIRIN 12/09/2017 BLANK LLANOS MD Ot Z79.899 OTHER TOWBOAT CAPTAIN (CURRENT) DRUG THERAPY 03/12/2018 JORDEN BETANCOURT MD Ot 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 03/12/2018 JORDEN BETANCOURT MD Ot 397.0 TRICUSPID VALVE DISEASE 03/12/2018 JORDEN BETANCOURT MD Ot 785.2 CARDIAC MURMURS NEC 03/12/2018 DONAVAN MINAYA Ot I35.0 NONRHEUMATIC AORTIC (VALVE) STENOSIS 03/12/2018 DONAVAN MINAYA Ot D72.829 ELEVATED WHITE BLOOD CELL COUNT, UNSPECI 03/12/2018 BLANK LLANOS MD Ot K76.0 FATTY (CHANGE OF) LIVER, NOT ELSEWHERE C 03/12/2018 BLANK LLANOS MD Ot K80.20 CALCULUS OF GALLBLADDER W/O CHOLECYSTITI 03/12/2018 BLANK LLANOS MD Ot K82.8 OTHER SPECIFIED DISEASES OF GALLBLADDER 03/12/2018 BLANK LLANOS MD Ot N28.1 CYST OF KIDNEY, ACQUIRED 03/12/2018 NITIN VILLAREAL MD Ot I11.9 HYPERTENSIVE HEART DISEASE WITHOUT HEART 03/12/2018 NITIN VILLAREAL MD Ot I35.0 NONRHEUMATIC AORTIC (VALVE) STENOSIS 03/12/2018 NITIN VILLAREAL MD Ot I35.1 NONRHEUMATIC AORTIC (VALVE) INSUFFICIENC 03/12/2018 NITIN VILLAREAL MD Ot I51.7 CARDIOMEGALY 03/12/2018 NITIN VILLAREAL MD Ot Z72.0 TOBACCO USE 03/17/2018 ROLF ALFARO MD Ot 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 03/17/2018 ROLF ALFARO MD Ot F17.210 NICOTINE DEPENDENCE, CIGARETTES, UNCOMPL 03/17/2018 ROLF ALFARO MD Ot G47.30 SLEEP APNEA, UNSPECIFIED 03/17/2018 ROLF ALFARO MD Ot I10 ESSENTIAL (PRIMARY) HYPERTENSION 03/17/2018 ROLF ALFARO MD Ot J30.2 OTHER SEASONAL ALLERGIC RHINITIS 03/17/2018 ROLF ALFARO MD Ot K21.0 GASTRO-ESOPHAGEAL REFLUX DISEASE WITH ES 03/17/2018 ROLF ALFARO MD Ot K29.70 GASTRITIS, UNSPECIFIED, WITHOUT BLEEDING 03/17/2018 ROLF ALFARO MD Ot K44.9 DIAPHRAGMATIC HERNIA WITHOUT OBSTRUCTION 03/17/2018 ROLF ALFARO MD Ot K52.9 NONINFECTIVE GASTROENTERITIS AND COLITIS 03/17/2018 ROLF ALFARO MD Ot K56.690 OTHER PARTIAL INTESTINAL OBSTRUCTION 03/17/2018 ROLF ALFARO MD Ot K57.90 DVRTCLOS OF INTEST, PART UNSP, W/O PERF 03/17/2018 ROLF ALFARO MD Ot K59.03 DRUG INDUCED CONSTIPATION 03/17/2018 ROLF ALFARO MD Ot M19.91 PRIMARY OSTEOARTHRITIS, UNSPECIFIED SITE 03/17/2018 ROLF ALFARO MD Ot M79.7 FIBROMYALGIA 03/17/2018 ROLF ALFARO MD Ot N20.0 CALCULUS OF KIDNEY 03/17/2018 ROLF ALFARO MD Ot N50.82 SCROTAL PAIN 03/17/2018 ROLF ALFARO MD Ot R01.1 CARDIAC MURMUR, UNSPECIFIED 03/17/2018 ROLF ALFARO MD Ot Z79.891 JAIL (CURRENT) USE OF OPIATE ANALGE 03/25/2018 NITIN VILLAREAL MD Ot I08.3 COMB RHEUMATIC DISORD OF MITRAL, AORTIC 03/25/2018 NITIN VILLAREAL MD Ot I51.7 CARDIOMEGALY 03/25/2018 NITIN VILLAREAL MD Ot Z72.0 TOBACCO USE 04/16/2018 NITIN VILLAREAL MD Ot I08.3 COMB RHEUMATIC DISORD OF MITRAL, AORTIC 04/16/2018 NITIN VILLAREAL MD, Ot I51.7 CARDIOMEGALY 04/16/2018 NITIN VILLAREAL MD, Ot Z72.0 TOBACCO USE 04/21/2018 NITIN VILLAREAL MD, Ot I08.3 COMB RHEUMATIC DISORD OF MITRAL, AORTIC 04/21/2018 NITIN VILLAREAL MD, Ot I51.7 CARDIOMEGALY 04/21/2018 NITIN VILLAREAL MD, Ot Z72.0 TOBACCO USE Procedures Code Description Performed By Performed On [id number] DRAINAGE OF STOMACH WITH DRAINAGE DEVICE 03/12/2018 [id number] EXCISION OF ESOPHAGOGASTRIC JUNCTION, EN 03/16/2018 [id number] EXCISION OF STOMACH, PYLORUS, ENDO, DIAG 03/16/2018 Results Test Result Range Blood CBC with ordered manual differential panel - 11/25/16 08:50 Blood leukocytes automated count (number/volume) 13.5 10*3/uL 4.3-11.0 Blood erythrocytes automated count (number/volume) 4.81 10*6/uL 4.35-5.85 Venous blood hemoglobin measurement (mass/volume) 12.2 g/dL 13.3-17.7 Blood hematocrit (volume fraction) 39 % 40-54 Automated erythrocyte mean corpuscular volume 81 [foz_us] 80-99 Automated erythrocyte mean corpuscular hemoglobin (mass per erythrocyte) 25 pg 25-34 Automated erythrocyte mean corpuscular hemoglobin concentration measurement ( mass/volume) 31 g/dL 32-36 Automated erythrocyte distribution width ratio 17.8 % 10.0-14.5 Automated blood platelet count (count/volume) 312 10*3/uL 130-400 Automated blood platelet mean volume measurement 11.2 [foz_us] 7.4-10.4 Automated blood neutrophils/100 leukocytes 69 % 42-75 Automated blood lymphocytes/100 leukocytes 24 % 12-44 Blood monocytes/100 leukocytes 4 % NRG Automated blood eosinophils/100 leukocytes 1 % 0-10 Automated blood basophils/100 leukocytes 0 % 0-10 Blood neutrophils automated count (number/volume) 9.4 10*3 1.8-7.8 Blood lymphocytes automated count (number/volume) 3.2 10*3 1.0-4.0 Blood monocytes automated count (number/volume) 0.8 10*3 0.0-1.0 Automated eosinophil count 0.1 10*3/uL 0.0-0.3 Automated blood basophil count (count/volume) 0.0 10*3/uL 0.0-0.1 Manual blood segmented neutrophils/100 leukocytes 63 % NRG Blood band neutrophils/100 leukocytes 3 % NRG Manual blood lymphocytes/100 leukocytes 29 % NRG Manual eosinophils/100 leukocytes in nose 0 % NRG Manual blood basophils/100 leukocytes 0 % NRG Manual blood lymphocytes variant/100 leukocytes 1 % NRG Blood anisocytosis detection by light microscopy SLIGHT NRG Blood ovalocytes detection by light microscopy SLIGHT NRG Automated reticulocyte percentage - 11/25/16 08:50 Blood reticulocytes count (number/volume) 68 10*9/L 24- 90 Blood reticulocytes/100 erythrocytes 1.41 % 0.50-2.40 Complete blood count (CBC) with automated white blood cell (WBC) differential - 01/03/17 14:15 Blood leukocytes automated count (number/volume) 13.3 10*3/uL 4.3-11.0 Blood erythrocytes automated count (number/volume) 4.99 10*6/uL 4.35-5.85 Venous blood hemoglobin measurement (mass/volume) 12.8 g/dL 13.3-17.7 Blood hematocrit (volume fraction) 41 % 40-54 Automated erythrocyte mean corpuscular volume 82 [foz_us] 80-99 Automated erythrocyte mean corpuscular hemoglobin (mass per erythrocyte) 26 pg 25-34 Automated erythrocyte mean corpuscular hemoglobin concentration measurement ( mass/volume) 31 g/dL 32-36 Automated erythrocyte distribution width ratio 16.4 % 10.0-14.5 Automated blood platelet count (count/volume) 334 10*3/uL 130-400 Automated blood platelet mean volume measurement 11.6 [foz_us] 7.4-10.4 Automated blood neutrophils/100 leukocytes 74 % 42-75 Automated blood lymphocytes/100 leukocytes 20 % 12-44 Blood monocytes/100 leukocytes 6 % 0-12 Automated blood eosinophils/100 leukocytes 1 % 0-10 Automated blood basophils/100 leukocytes 0 % 0-10 Blood neutrophils automated count (number/volume) 9.8 10*3 1.8-7.8 Blood lymphocytes automated count (number/volume) 2.7 10*3 1.0-4.0 Blood monocytes automated count (number/volume) 0.7 10*3 0.0-1.0 Automated eosinophil count 0.1 10*3/uL 0.0-0.3 Automated blood basophil count (count/volume) 0.0 10*3/uL 0.0-0.1 Comprehensive metabolic panel - 01/03/17 14:15 Serum or plasma sodium measurement (moles/volume) 140 mmol/L 135-145 Serum or plasma potassium measurement (moles/volume) 4.0 mmol/L 3.6-5.0 Serum or plasma chloride measurement (moles/volume) 104 mmol/L 98-107 Carbon dioxide 22 mmol/L 21-32 Serum or plasma anion gap determination (moles/volume) 14 mmol/L 5-14 Serum or plasma urea nitrogen measurement (mass/volume) 16 mg/dL 7-18 Serum or plasma creatinine measurement (mass/volume) 1.14 mg/dL 0.60-1.30 Serum or plasma urea nitrogen/creatinine mass ratio 14 0 -20 Serum or plasma creatinine measurement with calculation of estimated glomerular filtration rate > NRG Serum or plasma glucose measurement (mass/volume) 216 mg/dL 70-105 Serum or plasma calcium measurement (mass/volume) 10.0 mg/dL 8.5-10.1 Serum or plasma total bilirubin measurement (mass/volume) 0.5 mg/dL 0.1-1.0 Serum or plasma alkaline phosphatase measurement (enzymatic activity/volume) 70 U/L 40-136 Serum or plasma aspartate aminotransferase measurement (enzymatic activity/ volume) 12 U/L 5-34 Serum or plasma alanine aminotransferase measurement (enzymatic activity/volume ) 8 U/L 0-55 Serum or plasma protein measurement (mass/volume) 7.3 g/dL 6.4-8.2 Serum or plasma albumin measurement (mass/volume) 4.2 g/dL 3.2-4.5 Serum or plasma troponin i.cardiac measurement (mass/volume) - 01/03/17 14:15 Serum or plasma troponin i.cardiac measurement (mass/volume) < ng/ mL <0.30 Lipase - 01/03/17 14:15 Lipase 16 U/L 8-78 Methicillin resistant Staphylococcus aureus (MRSA) screening culture - 07:59 Methicillin resistant Staphylococcus aureus (MRSA) screening culture NEG NRG Complete blood count (CBC) with automated white blood cell (WBC) differential - 10/21/17 08:08 Blood leukocytes automated count (number/volume) 13.5 10*3/uL 4.3-11.0 Blood erythrocytes automated count (number/volume) 4.90 10*6/uL 4.35-5.85 Venous blood hemoglobin measurement (mass/volume) 13.6 g/dL 13.3-17.7 Blood hematocrit (volume fraction) 42 % 40-54 Automated erythrocyte mean corpuscular volume 86 [foz_us] 80-99 Automated erythrocyte mean corpuscular hemoglobin (mass per erythrocyte) 28 pg 25-34 Automated erythrocyte mean corpuscular hemoglobin concentration measurement ( mass/volume) 33 g/dL 32-36 Automated erythrocyte distribution width ratio 15.5 % 10.0-14.5 Automated blood platelet count (count/volume) 303 10*3/uL 130-400 Automated blood platelet mean volume measurement 11.5 [foz_us] 7.4-10.4 Automated blood neutrophils/100 leukocytes 64 % 42-75 Automated blood lymphocytes/100 leukocytes 27 % 12-44 Blood monocytes/100 leukocytes 8 % 0-12 Automated blood eosinophils/100 leukocytes 1 % 0-10 Automated blood basophils/100 leukocytes 0 % 0-10 Blood neutrophils automated count (number/volume) 8.6 10*3 1.8-7.8 Blood lymphocytes automated count (number/volume) 3.6 10*3 1.0-4.0 Blood monocytes automated count (number/volume) 1.1 10*3 0.0-1.0 Automated eosinophil count 0.2 10*3/uL 0.0-0.3 Automated blood basophil count (count/volume) 0.0 10*3/uL 0.0-0.1 Comprehensive metabolic panel - 10/21/17 08:08 Serum or plasma sodium measurement (moles/volume) 141 mmol/L 135-145 Serum or plasma potassium measurement (moles/volume) 4.1 mmol/L 3.6-5.0 Serum or plasma chloride measurement (moles/volume) 106 mmol/L 98-107 Carbon dioxide 28 mmol/L 21-32 Serum or plasma anion gap determination (moles/volume) 7 mmol/L 5-14 Serum or plasma urea nitrogen measurement (mass/volume) 21 mg/dL 7-18 Serum or plasma creatinine measurement (mass/volume) 1.02 mg/dL 0.60-1.30 Serum or plasma urea nitrogen/creatinine mass ratio 21 NRG Serum or plasma creatinine measurement with calculation of estimated glomerular filtration rate > NRG Serum or plasma glucose measurement (mass/volume) 101 mg/dL 70-105 Serum or plasma calcium measurement (mass/volume) 10.0 mg/dL 8.5-10.1 Serum or plasma total bilirubin measurement (mass/volume) 0.4 mg/dL 0.1-1.0 Serum or plasma alkaline phosphatase measurement (enzymatic activity/volume) 67 U/L 40-136 Serum or plasma aspartate aminotransferase measurement (enzymatic activity/ volume) 13 U/L 5-34 Serum or plasma alanine aminotransferase measurement (enzymatic activity/volume ) 10 U/L 0-55 Serum or plasma protein measurement (mass/volume) 7.0 g/dL 6.4-8.2 Serum or plasma albumin measurement (mass/volume) 4.3 g/dL 3.2-4.5 Automated blood complete blood count (hemogram) panel - 03/13/18 04:51 Blood leukocytes automated count (number/volume) 13.7 10*3/uL 4.3-11.0 Blood erythrocytes automated count (number/volume) 4.92 10*6/uL 4.35-5.85 Venous blood hemoglobin measurement (mass/volume) 13.0 g/dL 13.3-17.7 Blood hematocrit (volume fraction) 42 % 40-54 Automated erythrocyte mean corpuscular volume 85 [foz_us] 80-99 Automated erythrocyte mean corpuscular hemoglobin (mass per erythrocyte) 26 pg 25-34 Automated erythrocyte mean corpuscular hemoglobin concentration measurement ( mass/volume) 31 g/dL 32-36 Automated erythrocyte distribution width ratio 15.4 % 10.0-14.5 Automated blood platelet count (count/volume) 274 10*3/uL 130-400 Automated blood platelet mean volume measurement 11.4 [foz_us] 7.4-10.4 Comprehensive metabolic panel - 03/13/18 04:51 Serum or plasma sodium measurement (moles/volume) 142 mmol/L 135-145 Serum or plasma potassium measurement (moles/volume) 3.6 mmol/L 3.6-5.0 Serum or plasma chloride measurement (moles/volume) 103 mmol/L 98-107 Carbon dioxide 30 mmol/L 21-32 Serum or plasma anion gap determination (moles/volume) 9 mmol/L 5-14 Serum or plasma urea nitrogen measurement (mass/volume) 20 mg/dL 7-18 Serum or plasma creatinine measurement (mass/volume) 1.17 mg/dL 0.60-1.30 Serum or plasma urea nitrogen/creatinine mass ratio 17 NRG Serum or plasma creatinine measurement with calculation of estimated glomerular filtration rate > NRG Serum or plasma glucose measurement (mass/volume) 141 mg/dL 70-105 Serum or plasma calcium measurement (mass/volume) 9.5 mg/dL 8.5-10.1 Serum or plasma total bilirubin measurement (mass/volume) 0.5 mg/dL 0.1-1.0 Serum or plasma alkaline phosphatase measurement (enzymatic activity/volume) 58 U/L 40-136 Serum or plasma aspartate aminotransferase measurement (enzymatic activity/ volume) 10 U/L 5-34 Serum or plasma alanine aminotransferase measurement (enzymatic activity/volume ) < U/L 0-55 Serum or plasma protein measurement (mass/volume) 6.1 g/dL 6.4-8.2 Serum or plasma albumin measurement (mass/volume) 3.7 g/dL 3.2-4.5 CALCIUM CORRECTED 9.7 mg/dL 8.5-10.1 Automated blood complete blood count (hemogram) panel - 03/14/18 05:32 Blood leukocytes automated count (number/volume) 12.1 10*3/uL 4.3-11.0 Blood erythrocytes automated count (number/volume) 4.43 10*6/uL 4.35-5.85 Venous blood hemoglobin measurement (mass/volume) 11.9 g/dL 13.3-17.7 Blood hematocrit (volume fraction) 38 % 40-54 Automated erythrocyte mean corpuscular volume 86 [foz_us] 80-99 Automated erythrocyte mean corpuscular hemoglobin (mass per erythrocyte) 27 pg 25-34 Automated erythrocyte mean corpuscular hemoglobin concentration measurement ( mass/volume) 31 g/dL 32-36 Automated erythrocyte distribution width ratio 15.0 % 10.0-14.5 Automated blood platelet count (count/volume) 260 10*3/uL 130-400 Automated blood platelet mean volume measurement 11.3 [foz_us] 7.4-10.4 Comprehensive metabolic panel - 03/14/18 05:32 Serum or plasma sodium measurement (moles/volume) 146 mmol/L 135-145 Serum or plasma potassium measurement (moles/volume) 3.5 mmol/L 3.6-5.0 Serum or plasma chloride measurement (moles/volume) 107 mmol/L 98-107 Carbon dioxide 26 mmol/L 21-32 Serum or plasma anion gap determination (moles/volume) 13 mmol/L 5-14 Serum or plasma urea nitrogen measurement (mass/volume) 21 mg/dL 7-18 Serum or plasma creatinine measurement (mass/volume) 1.01 mg/dL 0.60-1.30 Serum or plasma urea nitrogen/creatinine mass ratio 21 NRG Serum or plasma creatinine measurement with calculation of estimated glomerular filtration rate > NRG Serum or plasma glucose measurement (mass/volume) 111 mg/dL 70-105 Serum or plasma calcium measurement (mass/volume) 9.0 mg/dL 8.5-10.1 Serum or plasma total bilirubin measurement (mass/volume) 0.5 mg/dL 0.1-1.0 Serum or plasma alkaline phosphatase measurement (enzymatic activity/volume) 49 U/L 40-136 Serum or plasma aspartate aminotransferase measurement (enzymatic activity/ volume) 12 U/L 5-34 Serum or plasma alanine aminotransferase measurement (enzymatic activity/volume ) 6 U/L 0-55 Serum or plasma protein measurement (mass/volume) 5.5 g/dL 6.4-8.2 Serum or plasma albumin measurement (mass/volume) 3.3 g/dL 3.2-4.5 CALCIUM CORRECTED 9.6 mg/dL 8.5-10.1 Occult blood panel - gastric fluid - 03/14/18 14:15 Gastric fluid gastrointestinal hemoglobin detection POSITIVE NEGATIVE Automated blood complete blood count (hemogram) panel - 03/15/18 05:35 Blood leukocytes automated count (number/volume) 12.7 10*3/uL 4.3-11.0 Blood erythrocytes automated count (number/volume) 4.12 10*6/uL 4.35-5.85 Venous blood hemoglobin measurement (mass/volume) 11.0 g/dL 13.3-17.7 Blood hematocrit (volume fraction) 36 % 40-54 Automated erythrocyte mean corpuscular volume 87 [foz_us] 80-99 Automated erythrocyte mean corpuscular hemoglobin (mass per erythrocyte) 27 pg 25-34 Automated erythrocyte mean corpuscular hemoglobin concentration measurement ( mass/volume) 31 g/dL 32-36 Automated erythrocyte distribution width ratio 15.0 % 10.0-14.5 Automated blood platelet count (count/volume) 264 10*3/uL 130-400 Automated blood platelet mean volume measurement 11.1 [foz_us] 7.4-10.4 Comprehensive metabolic panel - 03/15/18 05:35 Serum or plasma sodium measurement (moles/volume) 146 mmol/L 135-145 Serum or plasma potassium measurement (moles/volume) 3.2 mmol/L 3.6-5.0 Serum or plasma chloride measurement (moles/volume) 107 mmol/L 98-107 Carbon dioxide 32 mmol/L 21-32 Serum or plasma anion gap determination (moles/volume) 7 mmol/L 5-14 Serum or plasma urea nitrogen measurement (mass/volume) 28 mg/dL 7-18 Serum or plasma creatinine measurement (mass/volume) 1.01 mg/dL 0.60-1.30 Serum or plasma urea nitrogen/creatinine mass ratio 28 NRG Serum or plasma creatinine measurement with calculation of estimated glomerular filtration rate > NRG Serum or plasma glucose measurement (mass/volume) 123 mg/dL 70-105 Serum or plasma calcium measurement (mass/volume) 8.9 mg/dL 8.5-10.1 Serum or plasma total bilirubin measurement (mass/volume) 0.4 mg/dL 0.1-1.0 Serum or plasma alkaline phosphatase measurement (enzymatic activity/volume) 41 U/L 40-136 Serum or plasma aspartate aminotransferase measurement (enzymatic activity/ volume) 11 U/L 5-34 Serum or plasma alanine aminotransferase measurement (enzymatic activity/volume ) < U/L 0-55 Serum or plasma protein measurement (mass/volume) 5.3 g/dL 6.4-8.2 Serum or plasma albumin measurement (mass/volume) 3.2 g/dL 3.2-4.5 CALCIUM CORRECTED 9.5 mg/dL 8.5-10.1 Complete blood count (CBC) with automated white blood cell (WBC) differential - 03/16/18 12:33 Blood leukocytes automated count (number/volume) 13.5 10*3/uL 4.3-11.0 Blood erythrocytes automated count (number/volume) 4.56 10*6/uL 4.35-5.85 Venous blood hemoglobin measurement (mass/volume) 12.2 g/dL 13.3-17.7 Blood hematocrit (volume fraction) 39 % 40-54 Automated erythrocyte mean corpuscular volume 86 [foz_us] 80-99 Automated erythrocyte mean corpuscular hemoglobin (mass per erythrocyte) 27 pg 25-34 Automated erythrocyte mean corpuscular hemoglobin concentration measurement ( mass/volume) 31 g/dL 32-36 Automated erythrocyte distribution width ratio 15.0 % 10.0-14.5 Automated blood platelet count (count/volume) 256 10*3/uL 130-400 Automated blood platelet mean volume measurement 11.0 [foz_us] 7.4-10.4 Automated blood neutrophils/100 leukocytes 70 % 42-75 Automated blood lymphocytes/100 leukocytes 22 % 12-44 Blood monocytes/100 leukocytes 8 % 0-12 Automated blood eosinophils/100 leukocytes 1 % 0-10 Automated blood basophils/100 leukocytes 0 % 0-10 Blood neutrophils automated count (number/volume) 9.4 10*3 1.8-7.8 Blood lymphocytes automated count (number/volume) 2.9 10*3 1.0-4.0 Blood monocytes automated count (number/volume) 1.0 10*3 0.0-1.0 Automated eosinophil count 0.1 10*3/uL 0.0-0.3 Automated blood basophil count (count/volume) 0.0 10*3/uL 0.0-0.1 Comprehensive metabolic panel - 03/16/18 12:33 Serum or plasma sodium measurement (moles/volume) 141 mmol/L 135-145 Serum or plasma potassium measurement (moles/volume) 3.9 mmol/L 3.6-5.0 Serum or plasma chloride measurement (moles/volume) 111 mmol/L 98-107 Carbon dioxide 22 mmol/L 21-32 Serum or plasma anion gap determination (moles/volume) 8 mmol/L 5-14 Serum or plasma urea nitrogen measurement (mass/volume) 15 mg/dL 7-18 Serum or plasma creatinine measurement (mass/volume) 1.01 mg/dL 0.60-1.30 Serum or plasma urea nitrogen/creatinine mass ratio 15 NRG Serum or plasma creatinine measurement with calculation of estimated glomerular filtration rate > NRG Serum or plasma glucose measurement (mass/volume) 120 mg/dL 70-105 Serum or plasma calcium measurement (mass/volume) 9.4 mg/dL 8.5-10.1 Serum or plasma total bilirubin measurement (mass/volume) 0.6 mg/dL 0.1-1.0 Serum or plasma alkaline phosphatase measurement (enzymatic activity/volume) 46 U/L 40-136 Serum or plasma aspartate aminotransferase measurement (enzymatic activity/ volume) 15 U/L 5-34 Serum or plasma alanine aminotransferase measurement (enzymatic activity/volume ) 8 U/L 0-55 Serum or plasma protein measurement (mass/volume) 6.1 g/dL 6.4-8.2 Serum or plasma albumin measurement (mass/volume) 3.7 g/dL 3.2-4.5 CALCIUM CORRECTED 9.6 mg/dL 8.5-10.1 Encounters ACCT No. Visit Date/Time Discharge Status Pt. Type Provider Facility Loc./Unit Complaint [id number] 03/24/2018 08:24:00 03/24/2018 23:59:59 CLS Outpatient NITIN VILLAREAL MD [facility] CARD AORTIC STENOSIS,LEFT ATRIAL DILATATION [id number] 03/11/2018 23:00:00 03/17/2018 18:55:00 DIS Inpatient ANGELINA MALIN, ROLF Rausch [facility] 4TH SMALL BOWEL OBSTRUCTION, ENTERITIS [id number] 10/21/2017 07:45:00 10/21/2017 14:24:00 DIS Outpatient BLANK LLANOS MD [facility] SDC GALLSTONES [id number] 10/16/2017 05:37:00 10/16/2017 11:56:00 DIS Outpatient BLANK LLANOS MD [facility] PREOP GALLSTONES [id number] 10/05/2017 07:57:00 10/05/2017 23:59:59 CLS Outpatient NITIN VILLAREAL MD [facility] SDSD [id number] 10/01/2017 10:16:00 10/01/2017 23:59:59 CLS Preadmit NITIN VILLAREAL MD [facility] CARD AR,AORTIC STENOSIS [id number] 09/28/2017 07:28:00 09/28/2017 23:59:59 CLS Outpatient BLANK LLANOS MD [facility] RAD RT UPPER QUAD PAIN [id number] 09/18/2017 14:00:00 09/18/2017 23:59:59 CLS Preadmit JOSÉ HERNANDES APRN [facility] CARD HEART MURMUR,DYSPNEA [id number] 01/03/2017 13:54:00 01/03/2017 17:38:00 DIS Emergency GLADYS MALIN, SALVATORE Rm [facility] ER VOMITING/SHAKINESS [id number] 11/25/2016 08:37:00 11/25/2016 23:59:59 CLS Outpatient DONAVAN MINAYA [facility] LAB ELEVATED WBC [id number] 06/28/2015 12:50:00 06/28/2015 23:59:59 CLS Outpatient DONAVAN MINAYA [facility] CARD AORTIC STENOSIS [id number] 11/03/2013 07:33:00 11/03/2013 23:59:59 CLS Outpatient JORDEN BETANCOURT MD [facility] CARD HEART MURMUR [id number] 02/20/2012 22:02:00 Document Registration [id number] 02/04/2017 13:19:33 02/04/2017 23:59:59 CLS Outpatient [id number] 09/03/2017 15:26:00 09/03/2017 23:59:00 DIS Outpatient ROLF ALFARO
[2018-07-12] VITALS (34 sets, daily range): BP systolic 109–196; BP diastolic 62–100
[2018-07-12] MEDS ORDERED: ACETAMINOPHEN 500 MG TAB (TYLENOL) PO PRN (00:30)
[2018-07-12] MEDS ORDERED: ONDANSETRON 4 MG/2 ML (SDV) Z0FRAN IV PRN (00:45)
[2018-07-12] MEDS ORDERED: morphine INJ 4 MG/ML 1 ML (VIAL/SYRINGE) IV PRN (00:45)
[2018-07-12] MEDS ORDERED: CATHETER FLUSH 10 ML SYR IV PRN (00:45)
[2018-07-12] MEDS ORDERED: LORazepam INJ 2 MG/ML (ATIVAN) VIAL IV PRN (00:45)
[2018-07-12] MEDS ORDERED: NITROGLYCERIN 0.4 MG SL TABS BTL 25'S SL PRN (00:45)
[2018-07-12 06:20] LABS: BASOPHILS % (AUTO) 0 % (0-10); EOSINOPHILS # (AUTO) 0.7 10^3/uL (0.0-0.3); EOSINOPHILS % (AUTO) 6 % (0-10); HEMATOCRIT 35 % (40-54); HEMOGLOBIN 10.8 G/DL (13.3-17.7); LYMPHOCYTES % (AUTO) 27 % (12-44); MEAN CORPUSCULAR HEMOGLOBIN 25 PG (25-34); MEAN CORPUSCULAR HGB CONC 31 G/DL (32-36); MEAN CORPUSCULAR VOLUME 82 FL (80-99); MEAN PLATELET VOLUME 11.7 FL (7.4-10.4); MONOCYTES # (AUTO) 1.1 X 10^3 (0.0-1.0); MONOCYTES % (AUTO) 10 % (0-12); NEUTROPHILS # (AUTO) 6.3 X 10^3 (1.8-7.8); NEUTROPHILS % (AUTO) 57 % (42-75); PLATELET COUNT 224 10^3/uL (130-400); RED BLOOD COUNT 4.26 10^6/uL (4.35-5.85)
[2018-07-12 07:06] LABS: BUN/CREATININE RATIO 18; CALCIUM 8.9 MG/DL (8.5-10.1); CARBON DIOXIDE 21 MMOL/L (21-32); CHLORIDE 109 MMOL/L (98-107); CREATININE SERUM 1.15 MG/DL (0.60-1.30); GFR ESTIMATED > 60; GLUCOSE 101 MG/DL (70-105); SODIUM 140 MMOL/L (135-145)
[2018-07-12 07:11] LABS: CHOLESTEROL 176 MG/DL (< 200); HDL CHOLESTEROL 35 MG/DL (40-60); TRIGLYCERIDES 108 MG/DL (<150); VLDL CHOLESTEROL 22 MG/DL (5-40)
[2018-07-12] MEDS ORDERED: LIDOCAINE 1% INJ 20 ML 20 ML VIAL ONE (08:39)
[2018-07-12] MEDS ORDERED: fentaNYL INJECTION 100 MCG/2 ML AMP ONE (08:40)
[2018-07-12] MEDS ORDERED: HEParin (CATH LAB) 2,000 ML IV ONE (08:40)
[2018-07-12] MEDS ORDERED: MIDAZOLAM 5 MG/5 ML (VERSED) VIAL ONE (08:40)
--- NOTE | 2018-07-12 08:40 | Consultation-Cardiology ---
HPI-Cardiology Cardiology Consultation Date of Consultation 07/12/18 Date of Admission Time Seen by Provider: 08:35 Indication: chest pain HPI 78 years old gentleman with history of aortic valve stenosis, was in his usual state of health until yesterday afternoon when he started having chest pain described as dull achiness started in the retrosternal area radiating to the left side of his chest, his neck and jaw then to the left arm, pain persisted until he came to the emergency room and received sublingual nitroglycerin which relieved the pain. Since then no further episode of chest pain were noted. He denied any palpitation, diaphoresis, syncope or near syncopal episode, he is fairly concerned about his chest pain. He has history of aortic valve stenosis. I discussed with him the management plan recommended cardiac catheterization Home Medications & Allergies Allergies: Coded Allergies: peanut (Verified Allergy, Unknown, 03/12/18) strawberry (Verified Allergy, Unknown, 03/12/18) Home Medication List Reviewed: Yes TDV-Nilavz-Cbridx Hx Patient Social History Marital Status: Employed/Student: retired Alcohol Use: Denies Use Recreational Drug Use: No Smoking Status: Current Someday Smoker Type Used: Cigarettes 2nd Hand Smoke Exposure: Yes Recent Foreign Travel: No Recent Infectious Disease Expo: No Recent Hopitalizations: No Physical Abuse Screen: No Sexual Abuse: No Immunizations Up To Date Tetanus Booster (TDap): Unknown Date of Pneumonia Vaccine: Oct 16, 2014 Date of Influenza Vaccine: Apr 19, 2017 Past Medical History past medical history as described below Family Medical History Significant Family History: Hypertension Family Medical Hx noncontributory to his current condition Review of Systems Constitutional: no symptoms reported, see HPI EENTM: see HPI, no symptoms reported Respiratory: see HPI; No cough; dyspnea on exertion; No hemoptysis, No orthopnea, No phlegm, No short of breath, No stridor, No wheezing, No other Cardiovascular: see HPI, chest pain; No edema, No Hx of Intervention, No palpitations, No syncope, No vascular heart diseas, No other Gastrointestinal: no symptoms reported, see HPI Genitourinary: no symptoms reported, see HPI Musculoskeletal: no symptoms reported, see HPI Skin: no symptoms reported, see HPI Psychiatric/Neurological: No Symptoms Reported, See HPI Reviewed Test Results Reviewed Test Results Lab Laboratory Tests Test 07/11/18 21:10 07/12/18 06:02 Range/Units White Blood Count 12.9 H 11.0 4.3-11.0 10^3/uL Red Blood Count 4.89 4.26 L 4.35-5.85 10^6/uL Hemoglobin 12.6 L 10.8 L 13.3-17.7 G/DL Hematocrit 40 35 L 40-54 % Mean Corpuscular Volume 82 82 80-99 FL Mean Corpuscular Hemoglobin 26 25 25-34 PG Mean Corpuscular Hemoglobin Concent 32 31 L 32-36 G/DL Red Cell Distribution Width 16.2 H 16.0 H 10.0-14.5 % Platelet Count 271 224 130-400 10^3/uL Mean Platelet Volume 11.8 H 11.7 H 7.4-10.4 FL Neutrophils (%) (Auto) 57 57 42-75 % Lymphocytes (%) (Auto) 29 27 12-44 % Monocytes (%) (Auto) 8 10 0-12 % Eosinophils (%) (Auto) 6 6 0-10 % Basophils (%) (Auto) 0 0 0-10 % Neutrophils # (Auto) 7.4 6.3 1.8-7.8 X 10^3 Lymphocytes # (Auto) 3.7 3.0 1.0-4.0 X 10^3 Monocytes # (Auto) 1.0 1.1 H 0.0-1.0 X 10^3 Eosinophils # (Auto) 0.8 H 0.7 H 0.0-0.3 10^3/uL Basophils # (Auto) 0.1 0.0 0.0-0.1 10^3/uL Prothrombin Time 12.5 12.2-14.7 SEC INR Comment 0.9 0.8-1.4 Activated Partial Thromboplast Time 29 24-35 SEC Sodium Level 139 140 135-145 MMOL/L Potassium Level 4.4 4.0 3.6-5.0 MMOL/L Chloride Level 105 109 H 98-107 MMOL/L Carbon Dioxide Level 21 21 21-32 MMOL/L Anion Gap 13 10 5-14 MMOL/L Blood Urea Nitrogen 21 H 21 H 7-18 MG/DL Creatinine 1.47 H 1.15 0.60-1.30 MG/DL Estimat Glomerular Filtration Rate 47 > 60 BUN/Creatinine Ratio 14 18 Glucose Level 142 H 101 70-105 MG/DL Calcium Level 9.9 8.9 8.5-10.1 MG/DL Corrected Calcium 9.5 8.5-10.1 MG/DL Magnesium Level 2.4 1.8-2.4 MG/DL Total Bilirubin 0.4 0.1-1.0 MG/DL Aspartate Amino Transf (AST/SGOT) 20 5-34 U/L Alanine Aminotransferase (ALT/SGPT) 11 0-55 U/L Alkaline Phosphatase 82 40-136 U/L Myoglobin 49.6 10.0-92.0 NG/ML Troponin I < 0.30 <0.30 NG/ML B-Type Natriuretic Peptide 45.5 <100.0 PG/ML Total Protein 7.6 6.4-8.2 GM/DL Albumin 4.5 3.2-4.5 GM/DL Lipase 31 8-78 U/L Triglycerides Level 108 <150 MG/DL Cholesterol Level 176 < 200 MG/DL LDL Cholesterol Direct 134 H 1-129 MG/DL VLDL Cholesterol 22 5-40 MG/DL HDL Cholesterol 35 L 40-60 MG/DL Physical Exam Vital Signs Vital Signs - First Documented 07/11/18 07/11/18 21:04 21:05 Temp 97.8 Pulse 86 Resp 13 B/P (MAP) 185/101 (129) Pulse Ox 100 O2 Delivery Room Air Capillary Refill : Less Than 3 Seconds Height, Weight, BMI Height: 5'11.00" Weight: 214lbs. 9.0oz. 97.806246cv; 29.9 BMI Method:Stated General Appearance: No Apparent Distress, WD/WN Eyes: Bilateral Eye Normal Inspection, Bilateral Eye PERRL, Bilateral Eye EOMI HEENT: PERRL/EOMI, TMs Normal, Normal ENT Inspection, Pharynx Normal Neck: Full Range of Motion, Normal Inspection, Non Tender, Supple, Carotid Bruit Respiratory: Chest Non Tender, Lungs Clear, Normal Breath Sounds, No Accessory Muscle Use, No Respiratory Distress Cardiovascular: Regular Rate, Rhythm, No Edema, No Gallop, No JVD, Normal Peripheral Pulses, Systolic Murmur, Gallop/S3 Gastrointestinal: Normal Bowel Sounds, No Organomegaly, No Pulsatile Mass, Non Tender, Soft Back: Normal Inspection, No CVA Tenderness, No Vertebral Tenderness Extremity: Normal Capillary Refill, Normal Inspection, Normal Range of Motion, Non Tender, No Calf Tenderness, No Pedal Edema Neurologic/Psychiatric: Alert, Oriented x3, No Motor/Sensory Deficits, Normal Mood/Affect Skin: Normal Color, Warm/Dry Lymphatic: No Adenopathy A/P-Cardiology Admission Diagnosis Chest pain Aortic valve stenosis Hypertension Hyperlipidemia Assessment/Plan Chest pain resembling angina, new onset. Could be secondary to his aortic stenosis, I am planning to proceed with a cardiac catheterization today. Patient has baseline abnormal EKG. Had a stress test done in September 2017 which did not show significant ischemia, had diaphragmatic attenuation with motion artifact, his presentation is highly suggestive of underlying coronary artery disease. Moderate to severe aortic valve stenosis, secondary to rheumatic heart disease. Moderate left ventricular hypertrophy. Ejection fraction 50 percent. Asymptomatic, peak gradient of 70 mmHg, valve area 1.05 cm, echocardiogram was done in August 2017, I will repeat 2-D echo, we discussed the possibility of needing aortic valve replacement Hypertension, restart home medication monitor Mild bilateral carotid stenosis, ultrasound was done in September 2017, I will continue monitor History of rheumatic fever and rheumatic heart disease Fibromyalgia for which she takes methadone, generalized body ache Tobaccoism, smokes few cigarettes a day, about one pack a week. Discussed smoking cessation and he prefer to continue on smoking Clinical Quality Measures DVT/VTE Risk/Contraindication: Risk Factor Score Per Nursin RFS Level Per Nursing on Admit: 1=Low/No VTE PPX NITIN VILLAREAL MD Jul 12, 2018 08:40
--- NOTE | 2018-07-12 08:44 | Cardiac Procedure Note-CS/ASA ---
Pre-Procedure Note Pre-Op Procedure Note H&P Reviewed The H&P was reviewed, patient examined and no changes noted. Date H&P Reviewed: Jul 12, 2018 Time H&P Reviewed: 08:43 Conscious Sedation Pre-Proced Time 08:43 ASA Score 3 For ASA 3 and 4: Consider anesthesia and medical clearance. Also, for patients with a history of failed moderate sedation consider anesthesia. Airway Lungs Heart ASA score ASA 1: a normal healthy patient ASA 2: a patient with a mild systemic disease (mid diabetes, controlled hypertension, obesity x ASA 3: a patient with a severe systemic disease that limits activity (angina , COPD, prior Myocardial infarction) ASA 4: a patient with an incapacitating disease that is a constant threat to life (CHF, renal failure) ASA 5: a moribund patient not expected to survive 24 hrs. (ruptured aneurysm) ASA 6: a declared brain patient whose organs are being harvested. For emergent operations, add the letter E after the classification Mallampati Classification Grade 3 Sedation Plan Analgesia, Amnesia, Plan communicated to team members, Discussed options with patient/fam, Discussed risks with patient/fam The patient is an appropriate candidate to undergo the planned procedure, sedation, and anesthesia. The patient immediately re-assessed prior to indication. NITIN VILLAREAL MD Jul 12, 2018 08:44
[2018-07-12] MEDS ORDERED: NS IV 1000 ML 1,000 ML IV SCH ×2 (08:45→09:47)
[2018-07-12] MEDS: METHADONE 10 MG (DOLOPHINE) TAB PO SCH ×2 (08:52→11:15)
[2018-07-12] MEDS: CATHETER FLUSH 10 ML SYR IV SCH ×2 (08:52→13:11)
[2018-07-12] MEDS ORDERED: ENALAPRIL 10 MG (VASOTEC) TAB PO SCH (09:00)
[2018-07-12] MEDS ORDERED: PANTOPRAZOLE 40 MG (PROTONIX) TAB PO SCH (09:00)
[2018-07-12] MEDS ORDERED: ASPIRIN E.C. 81 MG (ECOTRIN) TAB PO SCH (09:00)
[2018-07-12] MEDS ORDERED: NS IV 1000 ML 1,000 ML ONE (09:02)
[2018-07-12] MEDS ORDERED: NITRO DRIP 25000 MCG/D5W 0 ML IV ONE (09:31)
[2018-07-12] MEDS ORDERED: HEParin 1000 UNIT/ML (10ML VIAL) FOR BOLUS ONE (09:31)
[2018-07-12] MEDS ORDERED: ASPI-983 PO (09:49)
--- NOTE | 2018-07-12 09:50 | Discharge Inst-Post CATH ---
Discharge Inst-CATH/EP Post Cardiac Cath/EP D/C Inst Follow Up/Plan Appointment with Dr Walsh's office in 2-4 weeks CARDIAC CATH DISCHARGE INSTRUCTIONS *Hold Metformin for 48 hours post heart cath. ACTIVITY * Go Home directly and rest. * Limit activity of the leg (or wrist if it was used) for 7 days including aerobics, swimming, jogging, bicycling, etc. * Restrict stair-climbing for 7 days if possible, if not, climb up with your non -cath leg, then bring together on the same step. * Avoid lifting, pushing, pulling or excessive movement of the affected extremity for 7 days. * Customary sexual activity may be resumed after 2 days-use caution not to use a position that strains or causes pain to the affected extremity. * No driving for 24 hours. * NO SMOKING. * Avoid straining for bowel movements for 7 days. * Gentle walking on level ground is allowed. * Returning to work will depend on the type of procedure and the results. Your doctor will discuss this with you. CALL YOUR DOCTOR FOR ANY OF THE FOLLOWING: *If bleeding from the puncture site occurs- Apply gentle pressure to site with clean cloth and call your doctor or EMS. * If a knot or lump forms under the skin, increases in size, or causes pain. * If bruising appears to be worsening or moving further down your leg instead of disappearing. * Temperature above 101 F. CARE OF YOUR GROIN INCISION; * Bruising or purple discoloration of the skin near the puncture site is common. * You may shower only, no bathtub bathing for 5 days. Be careful to avoid slipping as your leg may feel stiff. * If a closure device was used on your femoral artery, please see the attached guide regarding care of the device and your leg. * Leave the dressing on, until removed by office staff. CARE OF YOUR WRIST INCISION; * Bruising or purple discoloration of the skin near the puncture site is common. * You may shower. * DO NOT submerge wrist. * Leave dressing on, until removed by office staff.. NITIN WALSH MD Jul 12, 2018 09:50
--- NOTE | 2018-07-12 09:56 | Cardiac Cath Report ---
Cardiac Cath Report Physician (s)/Change Management Facilitator (s) Physician NITIN VILLAREAL MD Pre-Procedure Diagnosis Pre-Procedure Diagnosis: chest pain Post-Procedure Note Procedure Start Date: Jul 12, 2018 Name of Procedure: left heart catheterization Aortic arch angiogram Findings/Procedure Note PROCEDURE NOTE: 78 years old gentleman with history of moderate to severe aortic valve stenosis , admitted with acute chest pain responded to nitroglycerin. Had multiple risk factors for coronary artery disease, decided to proceed with cardiac catheterization possible PTCA After explaining the procedure to the patient, all pros and cons were explained , all questions were answered. The patient signed the consent and then he was placed on the cardiac catheterization laboratory. Groin was prepped SL fashion local anesthesia was used. Sheath placed in the Right femoral artery. Lauro right and left catheter were used to access the coronary system. patient was given 3000 units of heparin, I advanced a stork wire through the Lauro right catheter and after multiple attempts I was able to cross the aortic valve, I advanced the Lauro right catheter to the left ventricular cavity, pressure was measured, left ventriculogram was done, then pullback LV to aorta was done and measurement of the pressure gradient was made. Pigtail catheter was advanced to the aortic arch and aortic arch angiogram was done. At the end of the procedure the sheath was removed. Closure device Was used FINDINGS: Hemodynamics LV 162/18, end-diastolic pressure of 13 Aorta 114/54 mean of 80 Gradient across the aortic valve calculated to have peak to peak gradient of 47 mmHg, mean gradient of 44.7 millimeters mercury, calculated valve area with estimated cardiac output of 5 L/m of 0.89 cm ANATOMY: Left Main is free of obstructive disease Left Anterior Descending is calcified with mild disease, the first diagonal artery is a small artery with about 50 percent stenosis nonobstructive disease Left Circumflex is moderate in size with mild disease nonobstructive disease Right Coronory Artery is moderate in size with [id number] disease nonobstructive disease LV Gram was done and showed the left ventricle to be normal size with normal contraction. Estimated ejection fraction 60 percent Aorta evaluation done with aortic arch angiogram which showed hypertensive changes in the aortic arch, no dissection or aneurysm, origin of the innominate artery, left carotid artery and left subclavian artery showed some tortuosity with no significant obstructive disease CONCLUSION: 1. Severe aortic valve stenosis 2. Mild coronary artery disease, nonobstructive disease 3. Mildly elevated left ventricular end-diastolic pressure with preserved left ventricular systolic function next line 4. Hypertensive changes in the thoracic aorta, no dissection or aneurysm DISCUSSION AND RECOMMENDATION: Continue with medical therapy with close monitoring of the aortic valve, will need evaluation for valve replacement surgery Anesthesia Type: Conscious Sedation Estimated blood loss (mL): 20 ml Contrast Amount: 65 ml Total Radiation Dose: 571 mGy Post-Procedure Diagnosis Post-operative diagnosis: Chest pain Aortic valve stenosis Coronary artery disease Hypertension Hyperlipidemia NITIN VILLAREAL MD Jul 12, 2018 09:56
[2018-07-12] MEDS ORDERED: PATIENT MAY USE OWN MEDS, ALL PO SCH (10:00)
[2018-07-12] MEDS ORDERED: NITR0.4T42 SL (10:17)
--- NOTE | 2018-07-12 11:04 | Short Stay Summary-Hospitalist ---
History of Present Illness HPI/Chief Complaint This is a 78-year-old white male well-known to me. He had been in his usual state of health when yesterday he was eating a piece of summer sausage with a Coca-Cola and crackers and began having chest discomfort. The pain went to his jaw to his left shoulder and down his left arm. He presented to the emergency room after about 30 minutes with similar complaints. The pain was relieved with nitroglycerin. He has had his cardiac catheter today, by Dr. Clark that shows mild nonobstructive coronary artery disease. In addition it shows severe aortic stenosis with diastolic dysfunction. Currently at the time of my interview he is post catheterization without complaints. Source: patient, old records Exam Limitations: no limitations Date Seen 07/12/18 Time Seen by a Provider: 11:00 Attending Physician calvin quigley Holly A MD Referring Physician Date of Admission Jul 11, 2018 at 22:40 Home Medications & Allergies Home Medications Reviewed patient Home Medication Reconciliation performed by pharmacy medication reconciliations operations technician and/or nursing. Patients Allergies have been reviewed. Allergies Allergies Coded Allergies peanut (Verified Allergy, Unknown, 03/12/18) strawberry (Verified Allergy, Unknown, 03/12/18) Past Miqqipq-Baxjyn-Hrzhnl Hx Past Med/Social Hx: Reviewed Nursing Past Med/Soc Hx Patient Social History Marrital Status: Employed/Student: retired Alcohol Use: Denies Use Number of Drinks Today: AA Recreational Drug Use: No Smoking Status: Current Someday Smoker Type Used: Cigarettes 2nd Hand Smoke Exposure: Yes Physical Abuse Screen: No Sexual Abuse: No Recent Foreign Travel: No Contact w/other who traveled: No Recent Hopitalizations: No Recent Infectious Disease Expo: No Immunizations Up To Date Tetanus Booster (TDap): Unknown Date of Pneumonia Vaccine: Oct 16, 2014 Date of Influenza Vaccine: Apr 19, 2017 Seasonal Allergies Seasonal Allergies: Yes Past Medical History Surgeries: Gallbladder Currently Using CPAP: No Cardiac: Heart Murmur, Hypertension Gastrointestinal: Gall Bladder Disease Musculoskeletal: Arthritis, Fibromyalgia History of Blood Disorders: No Adverse Reaction to Blood Thorpe: No Family History Hypertension Review of Systems Constitutional: see HPI EENTM: no symptoms reported Respiratory: no symptoms reported Cardiovascular: chest pain, vascular heart diseas Gastrointestinal: no symptoms reported Genitourinary: no symptoms reported Musculoskeletal: joint pain, muscle pain Skin: no symptoms reported Psychiatric/Neurological: No Symptoms Reported Physical Exam Physical Exam Vital Signs Vital Signs - First Documented 07/11/18 07/11/18 21:04 21:05 Temp 97.8 Pulse 86 Resp 13 B/P (MAP) 185/101 (129) Pulse Ox 100 O2 Delivery Room Air Capillary Refill : Less Than 3 Seconds Height, Weight, BMI Height: 5'11.00" Weight: 214lbs. 9.0oz. 97.938595wa; 29.9 BMI Method:Stated General Appearance: No Apparent Distress, WD/WN HEENT: TMs Normal, Normal ENT Inspection, Pharynx Normal Neck: Full Range of Motion, Non Tender, Supple Respiratory: Chest Non Tender, Lungs Clear, Normal Breath Sounds, No Accessory Muscle Use, No Respiratory Distress Cardiovascular: Regular Rate, Rhythm, No Edema, No Gallop, Normal Peripheral Pulses, Systolic Murmur Gastrointestinal: Normal Bowel Sounds, No Organomegaly, No Pulsatile Mass, Non Tender, Soft Rectal: Deferred Extremity: Normal Capillary Refill, Non Tender, No Calf Tenderness, No Pedal Edema Neurologic/Psychiatric: Alert, Oriented x3, No Motor/Sensory Deficits, Normal Mood/Affect Skin: Normal Color, Warm/Dry Lymphatic: No Adenopathy Results Results/Procedures Labs Laboratory Tests 07/11/18 21:10 07/12/18 06:02 Patient resulted labs reviewed. Imaging: Reviewed Imaging Report Short Stay Diagnosis Discharge Diagnosis-Short Stay Admission Diagnosis Chest pain Nonobstructive coronary artery disease Order to Severe aortic stenosis Hypertension Hyperlipidemia Fibromyalgia Final Discharge Diagnosis Chest pain noncardiac Conclusion Plan Plan to discharge home on aspirin, and when necessary nitroglycerin. All other medications as before. Clinical Quality Measures DVT/VTE Risk/Contraindication: Risk Factor Score Per Nursin RFS Level Per Nursing on Admit: 1=Low/No VTE PPX Copy Copies To 1: ROLF ALFARO MD, KATHLEEN M MD Jul 12, 2018 11:04
[2018-07-12] MEDS ORDERED: MIDAZOLAM 2 MG/2 ML (VERSED) VIAL ONE (11:29)
[2018-07-12] MEDS ORDERED: fentaNYL INJECTION 100 MCG/2 ML AMP IVP PRN (11:30)
[2018-07-12] MEDS ORDERED: fentaNYL INJECTION 100 MCG/2 ML AMP IVP ONE (11:30)
--- NOTE | 2018-07-12 13:57 | Diagnostic Imaging Report ---
Exam: Right lower extremity arterial Doppler ultrasound. Date: July 12, 2018. Indication: 78-year-old male, post catheter bleed right upper thigh. Comparison: CT abdomen and pelvis March 11, 2018. Findings: There are unremarkable waveforms within the right common femoral artery and right common femoral vein. There is no evidence of arteriovenous malformation. The vessels are patent. There is no demonstrated pseudoaneurysm. There is no demonstrated hematoma. Additional vasculature in this region is not imaged. Impression: 1. No demonstrated pseudoaneurysm. 2. No demonstrated hematoma. 3. No evidence of arterial venous malformation. Dictated by: Dictated on workstation # [id number]
[2018-07-12] MEDS ORDERED: NITROGLYCERIN 0.4 MG SL TABS BTL 25'S SL SCH (16:30)
[2018-07-12] MEDS ORDERED: ATORVASTATIN 40 MG (LIPITOR) TABLET PO SCH (21:00)
--- OUTSIDE RECORDS SUMMARY | 2018-07-15 00:28 | XMS REPORT | Continuity of Care Document ---
Author Author [facility] Organization [facility] Address Unknown Phone Unavailable Allergies Active Description Code Type Severity Reaction Onset Reported/Identified Relationship to Patient Clinical Status Yes No Known Drug Allergies [id number] Drug Allergy Unknown N/A 02/20/2012 Yes peanut [id number] Drug Allergy Unknown N/A 03/12/2018 Yes strawberry [id number] Drug Allergy Unknown N/A 03/12/2018 Medications There [...] OF) LIVER, NOT ELSEWHERE C 10/05/2017 BLANK LLANOS MD Ot K80.20 CALCULUS OF [...] K80.20 CALCULUS OF GALLBLADDER W/O CHOLECYSTITI 10/20/2017 BLNAK LLANOS MD Ot K82.8 OTHER SPECIFIED DISEASES OF GALLBLADDER 10/20/2017 BLANK LLANOS MD Ot N28.1 CYST OF KIDNEY, ACQUIRED 10/21/2017 BLANK LLANOS MD Ot F17.200 NICOTINE DEPENDENCE, UNSPECIFIED, UNCOMP 10/21/2017 BLANK LLANOS MD Ot K80.20 CALCULUS OF GALLBLADDER W/O CHOLECYSTITI 10/21/2017 BLANK LLANOS MD Ot Z11.2 ENCOUNTER FOR SCREENING FOR OTHER BACTER 10/21/2017 BLANK LLANOS MD Ot 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 10/21/2017 BLANK LLANOS [...] BACTER 10/22/2017 BLANK LLANOS MD Ot 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 10/22/2017 BLANK LLANOS [...] BACTER 10/28/2017 BLANK LLANOS MD Ot 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 10/28/2017 BLANK LLANOS MD Ot Z79.899 OTHER JAIL (CURRENT) DRUG THERAPY 10/28/2017 BLANK LLANOS MD Ot F17.200 NICOTINE DEPENDENCE, UNSPECIFIED, UNCOMP 10/28/2017 BLANK LLANOS MD Ot K80.20 CALCULUS OF GALLBLADDER W/O CHOLECYSTITI 10/28/2017 BLANK LLANOS MD Ot Z11.2 ENCOUNTER FOR SCREENING FOR OTHER BACTER 10/28/2017 BLANK LLANOS MD Ot 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 10/28/2017 BLANK LLANOS MD Ot Z79.899 OTHER FIBROUS WALLBOARD INSPECTOR (CURRENT) DRUG THERAPY 10/29/2017 BLANK LLANOS MD Ot F17.200 NICOTINE DEPENDENCE, UNSPECIFIED, UNCOMP 10/29/2017 BLANK LLANOS MD Ot K80.20 CALCULUS OF GALLBLADDER W/O CHOLECYSTITI 10/29/2017 BLANK LLANOS MD Ot Z11.2 ENCOUNTER FOR SCREENING FOR OTHER BACTER 10/29/2017 BLANK LLANOS MD Ot Z79.82 JAIL (CURRENT) USE OF ASPIRIN 10/29/2017 BLANK LLANOS MD Ot Z79.899 OTHER 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 Type Provider Facility Loc./Unit Complaint [id number] 03/24/2018 08:24:00 03/24/2018 23:59:59 CLS Outpatient NITIN VILLAREAL MD [facility] CARD AORTIC STENOSIS,LEFT ATRIAL DILATATION [id number] 03/11/2018 23:00:00 03/17/2018 18:55:00 DIS Inpatient ANGELINA MALIN, ROLF Rausch [facility] 4TH SMALL BOWEL OBSTRUCTION, ENTERITIS [id number] 10/21/2017 07:45:00 10/21/2017 14:24:00 DIS Outpatient BLANK LLANOS MD [facility] SDC GALLSTONES [id number] 10/16/2017 05:37:00 10/16/2017 11:56:00 DIS Outpatient BLANK LLANOS MD [facility] PREOP GALLSTONES [id number] 10/05/2017 07:57:00 10/05/2017 23:59:59 CLS Outpatient NITIN VILLAREAL MD [facility] SDSD [id number] 10/01/2017 10:16:00 10/01/2017 23:59:59 CLS Preadmit NITIN VILLAREAL MD [facility] CARD AR,AORTIC STENOSIS [id number] 09/28/2017 07:28:00 09/28/2017 23:59:59 CLS Outpatient BLANK LLANOS MD [facility] RAD RT UPPER QUAD PAIN [id number] 09/18/2017 14:00:00 09/18/2017 23:59:59 CLS Preadmit JOSÉ HERNANDES APRN [facility] CARD HEART MURMUR,DYSPNEA [id number] 01/03/2017 13:54:00 01/03/2017 17:38:00 DIS Emergency GLADYS MALIN, SALVATORE Rm [facility] ER VOMITING/SHAKINESS [id number] 11/25/2016 08:37:00 11/25/2016 23:59:59 CLS Outpatient DONAVAN MINAYA [facility] LAB ELEVATED WBC [id number] 06/28/2015 12:50:00 06/28/2015 23:59:59 CLS Outpatient DONAVAN MINAYA [facility] CARD AORTIC STENOSIS [id number] 11/03/2013 07:33:00 11/03/2013 23:59:59 CLS Outpatient JORDEN BETANCOURT MD [facility] CARD HEART MURMUR [id number] 02/20/2012 22:02:00 Document Registration [id number] 02/04/2017 13:19:33 02/04/2017 23:59:59 CLS Outpatient [id number] 09/03/2017 15:26:00 09/03/2017 23:59:00 DIS Outpatient ROLF ALFARO
== END 2018-07-12 18:00 | disposition home or self-care (01) ==
LOC: EDUNIT# 21:02 → ER 21:03 → 4TH 22:40 → CATH 22:40 → UNDOADMOB 22:40 → 4TH 22:40 → ICU 07-12 12:00 → UNDODISOB 07-12 18:00 → CATH 07-12 18:00
PROVIDERS: ATTEND Internal Medicine
DX: R07.89 Other chest pain (principal); I25.10 Atherosclerotic heart disease of native coronary artery without angina pectoris; I06.0 Rheumatic aortic stenosis; I44.0 Atrioventricular block, first degree; R01.1 Cardiac murmur, unspecified; I10 Essential (primary) hypertension; E78.5 Hyperlipidemia, unspecified; I65.23 Occlusion and stenosis of bilateral carotid arteries; F17.210 Nicotine dependence, cigarettes, uncomplicated; M79.7 Fibromyalgia; M19.91 Primary osteoarthritis, unspecified site; G47.30 Sleep apnea, unspecified; Z79.82 Long term (current) use of aspirin; Z79.899 Other long term (current) drug therapy
CPT/HCPCS: 36221; 36415; 71045; 80048; 80053; 80061; 83690; 83735; 83874; 83880; 84484; 85025; 85610; 85730; 93005; 93041; 93458; 93926

== ENCOUNTER → 2018-08-25 | Outpatient (CLI) | payer MEDICARE ==
[~2018-08-25] MED LIST changes: +ASPI-983 PO; +METR-145 PO; -METR-197 PO; +NITR0.4T42 SL
== END ==
LOC: CARD 11:21
PROVIDERS: ATTEND Internal Medicine Cardiovascular Disease
DX: R01.1 Cardiac murmur, unspecified (principal); I08.3 Combined rheumatic disorders of mitral, aortic and tricuspid valves
CPT/HCPCS: 93306

== ENCOUNTER → 2020-02-24 | Outpatient (CLI) | payer MEDICARE ==
[~2020-02-24] MED LIST changes: -METO-387 PO; +MTP25TSR PO
[2020-02-24 10:01] LABS: HEMOGLOBIN 13.5 G/DL (13.3-17.7); MEAN PLATELET VOLUME 10.7 FL (7.4-10.4); RED CELL DISTRIBUTION WIDTH 15.3 % (10.0-14.5); WHITE BLOOD COUNT 13.4 10^3/uL (4.3-11.0)
--- NOTE | 2020-02-24 10:52 | Diagnostic Imaging Report ---
EXAMINATION: Chest, PA and lateral views INDICATION: Dyspnea. Shortness of breath and fatigue. Iron deficiency anemia. COMPARISON: Chest radiograph performed on 07/11/2018. FINDINGS: Low lung volumes are demonstrated. The lungs are clear and the pulmonary vasculature is normal. No pneumothorax or pleural effusion. The heart is mildly enlarged, not significantly changed from prior exam. Mediastinal contours are unchanged. No acute osseous abnormality is appreciated. Multilevel degenerative changes involve the spine. IMPRESSION: No radiographic evidence of acute chest disease. No significant change from prior. There is unchanged mild cardiomegaly. Dictated by: Dictated on workstation # [id number]
[2020-02-24 11:00] LABS: ALANINE AMINOTRANSFERASE 8 U/L (0-55); ALBUMIN 4.2 GM/DL (3.2-4.5); ALKALINE PHOSPHATASE 65 U/L (40-136); BILIRUBIN,TOTAL 0.4 MG/DL (0.1-1.0); BUN/CREATININE RATIO 15; CALCIUM 10.2 MG/DL (8.5-10.1); CARBON DIOXIDE 23 MMOL/L (21-32); CHLORIDE 105 MMOL/L (98-107); CREATININE SERUM 1.07 MG/DL (0.60-1.30); GFR ESTIMATED > 60; GLUCOSE 100 MG/DL (70-105); SODIUM 138 MMOL/L (135-145); TOTAL PROTEIN 6.9 GM/DL (6.4-8.2)
== END ==
LOC: RAD 09:21
PROVIDERS: ATTEND Nurse Practitioner Family
DX: I51.7 Cardiomegaly (principal); D50.9 Iron deficiency anemia, unspecified
CPT/HCPCS: 36415; 71046; 80053; 82728; 83540; 84443; 85027

== ENCOUNTER → 2020-04-06 | Outpatient (CLI) | payer MEDICARE ==
[~2020-04-06] MED LIST changes: +ASPI-1238 PO; -ASPI-983 PO; -ENAL10TA PO; +ENAL10TA16 PO; +HOLD METFORMIN - RECEIVED CONTRAST 20 ML VIAL IV SCH; +IOHEXOL 350 MG/ML 100 ML (OMNIPAQUE 350) VIAL IV ONE; +NS 100 ML (IVPB) BAG IV ONE; -PANT40TA3 PO; +PANT40TA52 PO; +RT-ALBUTEROL SULF 2.5 MG/3 ML PRE-MIX VIAL INH ONE
[2020-04-06 13:59] LABS: CREATININE SERUM 1.17 MG/DL (0.60-1.30)
--- NOTE | 2020-04-06 16:05 | Diagnostic Imaging Report ---
PROCEDURE: CT chest with contrast only. TECHNIQUE: Multiple contiguous axial images were obtained through the chest after administration of intravenous contrast. Auto Exposure Controls were utilized during the CT exam to meet ALARA standards for radiation dose reduction. INDICATION: Dyspnea. COMPARISON: There are no prior CT chest examinations available for comparison. FINDINGS: The plain film examination of the chest performed on 02/24/2020 noted mild cardiomegaly but failed to show any sign of an acute abnormality. The heart is mildly enlarged and there are extensive coronary artery calcifications evident. The aorta is not abnormally dilated and there is no sign of a dissection. There is no defect within the pulmonary arteries to indicate a pulmonary embolus either. There is no mediastinal or hilar adenopathy. The thyroid gland, where visualized, is unremarkable. The lungs are clear. There is no sign of failure, pneumonia or a pleural effusion to indicate an acute abnormality. There is no parenchymal lung mass identified either. There is a small calcified granuloma along the posterior aspect of the left lung base. The sections through the upper abdomen failed to show any sign of an acute abnormality. There are nonobstructive calculi within the right kidney and the low density appearance of the liver does suggest fatty metamorphosis. There is also tortuosity of the splenic venous system. These findings are unchanged when compared to the prior CT abdomen/pelvis exam of 03/11/2018. The bone windows show no sign of a fracture or for a destructive lesion. IMPRESSION: 1. There is mild cardiomegaly and coronary artery disease but there is no sign of an acute cardiopulmonary abnormality. 2. The fatty metamorphosis of the liver, the nonobstructive calculi within the right kidney and the tortuous appearance of the splenic vein, seen previously, are again evident and no different. Dictated by: Dictated on workstation # [id number]
== END ==
LOC: RT 12:00
PROVIDERS: ATTEND Nurse Practitioner Family
DX: I25.10 Atherosclerotic heart disease of native coronary artery without angina pectoris (principal); I51.7 Cardiomegaly; N20.0 Calculus of kidney; K76.89 Other specified diseases of liver; I86.8 Varicose veins of other specified sites; G47.33 Obstructive sleep apnea (adult) (pediatric); F17.211 Nicotine dependence, cigarettes, in remission
CPT/HCPCS: 36415; 71260; 82565; 84520; 94060; 94726; 94729

== ENCOUNTER → 2020-04-06 | Outpatient (CLI) | payer MEDICARE ==
[~2020-04-06] MED LIST changes: -HOLD METFORMIN - RECEIVED CONTRAST 20 ML VIAL IV SCH; -IOHEXOL 350 MG/ML 100 ML (OMNIPAQUE 350) VIAL IV ONE; -NS 100 ML (IVPB) BAG IV ONE; -RT-ALBUTEROL SULF 2.5 MG/3 ML PRE-MIX VIAL INH ONE
[2020-04-06 14:00] LABS: ALANINE AMINOTRANSFERASE 14 U/L (0-55); ALBUMIN 4.2 GM/DL (3.2-4.5); ALKALINE PHOSPHATASE 70 U/L (40-136); BILIRUBIN,TOTAL 0.4 MG/DL (0.1-1.0); BUN/CREATININE RATIO 15; CALCIUM 9.7 MG/DL (8.5-10.1); CARBON DIOXIDE 26 MMOL/L (21-32); CHLORIDE 104 MMOL/L (98-107); CHOLESTEROL 205 MG/DL (< 200); CREATININE SERUM 1.15 MG/DL (0.60-1.30); GFR ESTIMATED > 60; GLUCOSE 114 MG/DL (70-105); HDL CHOLESTEROL 46 MG/DL (40-60); POTASSIUM 4.5 MMOL/L (3.6-5.0); SODIUM 139 MMOL/L (135-145); TOTAL PROTEIN 7.3 GM/DL (6.4-8.2); TRIGLYCERIDES 109 MG/DL (<150); VLDL CHOLESTEROL 22 MG/DL (5-40)
== END ==
LOC: LAB 13:35
PROVIDERS: ATTEND Physician Assistant
DX: I08.0 Rheumatic disorders of both mitral and aortic valves (principal); I10 Essential (primary) hypertension
CPT/HCPCS: 36415; 80053; 80061

== ENCOUNTER → 2020-04-10 | Outpatient (CLI) | payer MEDICARE | LOC: LABNPT 05:53 | PROVIDERS: ATTEND Nurse Practitioner Family | DX: Z01.812 Encounter for preprocedural laboratory examination (principal); Z20.828 Contact with and (suspected) exposure to other viral communicable diseases | CPT/HCPCS: 87635 ==

== ENCOUNTER 2020-04-12 19:25 | Outpatient (CLI) | payer MEDICARE | END 2020-04-13 03:40 | disposition home or self-care (01) | LOC: SLEEP 19:25 | PROVIDERS: ATTEND Nurse Practitioner Family | DX: G47.33 Obstructive sleep apnea (adult) (pediatric) (principal); E66.9 Obesity, unspecified; R06.89 Other abnormalities of breathing; R06.09 Other forms of dyspnea; Z20.828 Contact with and (suspected) exposure to other viral communicable diseases; Z87.891 Personal history of nicotine dependence | CPT/HCPCS: 95810 ==

== ENCOUNTER → 2020-07-18 | Outpatient (CLI) | payer MEDICARE ==
--- NOTE | 2020-07-18 10:57 | Diagnostic Imaging Report ---
PROCEDURE: US left lower extremity venous. TECHNIQUE: Multiple real-time grayscale images were obtained over the left lower extremity in various projections. Additional duplex Doppler and color Doppler images were also obtained. INDICATION: Left leg pain and swelling EXAMINATION: Grayscale and color Doppler evaluation of the deep veins of the left lower extremity were performed with waveform analysis. FINDINGS: Continuous venous flow is present. No intraluminal filling defect is identified. There is normal compressibility and response to augmentation. No abnormal perivascular fluid collection is identified. IMPRESSION: No ultrasound evidence of left lower extremity deep venous thrombosis. Dictated by: Dictated on workstation # [id number]
[2020-07-18 11:03] LABS: HEMOGLOBIN 12.3 g/dL (13.3-17.7); MEAN PLATELET VOLUME 11.1 fL (9.0-12.2); WHITE BLOOD COUNT 12.1 10^3/uL (4.3-11.0)
[2020-07-18 11:22] LABS: ALBUMIN 3.9 GM/DL (3.2-4.5); BILIRUBIN,TOTAL 0.4 MG/DL (0.1-1.0); CALCIUM 9.4 MG/DL (8.5-10.1); CREATININE SERUM 1.2 MG/DL (0.60-1.30); POTASSIUM 4.2 MMOL/L (3.6-5.0); TOTAL PROTEIN 6.9 GM/DL (6.4-8.2)
== END ==
LOC: RAD 10:18
PROVIDERS: ATTEND Nurse Practitioner Family
DX: R22.42 Localized swelling, mass and lump, left lower limb (principal)
CPT/HCPCS: 36415; 80053; 85027; 85379

== ENCOUNTER → 2020-07-23 | Outpatient (CLI) | payer MEDICARE | LOC: LABNPT 08:29 | PROVIDERS: ATTEND Internal Medicine Critical Care Medicine | DX: Z01.89 Encounter for other specified special examinations (principal); Z20.828 Contact with and (suspected) exposure to other viral communicable diseases | CPT/HCPCS: 87635 ==

== ENCOUNTER 2020-07-25 20:03 | Outpatient (CLI) | payer MEDICARE | END 2020-07-26 04:02 | disposition home or self-care (01) | LOC: SLEEP 20:03 | PROVIDERS: ATTEND Nurse Practitioner Family | DX: Z01.89 Encounter for other specified special examinations (principal); G47.33 Obstructive sleep apnea (adult) (pediatric); G47.36 Sleep related hypoventilation in conditions classified elsewhere ==

== ENCOUNTER → 2020-08-24 | Outpatient (CLI) | payer MEDICARE ==
[2020-08-24 10:16] LABS: ABSOLUTE RETIC # 77 10e9/uL (24-90); BASOPHILS # (AUTO) 0.1 10^3/uL (0.0-0.1); BASOPHILS % (AUTO) 0 % (0-10); EOSINOPHILS # (AUTO) 0.7 10^3/uL (0.0-0.3); EOSINOPHILS % (AUTO) 6 % (0-10); HEMATOCRIT 40 % (40-54); HEMOGLOBIN 12.5 g/dL (13.3-17.7); LYMPHOCYTES # (AUTO) 4.5 10^3/uL (1.0-4.0); LYMPHOCYTES % (AUTO) 37 % (12-44); MEAN CORPUSCULAR HEMOGLOBIN 27 pg (25-34); MEAN CORPUSCULAR HGB CONC 32 g/dL (32-36); MEAN CORPUSCULAR VOLUME 85 fL (80-99); MEAN PLATELET VOLUME 10.9 fL (9.0-12.2); MONOCYTES # (AUTO) 0.9 10^3/uL (0.0-1.0); MONOCYTES % (AUTO) 7 % (0-12); NEUTROPHILS # (AUTO) 6.1 10^3/uL (1.8-7.8); NEUTROPHILS % (AUTO) 50 % (42-75); PLATELET COUNT 280 10^3/uL (130-400); RETICULOCYTE % 1.65 % (0.50-2.40); WHITE BLOOD COUNT 12.2 10^3/uL (4.3-11.0)
[2020-08-24 10:38] LABS: BASOPHILS % (MANUAL) 1 %; EOSINOPHILS % (MANUAL) 5 %; LYMPHOCYTES % (MANUAL) 36 %; MONOCYTES % (MANUAL) 9 %; NEUTROPHILS % (MANUAL) 49 %
[2020-08-24 10:39] LABS: RBC MORPH NORMAL
== END ==
LOC: LAB 09:57
PROVIDERS: ATTEND Family Medicine
DX: D72.829 Elevated white blood cell count, unspecified (principal)
CPT/HCPCS: 36415; 85007; 85027; 85045; 85055

== ENCOUNTER → 2020-09-07 | Outpatient (CLI) | payer MEDICARE | LOC: LABNPT 08:48 | PROVIDERS: ATTEND Nurse Practitioner Family | DX: Z01.89 Encounter for other specified special examinations (principal); Z20.822 Contact with and (suspected) exposure to COVID-19 | CPT/HCPCS: 87635 ==

== ENCOUNTER 2020-09-11 20:05 | Outpatient (CLI) | payer MEDICARE | END 2020-09-12 05:20 | disposition home or self-care (01) | LOC: SLEEP 20:05 | PROVIDERS: ATTEND Nurse Practitioner Family | DX: Z01.89 Encounter for other specified special examinations (principal); G47.33 Obstructive sleep apnea (adult) (pediatric); G47.36 Sleep related hypoventilation in conditions classified elsewhere; R06.00 Dyspnea, unspecified; F17.201 Nicotine dependence, unspecified, in remission | CPT/HCPCS: 95811 ==

== ENCOUNTER → 2020-09-25 | Outpatient (CLI) | payer MEDICARE | LOC: CARD 08:30 | PROVIDERS: ATTEND Internal Medicine Cardiovascular Disease | DX: I08.0 Rheumatic disorders of both mitral and aortic valves (principal); I11.9 Hypertensive heart disease without heart failure | CPT/HCPCS: 93306 ==

== ENCOUNTER → 2021-07-10 | Outpatient (CLI) | payer MEDICARE ==
[~2021-07-10] MED LIST changes: +METH-742 PO; -METH10TA2 PO
--- NOTE | 2021-07-10 08:41 | Diagnostic Imaging Report ---
PROCEDURE: US Thyroid. TECHNIQUE: Multiple Real-time grayscale images were obtained of the thyroid in various projections. INDICATION: Low TSH. FINDINGS: The right lobe measures 4 x 2 x 2.7 cm. The left lobe measures 4.4 x 2 x 1.4 cm. There are anechoic cysts within both lobes. The largest is in the upper portion of the left lobe measuring 1.1 x 0.7 cm. This shows a very small amount of calcification along the peripheral wall. There is normal blood flow with Doppler sampling. IMPRESSION: Benign-appearing cysts within the thyroid bilaterally. TI-RADS 2 Dictated by: Dictated on workstation # [id number]
== END ==
LOC: RAD 07:47
PROVIDERS: ATTEND Family Medicine
DX: E04.1 Nontoxic single thyroid nodule (principal)
CPT/HCPCS: 76536

== ENCOUNTER 2021-11-04 20:02 | Observation (INO) | payer MEDICARE ==
[~2021-11-04] VITALS: Ht 180.3 cm; Wt 105.4 kg
--- NOTE | 2021-11-04 20:24 | ED Chest Pain ---
General Chief Complaint: Chest Pain Stated Complaint: STENT PLACEMENT X 2 WKS/CP/L ARM PAIN Source: patient Exam Limitations: no limitations History of Present Illness Date Seen by Provider: Nov 04, 2021 Time Seen by Provider: 20:10 Initial Comments Patient is a 81-year-old male who presents to the emergency department with a chief complaint of substernal chest pain radiating to both arms and hands onset around 3:00 this afternoon while he was putting a barber on his lawnmower. Patient states he was sitting down at the time while doing this activity and noticed gradual onset of discomfort he said it was pretty significant. It caused him to stop his activity, climbing his truck and go back home. He laid down for about an hour hoping that the symptoms would resolve, he woke up and they have not improved. Patient has been waiting for the symptoms to go away at home since that time. He denies any associated worsening shortness of breath, sweating or nausea. He had recent stent placement by Dr. Figueroa at [facility] about 2 weeks ago. He is currently taking Plavix and maintains compliance with his daily medications. He denies recent illnesses such as fevers, chills, cough or congestion. He has a consultation with a cardiovascular surgeon tomorrow regarding the valve replacement that he does not want to miss. He did take 2 full-strength aspirin prior to coming in [facility]. He does complain of a little swelling in his left leg greater than his right leg. This is chronic. All other review of systems reviewed and negative except as stated Timing/Duration: 4-6 hours Severity/Quality: aching, other ("muscles sore") Location: central Radiation: arms (arms and hands) Activities at Onset: activity Prior CP/Workup: cardiac cath (recent stent ) ASA po JAILOR: Yes NTG SL JAILOR: No Associated Symptoms: No diaphoresis, No dizziness; shortness of breath (chronis) Allergies and Home Medications Allergies Coded Allergies: peanut (Verified Allergy, Unknown, 03/12/18) strawberry (Verified Allergy, Unknown, 03/12/18) Patient Home Medication List Home Medication List Reviewed: Yes Aspirin (Aspirin EC) 81 Mg Tablet., 81 MG PO DAILY, (Reported) Entered as Reported by: LEVI VELA on 11/05/21 1010 Last Action: Reviewed Atorvastatin Calcium (Atorvastatin Calcium) 10 Mg Tablet, 10 MG PO HS, (Reported) Entered as Reported by: LEVI VELA on 11/05/211009 Last Action: Reviewed Clopidogrel Bisulfate (Clopidogrel) 75 Mg Tablet, 75 MG PO DAILY, (Reported) Entered as Reported by: LEVI VELA on 11/05/211009 Last Action: Reviewed Docusate Sodium (Stool Softener) 100 Mg Tablet, 100 MG PO HS, (Reported) Entered as Reported by: LEVI VELA on 11/05/211009 Last Action: Reviewed Enalapril Maleate (Enalapril Maleate) 10 Mg Tablet, 10 MG PO DAILY, (Reported) Entered as Reported by: JACQUELYN PACHECO on 10/16/17 1054 Last Action: Reviewed Furosemide (Furosemide) 20 Mg Tablet, 20 MG PO DAILY PRN for FLUID RETENTION, (Reported) Entered as Reported by: LEVI VELA on 11/05/211009 Last Action: Reviewed Methadone HCl (Methadone HCl) 10 Mg Tablet, 15 MG PO BID, (Reported) Entered as Reported by: JACQUELYN PACHECO on 10/16/17 1058 Last Action: Reviewed Methadone HCl (Methadone HCl) 10 Mg Tablet, 20 MG PO 1200, (Reported) Entered as Reported by: LEVI VELA on 11/05/211009 Last Action: Reviewed Metoprolol Succinate (Metoprolol Succinate) 25 Mg Tab.er.24h, 25 MG PO HS, (Reported) Entered as Reported by: JACQUELYN PACHECO on 10/16/17 1054 Last Action: Reviewed Naproxen Sodium (Naproxen Sodium) 220 Mg Tablet, 220-440 MG PO BID PRN for PAIN- MILD (1-4), (Reported) Entered as Reported by: LEVI VELA on 11/05/211009 Last Action: Reviewed [place]-3 Fatty Acids/Fish Oil ([place] 3 1,000 mg Softgel) 300 Mg-1,000 Mg Capsule, 1 EACH PO 1200, (Reported) Entered as Reported by: LEVI VELA on 11/05/211009 Last Action: Reviewed Pantoprazole Sodium (Pantoprazole Sodium) 40 Mg Tablet.dr, 40 MG PO HS, (Reported) Entered as Reported by: LEVI VELA on 11/05/211009 Last Action: Reviewed Potassium Chloride (K-Tab ER) 10 Meq Tablet.er, 10 MEQ PO DAILY PRN for FLUID RETENTION, (Reported) Entered as Reported by: LEVI VELA on 11/05/21 1010 Last Action: Reviewed Simethicone (Simethicone) 180 Mg Capsule, 180 MG PO TID PRN for GAS, (Reported) Entered as Reported by: LEVI VELA on 11/05/21 1010 Last Action: Reviewed Discontinued Medications Metronidazole (Metronidazole) 500 Mg Tablet, 500 MG PO TID Discontinued Reason: No Longer Taking Prescribed by: ROLF BRISENO on 03/17/181825 Last Action: Discontinued Nitroglycerin (Nitroglycerin) 0.4 Mg Tab.subl, 0.4 MG SL UD Discontinued Reason: No Longer Taking Prescribed by: NITIN VILLAREAL on 07/12/181016 Last Action: Discontinued Pantoprazole Sodium (Pantoprazole Sodium) 40 Mg Tablet.dr, 40 MG PO DAILY Discontinued Reason: Duplicate Order Prescribed by: ROLF BRISENO on 03/17/181825 Last Action: Discontinued Review of Systems Review of Systems Constitutional: see HPI EENTM: No Symptoms Reported Respiratory: SOA at Rest (chronic) Cardiovascular: Chest Pain Gastrointestinal: No Symptoms Reported Genitourinary: No Symptoms Reported Musculoskeletal: muscle pain Skin: no symptoms reported Psychiatric/Neurological: No Symptoms Reported All Other Systems Reviewed Negative Unless Noted: Yes Past Dsvuczb-Mieeaj-Nddtql Hx Immunizations Up To Date Tetanus Booster (TDap): Unknown Seasonal Allergies Seasonal Allergies: Yes Past Medical History Surgeries: Yes (r ing hernia, ) Gallbladder Respiratory: Yes Sleep Apnea Currently Using CPAP: No Cardiac: Yes (leaky valve) Heart Murmur, Hypertension Neurological: No Genitourinary: No Gastrointestinal: Yes Gall Bladder Disease Musculoskeletal: Yes Arthritis, Fibromyalgia Endocrine: No HEENT: No Cancer: No Psychosocial: No Integumentary: No Blood Disorders: No Adverse Reaction/Blood Tranf: No Family Medical History Hypertension Physical Exam Vital Signs Vital Signs - First Documented 11/04/21 20:05 Temp 36.4 Pulse 77 Resp 20 B/P (MAP) 202/104 (136) Pulse Ox 96 Capillary Refill : Height, Weight, BMI Height: 5'11.00" Weight: 214lbs. 9.0oz. 97.731836zj; 29.9 BMI Method:Stated General Appearance: No Apparent Distress, WD/WN HEENT: PERRL/EOMI Neck: Normal Inspection Respiratory: Lungs Clear, Normal Breath Sounds, No Accessory Muscle Use, No Respiratory Distress Cardiovascular: Regular Rate, Rhythm, Normal Peripheral Pulses, Systolic Murmur (heard throughout the precordium) Gastrointestinal: Non Tender, Soft Extremity: Normal Inspection, Pedal Edema (left greater than right 2-3+) Neurologic/Psychiatric: Alert, Oriented x3, No Motor/Sensory Deficits, Normal Mood/Affect Skin: Normal Color, Warm/Dry Progress/Results/Core Measures Results/Orders Lab Results Laboratory Tests Test 11/04/21 20:15 Range/Units White Blood Count 17.7 H 4.3-11.0 10^3/uL Red Blood Count 5.14 4.30-5.52 10^6/uL Hemoglobin 12.7 L 13.3-17.7 g/dL Hematocrit 41 40-54 % Mean Corpuscular Volume 80 80-99 fL Mean Corpuscular Hemoglobin 25 25-34 pg Mean Corpuscular Hemoglobin Concent 31 L 32-36 g/dL Red Cell Distribution Width 16.4 H 10.0-14.5 % Platelet Count 308 130-400 10^3/uL Mean Platelet Volume 11.4 9.0-12.2 fL Immature Granulocyte % (Auto) 1 % Neutrophils (%) (Auto) 71 42-75 % Lymphocytes (%) (Auto) 23 12-44 % Monocytes (%) (Auto) 5 0-12 % Eosinophils (%) (Auto) 1 0-10 % Basophils (%) (Auto) 0 0-10 % Neutrophils # (Auto) 12.5 H 1.8-7.8 10^3/uL Lymphocytes # (Auto) 4.1 H 1.0-4.0 10^3/uL Monocytes # (Auto) 0.8 0.0-1.0 10^3/uL Eosinophils # (Auto) 0.2 0.0-0.3 10^3/uL Basophils # (Auto) 0.1 0.0-0.1 10^3/uL Immature Granulocyte # (Auto) 0.1 0.0-0.1 10^3/uL Neutrophils % (Manual) 72 % Lymphocytes % (Manual) 17 % Monocytes % (Manual) 11 % Blood Morphology Comment NORMAL Prothrombin Time 12.9 12.2-14.7 SEC INR Comment 0.9 0.8-1.4 Activated Partial Thromboplast Time 32 24-35 SEC Sodium Level 140 135-145 MMOL/L Potassium Level 4.2 3.6-5.0 MMOL/L Chloride Level 104 98-107 MMOL/L Carbon Dioxide Level 22 21-32 MMOL/L Anion Gap 14 5-14 MMOL/L Blood Urea Nitrogen 15 7-18 MG/DL Creatinine 1.20 0.60-1.30 MG/DL Estimat Glomerular Filtration Rate 62 BUN/Creatinine Ratio 13 Glucose Level 123 H 70-105 MG/DL Calcium Level 9.7 8.5-10.1 MG/DL Corrected Calcium 9.7 8.5-10.1 MG/DL Magnesium Level 2.1 1.6-2.4 MG/DL Total Bilirubin 0.5 0.1-1.0 MG/DL Aspartate Amino Transf (AST/SGOT) 31 5-34 U/L Alanine Aminotransferase (ALT/SGPT) 14 0-55 U/L Alkaline Phosphatase 71 40-136 U/L Myoglobin 428.5 H 10.0-92.0 NG/ML Troponin I 1.486 *H <0.028 NG/ML Total Protein 6.8 6.4-8.2 GM/DL Albumin 4.0 3.2-4.5 GM/DL My Orders Orders - NAI ALONZO MD Ekg Tracing (11/04/21 20:07) Cbc With Automated Diff (11/04/21 20:25) Magnesium (11/04/21 20:25) Chest 1 View, Ap/Pa Only (11/04/21 20:25) Comprehensive Metabolic Panel (11/04/21 20:25) Myoglobin Serum (11/04/21 20:25) Protime With Inr (11/04/21 20:25) Partial Thromboplastin Time (11/04/21 20:25) O2 (11/04/21 20:25) Monitor-Rhythm Ecg Trace Only (11/04/21 20:25) Ed Iv/Invasive Line Start (11/04/21 20:25) Troponin I Rex (11/04/21 20:25) Manual Differential (11/04/21 20:15) Metoprolol Tartrate (Ir) Tab (Lopressor (11/04/21 22:00) Enoxaparin Injection (Lovenox Injection) (11/04/21 22:00) Vital Signs/I&O 11/04/21 20:05 Temp 36.4 Pulse 77 Resp 20 B/P (MAP) 202/104 (136) Pulse Ox 96 Initial ECG Impression Date: Nov 04, 2021 Initial ECG Impression Time: 20:07 Initial ECG Rate: 78 Initial ECG Rhythm: Normal Sinus Initial ECG Intervals OR interval 226 QRS 102 QTc 479 Comment Q waves inferior leads, no ectopy isolated ST elevation of 1 mm in lead III. No reciprocal depression noted. No contiguous leads with elevation. Diagnostic Imaging Diagonstic Imaging: Xray Plain Films/CT/US/NM/MRI: chest Comments [facility] [place] NAME: LE LAINEZ [facility] REC#: [id number] PT STATUS: REG ER : 1940 PHYSICIAN: NAI ALONZO MD ADMIT DATE: 11/04/21/ER Draft Date of Exam:11/04/21 CHEST 1 VIEW, AP/PA ONLY Indication: Chest pain. Findings: There is cardiomegaly. The mediastinum is unremarkable. There is no pleural effusion, pneumothorax or pneumonia. Impression: Cardiomegaly. No acute cardiopulmonary abnormality.. Dictated on workstation # [id number] Dict: 11/04/212045 Trans: 11/04/212047 [facility] [id number] Interpreted by: BERT AYALA MD Electronically signed by: Departure Communication (Admissions) Time/Spoke to Admitting Phy: 21:[address] Briseno Time/Spoke to Consulting Phy: 21:[address] Crain Impression Primary Impression: Chest pain Qualified Codes: R07.9 - Chest pain, unspecified Additional Impressions: Elevated troponin CAD (coronary artery disease) Qualified Codes: I25.119 - Atherosclerotic heart disease of [place] coronary artery with unspecified angina pectoris Disposition: ADMITTED INPATIENT Condition: Stable Admissions Decision to Admit Reason: Admit from ER (General) Decision to Admit/Date: Nov 04, 2021 Time/Decision to Admit Time: 21:46 Departure-Patient Inst. Referrals: ROLF BRISENO MD (PCP/Family) Primary Care Physician NAI ALONZO MD Nov 04, 2021 20:24
[2021-11-04 20:31] LABS: BASOPHILS # (AUTO) 0.1 10^3/uL (0.0-0.1); BASOPHILS % (AUTO) 0 % (0-10); EOSINOPHILS # (AUTO) 0.2 10^3/uL (0.0-0.3); EOSINOPHILS % (AUTO) 1 % (0-10); HEMATOCRIT 41 % (40-54); HEMOGLOBIN 12.7 g/dL (13.3-17.7); LYMPHOCYTES # (AUTO) 4.1 10^3/uL (1.0-4.0); LYMPHOCYTES % (AUTO) 23 % (12-44); MEAN CORPUSCULAR HEMOGLOBIN 25 pg (25-34); MEAN CORPUSCULAR HGB CONC 31 g/dL (32-36); MEAN CORPUSCULAR VOLUME 80 fL (80-99); MEAN PLATELET VOLUME 11.4 fL (9.0-12.2); MONOCYTES # (AUTO) 0.8 10^3/uL (0.0-1.0); MONOCYTES % (AUTO) 5 % (0-12); NEUTROPHILS # (AUTO) 12.5 10^3/uL (1.8-7.8); NEUTROPHILS % (AUTO) 71 % (42-75); PLATELET COUNT 308 10^3/uL (130-400); WHITE BLOOD COUNT 17.7 10^3/uL (4.3-11.0)
[2021-11-04 20:38] LABS: INR 0.9 (0.8-1.4); PROTHROMBIN TIME PATIENT 12.9 SEC (12.2-14.7)
--- NOTE | 2021-11-04 20:48 | Diagnostic Imaging Report ---
Indication: Chest pain. Findings: There is cardiomegaly. The mediastinum is unremarkable. There is no pleural effusion, pneumothorax or pneumonia. Impression: Cardiomegaly. No acute cardiopulmonary abnormality.. Dictated by: Dictated on workstation # [id number]
[2021-11-04 20:50] LABS: BILIRUBIN,TOTAL 0.5 MG/DL (0.1-1.0); CALCIUM 9.7 MG/DL (8.5-10.1); CREATININE SERUM 1.2 MG/DL (0.60-1.30); MAGNESIUM 2.1 MG/DL (1.6-2.4); POTASSIUM 4.2 MMOL/L (3.6-5.0); TOTAL PROTEIN 6.8 GM/DL (6.4-8.2)
[2021-11-04 20:56] LABS: LYMPHOCYTES % (MANUAL) 17 %; MONOCYTES % (MANUAL) 11 %; NEUTROPHILS % (MANUAL) 72 %; RBC MORPH NORMAL
[2021-11-04] MEDS ORDERED: ENOXAPARIN 100 MG/1 ML (LOVENOX) SYR SC ONE (22:00)
[2021-11-04] MEDS ORDERED: meTOprolol TARTRATE 25 MG (LOPRESSOR) TABLET PO ONE (22:00)
[2021-11-05] VITALS (24 sets, daily range): BP systolic 129–202; BP diastolic 64–104
[2021-11-05] MEDS ORDERED: CATHETER FLUSH 10 ML SYR IVP PRN (01:00)
[2021-11-05] MEDS ORDERED: NITROGLYCERIN 0.4 MG SL TABS BTL 25'S SL PRN (01:00)
[2021-11-05] MEDS ORDERED: ONDANSETRON 4 MG/2 ML (SDV) Z0FRAN IV PRN (01:00)
[2021-11-05] MEDS ORDERED: RT-ALBUTEROL SULF 2.5 MG/3 ML PRE-MIX VIAL INH PRN (03:45)
[2021-11-05] MEDS ORDERED: CATHETER FLUSH 10 ML SYR IVP SCH (06:00)
[2021-11-05] MEDS: METHADONE 10 MG (DOLOPHINE) TAB PO SCH ×2 (06:01→10:22)
[2021-11-05] MEDS ORDERED: HEParin (CATH LAB) 2,000 ML IV ONE (07:21)
[2021-11-05] MEDS ORDERED: fentaNYL INJ 100 MCG/2 ML AMP ONE (07:21)
[2021-11-05] MEDS ORDERED: MIDAZOLAM 5 MG/5 ML (VERSED) VIAL ONE (07:21)
[2021-11-05] MEDS ORDERED: LIDOCAINE 1% INJ 20 ML VIAL ONE (07:21)
[2021-11-05] MEDS ORDERED: NS IV 1000 ML 1,000 ML ONE (07:22)
--- NOTE | 2021-11-05 07:47 | Conscious Sedation/ASA ---
Conscious Sedation Pre-Proced Time 07:46 ASA Score 3 For ASA 3 and 4: Consider anesthesia and medical clearance. Also, for patients with a history of failed moderate sedation consider anesthesia. Airway Lungs Heart ASA score ASA 1: a normal healthy patient ASA 2: a patient with a mild systemic disease (mid diabetes, controlled hypertension, obesity ASA 3: a patient with a severe systemic disease that limits activity (angina, COPD, prior Myocardial infarction) ASA 4: a patient with an incapacitating disease that is a constant threat to life (CHF, renal failure) ASA 5: a moribund patient not expected to survive 24 hrs. (ruptured aneurysm) ASA 6: a declared brain- patient whose organs are being harvested. For emergent operations, add the letter E after the classification Mallampati Classification Grade 3 Sedation Plan Analgesia, Amnesia, Plan communicated to team members, Discussed options with patient/fam, Discussed risks with patient/fam The patient is an appropriate candidate to undergo the planned procedure, sedation, and anesthesia. The patient immediately re-assessed prior to indication. NITIN VILLAREAL MD Nov 05, 2021 07:47
[2021-11-05] MEDS ORDERED: HEParin 1000 UNIT/ML (10ML VIAL) FOR BOLUS ONE (07:51)
--- NOTE | 2021-11-05 07:52 | Consultation-Cardiology ---
HPI-Cardiology Cardiology Consultation Date of Consultation 11/05/21 Date of Admission Time Seen by Provider: 07:47 Indication: Chest pain HPI 81 years old gentleman with a history of aortic valve stenosis, referred to [facility] for evaluation for TAVR, underwent cardiac catheterization and stent placement about 8 days ago. He was doing well, has been having some shortness of breath. Had an episode of chest pain and described it as dull achiness radiating to the left shoulder and left arm, persisted all night. Troponin was elevated. I was called with the elevated troponin and activated the [employer] team. On my evaluation he was still having achiness on the left arm and left shoulder. Not actively short of breath. No palpitation Home Medications & Allergies Allergies: Coded Allergies: peanut (Verified Allergy, Unknown, 03/12/18) strawberry (Verified Allergy, Unknown, 03/12/18) Home Medication List Reviewed: Yes [id number] Hx Patient Social History Marital Status: Employed/Student: employed, retired Smoking Status: Current Someday Smoker Type Used: Cigarettes 2nd Hand Smoke Exposure: Yes Recent Hopitalizations: No Have you traveled recently?: No Alcohol Use?: No Immunizations Up To Date Tetanus Booster (TDap): Unknown Date of Pneumonia Vaccine: Oct 16, 2014 Date of Influenza Vaccine: Apr 19, 2017 Past Medical History Discussed below Family Medical History Significant Family History: Hypertension Family Medical Hx Noncontributory Review of Systems-General Review of Systems Constitutional: see HPI EENTM: see HPI, no symptoms reported Respiratory: see HPI; No cough; dyspnea on exertion; No hemoptysis, No orthopnea, No phlegm; short of breath; No stridor, No wheezing, No other Cardiovascular: see HPI; No chest pain, No edema, No Hx of Intervention, No palpitations, No syncope, No vascular heart diseas, No other Gastrointestinal: no symptoms reported, see HPI Genitourinary: no symptoms reported, see HPI Musculoskeletal: muscle pain Skin: no symptoms reported Psychiatric/Neurological: No Symptoms Reported All Other Systems Reviewed Negative Unless Noted: Yes Reviewed Test Results Reviewed Test Results Lab Laboratory Tests Test 11/04/21 20:15 11/05/21 05:09 Range/Units White Blood Count 17.7 H 4.3-11.0 10^3/uL Red Blood Count 5.14 4.30-5.52 10^6/uL Hemoglobin 12.7 L 13.3-17.7 g/dL Hematocrit 41 40-54 % Mean Corpuscular Volume 80 80-99 fL Mean Corpuscular Hemoglobin 25 25-34 pg Mean Corpuscular Hemoglobin Concent 31 L 32-36 g/dL Red Cell Distribution Width 16.4 H 10.0-14.5 % Platelet Count 308 130-400 10^3/uL Mean Platelet Volume 11.4 9.0-12.2 fL Immature Granulocyte % (Auto) 1 % Neutrophils (%) (Auto) 71 42-75 % Lymphocytes (%) (Auto) 23 12-44 % Monocytes (%) (Auto) 5 0-12 % Eosinophils (%) (Auto) 1 0-10 % Basophils (%) (Auto) 0 0-10 % Neutrophils # (Auto) 12.5 H 1.8-7.8 10^3/uL Lymphocytes # (Auto) 4.1 H 1.0-4.0 10^3/uL Monocytes # (Auto) 0.8 0.0-1.0 10^3/uL Eosinophils # (Auto) 0.2 0.0-0.3 10^3/uL Basophils # (Auto) 0.1 0.0-0.1 10^3/uL Immature Granulocyte # (Auto) 0.1 0.0-0.1 10^3/uL Neutrophils % (Manual) 72 % Lymphocytes % (Manual) 17 % Monocytes % (Manual) 11 % Blood Morphology Comment NORMAL Prothrombin Time 12.9 12.2-14.7 SEC INR Comment 0.9 0.8-1.4 Activated Partial Thromboplast Time 32 24-35 SEC Sodium Level 140 135-145 MMOL/L Potassium Level 4.2 3.6-5.0 MMOL/L Chloride Level 104 98-107 MMOL/L Carbon Dioxide Level 22 21-32 MMOL/L Anion Gap 14 5-14 MMOL/L Blood Urea Nitrogen 15 7-18 MG/DL Creatinine 1.20 0.60-1.30 MG/DL Estimat Glomerular Filtration Rate 62 BUN/Creatinine Ratio 13 Glucose Level 123 H 70-105 MG/DL Calcium Level 9.7 8.5-10.1 MG/DL Corrected Calcium 9.7 8.5-10.1 MG/DL Magnesium Level 2.1 1.6-2.4 MG/DL Total Bilirubin 0.5 0.1-1.0 MG/DL Aspartate Amino Transf (AST/SGOT) 31 5-34 U/L Alanine Aminotransferase (ALT/SGPT) 14 0-55 U/L Alkaline Phosphatase 71 40-136 U/L Myoglobin 428.5 H 10.0-92.0 NG/ML Troponin I 1.486 *H 12.366 *H <0.028 NG/ML Total Protein 6.8 6.4-8.2 GM/DL Albumin 4.0 3.2-4.5 GM/DL Triglycerides Level 109 <150 MG/DL Cholesterol Level 140 < 200 MG/DL LDL Cholesterol Direct 92 1-129 MG/DL VLDL Cholesterol 22 5-40 MG/DL HDL Cholesterol 35 L 40-60 MG/DL Physical Exam Physical Exam Vital Signs Vital Signs - First Documented 11/04/21 11/05/21 20:05 01:30 Temp 36.4 Pulse 77 Resp 20 B/P (MAP) 202/104 (136) Pulse Ox 96 O2 Flow Rate 2.00 Capillary Refill : Less Than 3 Seconds Height, Weight, BMI Height: 5'11.00" Weight: 214lbs. 9.0oz. 97.744200bz; 32.42 BMI Method:Stated General Appearance: No Apparent Distress, WD/WN Eyes: Bilateral Eye Normal Inspection, Bilateral Eye PERRL, Bilateral Eye EOMI HEENT: PERRL/EOMI Neck: Normal Inspection Respiratory: Lungs Clear, Normal Breath Sounds, No Accessory Muscle Use, No Respiratory Distress Cardiovascular: Regular Rate, Rhythm, Normal Peripheral Pulses, Systolic Murmur (heard throughout the precordium) Gastrointestinal: Non Tender, Soft Back: Normal Inspection, No CVA Tenderness, No Vertebral Tenderness Extremity: Normal Inspection, Pedal Edema (left greater than right 2-3+) Neurologic/Psychiatric: Alert, Oriented x3, No Motor/Sensory Deficits, Normal M ood/Affect Skin: Normal Color, Warm/Dry Lymphatic: No Adenopathy A/P-Cardiology Admission Diagnosis Non-ST elevation myocardial infarction Coronary artery disease Aortic valve stenosis Hypertension Assessment/Plan Non-ST elevation myocardial, having active chest pain, I will proceed with emergency cardiac catheterization possible PTCA Severe aortic valve stenosis, secondary to rheumatic heart disease. [place] rdiogram done in August 2021 showing ejection fraction 55-60 percent, dilated left atrium, mild AR, moderate to severe aortic valve stenosis, peak gradient across the valve 84 mmHg, mean gradient 46 mmHg, valve area 1.1 cm. Patient has been becoming more short of breath over the past 6 months to 1 year. Seen at [facility] for evaluation for possible KIRAN Dyspnea on exertion, still having significant dyspnea with minimal exertion. KAYE, maintained on CPAP Coronary artery disease, cardiac catheterization done on July 12, 2018 for chest pain which showed mild coronary artery disease nonobstructive disease with severe aortic valve stenosis, peak to peak gradient across the aortic valve was 48 mmHg, having non-ST elevation myocardial infarction, I am planning to proceed with emergency cardiac catheterization Hypertension, restart home medication monitor blood pressure Hyperlipidemia, resume statin and monitor lipids Mild bilateral carotid stenosis, ultrasound was done in September 2020. History of rheumatic fever and rheumatic heart disease Fibromyalgia for which he takes methadone, generalized body ache, followed by primary care physician Tobaccoism, smokes few cigarettes a day, about one pack a week. Discussed smoking cessation and he prefer to continue on smoking Depression, maintained on Wellbutrin 150 mg once daily Clinical Quality Measures AMI/AHF: ASA po Prior to arrival: Yes NITIN VILLAREAL MD Nov 05, 2021 07:52
[2021-11-05] MEDS ORDERED: NS IV 1000 ML 1,000 ML IV SCH (08:15)
[2021-11-05] MEDS ORDERED: PATIENT MAY USE OWN MEDS, ALL PO SCH (08:15)
[2021-11-05] MEDS: DICLOFENAC 1% GEL 100 GM (VOLTAREN) TUBE TOP SCH ×2 (09:00→12:11)
[2021-11-05] MEDS ORDERED: ASPIRIN E.C. 81 MG (ECOTRIN) TAB PO SCH (09:00)
[2021-11-05] MEDS ORDERED: CLOPIDOGREL 75 MG (PLAVIX) TABLET PO SCH (09:00)
--- NOTE | 2021-11-05 09:37 | Short Stay Summary ---
History of Present Illness History of Present Illness Reason for visit/HPI PT IS A 81 Y/O MALE WHO WAS ADMITTED TO THE HOSPITAL FROM THE EMERGENCY DEPARTMENT YESTERDAY EVENING. THE PATIENT HAS KNOWN HX OF CRITICAL AORTIC STENOSIS, HAD BEEN UNDERGOING A WORK-UP PRIOR TO VALVE REPLACEMENT AND HE HAD A HEART CATH WITH STENT PLACEMENT ABOUT 8 DAYS PRIOR. HE WAS HAVING CHEST PAIN WITH RADIATION TO HIS LEFT SHOULDER/BREAST AND ARM LAST NIGHT AND THEREFORE PRESENTED TO THE ER FOR EVAL. HE WAS QUESTIONED IF HE WANTED TO STAY AT [facility] OR GO BACK TO [place], HE DECLINED TRANSFER AND ASKED FOR WORK-UP HERE. Date of Admission Nov 04, 2021 at 21:55 Date of Discharge 11/05/21 Time Seen by Provider: 08:50 Attending Physician Rolf Briseno MD Admitting Physician Rolf Briseno MD Consult DR. VILLAREAL Allergies and Home Medications Allergies Coded Allergies: peanut (Verified Allergy, Unknown, 03/12/18) strawberry (Verified Allergy, Unknown, 03/12/18) Patient Home Medication List Home Medication List Reviewed: Yes Aspirin (Aspirin EC) 81 Mg Tablet.dr, 81 MG PO DAILY Prescribed by: NITIN VILLAREAL on 07/12/18 0949 Last Action: Reviewed Enalapril Maleate (Enalapril Maleate) 10 Mg Tablet, 10 MG PO DAILY, (Reported) Entered as Reported by: JACQUELYN PACHECO on 10/16/17 1054 Last Action: Reviewed Methadone HCl (Methadone HCl) 10 Mg Tablet, 20 MG PO TID, (Reported) Entered as Reported by: JACQUELYN PACHECO on 10/16/17 1058 Last Action: Reviewed Metoprolol Succinate (Metoprolol Succinate) 25 Mg Tab.er.24h, 25 MG PO HS, (Reported) Entered as Reported by: JACQUELYN PACHECO on 10/16/17 1054 Last Action: Reviewed Metronidazole (Metronidazole) 500 Mg Tablet, 500 MG PO TID Prescribed by: ROLF BRISENO on 03/17/18 1826 Last Action: Reviewed Nitroglycerin (Nitroglycerin) 0.4 Mg Tab.subl, 0.4 MG SL UD Prescribed by: NITIN VILLAREAL on 07/12/18 1017 Last Action: Reviewed Pantoprazole Sodium (Pantoprazole Sodium) 40 Mg Tablet.dr, 40 MG PO DAILY Prescribed by: ROLF BRISENO on 03/17/181825 Last Action: Reviewed Past [id number] Hx Patient Social History Marrital Status: Living Status: LIVES AT HOME ALONE ( PASSED IN HALF-WAY) Employed/Student: retired Smoking Status: Current Someday Smoker 2nd Hand Smoke Exposure: Yes Recent Hopitalizations: No Have you traveled recently?: No Alcohol Use?: No Pt feels they are or have been: No Tobacco type used: Cigarettes Immunizations Up To Date Tetanus Booster (TDap): Unknown Date of Pneumonia Vaccine: Oct 16, 2014 Date of Influenza Vaccine: Apr 19, 2017 Seasonal Allergies Seasonal Allergies: Yes Surgeries Yes (RIGHT INGUINAL HERNIA REPAIR.) Gallbladder Respiratory Yes COPD Currently Using CPAP: No Cardiovascular Yes (leaky valve) Heart Murmur, Hypertension, Valvular Heart Disease Neurological No Genitourinary No Gastrointestinal Yes Gall Bladder Disease Musculoskeletal Yes Arthritis, Fibromyalgia Endocrine History of Endocrine Disorders: No HEENT History of HEENT Disorders: No Cancer No Psychosocial History of Psychiatric Problem: No Integumentary History of Skin or Integumenta: No Blood Transfusions History of Blood Disorders: No Adverse Reaction to a Blood Tr: No Reviewed Nursing Assessment Reviewed/Agree w Nursing PMH: Yes Family Medical History Significant Family History: Hypertension Review of Systems Constitutional: No chills, No fever, No malaise, No weakness EENTM: No hoarseness, No throat pain Respiratory: No cough; dyspnea on exertion, short of breath Cardiovascular: chest pain, Hx of Intervention; No palpitations; vascular heart diseas Gastrointestinal: No abdominal pain, No loss of appetite, No nausea, No vomiting Genitourinary: no symptoms reported Musculoskeletal: back pain, joint pain Skin: no symptoms reported Psychiatric/Neurological: Denies Anxiety, Denies Depressed, Denies Weakness All Other Systems Reviewed Negative Unless Noted: Yes Physical Exam Vital Signs Vital Signs - First Documented 11/04/21 11/05/21 20:05 01:30 Temp 36.4 Pulse 77 Resp 20 B/P (MAP) 202/104 (136) Pulse Ox 96 O2 Flow Rate 2.00 Capillary Refill : Less Than 3 Seconds Height, Weight, BMI Height: 5'11.00" Weight: 214lbs. 9.0oz. 97.053305lv; 32.42 BMI Method:Stated General Appearance: No Apparent Distress, WD/WN (PT LYING IN BED FLAT POST HEART CATH) HEENT: PERRL/EOMI, Pharynx Normal Neck: Full Range of Motion, Non Tender, Supple Respiratory: Chest Non Tender, Lungs Clear, Normal Breath Sounds, No Accessory Muscle Use, No Respiratory Distress Cardiovascular: Regular Rate, Rhythm, Systolic Murmur (III/) Gastrointestinal: Normal Bowel Sounds, No Organomegaly, No Pulsatile Mass, Non Tender, Soft Rectal: Deferred Neurologic/Psychiatric: Alert, Oriented x3, Normal Mood/Affect Skin: Normal Color, Warm/Dry, Other (RIGHT GROIN WITH POST-CATH DRESSING IN PLACE) Clinical Quality Measures AMI/AHF: ASA po Prior to arrival: Yes Short Stay Diagnosis Discharge Diagnosis-Short Stay Admission Diagnosis: CHEST PAIN RECENT CARDIAC CATH WITH STENT PLACEMENT CRITICAL AORTIC STENOSIS LEUKOCYTOSIS ELEVATED TROPONIN HYPERTENSION CHRONIC PAIN SYNDROME CHRONIC METHADONE USE ESOPHAGEL REFLUX Final Discharge Diagnosis: CHEST PAIN RECENT CARDIAC CATH WITH STENT PLACEMENT CRITICAL AORTIC STENOSIS LEUKOCYTOSIS ELEVATED TROPONIN HYPERTENSION CHRONIC PAIN SYNDROME CHRONIC METHADONE USE ESOPHAGEL REFLUX Conclusion Labs Laboratory Tests 11/04/21 20:15: White Blood Count 17.7H, Red Blood Count 5.14, Hemoglobin 12.7L, Hematocrit 41, Mean Corpuscular Volume 80, Mean Corpuscular Hemoglobin 25, Mean Corpuscular Hemoglobin Concent 31L, Red Cell Distribution Width 16.4H, Platelet Count 308, Mean Platelet Volume 11.4, Immature Granulocyte % (Auto) 1, Neutrophils (%) (Auto) 71, Lymphocytes (%) (Auto) 23, Monocytes (%) (Auto) 5, Eosinophils (%) (Auto) 1, Basophils (%) (Auto) 0, Neutrophils # (Auto) 12.5H, Lymphocytes # (Auto) 4.1H, Monocytes # (Auto) 0.8, Eosinophils # (Auto) 0.2, Basophils # (Auto) 0.1, Immature Granulocyte # (Auto) 0.1, Neutrophils % (Manual) 72, Lymphocytes % (Manual) 17, Monocytes % (Manual) 11, Blood Morphology Comment NORMAL, Prothrombin Time 12.9, INR Comment 0.9, Activated Partial Thromboplast Time 32, Sodium Level 140, Potassium Level 4.2, Chloride Level 104, Carbon Dioxide Level 22, Anion Gap 14, Blood Urea Nitrogen 15, Creatinine 1.20, Estimat Glomerular Filtration Rate 62, BUN/Creatinine Ratio 13, Glucose Level 123H, Calcium Level 9.7, Corrected Calcium 9.7, Magnesium Level 2.1, Total Bilirubin 0.5, Aspartate Amino Transf (AST/SGOT) 31, Alanine Aminotransferase (ALT/SGPT) 14, Alkaline Phosphatase 71, Myoglobin 428.5H, Troponin I 1.486*H, Total Protein 6.8, Albumin 4.0 11/05/21 05:09: Troponin I 12.366*H, Triglycerides Level 109, Cholesterol Level 140, LDL Cholesterol Direct 92, VLDL Cholesterol 22, HDL Cholesterol 35L Conclusion/Plan CHEST PAIN WITH RECENT CARDIAC CATH WITH STENT PLACEMENT AND CRITICAL AORTIC STENOSIS - DR. VILLAREAL TOOK PT TO CATH THIS MORNING, NEGATIVE FOR ACUTE CLOT OF NEW STENT. - DISCUSSED BY DR. VILLAREAL WITH [place] [facility], WILL TRANSFER PATIENT TO [place] FOR URGENT REPLACEMENT OF HIS AORTIC VALVE. LEUKOCYTOSIS - WILL NEED FURTHER WORK- UP MAY BE DUE TO HIS RECENT PROCEDURE, HOWEVER MAY ALSO BE BREWING INFECTION WHICH IS NOT YET DETECTED, WILL NEED TO KEEP CLOSE WATCH ON URINE AND LUNGS IN THE PROCESS OF HIS VALVE REPLACEMENT. CHRONIC PAIN SYNDROME WITH CHRONIC METHADONE USE - WILL NEED TO CONTINUE ON METHADONE TO PREVENT WITHDRAWAL PLAN TO TRANSFER TO [place] TODAY ROLF BRISENO MD Nov 05, 2021 09:37
[2021-11-05] MEDS ORDERED: METH-742 PO (10:10)
[2021-11-05] MEDS ORDERED: ATOR10TA66 PO (10:10)
[2021-11-05] MEDS ORDERED: SIME180C65 PO (10:10)
[2021-11-05] MEDS ORDERED: NAPR-1033 PO (10:10)
[2021-11-05] MEDS ORDERED: DOCU100T7 PO (10:10)
[2021-11-05] MEDS ORDERED: PANT40TA52 PO (10:10)
[2021-11-05] MEDS ORDERED: ASPI-1238 PO (10:10)
[2021-11-05] MEDS ORDERED: FURO20TA4 PO (10:10)
[2021-11-05] MEDS ORDERED: OMEG1CAP58 PO (10:10)
[2021-11-05] MEDS ORDERED: CLOP75TA28 PO (10:10)
[2021-11-05] MEDS ORDERED: POTA10TA PO (10:10)
[2021-11-05] MEDS ORDERED: ENALAPRIL 10 MG (VASOTEC) TAB PO SCH (10:15)
[2021-11-05] MEDS ORDERED: ENALAPRIL 10 MG (VASOTEC) TAB ONE (10:27)
[2021-11-05] MEDS ORDERED: oxyCODONE/APAP 5/325MG (PERCOCET 5) TABLET PO ONE (10:45)
[2021-11-05] MEDS ORDERED: oxyCODONE/APAP 5/325MG (PERCOCET 5) TABLET ONE (10:55)
[2021-11-05] MEDS ORDERED: METHADONE 10 MG (DOLOPHINE) TAB PO SCH ×2 (12:00→21:00)
--- NOTE | 2021-11-05 12:30 | Cardiac Cath Report ---
Cardiac Cath Report Physician (s)/Cna Hha (s) Physician NITIN VILLAREAL MD Pre-Procedure Diagnosis Pre-Procedure Diagnosis: chest pain Post-Procedure Note Procedure Start Date: Nov 05, 2021 Name of Procedure: Coronary angiogram Findings/Procedure Note PROCEDURE NOTE: 81-year-old gentleman with coronary artery disease and severe aortic valve stenosis underwent stent placement at [facility] about 8 days ago, admitted with acute chest pain, had elevation in troponin level. I decided to proceed with emergency cardiac catheterization possible PTCA. After explaining the procedure to the patient, all pros and cons were explained, all questions were answered. The patient signed the consent and then he was placed on the cardiac catheterization laboratory. Groin was prepped SL fashion local anesthesia was used. Sheath placed in the right femoral artery. Lauro right and left catheter were used to access the coronary system. At the end of the procedure the sheath was removed. Closure device was deployed FINDINGS: Hemodynamics LV was not measured aortic valve was not crossed Aorta 142/63 mean of 83 ANATOMY: Left Main is free of obstructive disease Left Anterior Descending had patent stent proximally, moderate severe stenosis at the distal LAD, small vessel nonobstructive disease Left Circumflex has mild diffuse ectasia with slow flow due to small vessel disease Right Coronary Artery is dominant artery with mild disease nonobstructive disease CONCLUSION: 1. Patent stent in the proximal LAD with moderate to severe stenosis at the distal LAD small vessel disease nonobstructive disease 2. Mild ectasia and the circumflex artery with slow flow due to small vessel disease nonobstructive disease 3. Dominant right coronary artery with mild disease DISCUSSION AND RECOMMENDATION: Patient had nonobstructive disease on his coronary angiogram, his elevated troponin is probably due to severe aortic valve stenosis. I discussed the management plan with Dr. Figueroa and will arrange for transfer to [place] for possible KIRAN Anesthesia Type: Conscious Sedation Estimated blood loss (mL): 15 ml Contrast Amount: 45 ml Total Radiation Dose: 421 mGy Post-Procedure Diagnosis Post-operative diagnosis: Non-ST elevation myocardial infarction Coronary artery disease Aortic valve stenosis Hypertension NITIN VILLAREAL MD Nov 05, 2021 12:30
== END 2021-11-05 14:45 | disposition short-term general hospital (02) ==
LOC: EDUNIT# 20:02 → ER 20:03 → CSD 21:55
PROVIDERS: ADMIT Family Medicine; ATTEND Family Medicine
DX: I21.4 Non-ST elevation (NSTEMI) myocardial infarction (principal); I25.10 Atherosclerotic heart disease of native coronary artery without angina pectoris; I35.0 Nonrheumatic aortic (valve) stenosis; I10 Essential (primary) hypertension; I65.23 Occlusion and stenosis of bilateral carotid arteries; D72.829 Elevated white blood cell count, unspecified; R77.8 Other specified abnormalities of plasma proteins; G89.4 Chronic pain syndrome; K21.9 Gastro-esophageal reflux disease without esophagitis; G47.33 Obstructive sleep apnea (adult) (pediatric); E78.2 Mixed hyperlipidemia; M79.7 Fibromyalgia; F32.A Depression, unspecified; F17.210 Nicotine dependence, cigarettes, uncomplicated; Z95.5 Presence of coronary angioplasty implant and graft; Z99.89 Dependence on other enabling machines and devices; Z95.2 Presence of prosthetic heart valve; Z79.891 Long term (current) use of opiate analgesic; Z79.899 Other long term (current) drug therapy
CPT/HCPCS: 71045; 80053; 80061; 83735; 83874; 84484 ×2; 85007; 85027; 85610; 85730; 93005 ×2; 93041; 93454; 96372 ×2; 96374; 99284; C1760; C1894; G0378; 36415

== ENCOUNTER 2021-11-12 15:27 | Emergency (ER) | payer MEDICARE ==
[~2021-11-12] VITALS: Ht 180 cm; Wt 105.4 kg
[~2021-11-12 15:27] MED LIST changes: +ATOR10TA66 PO; +CLOP75TA28 PO; +DOCU100T7 PO; +FURO20TA4 PO; +NAPR-1033 PO; +OMEG1CAP58 PO; +POTA10TA PO; +SIME180C65 PO
[2021-11-12 15:30] VITALS: BP 160/86
[2021-11-12 16:00] LABS: BASOPHILS # (AUTO) 0.1 10^3/uL (0.0-0.1); BASOPHILS % (AUTO) 0 % (0-10); EOSINOPHILS # (AUTO) 0.2 10^3/uL (0.0-0.3); EOSINOPHILS % (AUTO) 1 % (0-10); HEMATOCRIT 32 % (40-54); HEMOGLOBIN 9.9 g/dL (13.3-17.7); LYMPHOCYTES # (AUTO) 4.6 10^3/uL (1.0-4.0); LYMPHOCYTES % (AUTO) 25 % (12-44); MEAN CORPUSCULAR HEMOGLOBIN 25 pg (25-34); MEAN CORPUSCULAR HGB CONC 31 g/dL (32-36); MEAN CORPUSCULAR VOLUME 80 fL (80-99); MEAN PLATELET VOLUME 11.9 fL (9.0-12.2); MONOCYTES # (AUTO) 1.1 10^3/uL (0.0-1.0); MONOCYTES % (AUTO) 6 % (0-12); NEUTROPHILS % (AUTO) 66 % (42-75); PLATELET COUNT 328 10^3/uL (130-400); WHITE BLOOD COUNT 18.2 10^3/uL (4.3-11.0)
[2021-11-12 16:05] LABS: POTASSIUM 4.4 MMOL/L (3.6-5.0)
[2021-11-12 16:06] LABS: CALCIUM 9.5 MG/DL (8.5-10.1); PROTHROMBIN TIME PATIENT 13.5 SEC (12.2-14.7)
[2021-11-12 16:11] LABS: CREATININE SERUM 1.53 MG/DL (0.60-1.30)
[2021-11-12 16:25] LABS: LYMPHOCYTES % (MANUAL) 35 %; MONOCYTES % (MANUAL) 2 %; NEUTROPHILS % (MANUAL) 63 %; RBC MORPH NORMAL
--- NOTE | 2021-11-12 16:52 | Diagnostic Imaging Report ---
TECHNIQUE: Live grayscale and color Doppler ultrasound was performed of the left groin. REASON FOR EXAM: Recent catheterization via left groin for TAVR. COMPARISON: 07/18/2020. FINDINGS: The left common femoral artery, left profunda femoris artery, left superficial femoral artery, left common femoral vein, and left superficial femoral vein all have a normal appearance without evidence of stenosis or dissection. No evidence of pseudoaneurysm or AV fistula in the left groin. A hypoechoic collection is seen within the left groin without evidence of internal vascularity. IMPRESSION: 1. No evidence of pseudoaneurysm or AV fistula in the left groin. 2. Hematoma within the left groin. Dictated by: Dictated on workstation # [id number]
--- NOTE | 2021-11-12 16:58 | ED General ---
General Chief Complaint: General Problems/Pain Stated Complaint: TAVR HEART VALVE GROIN PLUG BLOW OUT Nursing Triage Note: PT AMB TO [facility] 6 PT CO OF SWOLL[place] AREA L INGUINAL AREA APPROX 30 MIN AGO, STATES HAD TAVR ON THURSDAY, STATES WAS REALEASED FROM HOSPITAL YESTERDAY. PT WAS INSTRUCTED BY DR VILLAREAL OFFICE TO COME TO ED FOR EVAL. PT STATES HAS FELT WEAK AND DIZZY TODAY. PT DENIES PAIN AT SITE Source of Information: Patient Exam Limitations: No Limitations History of Present Illness Date Seen by Provider: Nov 12, 2021 Time Seen by Provider: 16:32 Initial Comments This is a well-appearing 81-year-old male who presented to the ER via POV with complaints of increased swelling to his left inguinal area. States that he was sitting at home and felt a knot over his left inguinal region approximately 30 minutes prior to arrival. States that he had a TAVR procedure by Dr. Ahumada at [facility] on 11/08/2021, while he was hospitalized he developed hematoma of his left femoral artery post catheterization. He was released from the hospital after stabilization of hematoma on 11/11/2021. He reports no pain or burning sensation tonight. He would like area evaluated to see if he is "still bleeding". Denies fever, chills, cough, shortness of breath, nausea, vomiting, abdominal pain, numbness, tingling, or loss of sensation distal to left groin. Allergies and Home Medications Allergies Coded Allergies: peanut (Verified Allergy, Unknown, 03/12/18) strawberry (Verified Allergy, Unknown, 03/12/18) Patient Home Medication List Home Medication List Reviewed: Yes Aspirin (Aspirin EC) 81 Mg Tablet., 81 MG PO DAILY, (Reported) Entered as Reported by: LEVI VELA on 11/05/21 1010 Atorvastatin Calcium (Atorvastatin Calcium) 10 Mg Tablet, 10 MG PO HS, (Reported) Entered as Reported by: LEVI VELA on 11/05/21 1010 Clopidogrel Bisulfate (Clopidogrel) 75 Mg Tablet, 75 MG PO DAILY, (Reported) Entered as Reported by: LEVI VELA on 11/05/21 1010 Docusate Sodium (Stool Softener) 100 Mg Tablet, 100 MG PO HS, (Reported) Entered as Reported by: LEVI VELA on 11/05/21 1010 Enalapril Maleate (Enalapril Maleate) 10 Mg Tablet, 10 MG PO DAILY, (Reported) Entered as Reported by: JACQUELYN PACHECO on 10/16/17 1054 Furosemide (Furosemide) 20 Mg Tablet, 20 MG PO DAILY PRN for FLUID RETENTION, (Reported) Entered as Reported by: LEVI VELA on 11/05/21 1010 Methadone HCl (Methadone HCl) 10 Mg Tablet, 15 MG PO BID, (Reported) Entered as Reported by: JACQUELYN PACHECO on 10/16/17 1058 Methadone HCl (Methadone HCl) 10 Mg Tablet, 20 MG PO 1200, (Reported) Entered as Reported by: LEVI VELA on 11/05/21 1010 Metoprolol Succinate (Metoprolol Succinate) 25 Mg Tab.er.24h, 25 MG PO HS, (Reported) Entered as Reported by: JACQUELYN PACHECO on 10/16/17 1054 Naproxen Sodium (Naproxen Sodium) 220 Mg Tablet, 220-440 MG PO BID PRN for PAIN- MILD (1-4), (Reported) Entered as Reported by: LEVI VELA on 11/05/21 1010 [place]-3 Fatty Acids/Fish Oil ([place] 3 1,000 mg Softgel) 300 Mg-1,000 Mg Capsule, 1 EACH PO 1200, (Reported) Entered as Reported by: LEVI VELA on 11/05/21 1010 Pantoprazole Sodium (Pantoprazole Sodium) 40 Mg Tablet.dr, 40 MG PO HS, (Reported) Entered as Reported by: LVEI VELA on 11/05/21 1010 Potassium Chloride (K-Tab ER) 10 Meq Tablet.er, 10 MEQ PO DAILY PRN for FLUID RETENTION, (Reported) Entered as Reported by: LEVI VELA on 11/05/21 1010 Simethicone (Simethicone) 180 Mg Capsule, 180 MG PO TID PRN for GAS, (Reported) Entered as Reported by: LEVI VELA on 11/05/21 1010 Review of Systems Review of Systems Constitutional: no symptoms reported EENTM: no symptoms reported Respiratory: no symptoms reported Cardiovascular: no symptoms reported Gastrointestinal: no symptoms reported Genitourinary: no symptoms reported Musculoskeletal: no symptoms reported Skin: see HPI Psychiatric/Neurological: No Symptoms Reported Hematologic/Lymphatic: See HPI Past Qhngsbf-Arcvoo-Okqegk Hx Patient Social History Tobacco Use?: Yes Smoking Status: Current Everyday Smoker Substance use?: No Alcohol Use?: No Pt feels they are or have been: No Immunizations Up To Date Tetanus Booster (TDap): Unknown First/Initial COVID19 Vaccinat: 06/2021 Second COVID19 Vaccination [place]: 06/2021 Third COVID19 Vaccination Date: 06/2021 Seasonal Allergies Seasonal Allergies: Yes Past Medical History Surgery/Hospitalization HX: RECENT HEART CATH AND RECENT TAVR Surgeries: Yes (RIGHT INGUINAL HERNIA REPAIR.) Gallbladder Respiratory: Yes Sleep Apnea Currently Using CPAP: No Cardiac: Yes (leaky valve) Heart Murmur, Hypertension, Valvular Heart Disease Neurological: No Genitourinary: No Gastrointestinal: Yes Gall Bladder Disease Musculoskeletal: Yes Arthritis, Fibromyalgia Endocrine: No HEENT: No Cancer: No Psychosocial: No Integumentary: No Blood Disorders: No Adverse Reaction/Blood Tranf: No Family Medical History Hypertension Physical Exam Vital Signs Vital Signs - First Documented 11/12/21 15:30 Temp 36.5 Pulse 84 Resp 18 B/P (MAP) 160/86 (110) Pulse Ox 98 Capillary Refill : Less Than 3 Seconds Height, Weight, BMI Height: 5'11.00" Weight: 214lbs. 9.0oz. 97.014803ui; 32.00 BMI Method:Stated General Appearance: No Apparent Distress, WD/WN Eyes: Bilateral Eye Normal Inspection, Bilateral Eye PERRL HEENT: TMs Normal, Normal ENT Inspection, Moist Mucous Membranes Neck: Normal Inspection, Non Tender, Supple Respiratory: Lungs Clear, Normal Breath Sounds, No Accessory Muscle Use, No Respiratory Distress Cardiovascular: Regular Rate, Rhythm, Systolic Murmur Gastrointestinal: Normal Bowel Sounds, Non Tender, Soft Extremity: Normal Capillary Refill, Normal Range of Motion, Non Tender, No Calf Tenderness, Other (Bruising bilateral groin region, stable area of swelling to left inguinal area at catheter insertion site. ) Neurologic/Psychiatric: Alert, Oriented x3, No Motor/Sensory Deficits, Normal Mood/Affect Skin: Normal Color, Warm/Dry Progress/Results/Core Measures Suspected Sepsis SIRS Temperature: Pulse: 84 Respiratory Rate: 18 Laboratory Tests 11/12/21 15:40: White Blood Count 18.2H Blood Pressure 160 /86 Mean: 110 Laboratory Tests 11/12/21 15:40: Creatinine 1.53H, INR Comment 1.0, Platelet Count 328 Results/Orders Lab Results Laboratory Tests Test 11/12/21 15:40 Range/Units White Blood Count 18.2 H 4.3-11.0 10^3/uL Red Blood Count 3.98 L 4.30-5.52 10^6/uL Hemoglobin 9.9 L 13.3-17.7 g/dL Hematocrit 32 L 40-54 % Mean Corpuscular Volume 80 80-99 fL Mean Corpuscular Hemoglobin 25 25-34 pg Mean Corpuscular Hemoglobin Concent 31 L 32-36 g/dL Red Cell Distribution Width 16.4 H 10.0-14.5 % Platelet Count 328 130-400 10^3/uL Mean Platelet Volume 11.9 9.0-12.2 fL Immature Granulocyte % (Auto) 1 % Neutrophils (%) (Auto) 66 42-75 % Lymphocytes (%) (Auto) 25 12-44 % Monocytes (%) (Auto) 6 0-12 % Eosinophils (%) (Auto) 1 0-10 % Basophils (%) (Auto) 0 0-10 % Neutrophils # (Auto) 12.0 H 1.8-7.8 10^3/uL Lymphocytes # (Auto) 4.6 H 1.0-4.0 10^3/uL Monocytes # (Auto) 1.1 H 0.0-1.0 10^3/uL Eosinophils # (Auto) 0.2 0.0-0.3 10^3/uL Basophils # (Auto) 0.1 0.0-0.1 10^3/uL Immature Granulocyte # (Auto) 0.2 H 0.0-0.1 10^3/uL Neutrophils % (Manual) 63 % Lymphocytes % (Manual) 35 % Monocytes % (Manual) 2 % Blood Morphology Comment NORMAL Prothrombin Time 13.5 12.2-14.7 SEC INR Comment 1.0 0.8-1.4 Activated Partial Thromboplast Time 34 24-35 SEC Sodium Level 135 135-145 MMOL/L Potassium Level 4.4 3.6-5.0 MMOL/L Chloride Level 102 98-107 MMOL/L Carbon Dioxide Level 19 L 21-32 MMOL/L Anion Gap 14 5-14 MMOL/L Blood Urea Nitrogen 21 H 7-18 MG/DL Creatinine 1.53 H 0.60-1.30 MG/DL Estimat Glomerular Filtration Rate 46 BUN/Creatinine Ratio 14 Glucose Level 162 H 70-105 MG/DL Calcium Level 9.5 8.5-10.1 MG/DL My Orders Orders - BRUNILDA DIXON APRN Chest 1 View, Ap/Pa Only (11/12/21 17:01) Vital Signs/I&O 11/12/21 15:30 Temp 36.5 Pulse 84 Resp 18 B/P (MAP) 160/86 (110) Pulse Ox 98 Capillary Refill : Less Than 3 Seconds Blood Pressure Mean: 110 Diagnostic Imaging Diagonstic Imaging: Ultrasound Comments [facility] [place], [place] NAME: FATOULE SAS [employer] REC#: [id number] PT STATUS: REG ER : 1940 PHYSICIAN: MARIANNE BROCK MD ADMIT DATE: 11/12/21/ER Signed Date of Exam:11/12/21 US LEFT LOW EXT ARTERIAL [id number] TECHNIQUE: Live grayscale and color Doppler ultrasound was performed of the left groin. REASON FOR EXAM: Recent catheterization via left groin for TAVR. COMPARISON: 07/18/2020. FINDINGS: The left common femoral artery, left profunda femoris artery, left superficial femoral artery, left common femoral vein, and left superficial femoral vein all have a normal appearance without evidence of stenosis or dissection. No evidence of pseudoaneurysm or AV fistula in the left groin. A hypoechoic collection is seen within the left groin without evidence of internal vascularity. IMPRESSION: 1. No evidence of pseudoaneurysm or AV fistula in the left groin. 2. Hematoma within the left groin. Dictated by: Dictated on workstation # [id number] Dict: 11/12/211644 Trans: 11/12/211652 [id number] Interpreted by: LANA LEBRON DO Electronically signed by: LANA LEBRON DO 11/12/211652 Reviewed: Reviewed by Hi Diagonstic Imaging: Xray Plain Films/CT/US/NM/MRI: chest Comments [facility] NAME: LE LAINEZ [facility] REC#: [id number] PT STATUS: DEP ER : 1940 PHYSICIAN: BRUNILDA DIXON APRN ADMIT DATE: 11/12/21/ER Signed Date of Exam:11/12/21 CHEST 1 VIEW, AP/PA ONLY INDICATION: Weakness and dizziness. TIME OF EXAM: 5:17 p.m. COMPARISON: Correlation is made with prior chest 11/04/2021. FINDINGS: Heart is enlarged but stable. Lungs are clear. No infiltrates are detected. There is no effusion or pneumothorax. IMPRESSION: No acute cardiopulmonary process is detected. Dictated by: Dictated on workstation # [id number] Dict: 11/12/21 1719 Trans: 11/12/211836 [id number] Interpreted by: JASON JACOB MD Electronically signed by: JASON JACOB MD 11/12/21 1837 Reviewed: Reviewed by Me Departure Communication (Admissions) Time/Spoke to Consulting Phy: 17:00 Called [facility] and discussed case and reviewed findings of ultrasound with Dr. Lloyd. Recommends bed rest, avoiding rubbing area, and to keep follow up with Dr. Figueroa. Impression Primary Impression: Hematoma of groin Additional Impression: Status post transcatheter aortic valve replacement Disposition: 01 HOME, SELF-CARE Condition: Improved Departure-Patient Inst. Decision time for Depature: 17:28 Referrals: ROLF ALFARO MD (PCP/Family) Primary Care Physician Patient Instructions: Aortic Valve Replacement, Transcatheter, HEMATOMA Add. Discharge Instructions: Plan: 1. Follow up with Dr. Maldonado as scheduled. 2. Bed rest, elevate legs to reduce swelling. Apply ice 20 minutes at a time 2-3 times a day. Do not place ice pack/ice directly on skin. 3. Return if you develop increased swelling or pain. 4. Return for any new, concerning, or worsening symptoms. All discharge instructions reviewed with patient and/or family. Voiced understanding. BRUNILDA DIXON APRN Nov 12, 2021 16:58
--- NOTE | 2021-11-12 17:22 | Diagnostic Imaging Report ---
INDICATION: Weakness and dizziness. TIME OF EXAM: 5:17 p.m. COMPARISON: Correlation is made with prior chest 11/04/2021. FINDINGS: Heart is enlarged but stable. Lungs are clear. No infiltrates are detected. There is no effusion or pneumothorax. IMPRESSION: No acute cardiopulmonary process is detected. Dictated by: Dictated on workstation # [id number]
== END 2021-11-12 18:00 | disposition home or self-care (01) ==
LOC: EDUNIT# 15:27 → ER 15:31
DX: S30.1XXA Contusion of abdominal wall, initial encounter (principal); F17.290 Nicotine dependence, other tobacco product, uncomplicated; Z95.4 Presence of other heart-valve replacement; X58.XXXA Exposure to other specified factors, initial encounter
CPT/HCPCS: 36415; 71045; 80048; 85007; 85027; 85610; 85730; 93926

== ENCOUNTER → 2021-11-26 | Outpatient (CLI) | payer MEDICARE ==
--- NOTE | 2021-11-26 14:48 | Diagnostic Imaging Report ---
TECHNIQUE: Live grayscale and color Doppler ultrasound was performed of the left groin. COMPARISON: 11/12/2021. REASON FOR EXAM: Recent stent placement. Left groin pain and swelling. FINDINGS: The left common femoral artery and left common femoral vein have a normal appearance. No evidence of pseudoaneurysm or AV fistula. The complex collection within the left groin is again visualized measuring 10.8 x 3.5 x 8.1 cm, most consistent with a hematoma. No internal vascularity is seen within this collection. Findings are similar to the prior exam. IMPRESSION: 1. Prominent hematoma within the left groin. No internal vascularity is seen to suggest active extravasation. Recommend continued follow-up, as indicated. If symptoms worsen or persist, CTA of the pelvis and left thigh may be considered to further evaluate. 2. No sonographic evidence of AV fistula or pseudoaneurysm in the left groin. Dictated by: Dictated on workstation # [id number]
== END ==
LOC: RAD 09:18
PROVIDERS: ATTEND Nurse Practitioner
DX: R19.09 Other intra-abdominal and pelvic swelling, mass and lump (principal); Z95.2 Presence of prosthetic heart valve
CPT/HCPCS: 76881

== ENCOUNTER 2021-12-06 08:38 | Outpatient (RCR) | payer MEDICARE ==
[~2021-12-06] VITALS: Ht 180.3 cm; Wt 105.0 kg
[2021-12-06 09:00] VITALS: BP 112/76
[2021-12-06] MEDS ORDERED: RT-ALBUTEROL SULF 2.5 MG/3 ML PRE-MIX VIAL IH PRN (09:00)
[2021-12-06] MEDS ORDERED: EPINEPHrine INJECTION 1 MG/ML AMP IM PRN (09:00)
[2021-12-06] MEDS ORDERED: NS IV 500 ML 500 ML IV SCH (09:00)
[2021-12-06] MEDS ORDERED: HYDROCORTISONE 100 MG/2 ML (Solu-CORTEF) VIAL IV PRN (09:00)
[2021-12-06] MEDS ORDERED: IRON DEXTRAN INJECTION 25 MG in NS (IVPB) 5.75 ML IV ONE (09:00)
[2021-12-06] MEDS ORDERED: IRON DEXTRAN INJECTION 1,000 MG in NS (IVPB) 250 ML IV ONE (09:00)
[2021-12-06] MEDS ORDERED: diphenhydrAMINE 50 MG/ML INJ (BENADRYL) IV PRN (09:00)
== END 2021-12-17 | disposition home or self-care (01) ==
LOC: SDC 08:38
PROVIDERS: ATTEND Family Medicine
DX: D50.9 Iron deficiency anemia, unspecified (principal)
CPT/HCPCS: 96365

== ENCOUNTER 2022-01-15 14:51 | Outpatient (RCR) | payer MEDICARE | END 2022-01-16 | disposition home or self-care (01) | LOC: CR 14:51 | PROVIDERS: ATTEND Nurse Practitioner | DX: Z29.8 Encounter for other specified prophylactic measures (principal); Z95.2 Presence of prosthetic heart valve | CPT/HCPCS: 93798 ==

== ENCOUNTER 2022-01-24 11:28 | Outpatient (RCR) | payer MEDICARE | END 2022-02-16 | disposition home or self-care (01) | LOC: CR 11:28 | PROVIDERS: ATTEND Nurse Practitioner | DX: Z29.8 Encounter for other specified prophylactic measures (principal); Z95.2 Presence of prosthetic heart valve | CPT/HCPCS: 93798 ==

== ENCOUNTER 2022-07-03 09:39 | Inpatient (IN) | payer MEDICARE ==
[2022-07-03] VITALS (13 sets, daily range): BP systolic 104–155; BP diastolic 64–89
[2022-07-03] MEDS ORDERED: ASPIRIN 81 MG CHEW (CHILDREN'S ASA) PO ONE (10:00)
[2022-07-03] MEDS ORDERED: NITROGLYCERIN 0.4 MG SL TABS BTL 25'S SL PRN (10:00)
--- NOTE | 2022-07-03 10:04 | ED Chest Pain ---
General Chief Complaint: Chest Pain Stated Complaint: CHEST PAINS Source: patient, family Exam Limitations: no limitations History of Present Illness Date Seen by Provider: Jul 03, 2022 Time Seen by Provider: 09:50 Initial Comments Patient is an 82-year-old male who presents to the emergency room with a chief complaint of chest pressure/heaviness that started approximately an hour prior to arrival. He was at rest at the onset of discomfort. No nausea associated. He is chronically a little short of breath but denies being more so than usual. He has had a cardiac stent placed in September or October of this year as well as a TAVR procedure. He is on a blood thinner, he believes his Plavix. He does not take daily baby aspirin. He states the pain does not radiate. He did have some "shooting pain" at the onset all over. He currently rates it a "8". He has been quite fatigued over the last several days. He does have what sounds like a history of CHF, he is on a water pill daily No recent symptoms of illness, fever, productive cough, flulike symptoms. 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[employer] EQUIPMENT: No Associated Symptoms: weakness Allergies and Home Medications Allergies Coded Allergies: peanut (Verified Allergy, Unknown, 03/12/18) strawberry (Verified Allergy, Unknown, 03/12/18) Patient Home Medication List Home Medication List Reviewed: Yes Aspirin (Aspirin EC) 81 Mg Tablet.dr, 81 MG PO DAILY, (Reported) Entered as Reported by: LEVI VELA on 11/05/21 1010 Atorvastatin Calcium (Atorvastatin Calcium) 10 Mg Tablet, 10 MG PO HS, (Reported) Entered as Reported by: LEVI VELA on 11/05/21 1010 Clopidogrel Bisulfate (Clopidogrel) 75 Mg Tablet, 75 MG PO DAILY, (Reported) Entered as Reported by: LEVI VELA on 11/05/21 1010 Docusate Sodium (Stool Softener) 100 Mg Tablet, 100 MG PO HS, (Reported) Entered as Reported by: LEVI VELA on 11/05/21 1010 Enalapril Maleate (Enalapril Maleate) 10 Mg Tablet, 10 MG PO DAILY, (Reported) Entered as Reported by: JACQUELYN PACHECO on 10/16/17 1054 Furosemide (Furosemide) 20 Mg Tablet, 20 MG PO DAILY PRN for FLUID RETENTION, (Reported) Entered as Reported by: LEVI VELA on 11/05/21 1010 Methadone HCl (Methadone HCl) 10 Mg Tablet, 15 MG PO BID, (Reported) Entered as Reported by: JACQUELYN PACHECO on 10/16/17 1058 Methadone HCl (Methadone HCl) 10 Mg Tablet, 20 MG PO 1200, (Reported) Entered as Reported by: LEVI VELA on 11/05/21 1010 Metoprolol Succinate (Metoprolol Succinate) 25 Mg Tab.er.24h, 25 MG PO HS, (Reported) Entered as Reported by: JACQUELYN PACHECO on 10/16/17 1054 Naproxen Sodium (Naproxen Sodium) 220 Mg Tablet, 220-440 MG PO BID PRN for PAIN- MILD (1-4), (Reported) Entered as Reported by: LEVI VELA on 11/05/21 1010 [place]-3 Fatty Acids/Fish Oil ([place] 3 1,000 mg Softgel) 300 Mg-1,000 Mg Capsule, 1 EACH PO 1200, (Reported) Entered as Reported by: LEVI VELA on 11/05/21 1010 Pantoprazole Sodium (Pantoprazole Sodium) 40 Mg Tablet.dr, 40 MG PO HS, (Reported) Entered as Reported by: LEVI VELA on 11/05/21 1010 Potassium Chloride (K-Tab ER) 10 Meq Tablet.er, 10 MEQ PO DAILY PRN for FLUID RETENTION, (Reported) Entered as Reported by: LEVI VELA on 11/05/21 1010 Simethicone (Simethicone) 180 Mg Capsule, 180 MG PO TID PRN for GAS, (Reported) Entered as Reported by: LEVI VELA on 11/05/21 1010 Review of Systems Review of Systems Constitutional: see HPI EENTM: No Symptoms Reported Respiratory: Shortness of Air (chronic) Cardiovascular: Chest Pain Gastrointestinal: No Symptoms Reported Genitourinary: No Symptoms Reported Musculoskeletal: no symptoms reported Skin: no symptoms reported Psychiatric/Neurological: Weakness All Other Systems Reviewed Negative Unless Noted: Yes Past Fhpbswc-Wpfmew-Rkptea Hx Patient Social History Tobacco Use?: Yes Smoking Status: Current Someday Smoker Substance use?: No Alcohol Use?: No Pt feels they are or have been: No Immunizations Up To Date Tetanus Booster (TDap): Unknown Influenza Vaccine Up-to-Date: No; Not Current First/Initial COVID19 Vaccinat: 06/2021 Second COVID19 Vaccination [place]: 06/2021 Third COVID19 Vaccination Date: 06/2021 Seasonal Allergies Seasonal Allergies: Yes Past Medical History Surgery/Hospitalization HX: RECENT HEART CATH AND RECENT TAVR Surgeries: Yes (RIGHT INGUINAL HERNIA REPAIR.) Gallbladder Respiratory: Yes Sleep Apnea Currently Using CPAP: No Cardiac: Yes (leaky valve) Heart Murmur, Hypertension, Valvular Heart Disease Neurological: No Genitourinary: No Gastrointestinal: Yes Gall Bladder Disease Musculoskeletal: Yes Arthritis, Fibromyalgia Endocrine: No HEENT: No Cancer: No Psychosocial: No Integumentary: No Blood Disorders: No Adverse Reaction/Blood Tranf: No Family Medical History Hypertension Physical Exam Vital Signs Vital Signs - First Documented 07/03/22 09:43 Pulse 98 Resp 22 B/P (MAP) 156/109 (125) Capillary Refill : Height, Weight, BMI Height: 5'11.00" Weight: 214lbs. 9.0oz. 97.234327dl; 32.00 BMI Method:Stated General Appearance: No Apparent Distress, WD/WN HEENT: PERRL/EOMI Neck: Normal Inspection Respiratory: Lungs Clear, Normal Breath Sounds, No Accessory Muscle Use, No Respiratory Distress Cardiovascular: Regular Rate, Rhythm, Normal Peripheral Pulses, Extra Beats, Tachycardia Gastrointestinal: Normal Bowel Sounds, Soft Extremity: Normal Capillary Refill, Normal Inspection, Normal Range of Motion, Non Tender Neurologic/Psychiatric: Alert, Oriented x3, No Motor/Sensory Deficits, Normal Mood/Affect Skin: Normal Color, Warm/Dry Progress/Results/Core Measures Results/Orders Lab Results Laboratory Tests Test 07/03/22 09:56 Range/Units White Blood Count 13.1 H 4.3-11.0 10^3/uL Red Blood Count 5.03 4.30-5.52 10^6/uL Hemoglobin 13.3 13.3-17.7 g/dL Hematocrit 42 40-54 % Mean Corpuscular Volume 84 80-99 fL Mean Corpuscular Hemoglobin 26 25-34 pg Mean Corpuscular Hemoglobin Concent 32 32-36 g/dL Red Cell Distribution Width 17.0 H 10.0-14.5 % Platelet Count 249 130-400 10^3/uL Mean Platelet Volume 10.4 9.0-12.2 fL Immature Granulocyte % (Auto) 1 % Neutrophils (%) (Auto) 62 42-75 % Lymphocytes (%) (Auto) 29 12-44 % Monocytes (%) (Auto) 6 0-12 % Eosinophils (%) (Auto) 2 0-10 % Basophils (%) (Auto) 0 0-10 % Neutrophils # (Auto) 8.2 H 1.8-7.8 10^3/uL Lymphocytes # (Auto) 3.8 1.0-4.0 10^3/uL Monocytes # (Auto) 0.7 0.0-1.0 10^3/uL Eosinophils # (Auto) 0.2 0.0-0.3 10^3/uL Basophils # (Auto) 0.1 0.0-0.1 10^3/uL Immature Granulocyte # (Auto) 0.1 0.0-0.1 10^3/uL Prothrombin Time 12.2 12.2-14.7 SEC INR Comment 0.9 0.8-1.4 Activated Partial Thromboplast Time 32 24-35 SEC Sodium Level 138 135-145 MMOL/L Potassium Level 4.0 3.6-5.0 MMOL/L Chloride Level 104 98-107 MMOL/L Carbon Dioxide Level 24 21-32 MMOL/L Anion Gap 10 5-14 MMOL/L Blood Urea Nitrogen 14 7-18 MG/DL Creatinine 1.30 0.60-1.30 MG/DL Estimat Glomerular Filtration Rate 56 BUN/Creatinine Ratio 11 Glucose Level 165 H 70-105 MG/DL Calcium Level 10.1 8.5-10.1 MG/DL Corrected Calcium 10.0 8.5-10.1 MG/DL Magnesium Level 1.9 1.6-2.4 MG/DL Total Bilirubin 0.4 0.1-1.0 MG/DL Aspartate Amino Transf (AST/SGOT) 12 5-34 U/L Alanine Aminotransferase (ALT/SGPT) 8 0-55 U/L Alkaline Phosphatase 70 40-136 U/L Total Protein 7.2 6.4-8.2 GM/DL Albumin 4.1 3.2-4.5 GM/DL My Orders Orders - CLINTON,NAI M MD Cbc With Automated Diff (07/03/22 09:57) Magnesium (07/03/22 09:57) Chest 1 View, Ap/Pa Only (07/03/22 09:57) Ekg Tracing (07/03/22 09:57) Comprehensive Metabolic Panel (07/03/22 09:57) Myoglobin Serum (07/03/22 09:57) Protime With Inr (07/03/22 09:57) Partial Thromboplastin Time (07/03/22 09:57) O2 (07/03/22 09:57) Monitor-Rhythm Ecg Trace Only (07/03/22 09:57) Lipid Panel (07/04/22 06:00) Ed Iv/Invasive Line Start (07/03/22 09:57) Troponin I Rex (07/03/22 09:57) Aspirin Chewable Tablet (Baby Aspirin Ch (07/03/22 10:00) Nitroglycerin 0.4 Mg Btl 25's (Nitrostat (07/03/22 10:00) Heparin (Bolus Per Protocol) (Heparin (B (07/03/22 10:20) Medications Given in ED Current Medications Medications Dose Ordered Sig/Walker Route Start Time Stop Time Status Last Admin Dose Admin Aspirin 324 mg ONCE ONCE PO 07/03/22 10:00 07/03/22 10:01 DC 07/03/22 10:09 324 MG Nitroglycerin 0.4 mg NEEDED PRN SL 07/03/22 10:00 07/03/22 10:09 0.4 MG Vital Signs/I&O 07/03/22 09:43 Pulse 98 Resp 22 B/P (MAP) 156/109 (125) Progress Progress Note : Time: 10:28 Progress Note Case discussed with Dr. Walsh, would like the patient to have aspirin, nitro and 5000 units of heparin. Will take to [facility]. I have made the patient aware. He is very apprehensive about another cath. He feels much better after 2 sublingual nitro rates his heaviness/pressure at a "1". Initial ECG Impression Date: Jul 03, 2022 Initial ECG Impression Time: 09:55 Initial ECG Rate: 106 Initial ECG Rhythm: S.Tach Comment Frequent PVCs, every fourth beat. Left bundle branch block Departure Communication (Admissions) Time/Spoke to Consulting Phy: 10:[address] Walsh Impression Primary Impression: Chest pain Qualified Codes: R07.9 - Chest pain, unspecified Additional Impression: History of coronary artery disease Disposition: ADMITTED INPATIENT Condition: Stable Admissions Decision to Admit Reason: Admit from ER (General) Decision to Admit/Date: Jul 03, 2022 Time/Decision to Admit Time: 10:29 Departure-Patient Inst. Referrals: ROLF ALFARO MD (PCP/Family) Primary Care Physician NAI ALONZO MD Jul 03, 2022 10:04
[2022-07-03 10:05] LABS: BASOPHILS # (AUTO) 0.1 10^3/uL (0.0-0.1); BASOPHILS % (AUTO) 0 % (0-10); EOSINOPHILS # (AUTO) 0.2 10^3/uL (0.0-0.3); EOSINOPHILS % (AUTO) 2 % (0-10); HEMATOCRIT 42 % (40-54); HEMOGLOBIN 13.3 g/dL (13.3-17.7); LYMPHOCYTES # (AUTO) 3.8 10^3/uL (1.0-4.0); LYMPHOCYTES % (AUTO) 29 % (12-44); MEAN CORPUSCULAR HEMOGLOBIN 26 pg (25-34); MEAN CORPUSCULAR HGB CONC 32 g/dL (32-36); MEAN CORPUSCULAR VOLUME 84 fL (80-99); MEAN PLATELET VOLUME 10.4 fL (9.0-12.2); MONOCYTES # (AUTO) 0.7 10^3/uL (0.0-1.0); MONOCYTES % (AUTO) 6 % (0-12); NEUTROPHILS # (AUTO) 8.2 10^3/uL (1.8-7.8); NEUTROPHILS % (AUTO) 62 % (42-75); PLATELET COUNT 249 10^3/uL (130-400); WHITE BLOOD COUNT 13.1 10^3/uL (4.3-11.0)
[2022-07-03 10:15] LABS: INR 0.9 (0.8-1.4); PROTHROMBIN TIME PATIENT 12.2 SEC (12.2-14.7)
[2022-07-03 10:16] LABS: ALBUMIN 4.1 GM/DL (3.2-4.5)
[2022-07-03 10:17] LABS: CALCIUM 10.1 MG/DL (8.5-10.1)
[2022-07-03 10:19] LABS: TOTAL PROTEIN 7.2 GM/DL (6.4-8.2)
[2022-07-03 10:20] LABS: BILIRUBIN,TOTAL 0.4 MG/DL (0.1-1.0)
[2022-07-03] MEDS ORDERED: HEParin 1000 UNIT/ML (10ML VIAL) FOR BOLUS IV STA (10:20)
[2022-07-03 10:22] LABS: CREATININE SERUM 1.3 MG/DL (0.60-1.30)
[2022-07-03 10:25] LABS: MAGNESIUM 1.9 MG/DL (1.6-2.4)
[2022-07-03] MEDS ORDERED: LIDOCAINE 1% INJ 30 ML (XYLOCAINE) VIAL ONE (10:32)
[2022-07-03] MEDS ORDERED: NS IV 1000 ML 1,000 ML ONE (10:32)
[2022-07-03] MEDS ORDERED: HEParin (CATH LAB) 2,000 ML IV ONE (10:32)
--- NOTE | 2022-07-03 10:32 | Diagnostic Imaging Report ---
INDICATION: Chest pain. AP view of the chest is obtained with comparison made study of 11/12/2021 FINDINGS: Heart size at the upper limits of normal. Pulmonary vascularity is unremarkable. There is no pneumothorax or consolidation. The right costophrenic sulcus is not included on the exam. IMPRESSION: No acute abnormality on limited study. Dictated by: Dictated on workstation # [id number]
[2022-07-03] MEDS ORDERED: MIDAZOLAM 5 MG/5 ML (VERSED) VIAL ONE (11:02)
[2022-07-03] MEDS ORDERED: fentaNYL INJ 100 MCG/2 ML AMP ONE (11:02)
[2022-07-03] MEDS ORDERED: VERAPAMIL 5 MG/2 ML (CALAN) VIAL IV ONE (11:08)
[2022-07-03] MEDS ORDERED: NITRO DRIP 25000 MCG/D5W 250 ML IV ONE (11:08)
[2022-07-03] MEDS ORDERED: HEParin 1000 UNIT/ML (10ML VIAL) FOR BOLUS ONE (11:08)
--- NOTE | 2022-07-03 11:19 | Consultation-Cardiology ---
HPI-Cardiology Cardiology Consultation Date of Consultation 07/03/22 Date of Admission Time Seen by Provider: 11:00 Indication: chest pain HPI 82 year old male with history of Aortic valve disease S/P TAVR procedure, CAD w/ stend placement, Hypertension, KAYE, and fibromyalgia presented to the ED today via private vehicle for acute chest pain, fatigue. He reports the pain started at around 8:30 this morning and rated it as an 8/10 pain that was in his chest and into his arms as well. He reports that he has felt tired for the past few days prior to the acute chest pain he began experiencing this morning. His TAVR procedure was done on 11/08/[address] [facility] [address] Figueroa. His cardiac stent he reports was in October prior to the TAVR. He takes plavix daily at this time due to TAVR procedure and denies missing a dose. He was given aspirin, heparin, and nitro in the ED and reports that his chest pain has improved. He is having SOB but reports it is chronic and not abnormal. He denies lightheadedness, dizziness, abd pain, N/V/D, or weakness/numbness of extremities. Home Medications & Allergies Allergies: Coded Allergies: peanut (Verified Allergy, Unknown, 03/12/18) strawberry (Verified Allergy, Unknown, 03/12/18) Home Medication List Reviewed: Yes [id number]-[id number]-[id number] Hx Patient Social History Marital Status: Employed/Student: retired Smoking Status: Current Someday Smoker Type Used: Cigarettes 2nd Hand Smoke Exposure: Yes Recent Hopitalizations: No Have you traveled recently?: No Alcohol Use?: No Immunizations Up To Date Tetanus Booster (TDap): Unknown Date of Pneumonia Vaccine: Oct 16, 2014 Date of Influenza Vaccine: Apr 19, 2017 Past Medical History Discussed below Family Medical History Significant Family History: No Pertinent Family Hx, Heart Disease (father), Hypertension Review of Systems-General Review of Systems Constitutional: see HPI; No dizziness, No fever; weakness EENTM: see HPI; No hearing loss, No vision loss, No throat pain Respiratory: see HPI; No cough; short of breath (chronic); No wheezing Cardiovascular: see HPI, chest pain, edema; No palpitations, No syncope; vascular heart diseas Gastrointestinal: No abdominal pain, No constipation, No nausea, No vomiting Genitourinary: see HPI; No decreased output, No dysuria, No hematuria Musculoskeletal: see HPI; No muscle weakness Skin: no symptoms reported Psychiatric/Neurological: Weakness All Other Systems Reviewed Negative Unless Noted: Yes Reviewed Test Results Reviewed Test Results Lab Laboratory Tests Test 07/03/22 09:56 Range/Units White Blood Count 13.1 H 4.3-11.0 10^3/uL Red Blood Count 5.03 4.30-5.52 10^6/uL Hemoglobin 13.3 13.3-17.7 g/dL Hematocrit 42 40-54 % Mean Corpuscular Volume 84 80-99 fL Mean Corpuscular Hemoglobin 26 25-34 pg Mean Corpuscular Hemoglobin Concent 32 32-36 g/dL Red Cell Distribution Width 17.0 H 10.0-14.5 % Platelet Count 249 130-400 10^3/uL Mean Platelet Volume 10.4 9.0-12.2 fL Immature Granulocyte % (Auto) 1 % Neutrophils (%) (Auto) 62 42-75 % Lymphocytes (%) (Auto) 29 12-44 % Monocytes (%) (Auto) 6 0-12 % Eosinophils (%) (Auto) 2 0-10 % Basophils (%) (Auto) 0 0-10 % Neutrophils # (Auto) 8.2 H 1.8-7.8 10^3/uL Lymphocytes # (Auto) 3.8 1.0-4.0 10^3/uL Monocytes # (Auto) 0.7 0.0-1.0 10^3/uL Eosinophils # (Auto) 0.2 0.0-0.3 10^3/uL Basophils # (Auto) 0.1 0.0-0.1 10^3/uL Immature Granulocyte # (Auto) 0.1 0.0-0.1 10^3/uL Prothrombin Time 12.2 12.2-14.7 SEC INR Comment 0.9 0.8-1.4 Activated Partial Thromboplast Time 32 24-35 SEC Sodium Level 138 135-145 MMOL/L Potassium Level 4.0 3.6-5.0 MMOL/L Chloride Level 104 98-107 MMOL/L Carbon Dioxide Level 24 21-32 MMOL/L Anion Gap 10 5-14 MMOL/L Blood Urea Nitrogen 14 7-18 MG/DL Creatinine 1.30 0.60-1.30 MG/DL Estimat Glomerular Filtration Rate 56 BUN/Creatinine Ratio 11 Glucose Level 165 H 70-105 MG/DL Calcium Level 10.1 8.5-10.1 MG/DL Corrected Calcium 10.0 8.5-10.1 MG/DL Magnesium Level 1.9 1.6-2.4 MG/DL Total Bilirubin 0.4 0.1-1.0 MG/DL Aspartate Amino Transf (AST/SGOT) 12 5-34 U/L Alanine Aminotransferase (ALT/SGPT) 8 0-55 U/L Alkaline Phosphatase 70 40-136 U/L Myoglobin 37.0 10.0-92.0 NG/ML Troponin I < 0.028 <0.028 NG/ML Total Protein 7.2 6.4-8.2 GM/DL Albumin 4.1 3.2-4.5 GM/DL Physical Exam Physical Exam Vital Signs Vital Signs - First Documented 07/03/22 07/03/22 09:43 12:00 Pulse 98 Resp 22 B/P (MAP) 156/109 (125) O2 Delivery Room Air Capillary Refill : Height, Weight, BMI Height: 5'11.00" Weight: 214lbs. 9.0oz. [id number]; 32.00 BMI Method:Stated General Appearance: No Apparent Distress, WD/WN Eyes: Bilateral Eye Normal Inspection, Bilateral Eye PERRL, Bilateral Eye EOMI HEENT: PERRL/EOMI Neck: Normal Inspection, Non Tender, Supple Respiratory: Lungs Clear, Normal Breath Sounds, No Accessory Muscle Use, No Respiratory Distress Cardiovascular: Normal Peripheral Pulses, Systolic Murmur (left 2nd intercostal space), Extra Beats, Tachycardia Gastrointestinal: Normal Bowel Sounds, Soft Extremity: Normal Capillary Refill, Normal Range of Motion, Non Tender, Pedal Edema (mild) Neurologic/Psychiatric: Alert, Oriented x3, No Motor/Sensory Deficits, Normal Mood/Affect Skin: Normal Color, Warm/Dry A/P-Cardiology Assessment/Plan Chest Pain Patient had new onset LBBB findings on EKG upon presentation. aspirin, heparin, and nitro were given in the ED and the patients 8/10 chest pain improved after 2 doses of nitro. Initial Troponin I was <0.028. 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 Aortic Valve Disease S/P TAVR procedure on 11/08/21 Patient had successful procedure in October. Reports taking his plavix daily since the procedure. CAD w/ stenting Patient had a stent placed in his proximal LAD at [facility] in October of this year. 1 week following the stenting he presented to the ED for chest pain and had an emergent cath by Dr. Walsh on 11/05/21 which showed a patent stent in the proximal LAD and moderate to severe stenosis of distal LAD. HTN Elevated today. will reassess following cath procedure. Hyperlipidemia Patient takes atorvastatin 10mg QD. CKD Stage 3a Followed by PCP KAYE -Patient reports history of KAYE and does not tolerate CPAP Clinical Quality Measures AMI/AHF: ASA po Prior to arrival: No Supervisory-Addendum Brief Verification & Attestation Participated in pt care: history, MDM, physical Personally performed: exam, history, MDM, supervision of care Care discussed with: Medical Student Procedures: n/a Results interpretation: Verified all documentation Verification and Attestation of Medical Student E/M Service A medical student performed and documented this service in my presence. I reviewed and verified all information documented by the medical student and made modifications to such information, when appropriate. I personally performed the physical exam and medical decision making. Patient was seen and evaluated, reporting improvement in chest pain Emergency cardiac catheterization was carried out with balloon angioplasty to the LAD and diagonal artery Restart home medication, continue on aspirin and Plavix Monitor blood pressure Repeat troponin in the morning Nitin Walsh, Jul 03, 2022,12:53 DARYL LUJAN Jul 03, 2022 11:19 NITIN WALSH MD Jul 03, 2022 12:54
[2022-07-03] MEDS ORDERED: ASPIRIN 325 MG (5 GR) TABLET ONE (11:42)
[2022-07-03] MEDS ORDERED: CLOPIDOGREL 300 MG (PLAVIX) TABLET PO ONE (11:42)
[2022-07-03] MEDS: NS IV 1000 ML 1,000 ML IV SCH ×2 (12:48→21:58)
--- NOTE | 2022-07-03 12:59 | Cardiac Cath Report ---
Cardiac Cath Report Physician (s)/Country Sales Manager (s) Physician NITIN VILLAREAL MD Pre-Procedure Diagnosis Pre-Procedure Diagnosis: chest pain Post-Procedure Note Procedure Start Date: Jul 03, 2022 Name of Procedure: Coronary angiogram PTCA to the diagonal artery and the LAD Findings/Procedure Note PROCEDURE NOTE: 82 years old gentleman with history of coronary artery disease, TAVR, multiple intervention on the LAD, had sudden onset of chest pain with new onset left bundle branch block. Brought for emergency cardiac catheterization possible PTCA. After explaining the procedure to the patient, all pros and cons were explained, all questions were answered. The patient signed the consent and then he was placed in the cardiac catheterization laboratory. Groin was prepped in SL fashion local anesthesia was used. Sheath placed in the right radial artery, [place] catheter did not engage due to the stress of the prosthetic valve in the aortic position. I exchanged the catheter and used Lauro left guide advanced to the left coronary system, angiogram showed severe stenosis at the proximal diagonal artery within the stents in the LAD. Otherwise mild disease distally about 30% stenosis at the distal LAD. No obstructive disease. I decided to proceed with percutaneous intervention, patient received 5000 units of heparin, BMW wire was advanced to the diagonal artery and I performed balloon angioplasty with reduction of the 80% stenosis to 20% residual stenosis. I retracted the balloon and readvanced the wire directed in the LAD and did balloon angioplasty to tack the struts back. Angiogram showed excellent results. Patient was not having chest pain The catheter was exchanged to a Lauro right catheter and angiogram was done. At the end of the procedure the sheath was removed. Vascular band was used FINDINGS: Hemodynamics LV was not measured, did not cross the aortic valve Aorta 89/67 mean of 76 ANATOMY: Left Main is free of obstructive disease Left Anterior Descending has 30% stenosis distally, diagonal artery has 80% proximally within the stent in the LAD successful balloon angioplasty to the diagonal artery with 2.5 x 20 mm balloon with 20% residual stenosis. Left Circumflex is large dominant artery with 20% stenosis nonobstructive disease Right Coronary Artery is dominant artery with no obstructive disease LV Gram was not done, did not cross the aortic valve PERCUTANEOUS INTERVENTION: Pre stenosis 80% Post Stenosis is 20% Pre MINERVA flow 2 Post MINERVA flow 3 Dominance circumflex artery CONCLUSION: 1. Acute chest pain with left bundle branch block, emergency cardiac catheterization with balloon angioplasty to the diagonal artery within the old stent in the LAD with significant improvement in the diagonal artery then balloon angioplasty to the [place] LAD to tuck the struts of the stent at the intervention site with excellent results. No residual stenosis. 2. Dominant large circumflex artery with mild disease nonobstructive disease, mild disease in the right coronary artery 3. 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 Anesthesia Type: Conscious Sedation Estimated blood loss (mL): 25 ml Contrast Amount: 75 ml Total Radiation Dose: 878 mGy Post-Procedure Diagnosis Post-operative diagnosis: Unstable angina Coronary artery disease Aortic valve stenosis Hypertension NITIN VILLAREAL MD Jul 03, 2022 12:59
[2022-07-03] MEDS ORDERED: METH-742 PO (14:48)
[2022-07-03] MEDS: METHADONE 10 MG (DOLOPHINE) TAB PO PRN (16:44)
--- NOTE | 2022-07-03 19:36 | Cardiac Procedure Note-CS/ASA ---
Pre-Procedure Note Pre-Op Procedure Note Date of Available H&P: Jul 03, 2022 Date H&P Reviewed: Jul 03, 2022 Time H&P Reviewed: 11:00 History & Physical: H&P Reviewed, Patient Examed, No changes noted Pre-Operative Diagnosis: chest pain Conscious Sedation Pre-Proced Time 11:00 ASA Score 3 For ASA 3 and 4: Consider anesthesia and medical clearance. Also, for patients with a history of failed moderate sedation consider anesthesia. Airway Lungs Heart ASA score ASA 1: a normal healthy patient ASA 2: a patient with a mild systemic disease (mid diabetes, controlled hypertension, obesity ASA 3: a patient with a severe systemic disease that limits activity (angina, COPD, prior Myocardial infarction) ASA 4: a patient with an incapacitating disease that is a constant threat to life (CHF, renal failure) ASA 5: a moribund patient not expected to survive 24 hrs. (ruptured aneurysm) ASA 6: a declared brain- patient whose organs are being harvested. For emergent operations, add the letter E after the classification Mallampati Classification Grade 3 Sedation Plan Analgesia, Amnesia, Plan communicated to team members, Discussed options with patient/fam, Discussed risks with patient/fam The patient is an appropriate candidate to undergo the planned procedure, sedation, and anesthesia. The patient immediately re-assessed prior to indication. NITIN VILLAREAL MD Jul 03, 2022 19:36
[2022-07-04] MEDS: METHADONE 10 MG (DOLOPHINE) TAB PO PRN ×2 (01:15→08:34)
[2022-07-04 04:00] VITALS: BP 111/61
[2022-07-04 05:30] LABS: HEMATOCRIT 38 % (40-54); HEMOGLOBIN 11.7 g/dL (13.3-17.7); MEAN CORPUSCULAR HEMOGLOBIN 26 pg (25-34); MEAN CORPUSCULAR HGB CONC 31 g/dL (32-36); MEAN CORPUSCULAR VOLUME 84 fL (80-99); MEAN PLATELET VOLUME 10.6 fL (9.0-12.2); PLATELET COUNT 227 10^3/uL (130-400); WHITE BLOOD COUNT 13.2 10^3/uL (4.3-11.0)
[2022-07-04 05:45] LABS: POTASSIUM 4.2 MMOL/L (3.6-5.0)
[2022-07-04 05:47] LABS: CALCIUM 9.5 MG/DL (8.5-10.1)
[2022-07-04 05:51] LABS: CREATININE SERUM 1.11 MG/DL (0.60-1.30)
[2022-07-04 07:45] VITALS: BP 168/92
[2022-07-04] MEDS: NS IV 1000 ML 1,000 ML IV SCH (08:00)
[2022-07-04] MEDS ORDERED: ENALAPRIL 10 MG (VASOTEC) TAB PO SCH (09:00)
[2022-07-04] MEDS ORDERED: ASPIRIN E.C. 81 MG (ECOTRIN) TAB PO SCH (09:00)
[2022-07-04] MEDS ORDERED: CLOPIDOGREL 75 MG (PLAVIX) TABLET PO SCH (09:00)
[2022-07-04] MEDS ORDERED: PANTOPRAZOLE 40 MG (PROTONIX) TAB PO SCH (09:00)
--- NOTE | 2022-07-04 09:33 | Discharge Inst-Post CATH ---
Discharge Inst-CATH/EP Problems Reviewed?: Yes Post Cardiac Cath/EP D/C Inst Follow Up/Plan Appointment with Dr. Walsh's office next week <b>CARDIAC CATH/EP PROCEDURE DISCHARGE INSTRUCTIONS</b> ACTIVITY * Go Home directly and rest. * Limit activity of the leg (or wrist if it was used) for 7 days including aerobics, swimming, jogging, bicycling, etc. * Restrict stair-climbing for 7 days if possible, if not, climb up with your non-cath leg, then bring together on the same step. * Avoid lifting, pushing, pulling or excessive movement of the affected extremity for 7 days. * Customary sexual activity may be resumed after 2 days-use caution not to use a position that strains or causes pain to the affected extremity. * No driving for 24 hours. * NO SMOKING. * Avoid straining for bowel movements for 7 days. * Gentle walking on level ground is allowed. * Returning to work will depend on the type of procedure and the results. Your doctor will discuss this with you. CALL YOUR DOCTOR FOR ANY OF THE FOLLOWING: *If bleeding from the puncture site occurs- Apply gentle pressure to site with clean cloth and call your doctor or EMS. * If a knot or lump forms under the skin, increases in size, or causes pain. * If bruising appears to be worsening or moving further down your leg instead of disappearing. * Temperature above 101 F. CARE OF YOUR GROIN INCISION; * Bruising or purple discoloration of the skin near the puncture site is common. * You may shower only, no bathtub bathing for 5 days. Be careful to avoid slipping as your leg may feel stiff. * If a closure device was used on your femoral artery, please see the attached guide regarding care of the device and your leg. * Leave dressing on FOR 24 hours. CARE OF YOUR WRIST INCISION; * Bruising or purple discoloration of the skin near the puncture site is common. * You may shower. * DO NOT submerge wrist. * Leave dressing on FOR 24 hours. NITIN WALSH MD Jul 04, 2022 09:33
--- NOTE | 2022-07-04 09:36 | Cardiology Discharge Summary ---
Discharge Summary Hospital Course Problems Reviewed?: Yes Hospital Course Date of Admission: Jul 03, 2022 at 11:57 Admission Diagnosis : Family Physician/Provider: Safia Briseno MD Date of Discharge: 07/04/22 Discharge Diagnosis: [Chest pain Non-ST elevation myocardial infarction Coronary artery disease Hypertension Hyperlipidemia] Hospital Course: [ Chest Pain, non-ST elevation myocardial infarction Patient had new onset LBBB findings on EKG upon presentation. aspirin, heparin, and nitro were given in the ED and the patients 8/10 chest pain improved after 2 doses of nitro. Emergency cardiac catheterization was carried out and balloon angioplasty to the ostial/proximal diagonal artery was done with balloon angioplasty to the LAD with excellent results. Troponin has minimal elevation, Continue on aspirin and Plavix Aortic Valve Disease S/P TAVR procedure on 11/08/21 Patient had successful procedure in October. Reports taking his plavix daily since the procedure. CAD w/ stenting Patient had a stent placed in his proximal LAD at [place] in October of this year. 1 week following the stenting he presented to the ED for chest pain and had an emergent cath by Dr. Walsh on 11/05/21 which showed a patent stent in the proximal LAD and moderate to severe stenosis of distal LAD. Cardiac catheterization carried out on July 03, 2022 with emergency balloon angioplasty to the ostial/proximal diagonal artery, balloon angioplasty to the LAD. Excellent results. Continue on aspirin and Plavix Hypertension, restart home medication monitor blood pressure Hyperlipidemia Patient takes atorvastatin 10mg QD. Continue to monitor lipids CKD Stage 3a Followed by PCP KAYE -Patient reports history of KAYE and does not tolerate CPAP] Labs and Pending Lab Test: Laboratory Tests 07/03/22 09:56: White Blood Count 13.1H, Red Blood Count 5.03, Hemoglobin 13.3, Hematocrit 42, Mean Corpuscular Volume 84, Mean Corpuscular Hemoglobin 26, Mean Corpuscular Hemoglobin Concent 32, Red Cell Distribution Width 17.0H, Platelet Count 249, Mean Platelet Volume 10.4, Immature Granulocyte % (Auto) 1, Neutrophils (%) (Auto) 62, Lymphocytes (%) (Auto) 29, Monocytes (%) (Auto) 6, Eosinophils (%) (Auto) 2, Basophils (%) (Auto) 0, Neutrophils # (Auto) 8.2H, Lymphocytes # (Auto) 3.8, Monocytes # (Auto) 0.7, Eosinophils # (Auto) 0.2, Basophils # (Auto) 0.1, Immature Granulocyte # (Auto) 0.1, Prothrombin Time 12.2, INR Comment 0.9, Activated Partial Thromboplast Time 32, Sodium Level 138, Potassium Level 4.0, Chloride Level 104, Carbon Dioxide Level 24, Anion Gap 10, Blood Urea Nitrogen 14, Creatinine 1.30, Estimat Glomerular Filtration Rate 56, BUN/Creatinine Ratio 11, Glucose Level 165H, Calcium Level 10.1, Corrected Calcium 10.0, Magnesium Level 1.9, Total Bilirubin 0.4, Aspartate Amino Transf (AST/SGOT) 12, Alanine Aminotransferase (ALT/SGPT) 8, Alkaline Phosphatase 70, Myoglobin 37.0, Troponin I < 0.028, Total Protein 7.2, Albumin 4.1 07/04/22 05:18: White Blood Count 13.2H, Red Blood Count 4.46, Hemoglobin 11.7L, Hematocrit 38L, Mean Corpuscular Volume 84, Mean Corpuscular Hemoglobin 26, Mean Corpuscular Hemoglobin Concent 31L, Red Cell Distribution Width 16.9H, Platelet Count 227, Mean Platelet Volume 10.6, Sodium Level 138, Potassium Level 4.2, Chloride Level 106, Carbon Dioxide Level 23, Anion Gap 9, Blood Urea Nitrogen 14, Creatinine 1.11, Estimat Glomerular Filtration Rate 67, BUN/Creatinine Ratio 13, Glucose Level 122H, Calcium Level 9.5, Troponin I 0.073H, Triglycerides Level 107, Cholesterol Level 136, LDL Cholesterol Direct 78, VLDL Cholesterol 21, HDL Cholesterol 38L Home Meds Active Reported Methadone HCl 10 Mg Tablet 20 Mg PO TID 7 Days Furosemide 20 Mg Tablet 20 Mg PO DAILY PRN K-Tab ER (Potassium Chloride) 10 Meq Tablet.er 10 Meq PO DAILY PRN Stool Softener (Docusate Sodium) 100 Mg Tablet 100 Mg PO HS Roff 3 1,000 mg Softgel (Roff-3 Fatty Acids/Fish Oil) 300 Mg-1,000 Mg Capsule 1 Each PO 1200 Simethicone 180 Mg Capsule 180 Mg PO TID PRN Aspirin EC (Aspirin) 81 Mg Tablet.dr 81 Mg PO DAILY Naproxen Sodium 220 Mg Tablet 220-440 Mg PO BID PRN Methadone HCl 10 Mg Tablet 20 Mg PO 1200 TAKES 2 (10MG) TABS Atorvastatin Calcium 10 Mg Tablet 10 Mg PO HS Clopidogrel (Clopidogrel Bisulfate) 75 Mg Tablet 75 Mg PO DAILY Pantoprazole Sodium 40 Mg Tablet.dr 40 Mg PO HS Enalapril Maleate 10 Mg Tablet 10 Mg PO DAILY Metoprolol Succinate 25 Mg Tab.er.24h 25 Mg PO HS Assessment/Pt DC Instructions Appointment with Dr. Walsh's office next week Discharge Diet: No Restrictions, Cardiac Diet Discharge Physical Examination Allergies: Coded Allergies: peanut (Verified Allergy, Unknown, 03/12/18) strawberry (Verified Allergy, Unknown, 03/12/18) General Appearance: No Apparent Distress, WD/WN HEENT: PERRL/EOMI, TMs Normal, Normal ENT Inspection, Pharynx Normal Respiratory: Chest Non Tender, Lungs Clear, Normal Breath Sounds, No Accessory Muscle Use, No Respiratory Distress Cardiovascular: Regular Rate, Rhythm, No Edema, No Gallop, Systolic Murmur Gastrointestinal: Normal Bowel Sounds, No Organomegaly Extremity: Normal Capillary Refill, Normal Inspection Skin: Normal Color, Warm/Dry Clinical Quality Measures Admission Status Admission Status: Observation Reason for Inpatient Admission: Acute myocardial infarction AMI/AHF: ASA po Prior to arrival: NITIN Gandhi MD Jul 04, 2022 09:36
== END 2022-07-04 10:00 | disposition home or self-care (01) | DRG 251 ==
LOC: EDUNIT# 09:39 → ER 09:41 → CATH 11:09 → ER 11:09 → CSD 11:57
PROVIDERS: ADMIT Internal Medicine Cardiovascular Disease; ATTEND Internal Medicine Cardiovascular Disease
PROC: 02713ZZ Dilation of Coronary Artery, Two Arteries, Percutaneous Approach (ICD-10-PCS; principal; 2022-07-03)
PROC: 4A023N7 Measurement of Cardiac Sampling and Pressure, Left Heart, Percutaneous Approach (ICD-10-PCS; 2022-07-03)
PROC: B2111ZZ Fluoroscopy of Multiple Coronary Arteries using Low Osmolar Contrast (ICD-10-PCS; 2022-07-03)
DX: I21.4 Non-ST elevation (NSTEMI) myocardial infarction (principal); E78.5 Hyperlipidemia, unspecified; Z95.2 Presence of prosthetic heart valve; I44.7 Left bundle-branch block, unspecified; N18.31 Chronic kidney disease, stage 3a; G47.33 Obstructive sleep apnea (adult) (pediatric); I12.9 Hypertensive chronic kidney disease with stage 1 through stage 4 chronic kidney disease, or unspecified chronic kidney disease; I25.110 Atherosclerotic heart disease of native coronary artery with unstable angina pectoris; Z95.1 Presence of aortocoronary bypass graft; M79.7 Fibromyalgia; F17.210 Nicotine dependence, cigarettes, uncomplicated
CPT/HCPCS: 36415; 71045; 80048; 80053; 80061; 83735; 83874; 84484; 85025; 85027; 85610; 85730; 93005; 93041; 93454

== ENCOUNTER 2022-08-09 08:39 | Emergency (ER) | payer MEDICARE ==
[~2022-08-09] VITALS: Ht 180.3 cm; Wt 95.3 kg
--- NOTE | 2022-08-09 08:58 | ED Chest Pain ---
General Chief Complaint: Chest Pain Stated Complaint: CHEST PAINS Nursing Triage Note: PT AMB TO RM 5 WITH COMPLAINT OF CP, HIGH BP, AND SHAKINESS. STATES STARTED YESTERDAY. Source: patient Exam Limitations: no limitations History of Present Illness Date Seen by Provider: Aug 09, 2022 Time Seen by Provider: 08:46 Initial Comments Patient is an 82-year-old male who presents to the emergency department today with a chief complaint of left midsternal chest pain. Also concerned about how high his blood pressure is 198/103. He states he has had since yesterday, "more than not". He states it woke him from sleep at about 4 AM this morning. Nonradiating. He is not nauseous, sweaty or short of breath. He has had previous TAVR procedure as well as angioplasty and stent. He sees Dr. Walsh. He is not a diabetic. Nothing makes the pain any worse or better. He took baby aspirin this morning. He rates it at a "5" currently. He is questioning whether or not this pain may be related to "indigestion" as he has been belching alot. He denies recent illnesses such as fevers, chills, cough or congestion. No problems with bowel or bladder. He saw Dr. Briseno a few days ago and did mention to her that he had some swelling in his legs. He is not currently on a diuretic. He states he occasionally feels short of breath lying down, does not require home oxygen. All other review of systems reviewed and negative except as stated. Timing/Duration: 1-2 days Severity/Quality: moderate, pressure Location: substernal Radiation: no radiation Activities at Onset: none Prior CP/Workup: cardiac cath ASA po LEVERMAN: Yes NTG SL LEVERMAN: No Associated Symptoms: denies symptoms Allergies and Home Medications Allergies Coded Allergies: peanut (Verified Allergy, Unknown, 03/12/18) strawberry (Verified Allergy, Unknown, 03/12/18) Patient Home Medication List Home Medication List Reviewed: Yes Aspirin (Aspirin EC) 81 Mg Tablet., 81 MG PO DAILY, (Reported) Entered as Reported by: LEVI VELA on 11/05/21 1010 Atorvastatin Calcium (Atorvastatin Calcium) 10 Mg Tablet, 10 MG PO HS, (Reported) Entered as Reported by: LEVI VELA on 11/05/21 1010 Clopidogrel Bisulfate (Clopidogrel) 75 Mg Tablet, 75 MG PO DAILY, (Reported) Entered as Reported by: LEVI VELA on 11/05/21 1010 Docusate Sodium (Stool Softener) 100 Mg Tablet, 100 MG PO HS, (Reported) Entered as Reported by: LEVI VELA on 11/05/21 1010 Enalapril Maleate (Enalapril Maleate) 10 Mg Tablet, 10 MG PO DAILY, (Reported) Entered as Reported by: JACQUELYN PACHECO on 10/16/17 1054 Furosemide (Furosemide) 20 Mg Tablet, 20 MG PO DAILY PRN for FLUID RETENTION, (Reported) Entered as Reported by: LEVI VELA on 11/05/21 1010 Methadone HCl (Methadone HCl) 10 Mg Tablet, 20 MG PO 1200, (Reported) Entered as Reported by: LEVI VELA on 11/05/21 1010 Methadone HCl (Methadone HCl) 10 Mg Tablet, 20 MG PO TID, (Reported) Entered as Reported by: OMA BORGES on 07/03/22 1448 Metoprolol Succinate (Metoprolol Succinate) 25 Mg Tab.er.24h, 25 MG PO HS, (Reported) Entered as Reported by: JACQUELYN PACHECO on 10/16/17 1054 Naproxen Sodium (Naproxen Sodium) 220 Mg Tablet, 220-440 MG PO BID PRN for PAIN- MILD (1-4), (Reported) Entered as Reported by: LEVI VELA on 11/05/21 1010 [place]-3 Fatty Acids/Fish Oil ([place] 3 1,000 mg Softgel) 300 Mg-1,000 Mg Capsule, 1 EACH PO 1200, (Reported) Entered as Reported by: LEVI VELA on 11/05/21 1010 Pantoprazole Sodium (Pantoprazole Sodium) 40 Mg Tablet.dr, 40 MG PO HS, (Reported) Entered as Reported by: LEVI VELA on 11/05/21 1010 Potassium Chloride (K-Tab ER) 10 Meq Tablet.er, 10 MEQ PO DAILY PRN for FLUID RETENTION, (Reported) Entered as Reported by: LEVI VELA on 11/05/21 1010 Simethicone (Simethicone) 180 Mg Capsule, 180 MG PO TID PRN for GAS, (Reported) Entered as Reported by: LEVI VELA on 11/05/21 1010 Review of Systems Review of Systems Constitutional: see HPI EENTM: No Symptoms Reported Respiratory: No Symptoms Reported Cardiovascular: Chest Pain Gastrointestinal: No Symptoms Reported Genitourinary: No Symptoms Reported Musculoskeletal: no symptoms reported Skin: no symptoms reported Psychiatric/Neurological: No Symptoms Reported All Other Systems Reviewed Negative Unless Noted: Yes Past Ypizlgt-Zgrqiy-Pqladj Hx Patient Social History Tobacco Use?: Yes Tobacco type used: Cigarettes Smoking Status: Current Someday Smoker Use of E-Cig and/or Vaping dev: No Substance use?: No Alcohol Use?: No Pt feels they are or have been: No Immunizations Up To Date Tetanus Booster (TDap): Unknown First/Initial COVID19 Vaccinat: 06/2021 Second COVID19 Vaccination [place]: 06/2021 Third COVID19 Vaccination Date: 06/2021 Seasonal Allergies Seasonal Allergies: Yes Past Medical History Surgery/Hospitalization HX: RECENT HEART CATH AND RECENT TAVR Surgeries: Yes (RIGHT INGUINAL HERNIA REPAIR.) Gallbladder Respiratory: Yes Sleep Apnea Currently Using CPAP: No Cardiac: Yes (leaky valve) Heart Murmur, Hypertension, Valvular Heart Disease Neurological: No Genitourinary: No Gastrointestinal: Yes Gall Bladder Disease Musculoskeletal: Yes Arthritis, Fibromyalgia Endocrine: No HEENT: No Cancer: No Psychosocial: No Integumentary: No Blood Disorders: No Adverse Reaction/Blood Tranf: No Family Medical History No Pertinent Family Hx, Heart Disease, Hypertension Physical Exam Vital Signs Vital Signs - First Documented 08/09/22 08:41 Temp 35.6 Pulse 78 Resp 14 B/P (MAP) 194/105 (134) Pulse Ox 97 O2 Delivery Room Air Capillary Refill : Less Than 3 Seconds Height, Weight, BMI Height: 5'11.00" Weight: 214lbs. 9.0oz. 97.056857jt; 29.00 BMI Method:Stated General Appearance: No Apparent Distress, WD/WN HEENT: PERRL/EOMI Neck: Normal Inspection Respiratory: Lungs Clear, Normal Breath Sounds, No Accessory Muscle Use, No Respiratory Distress Cardiovascular: Regular Rate, Rhythm, Normal Peripheral Pulses Gastrointestinal: Normal Bowel Sounds, Non Tender, Soft Extremity: Normal Inspection, Normal Range of Motion, Non Tender, Pedal Edema (1+ bilateral LE) Neurologic/Psychiatric: Alert, Oriented x3, No Motor/Sensory Deficits, Normal Mood/Affect Skin: Normal Color, Warm/Dry Progress/Results/Core Measures Results/Orders Lab Results Laboratory Tests Test 08/09/22 08:47 08/09/22 10:47 Range/Units White Blood Count 15.4 H 4.3-11.0 10^3/uL Red Blood Count 5.27 4.30-5.52 10^6/uL Hemoglobin 14.1 13.3-17.7 g/dL Hematocrit 46 40-54 % Mean Corpuscular Volume 87 80-99 fL Mean Corpuscular Hemoglobin 27 25-34 pg Mean Corpuscular Hemoglobin Concent 31 L 32-36 g/dL Red Cell Distribution Width 15.5 H 10.0-14.5 % Platelet Count 298 130-400 10^3/uL Mean Platelet Volume 10.6 9.0-12.2 fL Immature Granulocyte % (Auto) 1 % Neutrophils (%) (Auto) 52 42-75 % Lymphocytes (%) (Auto) 39 12-44 % Monocytes (%) (Auto) 6 0-12 % Eosinophils (%) (Auto) 2 0-10 % Basophils (%) (Auto) 1 0-10 % Neutrophils # (Auto) 8.1 H 1.8-7.8 10^3/uL Lymphocytes # (Auto) 5.9 H 1.0-4.0 10^3/uL Monocytes # (Auto) 0.9 0.0-1.0 10^3/uL Eosinophils # (Auto) 0.3 0.0-0.3 10^3/uL Basophils # (Auto) 0.1 0.0-0.1 10^3/uL Immature Granulocyte # (Auto) 0.1 0.0-0.1 10^3/uL Neutrophils % (Manual) 49 % Lymphocytes % (Manual) 39 % Monocytes % (Manual) 7 % Eosinophils % (Manual) 4 % Basophils % (Manual) 0 % Band Neutrophils 1 % Anisocytosis SLIGHT Prothrombin Time 12.6 12.2-14.7 SEC INR Comment 0.9 0.8-1.4 Activated Partial Thromboplast Time 30 24-35 SEC Sodium Level 138 135-145 MMOL/L Potassium Level 4.0 3.6-5.0 MMOL/L Chloride Level 101 98-107 MMOL/L Carbon Dioxide Level 25 21-32 MMOL/L Anion Gap 12 5-14 MMOL/L Blood Urea Nitrogen 15 7-18 MG/DL Creatinine 1.20 0.60-1.30 MG/DL Estimat Glomerular Filtration Rate 61 BUN/Creatinine Ratio 13 Glucose Level 106 H 70-105 MG/DL Calcium Level 10.4 H 8.5-10.1 MG/DL Corrected Calcium 10.1 8.5-10.1 MG/DL Magnesium Level 2.2 1.6-2.4 MG/DL Total Bilirubin 0.4 0.1-1.0 MG/DL Aspartate Amino Transf (AST/SGOT) 14 5-34 U/L Alanine Aminotransferase (ALT/SGPT) 10 0-55 U/L Alkaline Phosphatase 68 40-136 U/L Myoglobin 55.0 10.0-92.0 NG/ML Troponin I < 0.028 <0.028 NG/ML Total Protein 7.8 6.4-8.2 GM/DL Albumin 4.4 3.2-4.5 GM/DL My Orders Orders - NAI ALONZO MD Cbc With Automated Diff (08/09/22 09:03) Magnesium (08/09/22 09:03) Chest 1 View, Ap/Pa Only (08/09/22 09:03) Comprehensive Metabolic Panel (08/09/22 09:03) Myoglobin Serum (08/09/22 09:03) Protime With Inr (08/09/22 09:03) Partial Thromboplastin Time (08/09/22 09:03) O2 (08/09/22 09:03) Monitor-Rhythm Ecg Trace Only (08/09/22 09:03) Lipid Panel (08/10/22 06:00) Ed Iv/Invasive Line Start (08/09/22 09:03) Troponin I Rex (08/09/22 09:03) Nitroglycerin 0.4 Mg Btl 25's (Nitrostat (08/09/22 09:15) Aspirin Chewable Tablet (Baby Aspirin Ch (08/09/22 09:15) Manual Differential (08/09/22 08:47) Sucralfate Tablet (Carafate Tablet) (08/09/22 10:00) Lidocaine 2% Viscous 15 Ml (Xylocaine Vi (08/09/22 10:00) Antacid Suspension (Mylanta Suspension (08/09/22 10:00) Troponin I [place] (08/09/22 10:45) Medications Given in ED Current Medications Medications Dose Ordered Sig/Walker Route Start Time Stop Time Status Last Admin Dose Admin Al Hydrox/Mg Hydrox/Simethicone 30 ml ONCE ONCE PO 08/09/22 10:00 08/09/22 10:01 DC 08/09/22 10:01 30 ML Aspirin 324 mg ONCE ONCE PO 08/09/22 09:15 08/09/22 09:16 DC 08/09/22 09:31 324 MG Lidocaine HCl 5 ml ONCE ONCE PO 08/09/22 10:00 08/09/22 10:01 DC 08/09/22 10:01 5 ML Nitroglycerin 0.4 mg UD PRN SL 08/09/22 09:15 08/09/22 09:33 0.4 MG Sucralfate 1 gm ONCE ONCE PO 08/09/22 10:00 08/09/22 10:01 DC 08/09/22 10:00 1 GM Vital Signs/I&O 08/09/22 08:41 Temp 35.6 Pulse 78 Resp 14 B/P (MAP) 194/105 (134) Pulse Ox 97 O2 Delivery Room Air Blood Pressure Mean: 134 Progress Progress Note : Time: 11:09 Progress Note Patient seen and evaluated by me, 82-year-old male with a history of coronary artery disease presents with midsternal chest pressure x24 hours. Evaluation today includes physical exam, chest x-ray, EKG, CBC, chemistry, troponin and coag studies. Chest x-ray is reviewed and negative, EKG shows normal sinus rhythm with left bundle branch block, no concerning findings for STEMI. CBC shows a leukocytosis at 15,000 otherwise unremarkable. Chemistry is unremar kable, troponin x2 negative. Coags within normal limits. Patient was treated with full-strength aspirin as well as sublingual nitro. As his story sounded more related to "indigestion" I also gave him a GI cocktail which seemed to alleviate his symptoms more than the nitro. He is complaining of feeling a lot of "belching" over the last 24 hours and he relates this to eating a cold big potato with blue cheese dressing yesterday afternoon. He had intervention approximately 1 month ago with angioplasty to single coronary artery disease with a prior stent. No other arteries were concerning for significant blockage. He has follow-up with his primary care doctor scheduled in a week. He recently saw Dr. 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 No concerning findings on history or physical examination for acute aortic dissection, pulmonary embolism, pneumonia, pneumothorax, or any other acute processes. He is comfortable with discharge home. His son is at the bedside and is also comfortable with discha rge. Return precautions have been discussed. All questions are sought and answered. Patient is stable for discharge. Initial ECG Impression Date: Aug 09, 2022 Initial ECG Impression Time: 08:48 Initial ECG Rate: 73 Comment Left Bindle Branch Block; Diagnostic Imaging Diagonstic Imaging: Xray Plain Films/CT/US/NM/MRI: chest Comments [facility], [place] NAME: [facility] REC#: [id number] PT STATUS: REG ER : 1940 PHYSICIAN: NAI ALONZO MD ADMIT DATE: 08/09/22/ER Draft Date of Exam:08/09/22 CHEST 1 VIEW, AP/PA ONLY INDICATION: Chest pain. COMPARISON: 07/03/2022. DISCUSSION: Single portable upright view of the chest was obtained. Elevated right hemidiaphragm. Normal heart size. No consolidation, pleural fluid, or pneumothorax. No osseous abnormality. IMPRESSION: 1. Negative chest. Dictated on workstation # [id number] Dict: 08/09/22 0935 Trans: 08/09/22 0943 [facility] [id number] Interpreted by: MOLLY GALEANA MD Electronically signed by: Departure Impression Primary Impression: Chest pain Qualified Codes: R07.9 - Chest pain, unspecified Additional Impressions: Indigestion History of coronary artery disease Disposition: HOME, SELF-CARE Condition: Improved Departure-Patient Inst. Decision time for Depature: 11:12 Referrals: ROLF BRISENO MD (PCP/Family) Primary Care Physician NITIN WALSH MD Patient Instructions: Chest Pain That Is Not Caused by the Heart (DC), Dyspepsia Add. Discharge Instructions: Continue your daily prescribed medications as directed. Please keep your follow-up appointment in [address] Briseno. If you have a return of chest pain especially pain that is associated with nausea, sweating, shortness of breath or change in location of the pain please return to the emergency department for reevaluation. Copy Copies To 1: ROLF BRISENO MD Copies To 2: NITIN WALSH MD, KATHRYN M MD Aug 09, 2022 08:58
[2022-08-09 09:11] LABS: BASOPHILS # (AUTO) 0.1 10^3/uL (0.0-0.1); BASOPHILS % (AUTO) 1 % (0-10); EOSINOPHILS # (AUTO) 0.3 10^3/uL (0.0-0.3); EOSINOPHILS % (AUTO) 2 % (0-10); HEMATOCRIT 46 % (40-54); HEMOGLOBIN 14.1 g/dL (13.3-17.7); LYMPHOCYTES # (AUTO) 5.9 10^3/uL (1.0-4.0); LYMPHOCYTES % (AUTO) 39 % (12-44); MEAN CORPUSCULAR HEMOGLOBIN 27 pg (25-34); MEAN CORPUSCULAR HGB CONC 31 g/dL (32-36); MEAN CORPUSCULAR VOLUME 87 fL (80-99); MEAN PLATELET VOLUME 10.6 fL (9.0-12.2); MONOCYTES # (AUTO) 0.9 10^3/uL (0.0-1.0); MONOCYTES % (AUTO) 6 % (0-12); NEUTROPHILS # (AUTO) 8.1 10^3/uL (1.8-7.8); NEUTROPHILS % (AUTO) 52 % (42-75); PLATELET COUNT 298 10^3/uL (130-400); WHITE BLOOD COUNT 15.4 10^3/uL (4.3-11.0)
[2022-08-09 09:14] LABS: ALBUMIN 4.4 GM/DL (3.2-4.5)
[2022-08-09 09:15] LABS: CALCIUM 10.4 MG/DL (8.5-10.1)
[2022-08-09] MEDS ORDERED: ASPIRIN 81 MG CHEW (CHILDREN'S ASA) PO ONE (09:15)
[2022-08-09] MEDS ORDERED: NITROGLYCERIN 0.4 MG SL TABS BTL 25'S SL PRN (09:15)
[2022-08-09 09:16] LABS: TOTAL PROTEIN 7.8 GM/DL (6.4-8.2)
[2022-08-09 09:18] LABS: BILIRUBIN,TOTAL 0.4 MG/DL (0.1-1.0)
[2022-08-09 09:20] LABS: CREATININE SERUM 1.2 MG/DL (0.60-1.30)
[2022-08-09 09:21] LABS: INR 0.9 (0.8-1.4); PROTHROMBIN TIME PATIENT 12.6 SEC (12.2-14.7)
[2022-08-09 09:23] LABS: MAGNESIUM 2.2 MG/DL (1.6-2.4)
--- NOTE | 2022-08-09 09:44 | Diagnostic Imaging Report ---
INDICATION: Chest pain. COMPARISON: 07/03/2022. DISCUSSION: Single portable upright view of the chest was obtained. Elevated right hemidiaphragm. Normal heart size. No consolidation, pleural fluid, or pneumothorax. No osseous abnormality. IMPRESSION: 1. Negative chest. Dictated by: Dictated on workstation # [id number]
[2022-08-09 09:51] LABS: ANISOCYTOSIS SLIGHT; BAND NEUTROPHILS 1 %; BASOPHILS % (MANUAL) 0 %; EOSINOPHILS % (MANUAL) 4 %; LYMPHOCYTES % (MANUAL) 39 %; MONOCYTES % (MANUAL) 7 %; NEUTROPHILS % (MANUAL) 49 %
[2022-08-09] MEDS ORDERED: LIDOCAINE 2% VISCOUS 15 ML UDC PO ONE (10:00)
[2022-08-09] MEDS ORDERED: SUCRALFATE 1 GM (CARAFATE) TAB PO ONE (10:00)
[2022-08-09] MEDS ORDERED: ANTACID SUSP 30 ML UDC (MYLANTA) PO ONE (10:00)
[2022-08-09 11:29] VITALS: BP 171/95
== END 2022-08-09 11:29 | disposition home or self-care (01) ==
LOC: EDUNIT# 08:39 → ER 08:41
DX: K30 Functional dyspepsia (principal); R07.89 Other chest pain; D72.829 Elevated white blood cell count, unspecified; F17.210 Nicotine dependence, cigarettes, uncomplicated; Z86.79 Personal history of other diseases of the circulatory system
CPT/HCPCS: 36415; 71045; 80053; 83735; 83874; 84484; 85007; 85027; 85610; 85730; 93005; 93041

== ENCOUNTER 2023-01-11 23:43 | Emergency (ER) | payer MEDICARE ==
[~2023-01-11] VITALS: Ht 180 cm; Wt 95.3 kg
[~2023-01-11 23:43] MED LIST changes: -ENAL10TA16 PO; +ENLP10T PO
[2023-01-11] MEDS ORDERED: NITROGLYCERIN 2% OINT 1 GM UNIT DOSE PACKET TOP STA (23:47)
[2023-01-11 23:58] LABS: BASOPHILS % (AUTO) 0 % (0-10); EOSINOPHILS # (AUTO) 0.3 10^3/uL (0.0-0.3); EOSINOPHILS % (AUTO) 2 % (0-10); HEMATOCRIT 45 % (40-54); HEMOGLOBIN 13.7 g/dL (13.3-17.7); LYMPHOCYTES # (AUTO) 4.9 10^3/uL (1.0-4.0); LYMPHOCYTES % (AUTO) 36 % (12-44); MEAN CORPUSCULAR HEMOGLOBIN 27 pg (25-34); MEAN CORPUSCULAR HGB CONC 31 g/dL (32-36); MEAN CORPUSCULAR VOLUME 87 fL (80-99); MEAN PLATELET VOLUME 10.9 fL (9.0-12.2); MONOCYTES # (AUTO) 0.8 10^3/uL (0.0-1.0); MONOCYTES % (AUTO) 6 % (0-12); NEUTROPHILS # (AUTO) 7.3 10^3/uL (1.8-7.8); NEUTROPHILS % (AUTO) 55 % (42-75); PLATELET COUNT 256 10^3/uL (130-400); WHITE BLOOD COUNT 13.4 10^3/uL (4.3-11.0)
[2023-01-12] MEDS ORDERED: ASPIRIN 81 MG CHEW (CHILDREN'S ASA) PO ONE
[2023-01-12 00:10] LABS: INR 0.9 (0.8-1.4); PROTHROMBIN TIME PATIENT 12.3 SEC (12.2-14.7)
[2023-01-12 00:11] LABS: ALBUMIN 4.3 GM/DL (3.2-4.5)
[2023-01-12 00:12] LABS: CHLORIDE 103 MMOL/L (98-107); POTASSIUM 3.9 MMOL/L (3.6-5.0); SODIUM 140 MMOL/L (135-145)
[2023-01-12 00:13] LABS: AMYLASE 69 U/L (25-125); CALCIUM 10.3 MG/DL (8.5-10.1)
[2023-01-12 00:14] LABS: FIBRIN DEGRADATION PRODUCTS 0.51 UG/ML (0.00-0.49); GLUCOSE 208 MG/DL (70-105); TOTAL PROTEIN 7.3 GM/DL (6.4-8.2)
[2023-01-12 00:15] LABS: CARBON DIOXIDE 27 MMOL/L (21-32)
[2023-01-12 00:16] LABS: BILIRUBIN,TOTAL 0.4 MG/DL (0.1-1.0)
[2023-01-12 00:17] LABS: ALKALINE PHOSPHATASE 77 U/L (40-136)
[2023-01-12 00:18] LABS: GFR ESTIMATED 51
[2023-01-12 00:19] LABS: BUN/CREATININE RATIO 12
[2023-01-12 00:20] LABS: MAGNESIUM 1.9 MG/DL (1.6-2.4)
[2023-01-12 00:21] LABS: ALANINE AMINOTRANSFERASE 13 U/L (0-55)
[2023-01-12 00:22] LABS: CREATINE KINASE 26 U/L (30-200); LIPASE 21 U/L (8-78)
[2023-01-12 00:28] LABS: CREATINE KINASE MB 1.3 NG/ML (<6.6)
--- NOTE | 2023-01-12 00:42 | ED Chest Pain ---
General Chief Complaint: Chest Pain Stated Complaint: CP,PAIN DOWN BOTH ARMS,BLOOD PRESSURE 219/116 Nursing Triage Note: C/O CHEST PAIN RADIATING DOWN BOTH ARMS X1HR. Source: patient (GUERLINE MIRELES DO) History of Present Illness Date Seen by Provider: Jan 11, 2023 Time Seen by Provider: 23:45 Initial Comments PT ARRIVES VIA POV FROM HOME WITH SON--PT LIVES ALONE C/O CHEST PAIN THAT BEGAN ABOUT 1 HOUR AGO PT HAD JUST LAID DOWN TO GO TO SLEEP, WHEN PAIN BEGAN PAIN IS IN CENTER OF CHEST AND GOES DOWN BOTH ARMS PAIN IS CONSTANT, AND NOTHING WORSENS OR IMPROVES PAIN. HE HAS NOT TAKEN ANYTING FOR PAIN HE HAS BEEN A LITTLE NAUSEATED, NO VOMITING. NO ABDOMINAL PAIN NO SWEATS NO SHORTNESS OF BREATH NO DIZZINESS OR SYNCOPE NO PALPITATIONS NO CHANGE IN CHRONIC LEG SWELLING--LEFT LEG HAS BEEN SWOLLEN MORE THAN THE RIGHT FOR THE LAST 6-8 MONTHS. NO COUGH, NO FEVER OR RECENT ILLNESS HE CHECKED HIS BLOOD PRESSURE AND IT WAS 219/116. HE HAS HTN, HYPERLIPIDEMIA, CHRONIC KIDNEY DISEASE, CAD. 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 ALFARO PAPER MILL MANAGER: DR. VILLAREAL (GUERLINE MIRELES DO) Allergies and Home Medications Allergies Coded Allergies: peanut (Verified Allergy, Unknown, 03/12/18) strawberry (Verified Allergy, Unknown, 03/12/18) Patient Home Medication List Home Medication List Reviewed: Yes (MARIANNE BROCK MD) Aspirin (Aspirin EC) 81 Mg Tablet., 81 MG PO DAILY, (Reported) Entered as Reported by: LEVI VELA on 11/05/21 1010 Atorvastatin Calcium (Atorvastatin Calcium) 10 Mg Tablet, 10 MG PO HS, (Reported) Entered as Reported by: LEVI VELA on 11/05/21 1010 Clopidogrel Bisulfate (Clopidogrel) 75 Mg Tablet, 75 MG PO DAILY, (Reported) Entered as Reported by: LEVI VELA on 11/05/21 1010 Docusate Sodium (Stool Softener) 100 Mg Tablet, 100 MG PO HS, (Reported) Entered as Reported by: LEVI VELA on 11/05/21 1010 Enalapril Maleate (Enalapril Maleate) 10 Mg Tablet, 10 MG PO DAILY, (Reported) Entered as Reported by: JACQUELYN PACHECO on 10/16/17 1054 Furosemide (Furosemide) 20 Mg Tablet, 20 MG PO DAILY PRN for FLUID RETENTION, (Reported) Entered as Reported by: LEVI VELA on 11/05/21 1010 Methadone HCl (Methadone HCl) 10 Mg Tablet, 20 MG PO 1200, (Reported) Entered as Reported by: LEVI VELA on 11/05/21 1010 Methadone HCl (Methadone HCl) 10 Mg Tablet, 20 MG PO TID, (Reported) Entered as Reported by: OMA BORGES on 07/03/22 1448 Metoprolol Succinate (Metoprolol Succinate) 25 Mg Tab.er.24h, 25 MG PO HS, (Reported) Entered as Reported by: JACQUELYN PACHECO on 10/16/17 1054 Naproxen Sodium (Naproxen Sodium) 220 Mg Tablet, 220-440 MG PO BID PRN for PAIN- MILD (1-4), (Reported) Entered as Reported by: LEVI VELA on 11/05/21 1010 Kent-3 Fatty Acids/Fish Oil (Kent 3 1,000 mg Softgel) 300 Mg-1,000 Mg Capsule, 1 EACH PO 1200, (Reported) Entered as Reported by: ELVI VELA on 11/05/21 1010 Pantoprazole Sodium (Pantoprazole Sodium) 40 Mg Tablet.dr, 40 MG PO HS, (Repor rocky) Entered as Reported by: LEVI VELA on 11/05/21 101 Potassium Chloride (K-Tab ER) 10 Meq Tablet.er, 10 MEQ PO DAILY PRN for FLUID RETENTION, (Reported) Entered as Reported by: LEVI VELA on 11/05/21 101 Simethicone (Simethicone) 180 Mg Capsule, 180 MG PO TID PRN for GAS, (Reported) Entered as Reported by: LEVI VELA on 11/05/21 1010 Review of Systems Review of Systems Constitutional: no symptoms reported; No chills, No diaphoresis, No dizziness, No fever, No malaise, No weakness EENTM: No Symptoms Reported Respiratory: No Symptoms Reported; Denies Cough, Denies Shortness of Air Cardiovascular: See HPI, Chest Pain, Edema; Denies Irregular Heart Rate, Denies Lightheadedness, Denies Palpitations, Denies Syncope Gastrointestinal: See HPI; Denies Abdominal Pain; Nausea; Denies Vomiting Genitourinary: No Symptoms Reported Musculoskeletal: see HPI Skin: no symptoms reported Psychiatric/Neurological: No Symptoms Reported Endocrine: No Symptoms Reported Hematologic/Lymphatic: No Symptoms Reported (GUERLINE MIRELES DO) Past Vpoxczw-Yyhkay-Tpvyiw Hx Patient Social History Tobacco Use?: Yes Tobacco type used: Cigarettes Substance use?: No Alcohol Use?: No Pt feels they are or have been: No (GUERLINE MIRELES DO) Immunizations Up To Date Tetanus Booster (TDap): Unknown First/Initial COVID19 Vaccinat: 06/2021 Second COVID19 Vaccination Housotn: 06/2021 Third COVID19 Vaccination Date: 06/2021 (GUERLINE MIRELES DO) Seasonal Allergies Seasonal Allergies: Yes (GUERLINE MIRELES DO) Past Medical History Surgery/Hospitalization HX: tavr, cardiac stent, cholecystectomy, right hernia, hld, htn, cad, gerd Surgeries: Yes (RIGHT INGUINAL HERNIA REPAIR.CARDIAC CATH-STENT X1 AND ANGIOPLASTY) Abdominal, Cardiac, Coronary Stent, Gallbladder Respiratory: Yes Sleep Apnea Currently Using CPAP: No Cardiac: Yes (S/P TAVR 2021; S/P STENT X 1 AND ANGIOPLASTY) Chronic Edema/Swelling, Coronary Artery Disease, Heart Murmur, High Cholesterol, Hypertension, Valvular Heart Disease Neurological: No Genitourinary: No Gastrointestinal: Yes Abdominal Hernia, Gall Bladder Disease Musculoskeletal: Yes (ON METHADONE) Arthritis, Fibromyalgia, Chronic Back Pain Endocrine: No HEENT: No Cancer: No Psychosocial: No Integumentary: No Blood Disorders: No Adverse Reaction/Blood Tranf: No (GUERLINE MIRELES DO) Family Medical History No Pertinent Family Hx, Heart Disease, Hypertension CARDIAC CATH 06/[address] VILLAREAL: CONCLUSION: 1. Acute chest pain with left bundle branch block, emergency cardiac catheterization with balloon angioplasty to the diagonal artery within the old stent in the LAD with significant improvement in the diagonal artery then balloon angioplasty to the [place] LAD to tuck the struts of the stent at the intervention site with excellent results. No residual stenosis. 2. Dominant large circumflex artery with mild disease nonobstructive disease, mild disease in the right coronary artery 3. Struts of prosthetic valve in the aortic position, patient has history of TAVR (GUERLINE MIRELES DO) Physical Exam Vital Signs Vital Signs - First Documented 01/11/23 23:45 Temp 37.2 Pulse 107 Resp 16 B/P (MAP) 197/115 (142) Pulse Ox 98 O2 Delivery Nasal Cannula O2 Flow Rate 2.00 (MARIANNE BROCK MD) Vital Signs Capillary Refill : Less Than 3 Seconds (GUERLINE MIRELES DO) Height, Weight, BMI Height: 5'11.00" Weight: 214lbs. 9.0oz. 97.136344ur; 29.00 BMI Method:Stated General Appearance: No Apparent Distress, WD/WN HEENT: PERRL/EOMI Neck: Full Range of Motion, Normal Inspection, Non Tender, Supple Respiratory: Chest Non Tender, Normal Breath Sounds, No Accessory Muscle Use, No Respiratory Distress Cardiovascular: No JVD, No Murmur, Normal Peripheral Pulses, Tachycardia Gastrointestinal: Non Tender, Soft Extremity: Normal Capillary Refill, Pedal Edema (TRACE / 1+ EDEMA ON RIGHT; 1+ / 2+ EDEMA ON LEFT. NO CALF TENDERNESS. ) Neurologic/Psychiatric: Alert, Oriented x3, No Motor/Sensory Deficits, Normal Mood/Affect, corporate specialist II-XII Norm as Tested Skin: Normal Color, Warm/Dry (GUERLINE MIRELES DO) Progress/Results/Core Measures Results/Orders Lab Results Laboratory Tests Test 01/11/23 23:51 01/12/23 01:45 01/12/23 09:54 Range/Units White Blood Count 13.4 H 4.3-11.0 10^3/uL Red Blood Count 5.13 4.30-5.52 10^6/uL Hemoglobin 13.7 13.3-17.7 g/dL Hematocrit 45 40-54 % Mean Corpuscular Volume 87 80-99 fL Mean Corpuscular Hemoglobin 27 25-34 pg Mean Corpuscular Hemoglobin Concent 31 L 32-36 g/dL Red Cell Distribution Width 14.5 10.0-14.5 % Platelet Count 256 130-400 10^3/uL Mean Platelet Volume 10.9 9.0-12.2 fL Immature Granulocyte % (Auto) 1 % Neutrophils (%) (Auto) 55 42-75 % Lymphocytes (%) (Auto) 36 12-44 % Monocytes (%) (Auto) 6 0-12 % Eosinophils (%) (Auto) 2 0-10 % Basophils (%) (Auto) 0 0-10 % Neutrophils # (Auto) 7.3 1.8-7.8 10^3/uL Lymphocytes # (Auto) 4.9 H 1.0-4.0 10^3/uL Monocytes # (Auto) 0.8 0.0-1.0 10^3/uL Eosinophils # (Auto) 0.3 0.0-0.3 10^3/uL Basophils # (Auto) 0.0 0.0-0.1 10^3/uL Immature Granulocyte # (Auto) 0.1 0.0-0.1 10^3/uL Prothrombin Time 12.3 12.2-14.7 SEC INR Comment 0.9 0.8-1.4 Activated Partial Thromboplast Time 33 24-35 SEC D-Dimer 0.51 H 0.00-0.49 UG/ML Sodium Level 140 135-145 MMOL/L Potassium Level 3.9 3.6-5.0 MMOL/L Chloride Level 103 98-107 MMOL/L Carbon Dioxide Level 27 21-32 MMOL/L Anion Gap 10 5-14 MMOL/L Blood Urea Nitrogen 17 7-18 MG/DL Creatinine 1.40 H 0.60-1.30 MG/DL Estimat Glomerular Filtration Rate 51 BUN/Creatinine Ratio 12 Glucose Level 208 H 70-105 MG/DL Calcium Level 10.3 H 8.5-10.1 MG/DL Corrected Calcium 10.1 8.5-10.1 MG/DL Magnesium Level 1.9 1.6-2.4 MG/DL Total Bilirubin 0.4 0.1-1.0 MG/DL Aspartate Amino Transf (AST/SGOT) 19 5-34 U/L Alanine Aminotransferase (ALT/SGPT) 13 0-55 U/L Alkaline Phosphatase 77 40-136 U/L Total Creatine Kinase 26 L 30-200 U/L Creatine Kinase MB 1.3 <6.6 NG/ML Myoglobin 37.9 10.0-92.0 NG/ML Troponin I < 0.028 0.153 H 0.531 *H <0.028 NG/ML B-Type Natriuretic Peptide 85.0 <100.0 PG/ML Total Protein 7.3 6.4-8.2 GM/DL Albumin 4.3 3.2-4.5 GM/DL Amylase Level 69 25-125 U/L Lipase 21 8-78 U/L (MARIANNE BROCK MD) My Orders Orders - MARIANNE BROCK MD Morphine Injection (Morphine Injection (01/12/23 08:48) Ondansetron Injection (Zofran Injectio (01/12/23 09:00) Lactated Ringers (Lr 1000 Ml Iv Solution (01/12/23 09:30) Troponin I Angelina (01/12/23 09:30) Ed Admission (Communication) (01/12/23 09:24) Morphine Injection (Morphine Injection (01/12/23 15:02) (MARIANNE BROCK MD) Medications Given in ED Current Medications Medications Dose Ordered Sig/Walker Route Start Time Stop Time Status Last Admin Dose Admin Lactated Ringer's 1,000 ml @ 150 mls/hr [id number] ONCE IV 01/12/23 09:30 01/12/23 16:09 DC 01/12/23 09:39 150 MLS/HR Ondansetron HCl 4 mg ONCE ONCE IVP 01/12/23 09:00 01/12/23 09:01 DC 01/12/23 08:53 4 MG (MARIANNE BROCK MD) Vital Signs/I&O 01/11/23 01/11/23 01/12/23 23:45 23:45 16:16 Temp 37.2 Pulse 107 67 Resp 16 18 B/P (MAP) 197/115 (142) 181/95 Pulse Ox 98 98 96 O2 Delivery Nasal Cannula Nasal Cannula O2 Flow Rate 2.00 2.00 (MARIANNE BROCK MD) Blood Pressure Mean: 142 Progress Progress Note : Progress Note CHEST PAIN PROTOCOL INITIATED GIVEN: -ASPIRIN -NITROPASTE -PLAVIX -LOVENOX VITALS ON ARRIVAL: TEMP 37.2, BP 197/115, HR 107, O2 SAT 98% ON 2L/NC PT IS PAIN -FREE WITH 2" NITROPASTE, AND BP DOWN TO 160'S/90'S. HR DOWN TO 70'S. PERTINENT LAB FINDINGS: WBC 13.4 ELECTROLYTES NORMAL CR 1.4 GLUCOSE 208 TROPONIN < 0.028 BNP 85 AMYLASE/LIPASE NORMAL REPEAT TROPONIN ORDERED AND IS ELEVATED TO 0.153. EKG SHOWS CHRONIC LEFT BUNDLE BRANCH BLOCK CXR DOES NOT SHOW ANY OBVIOUS ACUTE PROCESS, PENDING RADIOLOGIST REVIEW PT BEING HELD IN ER, UNTIL MORNING, WE WILL NOT HAVE PAPER MILL MANAGER FROM 0700- 1300. DR. HARGROVE WILL EVALUATE PT IN THE MORNING. 0330--PT IS PAIN-FREE AT THIS TIME; VITALS; BP 122/66, HR 55, O2 SAT 98% ON 2L/NC. 0404--PT SLEEPING ON RIGHT SIDE. HR 54, BP 84/54. O2 SAT 100% ON 2L/NC. ONE INCH OF NITROPASTE REMOVED. PT ROLLED ONTO BACK AND BP IMMEDIATELY 120/91. PT IS PAIN-FREE; 0600--PT IS SLEEPING, VITALS ARE STABLE. CARE TURNED OVER TO DR. BROCK AT [facility]IFT [facility]. (GUERLINE MIRELES DO) Progress Note #1: Time: 08:54 Progress Note Patient complains of chronic pain unrelieved because he has not had his usual methadone. He is also nauseated. Morphine and Zofran has been ordered. Disposition discussed with Dr. Hargrove. We will hold patient in the ED until a insurance licensing supervisor comes on duty after 1300. SBP stable around 160 at this time. 1 inch nitro paste remains on. Progress Note #2: Time: 12:08 Progress Note Patient remains stable at this time. He was experiencing some notable pain. He usually takes methadone for chronic pain and has done so for decades. Since we are trying to keep him n.p.o., morphine was used as a substitute. This did control his pain. Nausea was treated with Zofran. Blood pressure remained stable in the 150s and 160s systolic with the Nitropaste in place. Currently, [facility] in [place] does not have any cardiology coverage. A insurance licensing supervisor was expected at 1300, but travel delays have prevented that start time. Cardiology will now not be available until an estimated time of 2100. For that reason, we are now seeking transfer to continue cardiac care. Patient's primary insurance licensing supervisor is Dr. Figueroa. [facility] in [place], but [facility] is on full admission diversion due to capacity. I spoke with Patti on behalf of Dr. Hickey, hospitalist, at [facility] in [place]. They are excepting transfer. Progress Note #3: Time: 16:09 Progress Note Patient has remained stable. He required an additional dose of morphine for control of his chronic pain. Transport has been accepted and transfer by at [facility] has been secured. (MARIANNE BROCK MD) Initial ECG Impression Date: Jan 11, 2023 Initial ECG Impression Time: 23:48 Initial ECG Rate: 101 Initial ECG Rhythm: Normal Sinus (LBBB) Initial ECG Intervals KS 169 QRS 170 QT/QTC 428/555 Initial ECG Comparisson: Unchanged Comment INTERPRETED BY ME (GUERLINE MIRELES DO) Diagnostic Imaging Comments CXR--POOR INSPIRATION FILM, BUT NO ACUTE PROCESS, PENDING RADIOLOGIST REVIEW Reviewed: Reviewed by Me (GUERLINE MIRELES DO) Diagonstic Imaging: Xray Plain Films/CT/US/NM/MRI: chest Comments NAME: [facility] REC#: [id number] PT STATUS: REG ER : 1940 PHYSICIAN: GUERLINE MIRELES DO ADMIT DATE: 01/11/23/ER Draft Date of Exam:01/12/23 CHEST 1 VIEW, AP/PA ONLY INDICATION: Chest pain. COMPARISON: 08/09/2022 TECHNIQUE: Single radiograph of the chest dated 01/12/2023. FINDINGS: The cardiac silhouette is enlarged, though similar to the prior examination. No significant pulmonary vascular congestion. Significantly low lung volumes without focal pulmonary opacity. No significant pleural effusion. No pneumothorax. No acute osseous abnormality. IMPRESSION: Stable cardiomegaly without pulmonary vascular congestion. Significantly low lung volumes without focal pulmonary consolidation. Dictated on workstation # [id number] Dict: 01/12/23 0752 Trans: 01/12/23 [facility]5 [id number] Interpreted by: BHAVIN SANTIAGO MD (MARIANNE BROCK MD) Departure Communication (Admissions) 0045--SPOKE WITH DR. BRINK, PAPER MILL MANAGER [employer] FR[employer] DESK CLERK. HE ADVISES TO DO REPEAT TROPONIN IN 1 HOUR AND IF POSITIVE, WILL CALL HIM BACK. WILL NOT HAVE CARDIOLOGY SERVICES STARTING AT 0700, UNTIL 1300. 0213--CALLED DR. BRINK, AND DISCUSSED ELEVATED TROPONIN. HE ADVISES TO CALL DR. HARGROVE, HOSPITALIST, REGARDING ADMITTING HERE VS TRANSFER. 214--SPOKE WITH DR. HARGROVE, SHE ADVISES HOLDING PT IN ER UNTIL SHE CAN EVALUATE THE PATIENT IN THE MORNING. IF PT BECOMES UNSTABLE, WILL NEED TO TRANSFER TO HIGHER LEVEL OF CARE. 218--DR. BRINK CALLED BACK, AND HE IS IN AGREEMENT WITH THE ABOVE. HE ADVISES TO GIVE LOADING DOSE OF PLAVIX WELL LOVENOX (GUERLINE MIRELES DO) Time/Spoke to Admitting Phy: 08:57 Dr. Hargrove (MARIANNE BROCK MD) Impression Primary Impression: NSTEMI (non-ST elevated myocardial infarction) Additional Impressions: Chest pain CAD (coronary artery disease) S/P TAVR (transcatheter aortic valve replacement) Uncontrolled hypertension CHRONIC LBBB Disposition: XFER [facility] Condition: Stable Admissions Decision to Admit Reason: Admit from ER (General) (admission cancelled due to no cardiology coverage. ) Decision to Admit/Date: Jan 12, 2023 Time/Decision to Admit Time: 06:00 (MARIANNE BROCK MD) Transfer Transfer Reason: Exceeds level of care Time Spoke to Accepting Phy: 12:06 Transfer Progress Notes Transfer accepted to the service of Dr. Hickey at [facility]. Transfer Time: 17:01 Transfer Facility: [facility] Method of Transfer: EMS (MARIANNE BROCK MD) Departure-Patient Inst. Referrals: ROLF ALFARO MD (PCP/Family) Primary Care Physician Copy Copies To 1: ROLF ALFRAO MD, LISA K DO Jan 12, 2023 00:42 MARIANNE BROCK MD Jan 12, 2023 08:59
[2023-01-12] MEDS ORDERED: NITROGLYCERIN 2% OINT 1 GM UNIT DOSE PACKET TOP ONE (00:45)
[2023-01-12] MEDS ORDERED: ENOXAPARIN 100 MG/1 ML (LOVENOX) SYR SC ONE (02:30)
[2023-01-12] MEDS ORDERED: CLOPIDOGREL 300 MG (PLAVIX) TABLET PO ONE (02:30)
--- NOTE | 2023-01-12 07:55 | Diagnostic Imaging Report ---
INDICATION: Chest pain. COMPARISON: 08/09/2022 TECHNIQUE: Single radiograph of the chest dated 01/12/2023. FINDINGS: The cardiac silhouette is enlarged, though similar to the prior examination. No significant pulmonary vascular congestion. Significantly low lung volumes without focal pulmonary opacity. No significant pleural effusion. No pneumothorax. No acute osseous abnormality. IMPRESSION: Stable cardiomegaly without pulmonary vascular congestion. Significantly low lung volumes without focal pulmonary consolidation. Dictated by: Dictated on workstation # [id number]
[2023-01-12] MEDS ORDERED: morphine INJ 10 MG/ML 1ML (SYR OR VIAL) IVP STA ×2 (08:48→15:02)
[2023-01-12] MEDS ORDERED: ONDANSETRON 4 MG/2 ML (SDV) Z0FRAN IVP ONE (09:00)
[2023-01-12] MEDS ORDERED: LACTATED RINGERS 1,000 ML IV ONE (09:30)
[2023-01-12 16:16] VITALS: BP 181/95
== END 2023-01-12 17:01 | disposition short-term general hospital (02) ==
LOC: EDUNIT# 23:43 → ER 23:46
DX: I21.4 Non-ST elevation (NSTEMI) myocardial infarction (principal); I25.119 Atherosclerotic heart disease of native coronary artery with unspecified angina pectoris; I13.10 Hypertensive heart and chronic kidney disease without heart failure, with stage 1 through stage 4 chronic kidney disease, or unspecified chronic kidney disease; N18.9 Chronic kidney disease, unspecified; I44.7 Left bundle-branch block, unspecified; G89.29 Other chronic pain; M54.9 Dorsalgia, unspecified; F17.210 Nicotine dependence, cigarettes, uncomplicated; Z95.4 Presence of other heart-valve replacement; Z95.5 Presence of coronary angioplasty implant and graft; Z79.1 Long term (current) use of non-steroidal anti-inflammatories (NSAID)
CPT/HCPCS: 36415; 71045; 80053; 82150; 82550; 82553; 83690; 83735; 83874; 83880; 84484; 85025; 85379; 85610; 85730; 93005; 93041